=== PATIENT | female | born 2000 | race Caucasian/White ===

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

== ENCOUNTER → 2022-12-30 | Outpatient (CLI) | payer OTHER, SELFPAY ==
[2022-12-30 16:45] LABS: AST(SGOT) 12 U/L (15-37); Alanine Aminotransfer ALT/SGPT 20 U/L (13-56); Albumin, Serum 3.6 g/dL (3.2-5.0); Alkaline Phosphatase 70 U/L (45-117); Anion Gap 6 (5-15); BUN 12 mg/dL (7-18); BUN/Creat Ratio 16.4 RATIO (10-20); Calcium,Total 8.8 mg/dL (8.5-10.1); Chloride 108 mmol/L (98-107); Cholesterol 194 mg/dL (200); Creatinine, Serum 0.73 mg/dL (0.55-1.02); EST Glomerular Filtration Rate 107 mL/min (>60); Est Glom Filt Rate - Afr Amer 129 mL/min (>60); Globulin 3.7 g/dL (2.2-4.2); Glucose 93 mg/dL (74-106); High Density Lipoprotein 66 mg/dL; Potassium 3.6 mmol/L (3.5-5.1); Protein, Total 7.3 g/dL (6.4-8.2); Sodium Level 138 mmol/L (136-145); T4 Free Direct 1.13 ng/dL (0.76-1.46); Thyroid Stim Hormone (TSH) 0.91 uIU/mL (0.358-3.74); Triglycerides 66 mg/dL; Very Low Density Lipoprotein 13 mg/dL (5-40)
== END | disposition home or self-care (01) ==
PROVIDERS: PCP Nurse Practitioner Family; Referring Provider Nurse Practitioner Family; Visit Provider Nurse Practitioner Family
DX: L65.9 Nonscarring hair loss, unspecified (principal); Z13.6 Encounter for screening for cardiovascular disorders; Z13.1 Encounter for screening for diabetes mellitus
CPT/HCPCS: 36415; 80053; 80061; 84439; 84443

== ENCOUNTER → 2023-06-02 | Outpatient (CLI) | payer OTHER, SELFPAY ==
[2023-06-02 16:58] LABS: ALB/GLOB Ratio 1.2 RATIO (0.9-2.4); AST(SGOT) 10 U/L (15-37); Alanine Aminotransfer ALT/SGPT 19 U/L (13-56); Albumin, Serum 3.9 g/dL (3.2-5.0); Alkaline Phosphatase 59 U/L (45-117); Anion Gap 5 (5-15); BUN 9 mg/dL (7-18); BUN/Creat Ratio 11.5 RATIO (10-20); Calcium,Total 9.1 mg/dL (8.5-10.1); Chloride 109 mmol/L (98-107); Creatinine, Serum 0.78 mg/dL (0.55-1.02); EST Glomerular Filtration Rate 98 mL/min (>60); Est Glom Filt Rate - Afr Amer 119 mL/min (>60); Globulin 3.3 g/dL (2.2-4.2); Glucose 85 mg/dL (74-106); Potassium 3.9 mmol/L (3.5-5.1); Protein, Total 7.2 g/dL (6.4-8.2); Sodium Level 140 mmol/L (136-145); T4 Free Direct 1.01 ng/dL (0.76-1.46); Thyroid Stim Hormone (TSH) 1.03 uIU/mL (0.358-3.74)
--- OUTSIDE RECORDS SUMMARY | 2023-06-02 23:40 | XMS RPT_ITS | CCD ---
Author Name Unknown Address [address] [place] [address] Organization [facility] Care Team Providers Care Risk Modeler Name Role Phone ALEXANDR ADAMS, NE Primary Care Physician NE CORTES Attending Unavail able ALEXANDR ADAMS, NE Primary Care Unavail able NE CORTES Primary Care Unavail able MERT JORGENSEN Attending UnavailBEAR Higuera Attending Unavailable ALEXANDR ADAMS, NE Primary Care Unavail able Medications Current Medications Medication Drug Class(es) Dates Sig (Normalized) Sig (Original) acetaminophen 500 mg oral tablet (2 sources) Start: 06-26-2022 acetaminophen 500 mg oral tablet Dose : 1,000 mg = 2 tab(s), Oral, TID, PRN pain or fever, 0 Refill(s) Start Date: 06/26/22 Status: Ordered amoxicillin 500 mg oral capsule (1 source) Penicillin-class Antibacterial Start: 06-26-2022 End: 07-06-2022 amoxicillin 500 mg oral capsule Dose : 500 mg = 1 cap(s), Oral, BID, X 10 day(s), # 20 cap(s), 0 Refill(s), 07/06/22 8:53:00 EDT, Pharmacy: [facility]/pharmacy #[id number], Strep pharyngitis, 158.75, cm, 06/26/22 8:21:00 EDT, Height Start Date: 06/26/22 Stop Date: 07/06/22 Status: Ordered {7 (Ethinyl Estradiol 0.035 MG / norgestimate 0.18 MG Oral Tablet) / 7 (Ethinyl Estradiol 0.035 MG / norgestimate 0.215 MG Oral Tablet) / 7 (Ethinyl Estradiol 0.035 MG / norgestimate 0.25 MG Oral Tablet) / 7 (Inert Ingredients 1 MG Oral Tablet) } Pack [Tr (1 source) Progestin, Estrogen Start: 12-30-2022 take 1 tablet by mouth once daily Tri-Sprintec oral tablet Dose = 1 tab(s), Oral, Daily, # 28 tab(s), 3 Refill(s), Pharmacy: [facility]/pharmacy #[id number], 157.5, cm, 12/30/22 13:55:00 EDT, Height, kg, 12/30/22 13:55:00 EDT, Dosing Weight Start Date: 12/30/22 Status: Ordered predniSONE 20 mg oral tablet (1 source) Start: 06-26-2022 End: 07-02-2022 take 1 tablet by mouth once daily prednisone 20mg tab (TAPER) Taper 60-40-20 mg x 2 days each dose, Oral, Daily, X 6 day(s), # 12 tab(s), 0 Refill(s), 07/02/22 16:43:00 EDT, Pharmacy: [facility]/pharmacy #[id number], Strep pharyngitis, 158.75, cm, 06/26/22 8:21:00 EDT, Height Start Date: 06/26/22 Stop Date: 07/02/22 Status: Ordered sertraline 50 mg oral tablet (1 source) Serotonin Reuptake Inhibitor Start: 01-13-2023 End: 07-12-2023 sertraline 50 mg oral tablet Dose : 50 mg = 1 tab(s), Oral, qDay, # 30 tab(s), 5 Refill(s), Pharmacy: [facility]/pharmacy #[id number], 157.5, cm, 01/13/23 13:03:00 EDT, Height, kg, 01/13/23 13:03:00 EDT, Dosing Weight Start Date: 01/13/23 Stop Date: 07/12/23 Status: Ordered Completed/Discontinued Medications Medication Drug Class(es) Dates Sig (Normalized) Sig (Original) {24 (drospirenone 3 MG / Ethinyl Estradiol 0.02 MG Oral Tablet) / 4 (Inert Ingredients 1 MG Oral Tablet) } Pack [Frederickvi 28-Day] (2 sources) Progestin, Estrogen Start: 06-25-2022 End: 08-19-2023 take 1 tablet by mouth once daily Gianvi 3 mg-0.02 mg oral tablet Dose = 1 tab(s), Oral, qDay, # 84 tab(s), 4 Refill(s), Pharmacy: [facility], 157.5, cm, 01/08/22 13:48:00 EDT, Height, kg, 01/08/22 13:48:00 EDT, Dosing Weight Start Date: 06/25/22 Stop Date: 08/19/23 Status: Ordered Problems Active Problems Problem Classification Problem Date Documented Da te Episodic/Chronic Allergic reactions (1 source) Contact dermatitis 10-15-2022 Episodic Anxiety disorders (4 sources) Anxiety 04-10-2021 Chronic Contraceptive and procreative management (3 sources) Oral contraception 01-08-2022 Episodic Menstrual disorders (1 source) Break-through bleeding 12-30-2022 Chronic Mood disorders (1 source) Major depressive disorder 01-13-2023 Chronic Other bone disease and musculoskeletal deformities (3 sources) Somatic dysfunction of lower limb 05-15-2021 Episodic Other bone disease and musculoskeletal deformities (3 sources) Somatic dysfunction of pelvic region 05-15-2021 Episodic Other non-traumatic joint disorders (3 sources) Hip pain 05-15-2021 Episodic Other skin disorders (4 sources) Acne 04-18-2020 Episodic Other skin disorders (1 source) Loss of hair 12-30-2022 Episodic Other skin disorders (1 source) Mass of hand 12-30-2022 Episodic Unclassified (9 sources) Patient encounter status 04-18-2020 Past or Other Problems Problem Classification Problem Date Documented Date Episodic/Chronic Genitourinary symptoms and ill-defined conditions (2 sources) Unspecified symptoms and signs involving the genitourinary system; Translations: [Unspecified symptoms and signs involving the genitourinary system] Onset: 08-26-2022 Episodic Other upper respiratory infections (2 sources) Streptococcal pharyngitis; Translations: [Streptococcal pharyngitis] Onset: 06-26-2022 Episodic Results Test Name Value Interpretation Reference Range Facil ity Encounters Encounter Date Encounter Type Care Provider Facility Start: 01-15-2023 End: 01-16-2023 ambulatory NE LORSON CLINICAL RESOURCE MANAGER-RING ATTACHER Facility:B Start: 01-15-2023 End: 01-15-2023 Patient encounter procedure NE STRANGE CLINICAL RESOURCE MANAGER-RING ATTACHER [facility] Start: 08-26-2022 End: 08-31-2022 ambulatory NE STRANGE CLINICAL RESOURCE MANAGER-RING ATTACHER Facility:B Start: 06-26-2022 End: 07-01-2022 ambulatory BEAR IZQUIERDO Facility:B Start: 06-26-2022 End: 06-30-2022 Outreach Lab BEAR IZQUIERDO CLINICAL RESOURCE MANAGER-RING ATTACHER [facility] Start: 01-08-2022 End: 01-12-2022 Outreach Lab NE STRANGE CLINICAL RESOURCE MANAGER-RING ATTACHER [facility] Start: 04-12-2021 End: 04-12-2021 Patient encounter procedure BOWEN NGUYENERS CLINICAL RESOURCE MANAGER-RING ATTACHER [facility] Procedures Date Procedure Procedure Detail Performing Clinician None (qualifier value) [facility] [employer] Immunizations Immunization Date Immunization Notes Care Provider Fa cili 12-06-2020 COVID-19, mRNA, LNP- S, PF, 100 mcg/ 0.5 mL dose; Translations: [Moderna COVID-19 Vaccine] [facility]INICAL RESOURCE MANAGER-RING ATTACHER [facility] 11-08-2020 COVID-19, mRNA, LNP- S, PF, 100 mcg/ 0.5 mL dose; Translations: [Moderna COVID-19 Vaccine] [facility] [facility] 10-11-2019 meningococcal B vacc ine, recombinant, OMV, adjuvanted [facility]INICAL RESOURCE MANAGER[facility] 05-19-2018 hepatitis A vaccine, pediatric dosage, unspecified formulation [facility]INICAL RESOURCE MANAGER[facility] 05-19-2018 Human Papillomavirus Quadval [facility]INICAL RESOURCE MANAGER[facility] 05-19-2018 meningococcal polysaccharide (groups A, C, Y and W-135) diphtheria toxoid conjugate vaccine (MCV4P) [facility]INICAL RESOURCE MANAGER[facility] 09-05-2017 Human Papillomavirus Quadval [facility]INICAL RESOURCE MANAGER[facility] 05-13-2017 hepatitis A vaccine, pediatric dosage, unspecified formulation [facility]INICAL RESOURCE MANAGER[facility] 05-13-2017 Human Papillomavirus Quadval [facility]INICAL RESOURCE MANAGER[facility] 09-08-2006 measles/mumps/rubell a virus vaccine [facility]INICAL RESOURCE MANAGER[facility] 09-08-2006 poliovirus vaccine, inactivated [facility]INICAL RESOURCE MANAGER[facility] 09-08-2006 varicella virus vaccine [facility]INICAL RESOURCE MANAGER[facility] 12-30-2003 poliovirus vaccine, inactivated [facility]INICAL RESOURCE MANAGER[facility] 05-19-2003 haemophilus influenz ae type b conjugate and Hepatitis B vaccine [facility]INICAL RESOURCE MANAGER[facility] 05-19-2003 poliovirus vaccine, inactivated [facility]ICAL RESOURCE MANAGER[facility] 05-19-2003 varicella virus vaccine [facility]INICAL RESOURCE MANAGER[facility] 08-31-2002 measles/mumps/rubell a virus vaccine [facility]INICAL RESOURCE MANAGER[facility] 03-02-2002 haemophilus influenz ae type b vaccine, PRP-T conjugate [facility] RESOURCE MANAGER[facility] 2001 haemophilus influenz ae type b vaccine, PRP-T conjugate [facility] 2001 pneumococcal polysaccharide vaccine, 23 valent [facility]IN[facility] RESOURCE MANAGER[facility] 2001 haemophilus influenz ae type b vaccine, HbOC conjugate [facility]INICAL RESOURCE MANAGER[facility] 2001 hepatitis B pediatri c vaccine [facility]ICAL RESOURCE MANAGER[facility] 2001 poliovirus vaccine, inactivated [facility] [employer]INICAL RESOURCE MANAGER-RING ATTACHER [facility] 2001 hepatitis B pediatri c vaccine [facility] [employer]INICAL RESOURCE MANAGER-RING ATTACHER [facility] Payers Date Payer Category Payer Private Health Insurance [id number] 2001 Unknown [id number] 2001 Unknown [id number] 2001 Unknown [id number] Social History Date Type Detail Facility Start: 04-18-2020 Never smoked t obacco (finding) [facility] Sex Assigned At [facility] Clinical Note 01-15-2023 Note Date & Type Note Facility 01-15-2023 Note ORIGINAL EXAMINATION: SOFT TISSUE ULTRASOUND OF THE RIGHT PPHDNFYTU91/11/2023 1:26 pm TECHNIQUE: Duplex ultrasound using B-mode/connelly scaled imaging and Doppler spectral analysis and color flow was obtained of the right extremity. COMPARISON: None HISTORY: ORDERING SYSTEM PROVIDED HISTORY: Reason for Exam: right hand mass, palmar surface FINDINGS: Scanning of palpable abnormality in the medial palmar aspect of the proximal hand shows an irregularly-shaped hypoechoic to anechoic abnormality in the deep subcutaneous soft tissues that is about 10 x 6 x 3 mm. This is probably a mildly complex fluid collection with no blood flow. This does not seem to be peritendinous. IMPRESSION: Small irregularly-shaped fluid collection in the subcutaneous space may be from cellulitis, trauma or inflammatory causes. Correlate clinically. Interpreted by: Faraz Yao MD Preliminary Report By: Faraz Yao MD Electronically signed By Faraz Yao MD Dictated Date: 01/15/2023 2:48:28 PM Prelim Date: 01/15/2023 2:50:31 PM Sign Date: 01/15/2023 2:50:31 PM Ordering Provider: NE STRANGE [facility] Clinical Note 08-28-2022 Note Date & Type Note Facility 08-28-2022 Note . MICRO - Microbiology PROCEDURE: Urine Culture [*1] SOURCE: Urine, Clean Catch BODY SITE: COLLECTED DATE/TIME: 08/26/2022 16:26 EDT RECEIVED DATE/TIME: 08/26/2022 19:37 EDT START DATE/TIME: 08/26/2022 19:37 EDT FREE TEXT SOURCE: FINAL REPORTS Final Report [] Verified Date/Time/Personnel: 08/28/2022 07:44 EDT 50,000 - 100,000 cfu/ml Mixed growth consistent with normal urogenital justino. PRELIMINARY REPORTS Preliminary Report [] Verified Date/Time/Personnel: 2022 09:22 EDT No growth to date Performing Locations *1: This test was performed at: [address], [facility] , [facility] Clinical Note 06-28-2022 Note Date & Type Note Facility 06-28-2022 Note . MICRO - Microbiology PROCEDURE: Throat Culture [*1] SOURCE: Throat BODY SITE: COLLECTED DATE/TIME: 06/26/2022 10:19 EDT RECEIVED DATE/TIME: 06/26/2022 21:09 EDT START DATE/TIME: 06/26/2022 21:09 EDT FREE TEXT SOURCE: FINAL REPORTS Final Report [] Verified Date/Time/Personnel: 06/28/2022 14:44 EDT Normal throat justino present Sensitivity Testing: Not Indicated PRELIMINARY REPORTS Preliminary Report [] Verified Date/Time/Personnel: 06/27/2022 09:59 EDT Culture results pending. Performing Locations *1: This test was performed at: [address], [facility] , [facility] ([place]) Evaluation + Plan note Note Date & Type Note Facility Evaluation + Plan note No data available for this section [facility] Evaluation + Plan note Note Date & Type Note Facility Evaluation + Plan note Future Appointments Appointment Date:02/17/2023 02:00:00 PM Scheduled Provider:IRINA MONTANO Location:[facility] Appointment Type:PC OV Follow Up [facility] Hospital Discharge instructions Note Date & Type Note Facility Hospital Discharge instructions No data available for this section [facility] Progress note Note Date & Type Note Facility Progress note No data available for this section [facility] Summary Purpose Family History No Family History Records Found No data available for this section No Family History Records Found Advance Directives No Advanced Directives Records FoundNo Advanced Directives Records Found Additional Source Comments INFORMATION SOURCE (unrecogn ized section and content) DATE CREATED AUTHOR AUTHOR'S ORGANIZ ATION 01/17/2023 [facility] ([place] Care Team (unrecognized sect ion and content) Care Team Personnel Name: NE STRANGE Position: P4 Advanced Practice Nurse Med Service: Active Provider Member Role: Primary Care Physician Address: Address: [address] [place] [id number] [place] [address] Care Team Related Persons Name: NICOLE BLANCA Name: ARABELLA BLANCA Address: Home [address] [place], [place] [id number] [place] Address: Temporary [address] [place], [place] [id number] Patient Care team informatio n (unrecognized section and content) Care Team Personnel Name: NE STRANGE Position: P4 Advanced Home Health Attendant Member Role: Primary Care Physician Address: Address: [address] [place] [id number] Care Team Related Persons Name: NICOLE BLANCA Name: ARABELLA BLANCA Address: Home [address] [place], [place] [id number] [place] Address: Temporary [address] [place], [place] [id number] Care Team Personnel Name: NE STRANGE CLINICAL RESOURCE MANAGER-RING ATTACHER Position: P4 Advanced Home Health Attendant Member Role: Primary Care Physician Address: Address: [address] [place] [address] Physicians [place], [place] [address] Care Team Related Persons Name: NICOLE BLANCA Name: ARABELLA BLANCA Address: Home [address] [place], [place] [id number] Address: Temporary [address] [place] [id number] Name: ARABELLA BLANCA Address: Home [address] [place], [place] [id number] Address: Temporary [address] [place], [place] [id number] FOR RECORDS PERTAINING TO PATIENTS WHO ARE OR HAVE BEEN ENROLLED IN A CHEMICAL DEPENDENCY/SUBSTANCEABUSE PROGRAM, SOME INFORMATION MAY BE OMITTED. This clinical summary was aggregated from multiple sources. Caution should be exercised in using it in the provision of clinical care. This summary normalizes information from multiple sources, and as a consequence, information in this document may materially change the coding, format and clinical context of patient data. In addition, data may be omitted in some cases. CLINICAL DECISIONS SHOULD BE BASED ON THE PRIMARY CLINICAL RECORDS. [employer] [facility]. provides no warranty or guarantee of the accuracy or completeness of information in this document.
== END | disposition home or self-care (01) ==
PROVIDERS: PCP Nurse Practitioner Family; Visit Provider Nurse Practitioner Family
DX: I49.9 Cardiac arrhythmia, unspecified (principal)
CPT/HCPCS: 36415; 80053; 84439; 84443

== ENCOUNTER → 2023-08-27 | Outpatient (CLI) | payer OTHER, SELFPAY ==
--- NOTE | 2023-08-27 14:01 | US_ITS ---
EXAM: US PELVIS TRANSABDOMINAL AND TRANSVAGINAL, COMPLETE CLINICAL INDICATION: RIGHT PELVIC PAIN TECHNIQUE: Transabdominal and endovaginal pelvic ultrasound was performed with grayscale and color Doppler imaging. Endovaginal imaging was used for better evaluation of the endometrium and adnexa. COMPARISON: No relevant prior studies available. FINDINGS: UTERUS/CERVIX: Uterus measures 7.3 x 5 5 x 3.6 cm with endometrial thickness of 4 mm. Uterus is retroflexed on the endovaginal scan. No evidence of a uterine mass. RIGHT OVARY: Normal. Blood flow is present in the right ovary. The right ovary measures 2.9 x 2.4 x 1.0 cm. LEFT OVARY: Normal. Blood flow is present in the left ovary. The left ovary measures 2.4 x 2.2 x 1.1 cm. FREE FLUID: None. US/Pelvic w/ Transvaginal IMPRESSION: Normal-sized retroflexed uterus. Normal ovaries. Electronically Signed: Nikolas Levine MD at 16:43 EDT ,
== END | disposition home or self-care (01) ==
LOC: US 13:56
PROVIDERS: PCP Nurse Practitioner Family; Referring Provider Nurse Practitioner Family; Visit Provider Nurse Practitioner Family
DX: R10.2 Pelvic and perineal pain (principal)
CPT/HCPCS: 76830; 76856

== ENCOUNTER → 2023-09-22 | Outpatient (CLI) | payer OTHER, SELFPAY | END | disposition home or self-care (01) | LOC: LABSPEC 15:19 | PROVIDERS: PCP Nurse Practitioner Family; Referring Provider Physician Assistant; Visit Provider Physician Assistant | DX: N39.0 Urinary tract infection, site not specified (principal) | CPT/HCPCS: 87086 ==

== ENCOUNTER → 2024-03-30 | Outpatient (CLI) | payer OTHER, SELFPAY ==
[2024-03-30 11:36] LABS: Anion Gap 4 (5-15); BUN 14 mg/dL (7-18); BUN/Creat Ratio 16.8 RATIO (10-20); Calcium,Total 9.5 mg/dL (8.5-10.1); Chloride 106 mmol/L (98-107); Creatinine, Serum 0.83 mg/dL (0.55-1.02); EST Glomerular Filtration Rate 91 mL/min (>60); Est Glom Filt Rate - Afr Amer 110 mL/min (>60); Estradiol 757.2 pg/mL; Glucose 89 mg/dL (74-106); Potassium 3.7 mmol/L (3.5-5.1); Sodium Level 140 mmol/L (136-145)
[2024-03-30 11:55] LABS: Syphilis Antibodies Non-reactive
[2024-04-02 04:06] LABS: PROGESTERONE 0.2 ng/mL (.)
[2024-04-05 09:06] LABS: Cotinine Screen Blood 181.2 ng/mL (.); HEPATITIS B SURFACE AG Negative (Negative); Hep C Antibodies Non Reactive (Non Reactive); Hepatitis A IgM Antibody Negative (Negative); Hepatitis B Core AB IgM Negative (Negative); Nicotine Blood 14.8 ng/mL (.)
== END | disposition home or self-care (01) ==
PROVIDERS: PCP Nurse Practitioner Family; Referring Provider Nurse Practitioner Family; Visit Provider Nurse Practitioner Family
DX: Z01.419 Encounter for gynecological examination (general) (routine) without abnormal findings (principal); Z11.3 Encounter for screening for infections with a predominantly sexual mode of transmission; Z78.9 Other specified health status; L70.9 Acne, unspecified
CPT/HCPCS: 36415; 80048; 80074; 80323; 82670; 84144; 84403; 86780; G0480

== ENCOUNTER → 2024-07-12 | Outpatient (CLI) | payer OTHER, SELFPAY ==
[2024-07-12 11:24] LABS: Absolute Lymphocyte Count 3.18 X10^3/uL (0.83-4.51); Absolute Neutrophil Count 5.4 X10^3/uL (2.0-7.7); Basophil# 0.13 X10^3/uL; Basophil% 1.3 % (0-1); Hematocrit 41.1 % (37-47); Hemoglobin 13.8 g/dL (12.0-15.0); Lymphocyte # 3.18 X10^3/ul (0.83-4.51); Lymphocyte % 31.9 % (19-41); Mean Corp Hgb Conc 33.6 g/dL (32-36); Mean Corpuscular Hgb 28.9 pg (27.0-32.0); Monocyte# 0.82 X10^3/uL; Monocyte% 8.2 % (0-10); NRBC Flagged by Analyzer 0 % (0-5); Neutrophil # 5.42 X10^3/uL (2.7-7.7); Neutrophil % 54.4 % (47-70); Platelet Count 355 K/mm3 (150-450); RBC Distribution Width CV 11.9 % (11.6-14.6); RBC Distribution Width SD 37.4 fl (35.1-43.9); Red Blood Count 4.78 M/mm3 (4.2-5.4)
[2024-07-12 11:41] LABS: Estradiol 60.8 pg/mL; Follicle Stimulating Hormone 5.6 mIU/mL; Luteinizing Hormone 9.8 mIU/mL
[2024-07-15 21:07] LABS: PROLACTIN 16.4 ng/mL (4.8-33.4); Testosterone Free 1.6 pg/mL (0.0-4.2)
== END | disposition home or self-care (01) ==
LOC: BWCLAB 09:19
PROVIDERS: PCP Nurse Practitioner Family; Visit Provider Nurse Practitioner Women's Health
DX: N92.6 Irregular menstruation, unspecified (principal); N93.9 Abnormal uterine and vaginal bleeding, unspecified
CPT/HCPCS: 36415; 82627; 82670; 83001; 83002; 83498; 84146; 84402; 85025; 82626

== ENCOUNTER 2024-09-01 11:59 | Outpatient (CLI) | payer OTHER, SELFPAY | END 2024-09-01 23:59 | disposition home or self-care (01) | LOC: LABSPEC 12:00 | PROVIDERS: PCP Nurse Practitioner Family; Referring Provider Nurse Practitioner Women's Health; Visit Provider Nurse Practitioner Women's Health | DX: Z11.3 Encounter for screening for infections with a predominantly sexual mode of transmission (principal) | CPT/HCPCS: 87491; 87591 ==

== ENCOUNTER 2024-12-23 06:14 | Emergency (ER) | payer OTHER, SELFPAY ==
[2024-12-23] VITALS (13 sets, daily range): BP systolic 99–125; BP diastolic 54–83; PULSE 52–86; RESP 14–18; TEMP 36.4–36.6; O2SAT 99–100; BMI 19.1
[2024-12-23] MEDS: Ketorolac 30 MG/ML Syringe IV (06:44)
[2024-12-23] MEDS: 0.9% Normal Saline (1000mL) 1,000 ML 999 ML IV (06:44)
[2024-12-23 06:54] LABS: Hematocrit 39.8 % (37-47); Hemoglobin 13.5 g/dL (12.0-15.0); Immature Granulocytes Count 0.090 X10^3/uL (0.0-0.0); Mean Corp Hgb Conc 33.9 g/dL (32-36); Mean Corpuscular Volume 86.7 fL (81-99); Mean Platelet Vol. 8.6 fl (6.2-12.0); NRBC Flagged by Analyzer 0 % (0-5); POSITIVE DIFFERENTIAL YES; Platelet Count 304 K/mm3 (150-450); RBC Distribution Width CV 11.9 % (11.6-14.6); RBC Distribution Width SD 37.4 fl (35.1-43.9); Red Blood Count 4.59 M/mm3 (4.2-5.4); White Blood Count 16.0 K/mm3 (4.4-11.0)
--- OUTSIDE RECORDS SUMMARY | 2024-12-23 06:57 | XMS RPT_ITS | CCD ---
Author Organization [facility] Inform ion [facility] Care Team Providers Care Business Banking Relationship Manager Name Role Phone MÓNICA CORTES Primary Care Physician MÓNICA STRANGE Primary Care Unavailable MÓNICA STRANGE Attending Unavailable MÓNICA STRANGE Primary Care Unavailable MÓNICA STRANGE Attending Unavailable MÓNICA STRANGE Attending Unavailable MÓNICA STRANGE Primary Care Unavailable MÓNICA STRANGE Primary Care Unavailable CHINA PERKINS Attending Unavailab le MÓNICA STRANGE Primary Care Unavailable MÓNICA STRANGE Attending Unavailable ALEXANDR MÓNICA Primary Care Unavailable NIEVES VORA DO Attending Unavailable ALEXANDR MÓNICA Primary Care Unavailable DR CLAUDIA PAIZ DO Attending Unavailabl e MÓNICA STRANGE Primary Care Unavailable MÓNICA STRANGE Attending Unavailable MÓNICA CORTES Primary Care Physician MÓNICA CORTES Attending Unavail able MÓNICA CORTES Primary Care Unavail able Alexandr BAIT PACKER-CMónica Primary Care Provider [phone] Alexandr BAIT PACKER-CMónica Attending Provider [phone] Alexandr BAIT PACKER-CMónica Referring Provider [phone] Chun BAIT PACKER-CSherri Attending Provider Alexandr BAIT PACKER-CMónica Primary Care Provider [phone] Alexandr BAIT PACKER-CMónica Referring Provider [phone] Chun BAIT PACKER-CSherri Referring Provider [phone] Alexandr BAIT PACKERMónica Primary Care Unavailable Chun BAIT PACKERSherri Attending Unavailable Chun BAIT PACKERSherri Referring Unavailable Alexandr BAIT PACKERMónica Referring Unavailable Chun BAIT PACKER, Sherri Attending Unavailable Alexandr BAIT PACKER, Mónica Primary Care Unavailable Cindyson BAIT PACKER, Mónica Referring Unavailable Cindyson BAIT PACKER, Mónica Primary Care Unavailable Chun BAIT PACKER, Sherri Attending Unavailable Alexandr BAIT PACKER, Mónica Referring Unavailable Cindyson BAIT PACKER, Mónica Primary Care Unavailable Cindyson BAIT PACKER, Mónica Attending Unavailable Cindyson BAIT PACKER, Mónica Primary Care Unavailable Chun BAIT PACKER, Sherri Attending Unavailable Alexandr BAIT PACKER, Mónica Referring Unavailable Cindyson BAIT PACKER, Mónica Primary Care Unavailable Chun BAIT PACKER, Sherri Attending Unavailable Medications Current Medications Medication Drug Class(es) Dates Sig (Normalized) Sig (Original) acetaminophen 500 mg oral tablet (8 sources) Start: 06-26-2022 acetaminophen 500 mg oral tablet Dose : 1,000 mg = 2 tab(s), Oral, TID, PRN pain or fever, 0 Refill(s) Start Date: 06/26/22 Status: Ordered Repeat number: 1 amoxicillin 500 mg oral capsule (1 source) Penicillin-class Antibacterial Start: 06-26-2022 End: 07-06-2022 amoxicillin 500 mg oral capsule Dose : 500 mg = 1 cap(s), Oral, BID, X 10 day(s), # 20 cap(s), 0 Refill(s), 07/06/22 8:53:00 EDT, Pharmacy: [facility]/pharmacy #[id number], Strep pharyngitis, 158.75, cm, 06/26/22 8:21:00 EDT, Height Start Date: 06/26/22 Stop Date: 07/06/22 Status: Ordered cholecalciferol 0.05 mg oral capsule (3 sources) Vitamin D Start: 07-12-2024 take 1 capsule by mouth once daily Cholecalciferol (Vitamin D3) 50 mcg (2,000 unit) capsule Active 50 ug PO daily July 12, 2024 12:00am doxycycline hyclate 100 mg oral capsule (1 source) Tetracycline-class Drug Start: 03-30-2024 take 1 capsule by mouth twice daily doxycycline hyclate 100 mg oral capsule TAKE 1 CAPSULE BY MOUTH TWICE A DAY FOR 7 DAYS Start Date: 03/30/24 Status: Ordered Repeat number: 1 ethinyl estradiol 0.02 mg / ferrous fumarate 75 mg / norethindrone 1 mg oral tablet (1 source) Estrogen Start: 09-19-2023 take 1 tablet by mouth once daily 04/26 oral tablet Dose = 1 tab(s), Oral, qDay, # 84 tab(s), 0 Refill(s), Pharmacy: [facility]/pharmacy #[id number], Metrorrhagia Breakthrough bleeding on OCPs, 157.5, cm, 09/19/23 10:28:00 EDT, Height, kg, 09/19/23 10:28:00 EDT, Dosing Weight Start Date: 09/19/23 Status: Ordered Norgestimate-Ethinyl Estradiol (7 sources) Progestin, Estrogen Start: 09-01-2024 take 0.25 tablet by mouth once daily Norgestimate-Ethinyl Estradiol (Sprintec (28)) 0.25-0.035 mg tablet Active 1 {tbl} PO daily September 01, 2024 12:00am Start: 07-29-2023 take 1 tablet by benita once daily Tri-Sprintec oral tablet Dose = 1 tab(s), Oral, Daily, # 90 tab(s), 3 Refill(s), Pharmacy: [facility]/pharmacy #[id number], 158, cm, 06/25/23 10:03:00 EDT, Height, kg, 06/25/23 10:03:00 EDT, Dosing Weight Start Date: 07/29/23 Status: Ordered Start: 04-18-2023 take 1 tablet by benita once daily Tri-Sprintec oral tablet Dose = 1 tab(s), Oral, Daily, # 90 tab(s), 0 Refill(s), Pharmacy: [facility]/pharmacy #[id number], 157.5, cm, 02/17/23 14:05:00 EST, Height, kg, 02/17/23 14:01:00 EST, Dosing Weight Start Date: 04/18/23 Status: Ordered Start: 12-30-2022 take 1 tablet by benita once daily Tri-Sprintec oral tablet Dose = 1 tab(s), Oral, Daily, # 28 tab(s), 3 Refill(s), Pharmacy: [facility]/pharmacy #[id number], 157.5, cm, 12/30/22 13:55:00 EDT, Height, kg, 12/30/22 13:55:00 EDT, Dosing Weight Start Date: 12/30/22 Status: Ordered medroxyPROGESTERone acetate 10 mg oral tablet (4 sources) Progestin Start: 09-01-2024 take 1 tablet by mouth once daily Medroxyprogesterone 10 mg tablet Active 10 mg PO daily 01 14September 01, 2024 12:00am September 10, 2024 12:00am Start: 07-18-2024 End: 07-28-2024 take 1 tablet by mouth once daily Medroxyprogesterone 10 mg tablet Discontinued 10 mg PO daily 01 14July 18, 2024 12:00am July 27, 2024 12:00am July 28, 2024 12:07am 24 hr metoprolol succinate 25 mg extended release oral tablet (1 source) beta-Adrenergic Isra Start: 10-01-2023 metoprolol succinate 25 mg oral TABLET extended release Dose : 25 mg = 1 tab(s), Oral, qDay, Do not crush or chew (controlled release), # 30 tab(s), 1 Refill(s), Pharmacy: [facility]/pharmacy #[id number], 157.5, cm, 10/01/23 14:51:00 EDT, Height, kg, 10/01/23 14:51:00 EDT, Dosing Weight Start Date: 10/01/23 Status: Ordered predniSONE 20 mg oral tablet (1 source) Start: 06-26-2022 End: 07-02-2022 take 1 tablet by mouth once daily prednisone 20mg tab (TAPER) Taper 60-40-20 mg x 2 days each dose, Oral, Daily, X 6 day(s), # 12 tab(s), 0 Refill(s), 07/02/22 16:43:00 EDT, Pharmacy: [facility]/pharmacy #[id number], Strep pharyngitis, 158.75, cm, 06/26/22 8:21:00 EDT, Height Start Date: 06/26/22 Stop Date: 07/02/22 Status: Ordered spironolactone 50 mg oral tablet (1 source) Aldosterone Antagonist Start: 03-30-2024 take 1 tablet by mouth once daily in the evening spironolactone 50 mg oral tablet TAKE ONE TABLET ONCE DAILY IN THE EVENING WITH A FULL GLASS OF WATER. Start Date: 03/30/24 Status: Ordered Repeat number: 1 Completed/Discontinued Medications Medication Drug Class(es) Dates Sig (Normalized) Sig (Original) acetaminophen 325 mg / HYDROcodone bitartrate 5 mg oral tablet (4 sources) Opioid Agonist Start: 05-23-2019 End: 05-26-2019 Hydrocodone-Acetami nophen 1 TABLET tablet Discontinued 1 {tbl} PO EVERY 6 HOURS NEEDED as needed for Pain 01 07May 23, 2019 May 25, 2019 1:00am May 26, 2019 1:08am Start: 05-23-2019 End: 05-26-2019 take 1 tablet by mouth every six hours as needed Hydrocodone-Acetaminophen Discontinued 1 TABLET PO EVERY 6 HOURS NEEDED 01 07May 23, 2019 May 26, 2019 12:08am {24 (drospirenone 3 MG / Ethinyl Estradiol 0.02 MG Oral Tablet) / 4 (Inert Ingredients 1 MG Oral Tablet) } Pack [Gianvi 28-Day] (6 sources) Progestin, Estrogen Start: 06-25-2022 End: 08-19-2023 take 1 tablet by mouth once daily Gianvi 3 mg-0.02 mg oral tablet Dose = 1 tab(s), Oral, qDay, # 84 tab(s), 4 Refill(s), Pharmacy: [facility], 157.5, cm, 01/08/22 13:48:00 EDT, Height, kg, 01/08/22 13:48:00 EDT, Dosing Weight Start Date: 06/25/22 Stop Date: 08/19/23 Status: Ordered Start: 01-08-2022 End: 03-04-2023 take 1 tablet by mouth once daily Gianvi 3 mg-0.02 mg oral tablet Dose = 1 tab(s), Oral, qDay, # 84 tab(s), 4 Refill(s), Pharmacy: [facility], 157.5, cm, 01/08/22 13:48:00 EDT, Height, kg, 01/08/22 13:48:00 EDT, Dosing Weight Start Date: 01/08/22 Stop Date: 03/04/23 Status: Ordered Start: 05-23-2019 End: 07-12-2024 Drospirenone-Ethinyl Estradi ol 1 EACH tablet Discontinued 1 {tbl} PO DAILY May 23, 2019 1:00am July 12, 2024 7:04am Start: 05-23-2019 take 1 tablet by once daily Drospirenone-Ethinyl Estradiol Active 1 TABLET PO DAILY May 23, 2019 12:00am Gianvi 3 mg-0.02 mg oral tablet (1 source) Start: 12-26-2020 take 1 tablet by mouth once daily Gianvi 3 mg-0.02 mg oral tablet Dose = 1 tab(s), Oral, qDay, # 90 tab(s), 3 Refill(s), Pharmacy: [facility], 160.6, cm, 06/28/20 15:21:00 EDT, Height, kg, 06/28/20 15:21:00 EDT, Dosing Weight Start Date: 12/26/20 Status: Ordered ketorolac tromethamine 10 mg oral tablet (4 sources) Nonsteroidal Anti-inflammatory Drug, Cyclooxygenase Inhibitor Start: 05-23-2019 End: 09-22-2023 take 1 tablet by mouth every six hours as needed for pain Ketorolac 10 MG tablet Discontinued 10 mg PO EVERY 6 HOURS as needed for Pain Score 4-10/10 May 23, 2019 11:20pm September 22, 2023 11:48am nitrofurantoin, macrocrystals 25 mg / nitrofurantoin, monohydrate 75 mg oral capsule (3 sources) Nitrofuran Antibacterial Start: 09-22-2023 End: 09-27-2023 take 1 capsule by mouth every twelve hours at mealtime Nitrofurantoin Monohyd/M-Cryst (Macrobid) 100 mg capsule Discontinued 100 mg PO Q12H 10 September 22, 2023 12:00am September 26, 2023 12:00am September 27, 2023 12:16am must administer with a meal/food ondansetron 4 mg disintegrating oral tablet (4 sources) Serotonin-3 Receptor Antagonist Start: 05-23-2019 End: 09-22-2023 take 1 tablet by mouth every eight hours as needed for nausea Ondansetron 4 MG tablet Discontinued 4 mg PO EVERY 8 HOURS NEEDED as needed for Nausea May 23, 2019 1:00am September 22, 2023 11:48am sertraline 50 mg oral tablet (9 sources) Serotonin Reuptake Inhibitor Start: 07-29-2023 End: 07-12-2024 take 1 tablet by mouth once daily Sertraline 50 mg tablet Discontinued 50 mg PO daily September 22, 2023 12:00am July 12, 2024 8:49am Start: 01-13-2023 End: 07-12-2023 sertraline 50 mg oral tablet Dose : 50 mg = 1 tab(s), Oral, qDay, # 90 tab(s), 0 Refill(s), Pharmacy: [facility]/pharmacy #[id number], 157.5, cm, 02/17/23 14:05:00 EST, Height, kg, 02/17/23 14:01:00 EST, Dosing Weight Start Date: 04/18/23 Status: Ordered Problems Active Problems Problem Classification Problem Date Documented Da te Episodic/Chronic Abdominal pain (5 sources) Pain in pelvis; Translations: [Pelvic and perineal pain] Onset: 4 08-04-2023 Episodic Allergic reactions (7 sources) Contact dermatitis 10-15-2022 Episodic Anxiety disorders (10 sources) Anxiety 04-10-2021 Chronic Calculus of urinary tract (4 sources) Kidney stone; Translations: [Calculus of kidney] 05-24-2019 Episodic Conduction disorders (4 sources) Bundle branch block 06-02-2023 Chronic Contraceptive and procreative management (9 sources) Oral contraception 01-08-2022 Episodic Gastrointestinal hemorrhage (1 source) Gastrointestinal hemorrhage; Translations: [Gastrointestinal hemorrhage, unspecified] Onset: 4 Episodic Heart valve disorders (3 sources) Mitral valve prolapse; Translations: [Nonrheumatic mitral (valve) prolapse] 09-22-2023 Chronic Heart valve disorders (6 sources) Irregular heart beat 06-02-2023 Episodic Immunizations and screening for infectious disease (3 sources) Encounter for screening for infections with a predominantly sexual mode of transmission; Translations: [Encounter for screening for infections with a predominantly sexual mode of transmission] Onset: 4 Episodic Menstrual disorders (12 sources) Break-through bleeding; Translations: [Irregular periods] Onset: 5 12-30-2022 Chronic Mood disorders (10 sources) Major depressive disorder; Translations: [Depressive disorder] 01-13-2023 Chronic Other and unspecified benign neoplasm (6 sources) Benign neoplasm of soft tissue 06-02-2023 Episodic Other bone disease and musculoskeletal deformities (9 sources) Somatic dysfunction of lower limb 05-15-2021 Episodic Other bone disease and musculoskeletal deformities (9 sources) Somatic dysfunction of pelvic region 05-15-2021 Episodic Other endocrine disorders (6 sources) Hyperestrogenism; 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] 07-12-2024 Chronic Other female genital disorders (5 sources) Abnormal uterine bleeding; Translations: [Abnormal uterine and vaginal bleeding, unspecified] 07-13-2024 Chronic Comment on above: failed loloestrin, s printec, joe Other female genital disorders (1 source) Abnormal uterine and vaginal bleeding, unspecified; Translations: [Abnormal uterine and vaginal bleeding, unspecified] Onset: Chronic Other non-traumatic joint disorders (9 sources) Hip pain 05-15-2021 Episodic Other screening for suspected conditions (not mental disorders or infectious disease) (12 sources) Electrocardiogram abnormal; Translations: [Increased testosterone level] 06-02-2023 Episodic Other skin disorders (17 sources) Acne; Translations: [Acne, unspecified] 04-18-2020 Episodic Other skin disorders (7 sources) Loss of hair 12-30-2022 Episodic Other skin disorders (7 sources) Mass of hand 12-30-2022 Episodic Other skin disorders (7 sources) Hirsutism; Translations: [Hirsutism] 07-12-2024 Episodic Residual codes; unclassified (1 source) Family history of breast cancer 03-30-2024 Episodic Unclassified (20 sources) Patient encounter status 04-18-2020 Past or Other Problems Problem Classification Problem Date Documented Da te Episodic/Chronic Other and unspecified benign neoplasm (2 sources) Melanocytic nevi, unspecified; Translations: [Melanocytic nevi, unspecified] Onset: 06-25-2023 Episodic Results Test Name Value Interpretation Reference Range Facility Chlamydia/GC PACO aptimaon CHLAMY,NUC ACID Normal [facility] Comment on above: Result Comment: TALK ED TO JACQUIE URINE IS TO BE RAN INHOUSE Performed By: #### L 509.3000, L3000.0375, L3600.3400, L509.8000, L500.2500, L3300.1750, L801.2600 #### [facility] [address] [place], [address] GC BY NUC ACID Normal [facility] Comment on above: Result Comment: TALK ED TO JACQUIE URINE IS TO BE RAN INHOUSE Performed By: #### L 509.3000, L3000.0375, L3600.3400, L509.8000, L500.2500, L3300.1750, L801.2600 #### [facility] [address] [place], [address] Laboratory - Chemistry and C hemistry - challengeOrdered By: Sherri Mccollum on 09-01-2024 HCG ( test) Ql (U) Negative [facility] [id number] 09-01-2024 M8200.2203 Pending Chlamydia Trachomatis PCR NEGATIVE for Chlamydia trachomatis N. gonorrhoeae PCR Negative for N. gonorrhoeae Normal [facility] Comment on above: Performed By: #### L 509.3000, L3000.0375, L3600.3400, L509.8000, L500.2500, L3300.1750, L801.2600 #### [facility] [address] [place], [place], [address] Manager Investment Banking Office Visit Reporton 09-01-2024 Manager Investment Banking Office Visit Report [facility] [address], [address] [place] [address] OFFICE VISIT Date of Service: 09/01/24 MR#: [id number] Acct: [id number] Name: KIERRA BLANCA Rep #: [id number] : 2000 Provider: BERENICE sy Age/Sex: 24/F Location: [facility] Status: Signed Intake Vital Signs 07/12/24 08:55 09/01/24 11:26 09/01/24 11:31 Height 5 ft 2 in 5 ft 2 in 5 ft 2 in Weight: 105 lb 2 oz BMI 19.2 BP 104/62 Intake Visit Reasons: 5 week progesterone F/U *$20 copay Chief Complaint: 5 Week Progesterone f/u Technical Communication Teacher Required: No Is patient in pain?: No Allergies No Known Allergies Allergy (Verified 09/01/24 11:26) Medications ???Medication ???Instructions ???Recorded ???Confirmed ???Type cholecalciferol (vitamin D3) 50 50 mcg PO QDAY 07/12/24 09/01/24 H istory mcg (2,000 unit) capsule medroxyprogesterone 10 mg tablet 10 mg PO QDAY 10 days #10 tabs 09/01/24 Rx norgestimate 0.25 mg-ethinyl 1 tab PO QDAY #28 tabs 09/01/24 Rx estradiol 0.035 mg tablet (Sprintec (28)) Is last menstrual period known: Yes Last Menstrual Period: 07/20/24 Post menopausal: No Patient : No : No PFSH Medical History Depression MVP (mitral valve prolapse) Surgical History No significant past surgical history Family History Mother Breast cancer, Onset Age: 53 BRCA Negative Aunt Breast cancer Maternal Grandmother Breast cancer Maternal Brother History of pineal cyst Glioma Other Diabetes Heart disease Kidney disease Social History current occupational status: employed current occupation: [employer] Cigarette Use: with nicotine alcohol intake: never substance use type: marijuana seatbelt use: always do you feel safe at home: Yes HPI 5 week progesterone F/U *$20 copay Details: KIERRA BLANCA is a 24 year old who presents for follow up use of provera challenge. She did have a 5 days, heavy bleed after 10 days of provera. Start 07/20 and no bleeding since then. She is now sexually active, new partner, not always consistent with condoms. She would like to try OCP again. Did have BTB with joe. Struggles with acne Female Reproductive History Last Menstrual Period: 07/20/24 Questions: metorrhagia: No, sexually active: Yes, dyspareunia: No and PCB: No History 0 Elective abortions Hx Para Spontaneous abortions Hx # Term Pregnancies Ectopic pregnancies Hx # Pregnancies Multiple births # of living children ROS Const Constitutional: Reports system reviewed and no additional complaints, except as documented Eyes Eyes: Reports system reviewed and no additional complaints, except as documented GI GI: Denies abdominal pain or change in bowel habits : Reports as per HPI Exam Const General: cooperative and no acute distress Orientation: oriented x3 HENMT Head: normal to inspection and normocephalic Eyes General: appearance normal, both eyes and all related structures Neck Neck: normal visual inspection Resp Effort Inspection: normal respiratory effort Neuro Cognition: normal cognition Speech: speech normal Psych Appearance: grossly normal Mood: congruent mood Affect: normal affect Speech and Movement: speech and movement normal Attitude: cooperative Judgment: judgment good Results POC Urine Office , Urine Negative Last Edit by Jacquie James on 09/01/24 11:50 Coding Level of Care Code Off vis,est,level 3 Diagnoses Secondary oligomenorrhea N91.4 Acne, unspecified acne type L70.9 Acne type: unspecified acne Hirsutism L68.0 Assessment and Plan Assessment and Plan (1) Secondary oligomenorrhea: Status: Acute (2) Acne: Status: Acute Qualifiers: Acne type: unspecified acne Qualified Code(s): L70.9 - Acne, unspecified (3) Hirsutism: Status: Acute Orders: Orders POC Urine Today N91.2 - Amenorrhea, unspecified Chlamydia/GC PACO aptima Today Z11.3 - Encounter for screening for infections with a predominantly sexual mode of transmission Medications: New medroxyprogesterone 10 mg PO QDAY 10 tabs 0RF 10 days norgestimate-ethinyl estradiol 0.25-0.035 mg (Sprintec (28)) 1 TAB PO QDAY 28 tabs 3RF Plan UPT-negative urine GCC-call positive Provera challenge. Discussed use, benefits, risks and side effects of sprintec. Instruct on same date start and reviewed use of condoms. Written information given. RTO 3 mo med check and pap 09/01/24 1152 Date __ (more content not included)... Normal [facility] 17-Hydroxyprogesteroneon 17ALPHA [place]-PROG 83 ng/dL Normal . [facility] Comment on above: Order Comment: Test( s) 005322-21-II Progesterone LCMSwas developed and its performance characteristicsdetermined by [employer]. It has not been cleared or approvedby the Food and Drug Administration.N Result Comment: Adul t Female Follicular 15 - 70 Luteal 35 - 290 Performed at: [address] [id number] Home Companion: Rivera Barney MD, Phone: [phone] Performed By: #### L 509.3000, L3000.0375, L3600.3400, L509.8000, L500.2500, L3300.1750, L801.2600 #### [facility] [address] [place], [place], [id number] (578) DHEA Sulfateon 07-15-2024 DHEA SULFATE 220.0 ug/dL Normal 110.0-431. 7 [facility] Comment on above: Order Comment: N Performed By: #### L 509.3000, L3000.0375, L3600.3400, L509.8000, L500.2500, L3300.1750, L801.2600 #### [facility] [address] [place], [address] PROLACTIN 4465on 07-15-2024 PROLACTIN 16.4 ng/mL Normal 4.8-33.4 [facility] Comment on above: Performed By: #### L 509.3000, L3000.0375, L3600.3400, L509.8000, L500.2500, L3300.1750, L801.2600 #### [facility] [address] [place], [place], [id number] Testosterone Freeon 07-16-19 25 TESTOSTER FREE 1.6 pg/mL Normal 0.0-4.2 [facility] Comment on above: Result Comment: Perf ormed at: [address] [id number] Home Companion: Bryson Galloway PhD, Phone: [phone] Performed at: [address] [id number] Home Companion: Rivera Barney MD, Phone: [phone] Performed By: #### L 509.3000, L3000.0375, L3600.3400, L509.8000, L500.2500, L3300.1750, L801.2600 #### [facility] [address] [place], [place], [id number] Absolute lymphocyte countOrd ered By: Sherri Trenton on 07-12-2024 Lymphocytes Auto (Unsp spec) [#/Vol] 3.18 10*3/uL 0.83-4.51 [facility] Absolute neutrophil countOrd ered By: Sherri Chun on 07-12-2024 Neutrophils (Bld) [#/Vol] 5.4 10*3/uL 2.0-7.7 [facility] Automated lymphocyte count a s percentage of total leukocytesOrdered By: Sherri Mccollum on 07-12-2024 Lymphocytes/100 WBC Auto (Unsp spec) 31.9 % 19-41 [facility] Basophil percentageOrdered B y: Sherri Trenton on 07-12-2024 Basophils/100 WBC (Bld) 1.3 % High 0-1 [facility] CBC W/Diff, Automatedon 0 Absolute Lymph 3.18 X10 3/uL Normal 0.83-4.51 [facility] Comment on above: Performed By: #### L 3100.5125, L3100.9000, L3100.5170, L100.0100, L3300.1750, L3400.4800, L3100.5400, L3300.1500 #### [facility] [address] [place], [address] Absolute Neut 5.4 X10 3/uL Normal 2.0-7.7 [facility] Comment on above: Performed By: #### L 3100.5125, L3100.9000, L3100.5170, L100.0100, L3300.1750, L3400.4800, L3100.5400, L3300.1500 #### [facility] [address] [place], [address] Basophils/100 WBC (Bld) 1.3 % High 0-1 [facility] Comment on above: Performed By: #### L 3100.5125, L3100.9000, L3100.5170, L100.0100, L3300.1750, L3400.4800, L3100.5400, L3300.1500 #### [facility] [address] [place], [address] Eosinophils/100 WBC (Bld) 4.0 % Normal 0-5 [facility] Comment on above: Performed By: #### L 3100.5125, L3100.9000, L3100.5170, L100.0100, L3300.1750, L3400.4800, L3100.5400, L3300.1500 #### [facility] [address] [place], [address] Erythrocyte distribution width (RBC) [Ratio] 11.9 % Normal 11.6-14.6 [facility] Comment on above: Performed By: #### L 3100.5125, L3100.9000, L3100.5170, L100.0100, L3300.1750, L3400.4800, L3100.5400, L3300.1500 #### [facility] [address] [place], [address] Hematocrit (Bld) [Volume fraction] 41.1 % Normal 37-47 [facility] Comment on above: Performed By: #### L 3100.5125, L3100.9000, L3100.5170, L100.0100, L3300.1750, L3400.4800, L3100.5400, L3300.1500 #### [facility] [address] [place], [address] Hemoglobin (Bld) [Mass/Vol] 13.8 g/dL Normal 12.0-15.0 [facility] Comment on above: Performed By: #### L 3100.5125, L3100.9000, L3100.5170, L100.0100, L3300.1750, L3400.4800, L3100.5400, L3300.1500 #### [facility] [address] [place], [address] IG% 0.200 Normal 0.0-0.9 [facility] Comment on above: Result Comment: IG% - Immature Granulocytes (promyelocytes, myelocytes and metamyelocytes) > 1% indicates that a LEFT SHIFT is Present. Performed By: #### L 3100.5125, L3100.9000, L3100.5170, L100.0100, L3300.1750, L3400.4800, L3100.5400, L3300.1500 #### [facility] [address] [facility] [place], [address] Lymphocytes/100 WBC (Bld) 31.9 % Normal 19-41 [facility] Comment on above: Performed By: #### L 3100.5125, L3100.9000, L3100.5170, L100.0100, L3300.1750, L3400.4800, L3100.5400, L3300.1500 #### [facility] [address] [place], [address] MCH (RBC) [Entitic mass] 28.9 pg Normal 27.0-32.0 [facility] Comment on above: Performed By: #### L 3100.5125, L3100.9000, L3100.5170, L100.0100, L3300.1750, L3400.4800, L3100.5400, L3300.1500 #### [facility] [address] [facility] [place], [address] MCHC (RBC) [Mass/Vol] 33.6 g/dL Normal 32-36 [facility] Comment on above: Performed By: #### L 3100.5125, L3100.9000, L3100.5170, L100.0100, L3300.1750, L3400.4800, L3100.5400, L3300.1500 #### [facility] [address] [place], [address] MCV (RBC) [Entitic vol] 86.0 fL Normal 81-99 [facility] Comment on above: Performed By: #### L 3100.5125, L3100.9000, L3100.5170, L100.0100, L3300.1750, L3400.4800, L3100.5400, L3300.1500 #### [facility] [address] [place], [address] Monocytes/100 WBC (Bld) 8.2 % Normal 0-10 [facility] Comment on above: Performed By: #### L 3100.5125, L3100.9000, L3100.5170, L100.0100, L3300.1750, L3400.4800, L3100.5400, L3300.1500 #### [facility] [address] [place], [address] Neutrophils/100 WBC (Bld) 54.4 % Normal 47-70 [facility] Comment on above: Performed By: #### L 3100.5125, L3100.9000, L3100.5170, L100.0100, L3300.1750, L3400.4800, L3100.5400, L3300.1500 #### [facility] [address] [place], [address] Nucleated RBC (Bld) [#/Vol] 0 10*3/uL Normal 0-5 [facility] Comment on above: Performed By: #### L 3100.5125, L3100.9000, L3100.5170, L100.0100, L3300.1750, L3400.4800, L3100.5400, L3300.1500 #### [facility] [address] [place], [address] Platelet mean volume (Bld) [Entitic vol] 9.0 fL Normal 6.2-12.0 [facility] Comment on above: Performed By: #### L 3100.5125, L3100.9000, L3100.5170, L100.0100, L3300.1750, L3400.4800, L3100.5400, L3300.1500 #### [facility] [address] [place], [address] Platelets (Bld) [#/Vol] 355 10*3/uL Normal 150-450 [facility] Comment on above: Performed By: #### L 3100.5125, L3100.9000, L3100.5170, L100.0100, L3300.1750, L3400.4800, L3100.5400, L3300.1500 #### [facility] [address] [place], [address] RBC (Bld) [#/Vol] 4.78 10*6/uL Normal 4.2-5.4 [facility] Comment on above: Performed By: #### L 3100.5125, L3100.9000, L3100.5170, L100.0100, L3300.1750, L3400.4800, L3100.5400, L3300.1500 #### [facility] [address] [place], [address] RDW SD 37.4 fl Normal 35.1-43.9 [facility] Comment on above: Performed By: #### L 3100.5125, L3100.9000, L3100.5170, L100.0100, L3300.1750, L3400.4800, L3100.5400, L3300.1500 #### [facility] [address] [place], [address] WBC (Bld) [#/Vol] 10.0 10*3/uL Normal 4.4-11.0 [facility] Comment on above: Performed By: #### L 3100.5125, L3100.9000, L3100.5170, L100.0100, L3300.1750, L3400.4800, L3100.5400, L3300.1500 #### [facility] [address] [place], [address] E2 post dose follitropin [Ma ss/Vol]Ordered By: Sherri Mccollum on 07-12-2024 Estradiol (E2) Level 60.8 pg/mL [facility] Comment on above: FEMALES ADULT FEMALE : Premenopausal: 15-350 pg/mL(E2 levels vary widely through the menstrual cycle) Postmenopausal: <10 pg/mL MINESH STAGES MEAN AGE REFERENCE RANGES Stage I(>14 days and prepubertal) 7.1 years Undetectable-20 pg/mLL Stage II 10.5 years Undetectable-24 pg/mL Stage III 11.6 years Undetectable-60 pg/mL Stage IV 12.3 years 15-85 pg/mL Stage V 14.5 years 15-350 pg/mL Puberty onset (transition from Minesh stage I to Minesh stage II) occurs for girls at a median age of 10.5 (/- 2) years. There is evidence that it may occur up to 1 year earlier in obese girls and in girls.Progression through Minesh stages is variable. Minesh stage V (adult) should be reached by age 18. Eosinophil percentageOrdered By: Sherri Mccollum on 07-12-2024 Eosinophils/100 WBC (Bld) 4.0 % 0-5 [facility] Erythrocyte distribution wid th (RBC) [Ratio]Ordered By: Sherri Mccollum on 07-12-2024 Erythrocyte distribution width (RBC) [Entitic vol] 37.4 fL 35.1-43.9 [facility] Erythrocyte distribution wid th ratioOrdered By: Sherri Mccollum on 07-12-2024 Erythrocyte distribution width (RBC) [Ratio] 11.9 % 11.6-14.6 [facility] Erythrocyte distribution wid th standard deviationOrdered By: Sherri Mccollum on 07-12-2024 Erythrocyte distribution width (RBC) [Ratio] 37.4 fl 35.1-43.9 [facility] Estradiolon 07-12-2024 ESTRADIOL 60.8 pg/mL Normal [facility] Comment on above: Result Comment: FEMA LES ADULT FEMALE: Premenopausal: 15-350 pg/mL(E2 levels vary widely through the menstrual cycle) Postmenopausal: <10 pg/mL MINESH STAGES MEAN AGE REFERENCE RANGES Stage I(>14 days and prepubertal) 7.1 years Undetectable-20 pg/mLL Stage II 10.5 years Undetectable-24 pg/mL Stage III 11.6 years Undetectable-60 pg/mL Stage IV 12.3 years 15-85 pg/mL Stage V 14.5 years 15-350 pg/mL Puberty onset (transition from Minesh stage I to Minesh stage II) occurs for girls at a median age of 10.5 (/- 2) years. There is evidence that it may occur up to 1 year earlier in obese girls and in girls. Progression through Minesh stages is variable. Minesh stage V (adult) should be reached by age 18. Performed By: #### L 509.3000, L3000.0375, L3600.3400, L509.8000, L500.2500, L3300.1750, L801.2600 #### [facility] [address] [place], [address] Follicle Stimulating Hormone on 07-12-2024 FSH 5.6 mIU/mL Normal [facility] Comment on above: Result Comment: FEMA LE: Follicular: 1.4 - 18.1 mIU/mL Midcycle: 3.4 - 33.4 mIU/mL Luteal: 1.5 - 9.1 mIU/mL Post Menopause: 23.0 - 116.3 mIU/mL MALE: 1.4 - 18.1 mIU/mL NORMAL REFERENCE RANGES FEMALE FOLLICULAR 2.3 - 12.6 mIU/mL MID-CYCLE PEAK 5.2 - 17.5 mIU/mL LUTEAL 1.7 - 12.9 mIU/mL POST-MENOPAUSAL ON MHT 5.9 - 72.8 mIU/mL NOT ON MHT 12.7 - 132.2 mlU/mL MALE 0.7 - 10.8 mIU/mL Performed By: #### L 509.3000, L3000.0375, L3600.3400, L509.8000, L500.2500, L3300.1750, L801.2600 #### [facility] [place] [address], [address] Follicle stimulating hormone (FSH) levelOrdered By: Sherri Mccollum on 07-12-2024 Follicle Stimulating Hormone 5.6 mIU/mL [facility] Comment on above: FEMALE:Follicular: 1 .4 - 18.1 mIU/mLMidcycle: 3.4 - 33.4 mIU/mLLuteal: 1.5 - 9.1 mIU/mLPost Menopause: 23.0 - 116.3 mIU/mLMALE: 1.4 - 18.1 mIU/mL NORMAL REFERENCE RANGES FEMALE FOLLICULAR 2.3 - 12.6 mIU/mL MID-CYCLE PEAK 5.2 - 17.5 mIU/mL LUTEAL 1.7 - 12.9 mIU/mL POST-MENOPAUSAL ON MHT 5.9 - 72.8 mIU/mL NOT ON MHT 12.7 - 132.2 mlU/mL MALE 0.7 - 10.8 mIU/mL Hematocrit Auto (Bld) [Volum e fraction]Ordered By: Sherri Mccollum on 07-12-2024 Hematocrit (Bld) [Volume fraction] 41.1 % 37-47 [facility] Hemoglobin measurementOrdere d By: Sherri Mccollum on 07-12-2024 Hemoglobin (Bld) [Mass/Vol] 13.8 g/dL 12.0-15.0 [facility] Immature granulocytes/100 WB C Auto (Bld)Ordered By: Sherri Mccollum on 07-12-2024 Immature granulocytes/100 WBC (Bld) 0.200 % 0.0-0.9 [facility] Comment on above: IG% - Immature Granu locytes (promyelocytes, myelocytes and metamyelocytes) > 1% indicates that a LEFT SHIFT is Present. LH ser/plasOrdered By: Sherri Mccollum on 07-12-2024 Luteinizing Hormone 9.8 mIU/mL [facility] Comment on above: FEMALE:Follicular: 1 .9-12.5 mIU/mLMidcycle: 8.7-76.3 mIU/mLLuteal: 0.5-16.9 mIU/mLPost Menopause: 15.9-54.0 mIU/mLMALE:20-70 Years: 1.5-9.3 mIU/mL>70 Years: 3.1-34.6 mIU/mL Luteinizing Hormoneon 2024 LH 9.8 mIU/mL Normal [facility] Comment on above: Result Comment: FEMA LE: Follicular: 1.9-12.5 mIU/mL Midcycle: 8.7-76.3 mIU/mL Luteal: 0.5-16.9 mIU/mL Post Menopause: 15.9-54.0 mIU/mL MALE: 20-70 Years: 1.5-9.3 mIU/mL >70 Years: 3.1-34.6 mIU/mL Performed By: #### L 509.3000, L3000.0375, L3600.3400, L509.8000, L500.2500, L3300.1750, L801.2600 #### [facility] [address] [place], [place], [id number] Lymphocytes Auto (Unsp spec) [#/Vol]Ordered By: Sherri Mccollum on 07-12-2024 Lymphocytes (Bld) [#/Vol] 3.18 10*3/uL 0.83-4.51 [facility] Lymphocytes/100 WBC Auto (Un sp spec)Ordered By: Sherri Mccollum on 07-12-2024 Lymphocytes/100 WBC (Bld) 31.9 % 19-41 [facility] MCV (mean corpuscular volume ) determinationOrdered By: Sherri Mccollum on 07-12-2024 MCV (RBC) [Entitic vol] 86.0 fL 81-99 [facility] Mean corpuscular hemoglobin (MCH) determinationOrdered By: Sherri Mccollum on 07-12-2024 MCH (RBC) [Entitic mass] 28.9 pg 27.0-32.0 [facility] Mean corpuscular hemoglobin concentration (MCHC) determinationOrdered By: Sherri Mccollum on 07-12-2024 MCHC (RBC) [Mass/Vol] 33.6 g/dL 32-36 [facility] Mean platelet volume determi nationOrdered By: Sherri Mccollum on 07-12-2024 Platelet mean volume (Bld) [Entitic vol] 9.0 fL 6.2-12.0 [facility] Monocyte percentageOrdered B y: Sherri Mccollum on 07-12-2024 Monocytes/100 WBC (Bld) 8.2 % 0-10 [facility] Neutrophil percentageOrdered By: Sherri Mccollum on 07-12-2024 Neutrophils/100 WBC (Bld) 54.4 % 47-70 [facility] Nucleated red blood cell per centageOrdered By: Sherri Mccollum on 07-12-2024 Nucleated RBC/100 WBC (Bld) [Ratio] 0 % 0-5 [facility] [employer] Visit Reporton 07-12-2024 [employer] Visit Report [facility]'s [address], [address] [place] [address] OFFICE VISIT Date of Service: 07/12/24 MR#: [id number] Acct: [id number] Name: KIERRA BLANCA Rep #: [id number] : 2000 Provider: BERENICE sy Age/Sex: 23/F Location: [facility] Status: Signed Intake Vital Signs 09/22/23 11:48 07/12/24 08:45 07/12/24 08:55 Height 5 ft 2 in 5 ft 2 in 5 ft 2 in Weight: 104 lb 8 oz 104 lb BMI 19.1 19.0 BP 100/60 114/80 Blood Pressure Location Rt brachial Position Sitting Respiration 15 Pulse 92 Pulse Source NIBP Temp 98.3 F Pulse Oximetry (%) 99 Oxygen Delivery Method room air Intake Visit Reasons: ABNORMAL ESTRADOIL, TESTERONE, AUB Chief Complaint: ABN. 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) Depression MVP (mitral valve prolapse) Surgical History (Updated 09/22/23 @ 11:53 by Briana Hilton) No significant past surgical history Family History (Updated 07/12/24 @ 08:53 by Jacquie James) Mother Breast cancer, Onset Age: 53 BRCA Negative Aunt Breast cancer Maternal Grandmother Breast cancer Maternal Other Diabetes Heart disease Kidney disease Social History (Updated 07/12/24 @ 08:54 by Jacquie James) current occupational status: employed current occupation: [employer] C[employer] Use: with nicotine alcohol intake: never substance use type: marijuana seatbelt use: always do you feel safe at home: Yes HPI ABNORMAL ESTRADOIL, TESTERONE, AUB Details: KIERRA BLANCA is a 23 year old who presents for new patient discussion of irregular menses since May 2023. Did see PCP. Can skip but can also have 3 in one month. She had them every other week in April and May but just one menses in June. She is sexually active, using condoms. Had pap(ASCUS neg HPV), STD evaluation 03/2024 with PCP. She had labs in March per PCP Sergio Strange at [place] and her estrogen and testosterone were significantly elevated. Thyroid normal. No other labs done. She denies headaches, vision changes. She does have fatigue and hirsutism of face and chest. Female Reproductive History Last Menstrual Period: 06/25/24 Questions: metorrhagia: No, sexually active: Yes, dyspareunia: No and PCB: No History 0 Elective abortions Hx Para Spontaneous abortions Hx # Term Pregnancies Ectopic pregnancies Hx # Pregnancies Multiple births # of living children ROS Const Constitutional: Reports system reviewed and no additional complaints, except as documented Eyes Eyes: Reports system reviewed and no additional complaints, except as documented GI GI: Denies abdominal pain or change in bowel habits : Reports as per HPI Exam Const General: cooperative and no acute distress Nutritional Appearance: thin Orientation: oriented x3 HENMT Head: normal to inspection and normocephalic Face and sinus: other (acne bilateral cheeks. States has hair growth of chin) Eyes General: appearance normal, both eyes and all related structures Neck Neck: normal visual inspection Resp Effort Inspection: normal respiratory effort Neuro Cognition: normal cognition Speech: speech normal Psych Appearance: grossly normal Mood: congruent mood Affect: normal affect Speech and Movement: speech and movement normal Attitude: cooperative Judgment: judgment good Coding Level of Care Code Off vis,new,level 3 Diagnoses Abnormal uterine bleeding (AUB) N93.9 Elevated testosterone level in female R79.89 Estrogen excess E28.0 Hirsutism L68.0 Acne, unspecified acne type L70.9 Acne type: unspecified acne Assessment and Plan Assessment and Plan (1) Abnormal uterine bleeding (AUB): Status: Acute (2) Elevated testosterone level in female: Status: Acute (3) Estrogen excess: Status: Acute (4) Hirsutism: Status: Acute (5) Acne: Status: Acute Qualifiers: Acne type: unspecified acne Qualified Code(s): L70.9 - Acne, unspecified Orders: Orders Follicle Stimulating Hormone Today N92.6 - Irregular menstruation, unspecified, N93.9 - Abnormal uterine and vaginal bleeding, unspecified Luteinizing Hormone Today N92.6 - Irregular menstruation, unspecified, N93.9 - Abnormal uterine and vaginal bleed (more content not included)... Normal [facility] Platelet countOrdered By: Jaden Mccollum on 07-12-2024 Platelets (Bld) [#/Vol] 355 10*3/uL 150-450 [facility] RBC Auto (Bld) [#/Vol]Ordere d By: Sherri Mccollum on 07-12-2024 RBC (Bld) [#/Vol] 4.78 10*6/uL 4.2-5.4 [facility] Serum or plasma 17-hydroxypr ogesterone measurement (mass/volume)Ordered By: Sherri Mccollum on 07-12-2024 17-Hydroxyprogesterone [Mass/Vol] 83 ng/dL . [facility] Comment on above: Adult Female Follicu lar 15 - 70 Luteal 35 - 290Performed at: - [facility] [address] [id number] Director: Rivera Barney MD, Phone: [phone] Serum or plasma estradiol me asurement after follitropin dose (mass/volume)Ordered By: Sherri Mccollum on 07-12-2024 E2 post dose follitropin [Mass/Vol] 60.8 pg/mL [facility] Comment on above: FEMALES ADULT FEMALE : Premenopausal: 15-350 pg/mL(E2 levels vary widely through the menstrual cycle) Postmenopausal: <10 pg/mL MINESH STAGES MEAN AGE REFERENCE RANGES Stage I(>14 days and prepubertal) 7.1 years Undetectable-20 pg/mLL Stage II 10.5 years Undetectable-24 pg/mL Stage III 11.6 years Undetectable-60 pg/mL Stage IV 12.3 years 15-85 pg/mL Stage V 14.5 years 15-350 pg/mL Puberty onset (transition from Minesh stage I to Minesh stage II) occurs for girls at a median age of 10.5 (/- 2) years. There is evidence that it may occur up to 1 year earlier in obese girls and in girls.Progression through Minesh stages is variable. Minesh stage V (adult) should be reached by age 18. Serum or plasma free testost erone measurement (mass/volume)Ordered By: Sherri Mccollum on 07-12-2024 Testosterone Free [Mass/Vol] 1.6 pg/mL 0.0-4.2 [facility] Comment on above: Performed at: [address] [id number] Director: Bryson Galloway PhD, Phone: [phone] at: - [facility] [id number] Director: Rivera Barney MD, Phone: [phone] Serum or plasma prolactin me asurement (mass/volume)Ordered By: Sherri Mccollum on 07-12-2024 Prolactin [Mass/Vol] 16.4 ng/mL 4.8-33.4 [facility] White blood cell (WBC) count Ordered By: Sherri Mccollum on 07-12-2024 WBC (Bld) [#/Vol] 10.0 10*3/uL 4.4-11.0 [facility] HPVon 04-09-2024 HPV Interp Normal See Interp HPVN [facility] Comment on above: Order Comment: Order placed by [id number] rule from [id number] Result Comment: High Risk HPV Typing: NEGATIVE HPV types 16, 18, 31, 33, 35, 39, 45, 51, 52, 56, 58, 59, 66 and 68 DNA were undetectable or below the pre-set threshold. The khloe High-Risk HPV DNA Test is not intended for use as a screening device for Pap normal women under age 30 and is not intended to substitute for regular Pap screening. The khloe High-Risk HPV DNA Test is designed to augment existing methods for the detection of cervical disease and should be used in conjunction with clinical information derived from other diagnostic and screening tests, physical examinations and full medical history in accordance with appropriate patient management procedures. NOTE: A negative result does not preclude the presence of HPV infection because results depend on adequate specimen collection, absence of inhibitors and sufficient DNA to be detected. See Interp HPVN Performed By: #### H PV #### [place] [address] HPV Source Cervix Normal [facility] Comment on above: Order Comment: Order placed by [id number] rule from [id number] Performed By: #### H PV #### [place] [address] [facility] Reporton 2023 [facility] [employer] [facility] Report . Pathology Reports Accession: Collected Date/Time: Received Date/Time: Pathologist: [id number] 03/30/2024 09:44 EST 03/30/2024 18:00 EST PHILL FUENTES MD [employer] [facility] Report SPECIMEN: Specimen Description: Liquid Prep Reflex ASCUS+ Specimen: Cervical Screening or Diagnostic: Screening RELEVANT HISTORY: LMP: 03/09/24 SPECIMEN ADEQUACY: SATISFACTORY FOR EVALUATION Endocervical/Transformati onal zone component present INTERPRETATION/RESULTS: EPITHELIAL CELL ABNORMALITIES, SQUAMOUS Atypical squamous cells of undetermined significance (ASC-US) ADJUNCTIVE TESTING: HIGH RISK HPV DNA TESTING ORDERED, REPORT TO FOLLOW UNDER SEPARATE COVER COMMENT: This Pap Test was successfully processed and evaluated with the assistance of the [employer] ThinPrep Test Imaging System. Electronically Signed by Pathology report verified by [facility] Screened by: [facility] Electronically signed by PHILL FUENTES Sign-Out Date: 04/06/2024 10:13 Performing Lab: [facility], [address] [place] [address] Pathology Dept Disclaimer The Pap test is a screening test for cervical cancer. As evidenced by published data, it is subject to both inherent false negative and false positive results. Your patient's results should be interpreted in context with pertinent clinical history including gynecological examination. Normal [facility] Hepatitis Panel Acuteon 12-3 COMMENT Comment Normal . [facility] Comment on above: Result Comment: Not infected with HCV unless early or acute infection is suspected (which may be delayed in an immunocompromised individual), or other evidence exists to indicate HCV infection. Performed By: #### L 509.3000, L3000.0375, L3600.3400, L509.8000, L500.2500, L3300.1750, L801.2600 #### [facility] [address] [place], [place], [id number] (380) HEP B CORE,IgM Negative Normal Negative [facility] Comment on above: Performed By: #### L 509.3000, L3000.0375, L3600.3400, L509.8000, L500.2500, L3300.1750, L801.2600 #### [facility] [address] [place], [place], [id number] (548 HEP B SURF AG Negative Normal Negative [facility] Comment on above: Performed By: #### L 509.3000, L3000.0375, L3600.3400, L509.8000, L500.2500, L3300.1750, L801.2600 #### [facility] [address] [place], [place], [id number] (488 HEP C VIRUS AB Non-Reactive Normal Non Reactive [facility] Comment on above: Performed By: #### L 509.3000, L3000.0375, L3600.3400, L509.8000, L500.2500, L3300.1750, L801.2600 #### [facility] [address] [place], [address] HEPATITIS A-IgM Negative Normal Negative [facility] Comment on above: Result Comment: A ne gative anti-HAV IgM result suggests no recent or current HAV infection. Performed By: #### L 509.3000, L3000.0375, L3600.3400, L509.8000, L500.2500, L3300.1750, L801.2600 #### [facility] [address] [place], [address] Nicotine Screen Blood 12-3 COTININE BLOOD 181.2 ng/mL Normal . [facility] Comment on above: Result Comment: This test was developed and its performance characteristics determined by [employer]. It has not been cleared or approved by the Food and Drug Administration. Cotinine levels greater than 20.0 are consistent with the use of tobacco or tobacco cessation products. Performed at: [address] [id number] Home Companion: Bryson Galloway PhD, Phone: [phone] Performed at: [facility] [address] [id number] Home Companion: Rivera Barney MD, Phone: [phone] Performed By: #### L 509.3000, L3000.0375, L3600.3400, L509.8000, L500.2500, L3300.1750, L801.2600 #### [facility] [address] [place], [address] NICOTINE BLOOD 14.8 ng/mL Normal . [facility] Comment on above: Result Comment: This test was developed and its performance characteristics determined by [employer]. It has not been cleared or approved by the Food and Drug Administration. Nicotine levels greater than 2.0 are consistent with the use of tobacco or tobacco cessation products. Performed By: #### L 509.3000, L3000.0375, L3600.3400, L509.8000, L500.2500, L3300.1750, L801.2600 #### [facility] [address] [place], [address] PROGESTERONE 4317on 04-02-20 24 PROGESTERONE 0.2 ng/mL Normal . [facility] Comment on above: Order Comment: N [id number] Result Comment: Foll icular phase 0.1 - 0.9 Luteal phase 1.8 - 23.9 Ovulation phase 0.1 - 12.0 First trimester 11.0 - 44.3 Second trimester 25.4 - 83.3 Third trimester 58.7 - 214.0 Postmenopausal 0.0 - 0.1 Performed By: #### L 509.3000, L3000.0375, L3600.3400, L509.8000, L500.2500, L3300.1750, L801.2600 #### [facility] [address] [place], [address] CTPCRon 04-01-2024 C. trachomatis Interp Normal See CT Interp N [facility] Comment on above: Result Comment: C. t rachomatis DNA not detected. Specimen is presumptive negative for C. trachomatis. A negative result does not preclude C. trachomatis infection because results depend on adequate specimen collection, absence of inhibitors, and sufficient DNA to be detected. See CT Interp N Performed By: #### C TPCR, [email or web address] #### [address] [address] C.trachomatis PCR Negative Normal Negative [facility] Comment on above: Result Comment: Mole cular (PCR) assay performed on the Theodore Khloe 4800 system. Performed By: #### C TPCR, NGPCR1 #### [address] [address] Chlam Source Cervix Normal [facility] Comment on above: Performed By: #### C TPCR, NGPCR1 #### [address] [address] [id number] 04-01-2024 GC PCR Source Cervix Normal [facility] Comment on above: Performed By: #### C TPCR, NGPCR1 #### [address] [address] N. gonorrhoeae (PCR) Negative Normal Negative [facility] Comment on above: Result Comment: Mole cular (PCR) assay performed on the Theodore Khloe 4800 System. Performed By: #### C TPCR, NGPCR1 #### [facility] [address] [place] [address] N. gonorrhoeae Interp Normal See NG Interp N [facility] Comment on above: Result Comment: N. g onorrhoeae DNA not detected. Specimen is presumptive negative for N. gonorrhoeae. A negative result does not preclude Neisseria gonorrhoeae infection because results depend on adequate specimen collection, absence of inhibitors, and sufficient DNA to be detected. See NG Interp N Performed By: #### C TPCR, [email or web address] #### [facility] [address] [place] [address] Basic Metabolic Profile (BMP )on 03-30-2024 BUN/CRE 16.8 RATIO Normal 10-20 [facility] Comment on above: Performed By: #### L 509.3000, L3000.0375, L3600.3400, L509.8000, L500.2500, L3300.1750, L801.2600 #### [facility] [address] [place], [address] CA,Total 9.5 mg/dL Normal 8.5-10.1 [facility] Comment on above: Performed By: #### L 509.3000, L3000.0375, L3600.3400, L509.8000, L500.2500, L3300.1750, L801.2600 #### [facility] [address] [place], [address] Chloride [Moles/Vol] 106 mmol/L Normal 98-107 [facility] Comment on above: Performed By: #### L 509.3000, L3000.0375, L3600.3400, L509.8000, L500.2500, L3300.1750, L801.2600 #### [facility] [address] [place], [address] CO2 [Moles/Vol] 29.0 mmol/L Normal 21.0-32.0 [facility] Comment on above: Performed By: #### L 509.3000, L3000.0375, L3600.3400, L509.8000, L500.2500, L3300.1750, L801.2600 #### [facility] [address] [place], [address] Creatinine [Mass/Vol] 0.83 mg/dL Normal 0.55-1.02 [facility] Comment on above: Result Comment: The validity of the calculated GFR GFRAA in patients over 70 years has not been determined. Clinical correlation is essential. Performed By: #### L 509.3000, L3000.0375, L3600.3400, L509.8000, L500.2500, L3300.1750, L801.2600 #### [facility] [address] [place], [place], [id number] (325 EST GFR - AA 110 mL/min Normal >60 [facility] Comment on above: Result Comment: Afri can [place] GFR Calc Performed By: #### L 509.3000, L3000.0375, L3600.3400, L509.8000, L500.2500, L3300.1750, L801.2600 #### [facility] [address] [place], [address] GAP 4 Low 5-15 [facility] Comment on above: Performed By: #### L 509.3000, L3000.0375, L3600.3400, L509.8000, L500.2500, L3300.1750, L801.2600 #### [facility] [address] [place], [address] GFR/1.73 sq M.predicted among non-blacks MDRD (S/P/Bld) [Vol rate/Area] 91 mL/min/{1.73_m2} Normal >60 [facility] Comment on above: Result Comment: Non- GFR Calc Performed By: #### L 509.3000, L3000.0375, L3600.3400, L509.8000, L500.2500, L3300.1750, L801.2600 #### [facility] [address] [place], [address] Glucose [Mass/Vol] 89 mg/dL Normal 74-106 [facility] Comment on above: Performed By: #### L 509.3000, L3000.0375, L3600.3400, L509.8000, L500.2500, L3300.1750, L801.2600 #### [facility] [address] [place], [address] Potassium [Moles/Vol] 3.7 mmol/L Normal 3.5-5.1 [facility] Comment on above: Performed By: #### L 509.3000, L3000.0375, L3600.3400, L509.8000, L500.2500, L3300.1750, L801.2600 #### [facility] [address] [place], [address] Sodium [Moles/Vol] 140 mmol/L Normal 136-145 [facility] Comment on above: Performed By: #### L 509.3000, L3000.0375, L3600.3400, L509.8000, L500.2500, L3300.1750, L801.2600 #### [facility] [address] [place], [address] Urea nitrogen [Mass/Vol] 14 mg/dL Normal 7-18 [facility] Comment on above: Performed By: #### L 509.3000, L3000.0375, L3600.3400, L509.8000, L500.2500, L3300.1750, L801.2600 #### [facility] [address] [place], [address] Blood cotinine screen by Yagantece immunoassayOrdered By: Mónica Strange on 03-30-2024 Nicotine & Cotinine 181.2 ug/mL . [facility] Comment on above: This test was develo ped and its performance characteristicsdetermined by [employer]. It has not been cleared orapproved by the Food and Drug Administration.Cotinine levels greater than 20.0 are consistent with theuse of tobacco or tobacco cessation products.Performed at: - [address] [id number] Director: Bryson Galloway PhD, Phone: [phone] at: [address] [id number] Director: Rivera Barney MD, Phone: [phone] Blood urea nitrogen (BUN)/cr eatinine ratioOrdered By: Mónica Strange on 03-30-2024 Urea nitrogen/Creatinine [Mass ratio] 16.8 mg/mg 01-24 [facility] Carbon dioxide measurementOr dered By: Mónica Strange on 03-30-2024 CO2 [Moles/Vol] 29.0 mmol/L 21.0-32.0 [facility] Chloride measurementOrdered By: Mónica Strange on 03-30-2024 Chloride [Moles/Vol] 106 mmol/L 98-107 [facility] Estimated glomerular filtrat ion rate (GFR) AmericanOrdered By: Mónica Strange on 03-30-2024 Estimated GFR (MDRD) Amer 110 mL/min >60 [facility] Comment on above: GFR Calc Estradiolon 03-30-2024 ESTRADIOL 757.2 pg/mL Normal [facility] Comment on above: Result Comment: NORM AL REFERENCE RANGES FEMALE FOLLICULAR 21.4 - 164.8 pg/mL MID-CYCLE PEAK 49.9 - 367.2 pg/mL LUTEAL 40.2 - 259.0 pg/mL POST-MENOPAUSAL ON MHT <11.0 - 462.1 pg/mL NOT ON MHT <11.0 - 58.3 pg/mL MALE <11.0 - 52.5 pg/mL NOTE: [employer] HAS CONFIRMED THE DRUG FULVETRANT (FASLODEX) MAY CAUSE FALSELY ELEVATED ESTRADIOL RESULTS WHEN USING THIS TEST METHOD. IF PATIENT IS TAKING FULVESTRANT AN ALTERNATIVE METHOD SHOULD BE USED TO DETERMINE ESTRADIOL CONCENTRATION. Performed By: #### L 509.3000, L3000.0375, L3600.3400, L509.8000, L500.2500, L3300.1750, L801.2600 #### [facility] [place], [address] Estradiol measurementOrdered By: Mónica Strange on 03-30-2024 Estradiol (E2) Level 757.2 pg/mL [facility] Comment on above: NORMAL REFERENCE RAN GES FEMALE FOLLICULAR 21.4 - 164.8 pg/mL MID-CYCLE PEAK 49.9 - 367.2 pg/mL LUTEAL 40.2 - 259.0 pg/mL POST-MENOPAUSAL ON MHT <11.0 - 462.1 pg/mL NOT ON MHT <11.0 - 58.3 pg/mL MALE <11.0 - 52.5 pg/mL NOTE:[employer] HAS CONFIRMED THE DRUG FULVETRANT (FASLODEX) MAY CAUSE FALSELY ELEVATED ESTRADIOL RESULTS WHEN USING THIS TEST METHOD. IF PATIENT IS TAKING FULVESTRANT AN ALTERNATIVE METHOD SHOULD BE USED TO DETERMINE ESTRADIOL CONCENTRATION. Glomerular filtration rate ( GFR) estimationOrdered By: Mónica Strange on 03-30-2024 Estimated GFR (MDRD) Non-Af Amer 91 mL/min >60 [facility] Comment on above: Non- GFR Calc Glucose measurementOrdered B y: Mónica Strange on 03-30-2024 Glucose [Mass/Vol] 89 mg/dL 74-106 [facility] HBV surface Ag IA QlOrdered By: Mónica Strange on 03-30-2024 Hepatitis B Surface Antigen Negative Negative [facility] Hepatitis A virus IgM antibo dy assayOrdered By: Mónica Strange on 03-30-2024 Hepatitis A IgM Antibody Negative Negative [facility] Comment on above: A negative anti-HAV IgM result suggests no recent orcurrent HAV infection. Hepatitis B virus core IgM a ntibody assayOrdered By: Mónica Strange on 03-30-2024 Hepatitis B Core IgM Antibody Negative Negative [facility] Hepatitis C virus antibody a ssayOrdered By: Mónica Strange on 03-30-2024 Hepatitis C Antibody (EIA) Non-Reactive Non Reactive [facility] L509.8000on 03-30-2024 Syphilis Abs Non-Reactive Normal [facility] Comment on above: Performed By: #### L 509.3000, L3000.0375, L3600.3400, L509.8000, L500.2500, L3300.1750, L801.2600 #### [facility] [address] [place], [address] LABORATORYOrdered By: Trevon Cardoza on 03-30-2024 C. trachomatis DNA PACO+probe Ql (Unsp spec) Negative 2 (03/30/24 9:44 AM) Normal Negative [facility] V[facility]Sero [facility] Comment on above: Interpretive Data: M olecular (PCR) assay performed on the Theodore Khloe 4800 system. C. trachomatis DNA PACO+probe Ql (Unsp spec) C. trachomatis DNA not detected. Specimen is presumptive negative forC. trachomatis.A negative result does not preclude C. trachomatis infection becauseresults depend on adequate specimen collection, absence of inhibitors,and sufficient DNA to be detected. Normal See CT Interp N AH Auto Viro/Sero SS N. gonorrhoeae DNA PACO+probe Ql (Unsp spec) Negative 1 (03/30/24 9:44 AM) Normal Negative AH [facility] Viro[facility]Sero SS Comment on above: Interpretive Data: M olecular (PCR) assay performed on the [employer] Khloe 4800 System. N. gonorrhoeae DNA PACO+probe Ql (Unsp spec) N. gonorrhoeae DNA not detected. Specimen is presumptive negative forN. gonorrhoeae. A negative result does not preclude Neisseria gonorrhoeaeinfection because results depend on adequate specimen collection, absenceof inhibitors, and sufficient DNA to be detected. Normal See NG Interp N [facility]Sero [facility] Laboratory - Specimen inform ationOrdered By: Trevon Cardoza on 03-30-2024 Specimen source Nom (Unsp spec) Cervix (03/30/24 9:44 AM) Normal Auto Viro/Sero SS Nicotine [Mass/Vol]Ordered B y: Mónica Strange on 03-30-2024 Nicotine Level 14.8 ug/mL . [facility] Comment on above: This test was develo ped and its performance characteristicsdetermined by [facility]. It has not been cleared orapproved by the Food and Drug Administration.Nicotine levels greater than 2.0 are consistent with theuse of tobacco or tobacco cessation products. No Panel InformationOrdered By: Mónica Strange on 03-30-2024 Hepatitis C Antibody Comment Comment . [facility] Comment on above: Not infected with HC V unless early or acute infection issuspected (which may be delayed in an immunocompromisedindividual), or other evidence exists to indicate HCVinfection. Potassium measurementOrdered By: Mónica Strange on 03-30-2024 Potassium [Moles/Vol] 3.7 mmol/L 3.5-5.1 [facility] Quantitative serum progester one measurement by electrochemiluminescence immunoassay (Ordered By: Mónica Strange on 03-30-2024 Progesterone Level 0.2 ng/mL . [facility] Comment on above: Follicular phase 0.1 - 0.9 Luteal phase 1.8 - 23.9 Ovulation phase 0.1 - 12.0 First trimester 11.0 - 44.3 Second trimester 25.4 - 83.3 Third trimester 58.7 - 214.0 Postmenopausal 0.0 - 0.1 Serum anion gap measurementO rdered By: Mónica Strange on 03-30-2024 Anion gap [Moles/Vol] 4 mmol/L Low 5-15 [facility] Serum or plasma calcium fabian urement (mass/volume)Ordered By: Mónica Strange on 03-30-2024 Calcium [Mass/Vol] 9.5 mg/dL 8.5-10.1 [facility] Serum or plasma creatinine m easurement (mass/volume)Ordered By: Mónica Strange on 03-30-2024 Creatinine [Mass/Vol] 0.83 mg/dL 0.55-1.02 [facility] Comment on above: The validity of the calculated GFR & GFRAA in patients over 70 years has not been determined. Clinical correlation is essential. Serum or plasma urea nitroge n measurement (mass/volume)Ordered By: Mónica Strange on 03-30-2024 Urea nitrogen [Mass/Vol] 14 mg/dL 7-18 [facility] Sodium levelOrdered By: Thiago Strange on 03-30-2024 Sodium [Moles/Vol] 140 mmol/L 136-145 [facility] Testosterone, Serum Totalon 03-30-2024 Testosterone [Mass/Vol] 68.58 ng/dL Normal [facility] Comment on above: Result Comment: CENT RAL 90% REFERENCE RANGES MALE AGE <50 197.44 - 669.58 ng/dL MALE AGE > or = 50 187.72 - 684.19 ng/dL FEMALE AGE <50 8.38 - 35.01 ng/dL FEMALE AGE > or = 50 <7.00 - 35.92 ng/dL Effective as of 10/31/20 Performed By: #### L 509.3000, L3000.0375, L3600.3400, L509.8000, L500.2500, L3300.1750, L801.2600 #### [facility] [address] [place], [place], [address] Testosterone, totalOrdered B y: Mónica Strange on 03-30-2024 Testosterone [Mass/Vol] 68.58 ng/dL [facility] Comment on above: CENTRAL 90% REFERENC E RANGES MALE AGE <50 197.44 - 669.58 ng/dL MALE AGE > or = 50 187.72 - 684.19 ng/dL FEMALE AGE <50 8.38 - 35.01 ng/dL FEMALE AGE > or = 50 <7.00 - 35.92 ng/dL Effective as of 10/31/20 Treponema sp Ab Ql (S)Ordere d By: Mónica Strange on 03-30-2024 Syphilis Total Antibody Non-Reactive [facility] LABORATORYOrdered By: Landy Bazan on 10-22-2023 Appearance (U) Clear (10/22/23 2:10 AM) Normal Clear AO Auto Urine SS Bilirubin Ql (U) Negative (10/22/23 2:10 AM) Normal Negative AO Auto Urine SS Color (U) Yellow (10/22/23 2:10 AM) Normal AO Auto Urine SS Glucose Test strip (U) [Mass/Vol] Negative Normal Negative AO Auto Urine SS HCG ( test) Ql Negative (10/22/23 2:10 AM) Normal AO Manual Urine SS Hemoglobin Auto test strip (U) [Mass/Vol] Negative (10/22/23 2:10 AM) Normal Negative AO Auto Urine SS Ketones Ql (U) Negative Normal Negative AO Auto Urine SS test (u) int Not detected Invalid Interpretation Code AO Manual Urine SS UA Leuk Est Negative (10/22/23 2:10 AM) Normal Negative AO Auto Urine SS UA Nitrite Negative (10/22/23 2:10 AM) Normal Negative AO Auto Urine SS UA pH 7.0 (10/22/23 2:10 AM) Normal 5.0 - 8.0 AO Auto Urine SS UA Protein Negative Normal Negative AO Auto Urine SS UA Spec Grav 1.020 (10/22/23 2:10 AM) Normal 1.015-1.02 5 AO Auto Urine SS UA Specimen Type Clean Catch (10/22/23 2:10 AM) Normal AO Auto Urine SS UA Urobilinogen 0.2 E.U./dL Normal 0.2-1.0 AO Auto Urine SS PREGUon 10-22-2023 HCG ( test) Ql (U) Negative Normal [facility] ([place]) Comment on above: Performed By: #### P REGU, UA #### [address] [address] test (u) int Not detected Invalid Interpretation Code [facility] ([place] Comment on above: Performed By: #### P REGU, UA #### [address] [address] UAon 10-22-2023 Color (U) Yellow Normal [facility] ([place] Comment on above: Performed By: #### P REGU, UA #### [address] [address] Glucose (U) [Mass/Vol] Negative Normal Negative [facility] ([place]) Comment on above: Performed By: #### P REGU, UA #### [address] [address] Ketones Ql (U) Negative Normal Negative [facility] ([place] Comment on above: Performed By: #### P REGU, UA #### [address] [address] UA Appear Clear Normal Clear [facility] ([place] Comment on above: Performed By: #### P REGU, UA #### [address] [address] UA Blood Negative Normal Negative [facility] ([place] Comment on above: Performed By: #### P REGU, UA #### [address] [address] UA Leuk Est Negative Normal Negative [facility] ([place] Comment on above: Performed By: #### P REGU, UA #### [address] [address] UA Nitrite Negative Normal Negative [facility] ([place] Comment on above: Performed By: #### P REGU, UA #### [place] [address] UA pH 7.0 Normal 5.0 - 8.0 [facility] ([place] Comment on above: Performed By: #### P REGU, UA #### [place] [address] UA Protein Negative Normal Negative [facility] ([place] Comment on above: Performed By: #### P REGU, UA #### [place] [address] UA Spec Grav 1.020 Normal 1.015-1.02 5 [facility] ([place] Comment on above: Performed By: #### P REGU, UA #### [place] [address] UA Specimen Type Clean Catch Normal [facility] ([place] Comment on above: Performed By: #### P REGU, UA #### [place] [address] UA Urobilinogen 0.2 E.U./dL Normal 0.2-1.0 [facility] ([place] Comment on above: Performed By: #### P REGU, UA #### [place] [id number] Urobilinogen (U) [Mass/Vol] Negative Normal Negative [facility] ([place] Comment on above: Performed By: #### P REGU, UA #### [place] [address] .Auto Diffon 08-18-2023 Basophil, Absolute 0.1 10 3/mcL Normal 0.0-0.2 [facility] ([place]) Comment on above: Performed By: #### A ZINA FE, ADIFF, CBC #### [address] [address] Basophils/100 WBC (Bld) 1.0 % Normal 0.0-2.5 A [facility] ([place]) Comment on above: Performed By: #### A ZINA, FE, ADIFF, CBC #### [address] [address] Eosinophil, Absolute 0.2 10 3/mcL Normal 0.0-0.4 [facility] ([place] Comment on above: Performed By: #### A ZINA, FE, ADIFF, CBC #### [address] [address] Eosinophils/100 WBC (Bld) 1.8 % Normal 0.0-7.0 [facility] ([place]) Comment on above: Performed By: #### A ZINA, FE, ADIFF, CBC #### [address] [address] Lymphocyte, Absolute 2.7 10 3/mcL Normal 0.8-3.9 [facility] ([place] Comment on above: Performed By: #### A ZINA, FE, ADIFF, CBC #### [address] [address] Lymphocytes/100 WBC (Bld) 32.2 % Normal 10.0-50.0 [facility] ([place] Comment on above: Performed By: #### A ZINA, FE, ADIFF, CBC #### [address] [address] Monocyte, Absolute 0.6 10 3/mcL Normal 0.2-1.0 [facility] ([place]) Comment on above: Performed By: #### A ZINA, FE, ADIFF, CBC #### [address] [address] Monocytes/100 WBC (Bld) 6.7 % Normal 1.7-13.0 A [facility] ([place] Comment on above: Performed By: #### A ZINA FE, ADIFF, CBC #### [address] [address] Neutrophils/100 WBC (Bld) 58.3 % Normal 37.0-80.0 [facility] ([place]) Comment on above: Performed By: #### A ZINA FE, ADIFF, CBC #### [address] [address] .NEUABSon 08-18-2023 Neutrophil, Absolute 5.0 10 3/mcL Normal 2.9-6.2 [facility] ([place]) Comment on above: Performed By: #### A ZINA FE, ADIFF, CBC #### [address] [address] CBCon 08-18-2023 Erythrocyte distribution width (RBC) [Ratio] 12.7 % Normal 11.5-14.5 [facility] ([place] Comment on above: Performed By: #### A ZINA FE, ADIFF, CBC #### [address] [address] Hematocrit (Bld) [Volume fraction] 38.9 % Normal 37.0-47.0 [facility] ([place] Comment on above: Performed By: #### A ZINA FE, ADIFF, CBC #### [address] [address] Hgb 13.5 G/dL Normal 12.0-16.0 [facility] ([place] Comment on above: Performed By: #### A ZINA FE, ADIFF, CBC #### [address] [address] MCH (RBC) [Entitic mass] 29.0 pg Normal 27.0-31.2 [facility] ([place] Comment on above: Performed By: #### A ZINA, FE, ADIFF, CBC #### [address] [address] MCHC 34.6 G/dL Normal 33.0-37.0 [facility] ([place] Comment on above: Performed By: #### A PETRA IZAGUIRRE ADIFF, CBC #### [address] [address] MCV (RBC) [Entitic vol] 83.7 fL Normal 80.0-94.0 A [facility] ([place] Comment on above: Performed By: #### A PETRA IZAGUIRRE ADIFF, CBC #### [address] [address] Platelet 371 10 3/mcL Normal 130-400 [facility] ([place] Comment on above: Performed By: #### A PETRA IZAGUIRRE ADIFF, CBC #### [address] [address] Platelet mean volume (Bld) [Entitic vol] 7.1 fL Low 7.4-10.4 [facility] ([place] Comment on above: Performed By: #### A PETRA IZAGUIRRE ADIFF, CBC #### [address] [address] RBC 4.65 10 6/mcL Normal 4.20-5.40 [facility] ([place] Comment on above: Performed By: #### A PETRA IZAGUIRRE ADIFF, CBC #### [address] [address] WBC 8.5 10 3/mcL Normal 4.6-10.8 [facility] ([place] Comment on above: Performed By: #### A PETRA IZAGUIRRE ADIFF, CBC #### [address] [address] FEon 08-18-2023 Iron [Mass/Vol] 115 ug/dL Normal 50-170 [facility] ([place] Comment on above: Performed By: #### A PETRA IZAGUIRRE ADYOLANDA, CBC ####[address] [address] CTPCRon 08-06-2023 C. trachomatis Interp Normal See CT Interp N [facility] ([place]) Comment on above: Result Comment: C. t rachomatis DNA not detected. Specimen is presumptive negative for C. trachomatis. A negative result does not preclude C. trachomatis infection because results depend on adequate specimen collection, absence of inhibitors, and sufficient DNA to be detected. See CT Interp N Performed By: #### N GPCR1, CTPCR #### [place] [address] C.trachomatis PCR Negative Normal Negative [facility] ([place] Comment on above: Result Comment: Mole cular (PCR) assay performed on the [employer] K[employer]oe 4800 system. Performed By: #### N GPCR1, CTPCR #### [address] [address] Chlam Source Urine Normal [facility] ([place]) Comment on above: Performed By: #### N GPCR1, CTPCR #### [place] [address] [id number] 08-06-2023 GC PCR Source Urine Normal [facility] ([place] Comment on above: Performed By: #### N GPCR1, CTPCR #### [place] [address] N. gonorrhoeae (PCR) Negative Normal Negative [facility] ([place]) Comment on above: Result Comment: Mole cular (PCR) assay performed on the [employer] K[employer]oe 4800 System. Performed By: #### N GPCR1, CTPCR #### [place] [id number] N. gonorrhoeae Interp Normal See NG Interp N [facility] ([place] Comment on above: Result Comment: N. g onorrhoeae DNA not detected. Specimen is presumptive negative for N. gonorrhoeae. A negative result does not preclude Neisseria gonorrhoeae infection because results depend on adequate specimen collection, absence of inhibitors, and sufficient DNA to be detected. See NG Interp N Performed By: #### N GPCR1, CTPCR #### [place] [address] LABORATORYOrdered By: Alexandra Shaw on 08-04-2023 C. trachomatis DNA PACO+probe Ql (Unsp spec) Negative 2 (08/04/23 5:55 PM) Normal Negative AH Auto Viro/Sero SS Comment on above: Interpretive Data: M olecular (PCR) assay performed on the Theodore Khloe 4800 system. C. trachomatis DNA PACO+probe Ql (Unsp spec) C. trachomatis DNA not detected. Specimen is presumptive negative forC. trachomatis.A negative result does not preclude C. trachomatis infection becauseresults depend on adequate specimen collection, absence of inhibitors,and sufficient DNA to be detected. Normal See CT Interp N Auto Viro/Sero SS N. gonorrhoeae DNA PACO+probe Ql (Unsp spec) Negative 1 (08/04/23 5:55 PM) Normal Negative Auto Viro/Sero SS Comment on above: Interpretive Data: M olecular (PCR) assay performed on the [employer] Khloe 4800 System. N. gonorrhoeae DNA PACO+probe Ql (Unsp spec) N. gonorrhoeae DNA not detected. Specimen is presumptive negative forN. gonorrhoeae. A negative result does not preclude Neisseria gonorrhoeaeinfection because results depend on adequate specimen collection, absenceof inhibitors, and sufficient DNA to be detected. Normal See NG Interp N Auto Viro/Sero SS Laboratory - Specimen inform ationOrdered By: Alexandra Shaw on 08-04-2023 Specimen source Nom (Unsp spec) Urine (08/04/23 5:55 PM) Normal Auto Viro/Sero SS Final Surgical Pathology Rep tylor 06-30-2023 Final Surgical Pathology Report . Pathology Reports Accession: Collected Date/Time: Received Date/Time: Pathologist: [id number] 06/25/2023 10:43 EDT 06/27/2023 07:32 EDT PHILL FUENTES MD Final Surgical Pathology Report DIAGNOSIS: SKIN, RIGHT LOWER ABDOMEN: - JUNCTIONAL NEVUS CLINICAL INFORMATION: PROCEDURE: PUNCH EXCISION PREOPERATIVE DIAGNOSIS: ATYPICAL MOLE POSTOPERATIVE DIAGNOSIS: SAME SPECIMEN: A RIGHT LOWER ABDOMEN GROSS DESCRIPTION: All parts labelled with patient name and [id number] Received in formalin labelled undesignated on the container is a skin punch biopsy measuring 0.3 cm in diameter and 0.3 cm in thickness. Skin surface grossly unremarkable. Cut surface inked black. TS -1 Milton Danielson, Pathologists' Nurse Staff (ASCP) Dictated by MILTON DANIELSON Electronically Signed by Pathology Report verified by [facility] PHILL FUENTES Sign out Date: 06/30/2023 15:07 Performing Lab: [facility], [address] [place] [address] States Pathology Dept Disclaimer If ancillary studies were utilized, the following Laboratory Developed Test (LDT) disclaimer will apply: Under CLIA requirements, [facility] is qualified to perform high complexity testing. For all ancillary stains, positive and negative controls stain appropriately. Performance characteristics of immunohistochemical and chromogenic in-situ hybridization tests have been determined by [facility]. These tests are used for clinical purposes, They should not be regarded as investigational or for research. Normal [facility] ([place]) Basophil percentageOrdered B y: Mónica Strange on 06-02-2023 Bilirubin [Mass/Vol] 0.50 mg/dL 0.20-1.00 [facility] Comment on above: For patients on eltr ombopag therapy, use of Dimension [place] TBIL is not recommended. Chloride [Moles/Vol] 109 mmol/L 98-107 [facility] Glucose [Mass/Vol] 85 mg/dL 74-106 [facility] Potassium [Moles/Vol] 3.9 mmol/L 3.5-5.1 [facility] Protein [Mass/Vol] 7.2 g/dL 6.4-8.2 [facility] Sodium [Moles/Vol] 140 mmol/L 136-145 [facility] Laboratory - Chemistry and C hemistry - challengeOrdered By: Mónica Strange on 06-02-2023 Albumin/Globulin [Mass ratio] 1.2 {ratio} 0.9-2.4 [facility] ALP [Catalytic activity/Vol] 59 U/L 45-117 [facility] ALT [Catalytic activity/Vol] 19 U/L 13-56 [facility] CO2 [Moles/Vol] 26.0 mmol/L 21.0-32.0 [facility] Globulin (S) [Mass/Vol] 3.3 g/dL 2.2-4.2 [facility] Urea nitrogen/Creatinine [Mass ratio] 11.5 mg/mg 10-20 [facility] No Panel InformationOrdered By: Mónica Strange on 06-02-2023 Estimated GFR (MDRD) Amer 119 mL/min >60 [facility] Comment on above: GFR Calc Estimated GFR (MDRD) Non-Af Amer 98 mL/min >60 [facility] Comment on above: Non- GFR Calc Serum or plasma calcium fabian urement (mass/volume)Ordered By: Mónica Strange on 06-02-2023 Calcium [Mass/Vol] 9.1 mg/dL 8.5-10.1 [facility] Serum or plasma creatinine m easurement (mass/volume)Ordered By: Mónica Strange on 06-02-2023 Creatinine [Mass/Vol] 0.78 mg/dL 0.55-1.02 [facility] Comment on above: The validity of the calculated GFR & GFRAA in patients over 70 years has not been determined. Clinical correlation is essential. Serum or plasma thyroid stim ulating hormone (TSH) measurement (units/volume)Ordered By: Mónica Strange on 06-02-2023 TSH Qn 1.03 uIU/mL 0.358-3.74 [facility] Serum or plasma urea nitroge n measurement (mass/volume)Ordered By: Mónica Strange on 06-02-2023 Urea nitrogen [Mass/Vol] 9 mg/dL 7-18 [facility] Thin prep Papanicolaou smear with manual screeningOrdered By: Mónica Strange on 06-02-2023 Thin prep Papanicolaou smear with manual screening 3.9 g/dL 3.2-5.0 [facility] Thin prep Papanicolaou smear with manual screening 10 U/L 15-37 [facility] Thin prep Papanicolaou smear with manual screening 5 5-15 [facility] Thin prep Papanicolaou smear with manual screening 1.01 ng/dL 0.76-1.46 [facility] HBSABon 01-16-2023 Hep B Surf Ab 423.9 mIU/mL Normal >=10.0 [facility] ([place]) Comment on above: Result Comment: 0 to < 10.0 mIU/mL Nonreactive Patient is considered not to have protective immunity to HBV infection >/= 10.0 mIU/mL Reactive Patient is considered to have protective immunity to HBV infection. This assay is traceable to the World Health Organization (WHO) Hepatitis B Immunoglobulin 1st International Reference Preparation (1976). The accepted criteria for immunity to HBV is anti-HBs activity >/= 10.0 mIU/mL, as defined by the WHO International Reference Preparation. Performed By: #### H BSAB #### [facility] [address] [place] [id number] US SOFT TISSUE MASS OF RT AR M OR LEGon 01-15-2023 US SOFT TISSUE MASS OF RT ARM OR LEG ORIGINAL EXAMINATION: SOFT TISSUE ULTRASOUND OF THE RIGHT [id number]/11/2023 1:26 pm TECHNIQUE: Duplex ultrasound using B-mode/connelly [...] Sign Date: 01/15/2023 2:50:31 PM Ordering Provider: MÓNICA Floyd [facility] ([place]) No Panel Informationon 06-26 Culture Throat Normal throat justino present Sensitivity Testing: Not Indicated [facility] Work Phone: LABORATORYOrdered By: Lora hernandez on 01-08-2022 C. trachomatis DNA PACO+probe Ql (Unsp spec) Negative (01/08/22 4:29 PM) Invalid Interpretation Code Negative AH Auto Viro/Sero SS C. trachomatis DNA PACO+probe Ql (Unsp spec) C. trachomatis DNA not detected. Specimen is presumptive negative forC. trachomatis.A negative result does not preclude C. trachomatis infection becauseresults depend on adequate specimen collection, absence of inhibitors,and sufficient DNA to be detected. Invalid Interpretation Code See CT Interp N AH Auto Viro/Sero SS N. gonorrhoeae DNA PACO+probe Ql (Unsp spec) Negative (01/08/22 4:29 PM) Invalid Interpretation Code Negative AH Auto Viro/Sero SS N. gonorrhoeae DNA PACO+probe Ql (Unsp spec) N. gonorrhoeae DNA not detected. Specimen is presumptive negative forN. gonorrhoeae. A negative result does not preclude Neisseria gonorrhoeaeinfection because results depend on adequate specimen collection, absenceof inhibitors, and sufficient DNA to be detected. Invalid Interpretation Code See NG Interp N AH Auto Viro/Sero SS Laboratory - Specimen inform ationOrdered By: Lora Nelson on 01-08-2022 Specimen source Nom (Unsp spec) Urine (01/08/22 4:29 PM) Invalid Interpretation Code Auto Viro/Sero SS LABORATORYOrdered By: Mandy Carlson on 04-12-2021 ADMITTED TO INTENSIVE CARE UNIT FOR CONDITION OF INTEREST:FIND:PT:^PATIEN T:ORD: No (04/12/21 12:11 PM) Invalid Interpretation Code AO Auto Urine SS EMPLOYED IN A HEALTHCARE SETTING:FIND:PT:^PATIENT :ORD: No (04/12/21 12:11 PM) Invalid Interpretation Code AO Auto Urine SS FIRST TEST FOR CONDITION OF INTEREST:FIND:PT:^PATIEN T:ORD: Unknown (04/12/21 12:11 PM) Invalid Interpretation Code AO Auto Urine SS HAS SYMPTOMS RELATED TO CONDITION OF INTEREST:FIND:PT:^PATIEN T:ORD: Yes (04/12/21 12:11 PM) Invalid Interpretation Code AO Auto Urine SS Illness or injury onset date and time [id number] Invalid Interpretation Code AO Auto Urine SS Patient was hospitalized because of this condition No (04/12/21 12:11 PM) Invalid Interpretation Code AO Auto Urine SS status Not (04/12/21 12:11 PM) Invalid Interpretation Code AO Auto Urine SS RESIDES IN A CONGREGATE CARE SETTING:FIND:PT:^PATIENT :ORD: No (04/12/21 12:11 PM) Invalid Interpretation Code AO Auto Urine SS SARS-CoV-2 (COVID-19) RNA PACO+probe Ql (Resp) Negative (04/12/21 12:11 PM) Invalid Interpretation Code Negative AO Auto Urine SS SARS-CoV-2 (COVID-19) RNA PACO+probe Ql (Unsp spec) Negative results do not preclude SARS-CoV-2 infection and should not be used as the sole basis for patient management decisions. Negative results must be combined with clinical observations, patient history, and epidemiological information.There is a risk of false negative values resulting from improperly collected, transported, or handled specimens.There is a risk of false negative values due to the presence of sequence variants in the pathogen targets of the assay, procedural errors, amplification inhibitors in specimens, or inadequate numbers of organisms for amplification.Tunespeak SARS-CoV-2 Assay is a Real-Time reverse-transcriptase polymerase chain reaction (RT-PCR) based qualitative in vitro diagnostic test intended for the qualitative detection of nucleic acid from the SARS-CoV-2 in nasopharyngeal swab specimens collected from individuals suspected of COVID-19 by their healthcare provider. Testing is limited to laboratories certified under the Clinical Laboratory Improvement Amendments of 1988 (CLIA), 42 U.S.C. 263a, to perform moderate and high complexity tests. Invalid Interpretation Code AO Auto Urine SS Progress Noteon 10-06-2019 Postdoctoral Scientist Authentication Interface Message Text Patient ID: Kierra Blanca is a 19 y.o. female. Her chief complaint(s) include: 19 YEAR WELL CHILD Assessment 1. Routine general medical examination at a health care facility 2. Need for vaccination 3. Acne vulgaris Plan Kierra was seen today for 19 year well child. Diagnoses and all orders for this visit: Routine general medical examination at a health care facility - PHQ9 Assessment With Score Need for vaccination - Meningococcal B (BEXSERO) Acne vulgaris - Drospirenone-Ethinyl Estradiol (GIANVI) 3-0.02 MG tablets; Take 1 Tab by mouth daily Return in about 1 year (around 10/05/2020) for well check. Discussed great progress in school. Discussed future plan. Subjective HPI Comments: IB program at school. Had kidney stone in may. Mom had breast cancer dx in Apr. She is accompanied by her mother. 19 YEAR WELL CHILD Home: Kierra eats meals with family, has an adult to turn to for help and is permitted and able to make independent decisions. Education: Kierra is in freshman year of college and is doing well, is doing well with homework and is meeting expectations. Eating: Kierra eats regular meals including fruits and vegetables, eats breakfast, limits fast food, drinks non-sweetened liquids and has a calcium source. 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 Drugs: Kierra does not use tobacco, does not use drugs, does not use alcohol and does not vape. Safety: Kierra has a violence free home, has peer relationships free from violence and uses seat belt. Kierra does not use phone/text while driving. Sex: The patient has a sexual partner. Suicidality: Kierra has no depression, has no anxiety, has no suicidal ideation and has no homicidal ideation. Menstruation Menstruation: regular periods and minimal cramping Output Urine and Stool Pattern: Urine and Stool Pattern: Normal stool pattern, normal urine pattern. Sleep Sleeping Difficulty: no difficulty sleeping Hours of sleep at a time: 7 Teen Anticipatory Guidance The following anticipatory guidance was reviewed during the visit: Nutrition: limit junk food/fast food and soft drinks. Safety: home safety. Social: avoid or limit screen time and bullying. Health: age appropriate dental care, avoid situations where drugs and alcohol are present, learn how to say 'no' to sex, identify adult who can give accurate information about sex, recognize that sexual feelings are normal but delay having sex, puberty/sexual development/contraception s/STDs and limit sun exposure/use sunscreen. Screenings Previous Vaccine Reactions: No. Life events information was reviewed-no referral needed Hearing Vision Concerns: Patient wears glasses or contact lenses. The caregiver has no concerns about the patient's hearing. The caregiver has no concerns about the patient's vision. Vision and hearing screening done and passed at school per caregiver and patient is being seen by credit collections clerk or monotype setter. Primary Care Review of Systems Objective Vital Signs 10/06/19 1706 BP: 123/77 Pulse: 87 Weight: 46.7 kg Height: 157.4 cm Body mass index is 18.85 kg/m . Physical Exam Constitutional: She appears well. She is active. No distress. HENT: Head: Atraumatic. Ears: Right Ear: Tympanic membrane and external ear normal. Left Ear: Tympanic membrane and external ear normal. Nose: Nose normal. Mouth/Throat: Mucous membranes are moist. Dentition is normal. Oropharynx is clear. Eyes: Conjunctivae and EOM are normal. No strabismus. Pupils are equal, round, and reactive to light. Neck: Normal range of motion. Neck supple. Thyroid normal. Cardiovascular: Normal rate, regular rhythm, S1 normal and S2 normal. Pulses are palpable. Heart murmur not heard. Pulmonary/Chest: Breath sounds normal. No respiratory distress. Exhibits no deformity. Abdominal: Soft. Bowel sounds are normal. She exhibits no distension and no mass. There is no hepatosplenomegaly. There is no abdominal tenderness. Musculoskeletal: Normal range of motion. Back: She exhibits no scoliosis. Neurological: She is alert. She has normal strength. She exhibits normal muscle tone. Gait normal. Skin: Skin is warm and not pale. Findings: No rash. Vitals reviewed: Blood pressure 123/77, pulse 87, height 157.4 cm, weight 46.7 kg, last menstrual period 09/18/2019. Kierra Blanca is a 19 y.o. female patient. PHQ9 Assessment With Score Performed by: Jacqueline Garcia MD Authorized by: Jacqueline Garcia MD PHQ-9 See PHQ9 Flowsheet Feeling down, depressed, irritable or hopeless: Not at all Little interest or pleasure in doing things: Not at all Trouble falling or staying sleep, or sleeping too much: Not at all Poor appetite, weight loss, or overeating: Not at all Feeling tired or having little energy: Not at all Feeling bad about yourself - or feeling that you are a failure, or have let yourself or your family down: Not at all Trouble concentrating on things, like school work, reading or watching TV: Not at all Moving or speaking so slowly that other people could have noticed. Or the opposite - being so fidgety or restless that you were moving around a lot more than usual: Not at all Thoughts that you would be better off , or of hurting yourself in some way: Not at all In the past year have you felt depressed or sad most days, even if you felt OK sometimes?: No If you are experiencing any of the problems on this form, how difficult have these problems made it for you to do your work, take care of things at home or get along with other people?: Not difficult at all Has there been a time in the past month when you have had serious thoughts about ending your life?: No Have you ever, in your whole life, tried to kill yourself or made a suicide attempt?: No PHQ-9 Total Score: 0 Total Score Value: 0-4 No or Minimal Electronically signed by: Jacqueline Abarca MD [facility] Progress Noteon 05-04-2019 Postdoctoral Scientist Authentication Interface Message Text Patient ID: Kierra Blanca is a 18 y.o. female. Her chief complaint(s) include: Rash (thighs gone now) Assessment 1. Rash and nonspecific skin eruption Plan Kierra was seen today for rash. Diagnoses and all orders for this visit: Rash and nonspecific skin eruption Return if symptoms worsen or fail to improve. Unclear etiology of rash but is mostly resolved at this time. Will continue to monitor. If gets worse or keeps coming/going, will refer to dermatology for further evaluation. Subjective HPI Comments: Rash on left thigh- red dots, flat red/purple. Not itchy or painful. Always on left thigh. Has happened 3 times in the past 2 weeks. Lasts a few days. No similar rashes at home. Not treating it with anything- goes away on its own. On OCP. Just started a new pack 3 days ago. All 3 instances of rash occurred during the last pack. No new soaps or lotions. No new detergents. No other new exposures that mom and Kierra can think of. No other symptoms with the rash. No fevers, night sweats, joint pain, hair or other skin changes, pallor, etc. No one at home with similar rashes. Mom just diagnosed with breast cancer. Is undergoing genetic testing due to family history breast cancer. BRCA negative. She is accompanied by her mother. Rash The rash is located on the thigh(s). The patient has no fatigue, no malaise, no fever, no fussiness, no difficulty sleeping, no rhinorrhea, no sore throat, no cough, no shortness of breath, no ear pain, no headaches, no eye redness, no difficulty breathing, no abdominal pain, no vomiting and no diarrhea. Review of Systems Skin: Positive for rash. Objective Vital Signs 05/04/19 1701 Temp: 36.4 C (97.6 F) TempSrc: Temporal Weight: 46.9 kg There is no height or weight on file to calculate BMI. Physical Exam Constitutional: She appears well. She is active. No distress. HENT: Head: Atraumatic. Nose: No nasal discharge. Mouth/Throat: Mucous membranes are moist. Eyes: Conjunctivae are normal. Neck: Normal range of motion. Neck supple. No neck adenopathy. Cardiovascular: Normal rate and regular rhythm. Pulses are strong. Heart murmur not heard. Pulmonary/Chest: Effort normal and breath sounds normal. There is normal air entry. No respiratory distress. She has no wheezes. She has no rhonchi. She has no rales. Abdominal: Soft. There is no tenderness. Musculoskeletal: No pain, swelling, or limited range of motion at any joint. Neurological: She is alert. She exhibits normal muscle tone. Gait normal. Skin: Capillary refill takes less than 3 seconds. Rash (few small red macules on left anterior thigh. No excoriation. No other rashes on exam.) noted. There is no pallor. Skin is warm. Normal [facility] Vital Signs Date Time Vital Sign Value Performing Clinician Facility 09-01-2024 11:31-0400 Body height 157.48 cm Mónica Strange [employer] Work Phone: [facility] 09-01-2024 11:26-0400 Body mass index (BMI) [Ratio] 19.2 kg/m2 Mónica Strange [employer] Work Phone: [facility] 09-01-2024 11:26-0400 Body weight 47.68 kg Mónica Strange [employer] Work Phone: [facility] 09-01-2024 11:26-0400 Diastolic blood pressure 62 mm[Hg] Mónica Strange [employer] Work Phone: [facility] 09-01-2024 11:26-0400 Systolic blood pressure 104 mm[Hg] Mónica Strange [employer] Work Phone: [facility] 07-12-2024 08:55-0400 Body height 157.48 cm Mónica Strange [employer] Work Phone: [facility] 07-12-2024 08:45-0400 Body mass index (BMI) [Ratio] 19 kg/m2 Mónica Strange [employer] Work Phone: [facility] 07-12-2024 08:45-0400 Body weight 47.17 kg Mónica Alexandr [employer] Work Phone: [facility] 07-12-2024 08:45-0400 Diastolic blood pressure 80 mm[Hg] Mónica Strange [employer] Work Phone: [facility] 07-12-2024 08:45-0400 Systolic blood pressure 114 mm[Hg] Mónica Strange [employer] Work Phone: [facility] 10-22-2023 02:43-0400 Diastolic Blood Pressure Non-Invasive 96 mm[Hg] NIEVES HILL DO [facility] 10-22-2023 02:43-0400 Heart rate 76 /min NIEVES VIELKA DO [facility] 10-22-2023 02:43-0400 Mean blood pressure 109 mm[Hg] NIEVES HILL DO [facility] 10-22-2023 02:43-0400 Respiratory rate 16 /min NIEVES VORA DO [facility] 10-22-2023 02:43-0400 Systolic Blood Pressure Non-Invasive 138 mm[Hg] NEIVES HILL DO [facility] 10-22-2023 02:02-0400 Heart rate 95 /min NIEVES HILL DO [facility] 10-22-2023 01:49-0400 Body height 157.5 cm NIEVES VIELKA DO [facility] 10-22-2023 01:49-0400 Body temperature 96.98 [degF] NIEVES HILL DO [facility] 10-22-2023 01:49-0400 Body weight 50 kg NIEVES VORA DO [facility] 10-22-2023 01:49-0400 Diastolic Blood Pressure Non-Invasive 95 mm[Hg] NIEVES VORA DO [facility] 10-22-2023 01:49-0400 Heart rate 113 /min NIEVES VORA DO [facility] 10-22-2023 01:49-0400 Respiratory rate 18 /min NIEVES VORA DO [facility] 10-22-2023 01:49-0400 Systolic Blood Pressure Non-Invasive 151 mm[Hg] NIEVES VORA DO [facility] Encounters Encounter Date Encounter Type Care Provider Facility Start: 11-17-2024 ambulatory Mónica Strange NP Facil ity:[facility] Start: 09-01-2024 End: 09-01-2024 Patient encounter procedure Sherri Mccollum [employer] -[facility] Work Phone: Start: 09-01-2024 End: 09-01-2024 ambulatory Mónica Strange [employer] Work Phone: [facility] Work Phone: Start: 07-12-2024 End: 07-12-2024 Patient encounter procedure Sherri Mccollum [employer] -[facility] Work Phone: Start: 07-12-2024 End: 07-12-2024 ambulatory Mónica Strange [employer] Work Phone: [facility] Work Phone: Start: 07-12-2024 End: 07-12-2024 ambulatory Mónica Strange NP Facility:[facility] Start: 04-22-2024 Encounter for gynecological examination (general) (routine) without abnormal findings Mónica Strange NP [facility] Start: 03-30-2024 End: 04-03-2024 ambulatory MÓNICA STRANGE [employer] Facility:[facility] Start: 03-30-2024 End: 04-03-2024 Encounter for gynecological examination (general) (routine) without abnormal findings MÓNICA STRANGE [employer] Facility:[facility] Start: 03-30-2024 End: 04-03-2024 Outreach Lab [facility]ICA [facility] [employer] [facility] Start: 03-30-2024 End: 03-30-2024 Patient encounter procedure Mónica Strange [employer] -Laboratory Work Phone: Start: 03-30-2024 End: 03-30-2024 ambulatory Mónica Strange BAIT PACKER Facility:[facility] Start: 10-22-2023 End: 10-22-2023 Emergency department patient visit NIEVES VORA DO [facility] Start: 08-18-2023 End: 08-18-2023 ambulatory MÓNICA STRANGE Facility:B Start: 08-04-2023 End: 08-08-2023 ambulatory MÓNICA STRANGE Facility:B Start: 08-04-2023 End: 08-08-2023 Outreach Lab MÓNICA STRANGE MOBILE SOL[employer]IONS ARCHITECT-CARPENTER ROUGH [facility] Start: 07-21-2023 End: 07-21-2023 ambulatory MÓNICA STRANGE Facility:B Start: 07-21-2023 End: 07-21-2023 Patient encounter procedure MÓNICA STRANGE MOBILE [employer]UTIONS ARCHITECT-CARPENTER ROUGH [facility] Start: 06-25-2023 End: 06-29-2023 ambulatory MÓNICA STRANGE Facility:B Start: 06-25-2023 End: 06-29-[address] CLAUDIA PAIZ DO [facility] Start: 06-20-2023 End: 06-20-2023 ambulatory MÓNICA STRANGE Facility:B Start: 06-20-2023 End: 06-20-2023 Patient encounter procedure MÓNICA STRANGE MOBILE SOLUTIONS ARCHITECT-CARPENTER ROUGH [facility] Start: 06-02-2023 End: 06-02-2023 ambulatory [facility] Work Phone: Start: 06-02-2023 End: 06-02-2023 Patient encounter procedure [facility] Work Phone: Start: 06-02-2023 End: 06-02-2023 ambulatory MÓNICA ALEXANDR Facility:B Start: 01-15-2023 End: 01-15-2023 ambulatory MÓNICA ALEXANDR Facility:B Start: 01-15-2023 End: 01-15-2023 Patient encounter procedure MÓNICA STRANGE MOBILE SOLUTIONS ARCHITECT-CARPENTER ROUGH [facility] Start: 06-26-2022 End: 06-30-2022 Outreach Lab BEAR IZQUIERDO MOBILE SOLUTIONS ARCHITECT-CARPENTER ROUGH [facility] Start: 01-08-2022 End: 01-12-2022 Outreach Lab MÓNICA STRANGE MOBILE SOLUTIONS ARCHITECT-CARPENTER ROUGH [facility] Start: 04-12-2021 End: 04-12-2021 Patient encounter procedure [facility] MO[employer]LE SOLUTIONS ARCHITECT-CARPENTER ROUGH [facility] Procedures Date Procedure Procedure Detail Performing Clinician Start: 09-01-2024 End: 09-01-2024 Polymerase chain reaction analysis Mónica Strange BAIT PACKER-C Work Phone: Start: 07-12-2024 Dehydroepiandrostero ne sulfate level Mónica Strange BAIT PACKER-C Work Phone: Start: 07-12-2024 Follicle stimulating hormone measurement Mónica Strange BAIT PACKER-C Work Phone: Comment on above: FEMALE:Follicular: 1 .4 - 18.1 mIU/mLMidcycle: 3.4 - 33.4 mIU/mLLuteal: 1.5 - 9.1 mIU/mLPost Menopause: 23.0 - 116.3 mIU/mLMALE: 1.4 - 18.1 mIU/mL NORMAL REFERENCE RANGES FEMALE FOLLICULAR 2.3 - 12.6 mIU/mL MID-CYCLE PEAK 5.2 - 17.5 mIU/mL LUTEAL 1.7 - 12.9 mIU/mL POST-MENOPAUSAL ON MHT 5.9 - 72.8 mIU/mL NOT ON MHT 12.7 - 132.2 mlU/mL MALE 0.7 - 10.8 mIU/mL Start: 07-12-2024 Luteinizing hormone measurement Mónica NG Work Phone: Comment on above: FEMALE:Follicular: 1 .9-12.5 mIU/mLMidcycle: 8.7-76.3 mIU/mLLuteal: 0.5-16.9 mIU/mLPost Menopause: 15.9-54.0 mIU/mLMALE:20-70 Years: 1.5-9.3 mIU/mL>70 Years: 3.1-34.6 mIU/mL None (qualifier value) [facility] [employer] ARCHITECTEndorphMe Plan of Treatment Date Care Activity Detail Author Start: 07-12-2024 17-Hydroxyprogestero ne [Mass/volume] in Serum or Plasma [facility] Start: 07-12-2024 Dehydroepiandrostero ne sulfate (DHEA-S) [Mass/volume] in Serum or Plasma [facility] Start: 07-12-2024 Prolactin measurement [facility] Start: 07-12-2024 Testosterone Free [M ass/volume] in Serum or Plasma [facility] Chlamydia deoxyribon ucleic acid detection [facility] Immunizations Immunization Date Immunization Notes Care Provider Nishant salguero 12-06-2020 COVID-19, mRNA, LNP- S, PF, 100 mcg/ 0.5 mL dose; Translations: [Moderna COVID-19 Vaccine] [facility] ARCHITECT-[employer]PENTER ROUGH [facility] 11-08-2020 COVID-19, mRNA, LNP- S, PF, 100 mcg/ 0.5 mL dose; Translations: [Moderna COVID-19 Vaccine] [facility] 10-11-2019 meningococcal B vacc ine, recombinant, OMV, adjuvanted [facility] 05-19-2018 hepatitis A vaccine, pediatric dosage, unspecified formulation [facility] 05-19-2018 Human Papillomavirus Quadval [facility] 05-19-2018 meningococcal polysaccharide (groups A, C, Y and W-135) diphtheria toxoid conjugate vaccine (MCV4P) [facility] 09-05-2017 Human Papillomavirus Quadval [facility] 05-13-2017 hepatitis A vaccine, pediatric dosage, unspecified formulation [facility] 05-13-2017 Human Papillomavirus Quadval [facility] 09-08-2006 measles/mumps/rubell a virus vaccine [facility] 09-08-2006 poliovirus vaccine, inactivated [facility] 09-08-2006 varicella virus vaccine [facility] 12-30-2003 poliovirus vaccine, inactivated [facility] 05-19-2003 haemophilus influenz ae type b conjugate and Hepatitis B vaccine [facility] 05-19-2003 poliovirus vaccine, inactivated [facility] 05-19-2003 varicella virus vaccine [facility] 08-31-2002 measles/mumps/rubell a virus vaccine [facility] 03-02-2002 haemophilus influenz ae type b vaccine, PRP-T conjugate [facility] 2001 haemophilus influenz ae type b vaccine, PRP-T conjugate [facility] 2001 pneumococcal polysaccharide vaccine, 23 valent [facility] 2001 haemophilus influenz ae type b vaccine, HbOC conjugate [facility] 2001 hepatitis B pediatri c vaccine [facility] 2001 poliovirus vaccine, inactivated [facility] 2001 hepatitis B pediatri c vaccine [facility] Payers Date Payer Category Payer Self-pay [id number] 2023 Private Health Insurance [id number] 2023 Private Health Insurance [id number] 2023 Private Health Insurance [id number] 2023 Private Health Insurance [id number] 2001 Unknown [id number] 2.16.8 [id number] 2001 Unknown [id number] 2.16.8 [id number] 2001 Unknown [id number] 2.16.8 [id number] 2001 Unknown [id number] 2.16.8 [id number] 2001 Unknown [id number] 2.16.8 [id number] 2001 Unknown [id number] 2.16.8 [id number] 2001 Unknown [id number] 2.16.8 [id number] 2001 Unknown [id number] 2.16.8 [id number] 2001 Unknown [id number] 2.16.8 [id number] Unknown [id number] 2.16.8 [id number] Unknown [id number] 2.16.8 [id number] Unknown [id number] 2.16.8 [id number] Unknown [id number] 2.16.8 [id number] Unknown [id number] 2.16.8 [id number] Unknown [id number] 2.16.8 [id number] Social History Date Type Detail Facility Start: 04-18-2020 Never smoked t obacco (finding) [facility] Sex Assigned At [facility] Start: 05-23-2019 End: 07-12-2024 Tobacco smoking status ORIS Unknown if ever smoked [facility] Start: 2001 Sex Assigned At Female [facility] Tobacco Nicotine Use: Va ping Product in Last 90 Days. Exposure to Tobacco Smoke Lives in non-smoking home. [facility] Comment on above: at least a couple of times a week Start: 07-15-2024 Sex Female (finding) [facility] Functional Status Date Assessment Result Facility 10-22-2023 Functional Status Independent [facility] Mental Status Date Assessment Result Facility 10-22-2023 Mental Status Oriented x 4 [facility] Clinical Notes 01-15-2023 to 07-12-2024 Note Date & Type Note Facility 07-12-2024 Evaluation note Diagnosis Onset Date Resolution Abnormal uterine bleeding (AUB) acute July 12, 2024 8:39am Acne acute July 12 8:39am Elevated testosterone level in female acute July 12, 2024 8:39am Estrogen excess acute July 8:39am Hirsutism acute July 12 8:39am [facility] Work Phone: 1(581) 175-149204-07-2025 Evaluation note* Diagnosis Onset Date Resolution Status Admit Date Acne acute July 12 8:39am Elevated testosterone level in female acute July 12, 2024 8:39am Estrogen excess acute July 8:39am Hirsutism acute July 12 8:39am Abnormal uterine bleeding (AUB) anali staci July 12, 2024 8:39am Acne acute September 01, 2024 11:25am Hirsutism acute September 01, 2024 11:25am Secondary oligomenorrhea acute September 01, 2024 11:25am [facility] Work Phone: 1(902) 435-303012-24-2024 Evaluation + Plan note Future Scheduled Tests Laboratory* Rapid HIV (AO) 03/30/24 * Basic Metabolic Panel 03/30/24 * Estradiol Level 03/15/24 * Progesterone Level 03/15/24 * Rapid Plasma Reagin Test 03/30/24 * Testosterone Level Total 03/15/24 * Thyroid Stimulating Hormone 06/02/23 * Free T4 06/02/23 * Acute Hepatitis Panel 03/30/24 * Complete Metabolic Panel 06/02/23 Radiology* US Pelvis Non-OB Limited 08/04/23 [facility] 07-17-2024 Hospital Discharge instructions Patient Education 10/22/2023 02:29:02 Understanding Rectal Bleeding Understanding Rectal Bleeding Rectal bleeding is when blood passes through your rectum and anus. It can happen with or without a bowel movement. Rectal bleeding may be a sign of a serious problem in your rectum, colon, or upper GI tract. Call your healthcare provider right away if you have any rectal bleeding. The GI Tract The gastrointestinal (GI) tract includes the mouth, esophagus, stomach, small intestine, large intestine (colon), rectum, and anus. The food you eat is digested as it passes through the GI tract. Solid waste leaves the body through the rectum. Rectal bleeding and GI problems The cause of rectal bleeding may be found in any region of the GI tract. The colon or rectum may bethe site of your bleeding problem. Or, bleeding may be due to problems farther up the GI tract, such as in the small intestine, duodenum, or stomach. Causes of rectal bleeding Rectal bleeding causes include the following: Hemorrhoids (swollen veins in the rectum and anus) Fissures (tears in or near the anus) Diverticulosis (inflamed pockets in the colon wall) Infection Ischemia (low blood flow) Radiation damage Inflammatory bowel disease (Crohn's disease or ulcerative colitis) Ulcers in the upper GI tract and inflammation of the large intestine Abnormal tissue growths (tumors or polyps) in the GI tract A bulging rectum (also called a rectal prolapse) Abnormal blood vessels in the small intestine or in the colon Common symptoms Common symptoms include the following: Rectal pain, itching, or soreness Belly pain or epigastric pain Minor occasional drops of blood that appear on the stool or toilet paper, to greater amounts of stool that appear black or tarry Rectal bleeding can also happen without pain. [id number] [employer]. [address] [place] [address]. All rights reserved. This information is not intended as a substitute for professional medical care. Always follow yourhealthcare professional's instructions. Follow Up Care 10/22/2023 01:43:15 With:BRYSON ESPINOZA MD Address: [address] [phone] When:1-2 days [facility] 07-17-2024 Note Discharge Instructions Thank you for allowing [facility] to assist you with your healthcare needs. The following is importantdischarge information regarding your hospital visit. Diagnosis from Today's Visit Lower GI bleeding What to Do Next Instructions from Your Care Team Please call to schedule follow-up visit with Dr. Espinoza, gastroenterology. Return to the ED with any new or worsening symptoms. No qualifying data available. Post Acute Orders No qualifying data available. You Need to Schedule the Following Appointments Follow Up with BRYSON ESPINOZA MD When:Within 1-2 days Where:[address] [place] [address] [phone] Allergies NKA Medications Please ask your primary doctor or pharmacist before taking any other medication not listed, including over the counter drugs, herbal medications, vitamins and or supplements as they may interact withyour home medications. What How Much When Why Instructions Last Dose Unchanged acetaminophen (acetaminophen 500 mg oral tablet) 2 tab(s) by mouth Three (3) times a day as needed for pain or fever Unchanged ethinyl estradiol-norethindrone (Junel Fe oral tablet) 1 tab(s) by mouth Once a day Metrorrhagia Breakthrough bleeding on OCPs Unchanged metoprolol (metoprolol succinate 25 mg oral TABLET extended release) 1 tab(s) by mouth Once a day Do not crush or chew (controlled release) Unchanged sertraline (sertraline 50 mg oral tablet) 1 tab(s) by mouth Once a day Please take this list to your next doctor s visit. Bring all medications you take, including over the counter medications, herbals and other supplements with you to your doctor s visit. Patients and families are reminded to discard old lists and to update any records with all medication providers or retail pharmacies. Education Materials Understanding Rectal Bleeding Rectal bleeding is when blood passes through your rectum and anus. It can happen with or without a bowel movement. Rectal bleeding may be a sign of a serious problem in your rectum, colon, or upper GI tract. Call your healthcare provider right away if you have any rectal bleeding. The GI Tract The gastrointestinal (GI) tract includes the mouth, esophagus, stomach, small intestine, large intestine (colon), rectum, and anus. The food you eat is digested as it passes through the GI tract. Solid waste leaves the body through the rectum. Rectal bleeding and GI problems The cause of rectal bleeding may be found in any region of the GI tract. The colon or rectum may bethe site of your bleeding problem. Or, bleeding may be due to problems farther up the GI tract, such as in the small intestine, duodenum, or stomach. Causes of rectal bleeding Rectal bleeding causes include the following: Hemorrhoids (swollen veins in the rectum and anus) Fissures (tears in or near the anus) Diverticulosis (inflamed pockets in the colon wall) Infection Ischemia (low blood flow) Radiation damage Inflammatory bowel disease (Crohn's disease or ulcerative colitis) Ulcers in the upper GI tract and inflammation of the large intestine Abnormal tissue growths (tumors or polyps) in the GI tract A bulging rectum (also called a rectal prolapse) Abnormal blood vessels in the small intestine or in the colon Common symptoms Common symptoms include the following: Rectal pain, itching, or soreness Belly pain or epigastric pain Minor occasional drops of blood that appear on the stool or toilet paper, to greater amounts of stool that appear black or tarry Rectal bleeding can also happen without pain. [id number] [employer]. [address] [place], [place] [address]. All rights reserved. This information is not intended as a substitute for professional medical care. Always follow yourhealthcare professional's instructions. Additional Information VACCINATE! IT SAVES LIVES! Members of the community who have not yet received the COVID-19 vaccine and would like to receive it can visit one of [facility] vaccine clinics. There are many vaccine clinic locations within the [facility]. For locations and available times, please visit [email or web address] It is important to note that some COVID mobile vaccine clinics are held outdoors and may be canceled in rainy or stormy conditions. To learn more about pediatric vaccinations (ages 5-11), we invite you to visit the [facility] webpage. [email or web address]/[email or web address] learn more about the COVID-19 vaccine, we invite you to visit the CDC website for a list of frequently asked questions. https://www.cdc.gov/coronavirus/2019-ncov/vaccines/faq.html [facility] Patient Portal Access Instructions: Stay connected with your healthcare team and access your personal medical information anytime with the [facility] Patient Portal. If you would like a full copy of your medical records please contact the [facility] Medical Records Department Friday through Friday between 8a.m. and 4:30p.m. Please follow the directions below to access the portal: 1.Access the email account you provided upon registration to the hospital.2.Look for an invitation email from [facility].3.Open the email and access the invitation link: Accept Invitation to [facility]4.Fill in the required vogel to create your account. Sign into [email or web address] with your username and password that you created in the above steps to stay up to date. You can then view a summary of results, a summary of your visits, and the ability to download your summaries to your computer or send the information securely to a physician. Remember that your healthcare information is confidential, so carefully consider who you will allow to register on the [facility] Patient Portal for access to your information. You can also access the [facility] Patient Portal on the [employer] Simply click on Health Records under [employer] Systems and then click on the [facility] logo. HOW TO SAFELY DISPOSE OF PRESCRIPTION MEDICATIONS Please use one of the following methods to safely dispose of your unused medications. 1.Use a drug disposal kit: the drug disposal pouch allows you to safely discard your old and unuseddrugs. Ask your nurse to give you one when you are discharged.2.Visit a local take-back location: Many local pharmacies and police departments have programs that collect old and unwanted prescriptiondrugs. Call your local pharmacy or go to http://Mobile Event Guide.Phos[employer]e/0R1Cs1e to find one close to you.3.Make use of household items: Use cat litter or old coffee grounds to dispose medications if other options arenot available. Mix your drugs with these household products, seal them in an airtight container andthrow it into the garbage. Call [facility]: [phone] to be sure your drugs can be disposed of in this way. Some medicines may require a different approach.4.Never flush your medications down the toilet. IF YOU HAVE BEEN PRESCRIBED AN OPIOIDS FOR PAIN If you have been prescribed an opioid (such as hydrocodone, oxycodone or morphine), it is critical to understand the possible side effects and risks of opioid pain medications. Even when taken as directed, opioids can have several side effects including: Tolerance, meaning you might need to take more of a medication for the same pain relief. Nausea, vomiting and/or constipation. Sleepiness, dizziness, dry mouth, confusion, depression or itching. Physical dependence, meaning you have withdrawal symptoms when a medication is stopped ? this can develop within a few days. KNOW YOUR RESPONSIBILITIES It is important to know exactly how much and how often to take the opioid pain medications you are prescribed. Never take opioids in higher amounts or more often than prescribed. Do not combine opioids with alcohol or other drugs that cause drowsiness, such as benzodiazepines, also known as benzos,including diazepam and alprazolam, muscle relaxants or sleep aids. Never sell or share prescriptionopioids. This is illegal. Store opioids in a secure place and out of reach of others (including children, family, friends and visitors). The last page(s) of this document has been signed and retained as a CHART COPY Signatures Patient Education Materials Understanding Rectal Bleeding Medication Leaflets My discharge plan and instructions have been reviewed and explained to me and I,EVANGELIST KIERRA understand my current condition and have read and understand these discharge instructions. I have received a written copy of the plan/instructions. If I have questions, I am aware that I should contact my doctor. 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 Signature: Date/Time: Relationship to Patient: Witness Name/Signature: Date/Time: [facility]04-15-2024 Note* Exam Date Time Procedure Performing Provider Status 07/21/23 1:23 PM Echocardiogram, Adul t with Bubble Study- Auth (Verified) [facility] 02-26-2024 Evaluation + Plan note Future Scheduled Tests Laboratory* Thyroid Stimulating Hormone 06/02/23 * Free T4 06/02/23 * Complete Metabolic Panel 06/02/23 [facility] 10-11-2023 Note ORIGINAL EXAMINATION: SOFT TISSUE ULTRASOUND OF THE RIGHT SLHWAVFEB82/11/2023 1:26 pm TECHNIQUE: Duplex ultrasound using B-mode/connelly [...] Sign Date: 01/15/2023 2:50:31 PM [facility] No data available for this section [facility] Evaluation + Plan note Future Appointments Appointment Date:02/17/2023 02:00:00 PM Scheduled Provider:IRINA MONTANO Location:[facility] Appointment Type:PC OV Follow Up [facility] Evaluation + Plan note Future Appointments Appointment Date:06/25/2023 10:00:00 AM Scheduled Provider:CLAUDIA PAIZ DO Location:[facility] Appointment Type:PC Office Procedure Lesion Removal Future Scheduled Tests Laboratory* Thyroid Stimulating Hormone 06/02/23 * Free T4 06/02/23 * Complete Metabolic Panel 06/02/23 [facility] Evaluation + Plan note Future Appointments Appointment Date:07/21/2023 01:00:00 PM Scheduled Provider: Location:[facility] Appointment Type:Echo - Echocardiogram Adult w/Bubble Khang Future Scheduled Tests Laboratory* Thyroid Stimulating Hormone 06/02/23 * Free T4 06/02/23 * Complete Metabolic Panel 06/02/23 [facility] Evaluation + Plan note Future Appointments Appointment Date:08/18/2023 11:15:00 AM Scheduled Provider:CHINA MARSHALL Location:[facility] Appointment Type:CV BAIT PACKER Future Scheduled Tests Laboratory* Thyroid Stimulating Hormone 06/02/23 * Free T4 06/02/23 * Complete Metabolic Panel 06/02/23 Radiology* US Pelvis Non-OB Limited 08/04/23 [facility] Evaluation + Plan note Future Appointments Appointment Date:11/05/2023 03:00:00 PM Scheduled Provider:CHINA MARSHALL Location:[facility] Appointment Type:CV OV Future Scheduled Tests Laboratory* Thyroid Stimulating Hormone 06/02/23 * Free T4 06/02/23 * Complete Metabolic Panel 06/02/23 Radiology* US Pelvis Non-OB Limited 08/04/23 [facility] Evaluation noteNo assessment information available [facility] Work Phone: Hospital Discharge instructions No data available for this section [facility] Progress note No data available for this section [facility] Reason for referral (narrative)No reason for referral [facility] Work Phone: Summary Purpose Family History No Family History Records Found Relationship Condition Age at Onset Recorded Date/T suki Not Specified Diabetes mellitus Unknown Cardiac disease Unknown Kidney disorder Unknown mother Malignant neoplasm of breast 53 aunt Malignant neoplasm of breast Unknown grandmother Malignant neoplasm of breast Unknown brother History of pineal cyst Unknown Glioma Unknown Advance Directives No Advanced Directives Records FoundNo Advanced Directives Records FoundNo Advanced Directives Records FoundNo Advanced Directives Records Found Chief Complaint and Reason for Visit Chief Complaint Admit Date ABNORMAL ESTRADOIL, TESTERONE, AUB July 12, 2024 8:39am Reason for Visit Admit Date Abnormal uterine bleeding (AUB) July 8:39am Acne July 12, 2024 8:39 am Elevated testosterone level in female Ap ril 2024 8:39am Estrogen excess July 12, 2024 8:39 am Hirsutism July 12, 2024 8:39 am Chief Complaint Admit Date ABNORMAL ESTRADOIL, TESTERONE, AUB July 12, 2024 8:39am 5 week progesterone F/U *$20 copay August 062024 11:25am Reason for Visit Admit Date Acne July 12, 2024 8:39 am Elevated testosterone level in female Ap ril 2024 8:39am Estrogen excess July 12, 2024 8:39 am Hirsutism July 12, 2024 8:39 am Abnormal uterine bleeding (AUB) July 8:39am Acne September 01, 2024 11:25 am Hirsutism September 01, 2024 11:25 am Secondary oligomenorrhea September 01, 2024 11:25am Additional Source Comments INFORMATION SOURCE (unrecogn ized section and content) DATE CREATED AUTHOR 10/28/2019 [facility] DATE CREATED AUTHOR AUTHOR'S ORGANIZ ATION 10/25/2023 [facility] ([place]) DATE CREATED AUTHOR AUTHOR'S ORGANIZ ATION 04/17/2024 [facility] DATE CREATED AUTHOR AUTHOR'S ORGANIZ ATION 12/21/2024 [facility] Care Team (unrecognized sect ion and content) Care Team Personnel Name: MÓNICA STRANGE APRN-CARPENTER ROUGH Position: P4 Advanced Practice Nurse Med Service: Active Provider Member Role: Primary Care Physician Address: Address: [address] [place] [address] [address] [facility] [place], [place] [address] Care Team Related Persons Name: NICOLE BLANCA Name: ARABELLA BLANCA Address: Home [address], [place] [id number] Address: Temporary [address], [place] [id number] Patient Care team informatio n (unrecognized section and content) Team Status: Active Member Role Status Dates Dr. Jacqueline Bach MD Family Provider Active Mónica Strange BAIT PACKER, BAIT PACKER-C Primary Care Provider Active Team Status: Inactive Member Role Status Dates Mónica Strange BAIT PACKER, BAIT PACKER-C Primary Care Provider, Attendi ng Provider Active Team Status: Inactive Member Role Status Dates Mónica Strange BAIT PACKER, BAIT PACKER-C Primary Care Provider Active Start: March 30, 2024 End: March 30, 2024 Mónica Strange NP, BAIT PACKER-C Attending Provider Active Start: March 30, 2024 End: March 30, 2024 Mónica Strange BAIT PACKER, BAIT PACKER-C Referring Provider Active Start: March 30, 2024 End: March 30, 2024 Team Status: Inactive Member Role Status Dates Mónica Strange BAIT PACKER, BAIT PACKER-C Primary Care Provider Active Start: July 12, 2024 End: July 12, 2024 Mónica Strange NP, BAIT PACKER-C Referring Provider Active Start: July 12, 2024 End: July 12, 2024 Sherri Mccollum BAIT PACKER, BAIT PACKER-C Attending Provider Active Start: July 12, 2024 End: July 12, 2024 Team Status: Inactive Member Role Status Dates Mónica Strange NP, BAIT PACKER-C Primary Care Provider Active Start: July 12, 2024 End: July 12, 2024 Sherri Mccollum NP, BAIT PACKER-C Attending Provider Active Start: July 12, 2024 End: July 12, 2024 Team Status: Inactive Member Role Status Dates Mónica Strange NP, BAIT PACKER-C Primary Care Provider Active Start: September 01, 2024 End: September 01, 2024 Mónica Strange NP, BAIT PACKER-C Referring Provider Active Start: September 01, 2024 End: September 01, 2024 Sherri Mccollum BAIT PACKER, BAIT PACKER-C Attending Provider Active Start: September 01, 2024 End: September 01, 2024 Team Status: Inactive Member Role Status Dates Mónica Strange NP, BAIT PACKER-C Primary Care Provider Active Start: September 01, 2024 End: September 01, 2024 Sherri Mccollum NP, BAIT PACKER-C Attending Provider Active Start: September 01, 2024 End: September 01, 2024 Sherri Mccollum BAIT PACKER, BAIT PACKER-C Referring Provider Active Start: September 01, 2024 End: September 01, 2024 Goals (unrecognized section and content) Goals may be documented in a n alternate section FOR RECORDS PERTAINING TO PATIENTS WHO ARE [...] BE BASED ON THE PRIMARY CLINICAL RECORDS. [facility] [employer] [facility]. provides no warranty or guarantee of the accuracy or completeness of information in this document.
[2024-12-23 07:01] LABS: Differential Indicated SCAN CRITERIA MET
[2024-12-23 07:16] LABS: D-Dimer Quantitative (DVT/PE) < 0.27 FEU/ug/m (0.27-0.49)
[2024-12-23 07:29] LABS: AST(SGOT) 24 U/L (<=31); Alanine Aminotransfer ALT/SGPT 20 U/L (<=34); Albumin, Serum 4.2 g/dL (3.5-5.0); Alkaline Phosphatase 81 U/L (35-104); Anion Gap 10 (5-15); BUN 9 mg/dL (4-19); BUN/Creat Ratio 11.8 RATIO (10-20); Bilirubin, Direct 0.23 mg/dL (0.00-0.30); Calcium,Total 9.0 mg/dL (7.6-11.0); Carbon Dioxide 22.2 mmol/L (21.0-32.0); Chloride 108 mmol/L (98-108); Estimated Creatinine Clearance 83.22 ml/min (50-250); Globulin 2.2 g/dL (2.2-4.2); Glucose 88 mg/dL (70-99); Lipase 53 U/L (13-75); Potassium 3.9 mmol/L (3.3-5.1)
--- NOTE | 2024-12-23 07:31 | CT_ITS ---
PROCEDURE: ABDOMEN/PELVIS W IV CONT ONLY 12/23/2024 REASON FOR EXAM: ABD PAIN / ? PYELONEPHRITIS TECHNIQUE: Procedure Code: [id number] Modality: CT Procedure: ABDOMEN/PELVIS W IV CONT ONLY Coronal and Sagittal reconstruction series were provided. CONTRAST: Isovue 300 VOLUME: 97 mL One or more dose reduction techniques were used (e.g., Automated exposure control, adjustment of the mA and/or kV according to patient size, use of iterative reconstruction technique. RADIATION DOSE SUMMARY: CTDlvol: 5.4 mGy DLP: 253 mGycm COMPARISON: None FINDINGS: Lung bases: Bibasilar atelectasis. Liver: Hepatomegaly measuring 19 cm in craniocaudal dimension. Gallbladder: Gallbladder is contracted. Spleen: Normal size. Pancreas: Normal size without evidence of mass surrounding inflammation or ductal dilation. Adrenals: Unremarkable Kidneys: Normal renal sizes. No hydronephrosis. No abnormal striations are visualized within bilateral kidney. Bladder: Mildly thick walled bladder. Reproductive Organs: Prominent uterine cavity distended with fluid with prominent bilateral adnexa. Bowel: Limited evaluation of bowel due to lack of oral contrast in paucity of abdominal fat. [id number] stool burden. Multiple loops distended small bowel loops distended with fluid. Appendix: The appendix is not identified. There is no inflammatory process identified in the right lower quadrant to suggest appendicitis. Lymph nodes: Prominent bilateral inguinal lymph nodes.. Vasculature: Unremarkable Peritoneum / Retroperitoneum: Unremarkable Bones: Age-appropriate CT/Abdomen/Pelvis W IV Cont ONLY IMPRESSION: Prominent bulky uterus with uterine cavity distended with fluid. There are neema ateral prominent adnexa. Findings could be related to underlying infectious/inflammatory process such as underlying pelvic inflammatory disease. Further correlation with ultrasound pelvis is recommended. Bladder is distended with urine with mildly thick wall. Findings could be rela staci to early cystitis. Multiple dilated loops of bowel distended with fluid. These findings could be related to underlying early ileus. Moderate stool burden. Reading Location: [id number]
--- NOTE | 2024-12-23 08:39 | EDS_ITS ---
HPI History of Present Illness Chief Complaint: Abd Pain Informant: patient Narrative Narrative: Patient is a 24-year-old female who reports a remote history of kidney stone and dysfunctional uterine bleeding. She states that she went to bed normally and then awoke this morning with pain in the bilateral mid back region that she feels wraps around towards the abdomen. She states there is been no recent trauma or excessive activity. She does state it was more painful with motion. She denies any fevers or chills cough or congestion. She denies any concern for . She states there is no vaginal discharge or concern for STD. She states she does have remote history of kidney stone and this feels somewhat similar in nature. Therefore with the sudden onset of pain and concern this could be potential kidney stone she presents for evaluation. [facility] Medical History Depression MVP (mitral valve prolapse) Home Medications ?Medication ?Instructions ?Recorded ?Last Taken ?Type NK 12/23/24 Unknown History Allergy/AdvReac Type Severity Reaction Status Date / Time No Known Allergies Allergy Verified 12/23/24 06:14 Family History Mother Breast cancer, Onset Age: 53 BRCA Negative Aunt Breast cancer Maternal Grandmother Breast cancer Maternal Brother History of pineal cyst Glioma Other Diabetes Heart disease Kidney disease Surgical History No significant past surgical history Social History current occupational status: employed current occupation: [employer] Smoking Status: Current every day smoker tobacco type: e-cigarettes Electronic Cigarette Use: with nicotine alcohol intake: never substance use type: marijuana seatbelt use: always do you feel safe at home: Yes ROS ROS ED Constitutional Constitutional ED: Denies chills or fever(s) ENT ENT ED: Denies sore throat Cardiovascular Cardiovascular: Denies chest pain Respiratory/Chest Respiratory/Chest: Denies cough or dyspnea Gastrointestinal Gastrointestinal: Reports abdominal pain; Denies diarrhea, nausea or vomiting Genitourinary Genitourinary ED: Denies dysuria or hematuria Musculoskeletal Musculoskeletal: Reports back pain Integumentary Denies Abrasions or rash Neurologic Neurologic: Denies headache(s) Hematologic/Lymphatic Hematologic/Lymphatic: Denies easy bleeding or easy bruising EXAM Physical Exam Const Vital Signs: 12/23/24 06:14 12/23/24 06:17 Temperature 97.5 F L 97.5 F L Temperature Source Oral Oral Pulse Rate 77 83 Respiratory Rate 16 16 Blood Pressure 125/83 H 125/83 H Blood Pressure Mean 97 97 Pulse Ox 100 100 Oxygen Delivery Method Room Air Room Air Positive well nourished and well developed General Appearance ED: well developed; Negative for pallor HEENT Reports moist mucous membranes HEENT Narrative: Normocephalic atraumatic No tongue or lip swelling no oral lesions no airway edema or compromise No secondary findings in the posterior pharynx to suggest infection Eyes PERRL and EOMs intact bilaterally General Eye ED: Negative for scleral icterus Neck supple Resp normal respiratory effort and clear to auscultation bilaterally Resp Narrative: No nasal flaring retractions tachypnea or accessory muscle use Cardio regular rate and regular rhythm Rate: other Other Details: Heart is regular rate and rhythm without murmurs rubs or gallops Radial and carotid pulses are equal and symmetric GI non-distended and no masses GI Narrative: Abdomen is soft nondistended with normal active bowel sounds. There is faint pain on palpation in the midepigastric region without voluntary guarding or rigidity or pulsatile mass Auscultation: normoactive bowel sounds Palpation: soft Back/Spine Back/Spine Narrative: No bony deformity or step-off of the thoracic or lumbar spine; no midline tenderness to palpation There is bilateral CVA tenderness noted. No overlying soft tissue changes to suggest trauma or infection Extremity normal to inspection Extremity Narrative: No asymmetric edema no pitting edema negative Homans' sign bilaterally Neuro oriented x3, CN's II-XII intact bilaterally and no sensory deficits noted Sensorium / Orientation: alert Psych mental status grossly normal Skin no rashes or lesions noted and no wounds General Skin Exam: Negative for jaundice or pallor MDM MDM MDM Narrative Medical decision making narrative: Patient arrived to ER with stable vitals. She reported bilateral back/CVA pain without trauma or excessive activity. She has been on intermittent estrogen and she does vape throughout the summer but has not been on any type of medication for approximately 6 weeks. In order to ensure that this was not related to a atypical presentation for a PE a D-dimer was obtained which was normal which would go against a PE or dissection. There is concern she could have pyelonephritis or kidney stone. Therefore I elected to perform a CT scan with IV contrast of the abdomen and pelvis. Patient's white count is elevated but this is nonspecific in nature and could be related to stress response. At this time the patient's urine sample as well as CT scan is still pending and therefore should be signed out to Dr. Izquierdo. The patient was given Toradol and IV fluids on reevaluation reports feeling much better and vitals remained stable. History & Record Review Discussion w/independent historian: Patient Lab Data Attestation: I reviewed the patient's lab results. Labs: Laboratory Results - last 24 hr 12/23/24 06:43 WBC 16.0 H RBC 4.59 Hgb 13.5 Hct 39.8 MCV 86.7 MCH 29.4 MCHC 33.9 RDW Std Deviation 37.4 RDW Coeff of Abimael 11.9 Plt Count 304 MPV 8.6 Immature Gran % (Auto) 0.600 Neut % (Auto) 69.4 Lymph % (Auto) 17.7 L Dane % (Auto) 10.0 Eos % (Auto) 1.6 Baso % (Auto) 0.7 Absolute Neuts (auto) 11.1 H Absolute Lymphs (auto) 2.84 Nucleated RBC % 0 D-Dimer Quant (PE/DVT) < 0.27 L Sodium 140 Potassium 3.9 Chloride 108 Carbon Dioxide 22.2 Anion Gap 10 BUN 9 Creatinine 0.79 Estim Creat Clear Calc 83.22 Est GFR (MDRD) Non-Af 108 BUN/Creatinine Ratio 11.8 Glucose 88 Calcium 9.0 Total Bilirubin 0.45 Direct Bilirubin 0.23 AST 24 ALT 20 Alkaline Phosphatase 81 Total Protein 6.4 Albumin 4.2 Globulin 2.2 Lipase 53 Discharge Plan Triage Chief Complaint: Abd Pain ED Provider: Jase Stephenson Dx/Rx/DC Orders Prescriptions: No Action NK Primary Care Provider: Mónica Barragan NP Referrals: Mónica Barragan CARDIOLOGY NURSE PRACTITIONER, CARDIOLOGY NURSE PRACTITIONER-C [Primary Care Provider, Family Practice] Print Language: Telugu
[2024-12-23 08:50] LABS: Mucous, Urine 0 SEEN /hpf (<or=2+); Red Blood Cells-Urine 0 SEEN /hpf (0-5)
[2024-12-23 08:57] LABS: Color, Urine Yellow (Yellow); Glucose, Dipstick Normal (Normal); Ketone-Dipstick 15 mg/dl (Negative); Leukocyte Esterase-Dipstick 25 /ul (Negative); Nitrite-Dipstick Negative (Negative); Occult Blood-Urine Negative /ul (Negative); Protein-Dipstick 15 mg/dl (Negative); Specific Gravity, Urine 1.025 (1.002-1.030); Urine Bilirubin Dipstick Negative (Negative)
[2024-12-23 09:11] LABS: Calcium Oxalate Crystals Ur 3+ /hpf (<or=2+); Internal QC Validated? YES +Cl - CLEAR BKGD; Pregnancy, Urine Negative Negative; Squamous Epithelial Cells - UA 0-5 SEEN /hpf (5-10)
[2024-12-23 09:12] LABS: Record Kit Lot#,Urine Preg 0000964736
--- NOTE | 2024-12-23 11:17 | US_ITS ---
PROCEDURE: TRANSVAGINAL NON- 12/23/2024 REASON FOR EXAM: PELVIC PAIN TECHNIQUE: Procedure Code: USTVAG Modality: US Procedure: TRANSVAGINAL NON- COMPARISON: Prior CT scan of the abdomen and pelvis done earlier in the day. FINDINGS: LMP: November 09, 2024. Measurements: Uterus: 8.4 cm x 5.1 cm x 3.3 cm with a volume of 73.4 mL Endometrial Thickness: 6 mm. It is trilaminar. Right Ovary: 3.1 cm x 1.8 cm x 1.4 cm with a volume of 4.2 mL. Left Ovary: 3.5 cm x 3.2 cm x 2.2 cm with a volume of 12.8 mL. Uterus: Normal size, myometrial echotexture, and contour. Nabothian cyst. Endometrium: Unremarkable. Right ovary: Normal size and echotexture. Left ovary: Dominant cyst in the left ovary measuring 2.5 cm x 2.0 cm by 1.8 cm Other: Minimal free fluid is seen in the pelvis. US/Transvaginal Non- IMPRESSION: 2.5 cm 2 cm 1.8 cm left ovarian cyst. Minimal amount of free fluid is seen in the cul-de-sac. Reading Location: [place] [id number]
== END 2024-12-23 14:17 | disposition home or self-care (01) ==
PROVIDERS: Emergency Provider Emergency Medicine; PCP Nurse Practitioner Family; Visit Provider Emergency Medicine
DX: D72.829 Elevated white blood cell count, unspecified (principal); F17.290 Nicotine dependence, other tobacco product, uncomplicated
CPT/HCPCS: 74177; 76830; 80048; 80076; 81001; 81025; 83690; 85025; 85379; 87491; 87591; 87661; 96361; 96374; 99282; Q9967; A4216

== ENCOUNTER → 2025-01-10 | Outpatient (CLI) | payer OTHER, SELFPAY ==
--- OUTSIDE RECORDS SUMMARY | 2025-01-10 15:04 | XMS RPT_ITS | CCD ---
Author Organization [facility] Inform ion Partnership [facility] Care Team Providers Care Breast Buffer Name Role Phone MÓNICA CORTES Primary Care Physician MÓNICA STRANGE Primary Care Unavailable MÓNICA STRANGE Attending Unavailable MÓNICA STRANGE Primary Care Unavailable MÓNICA STRANGE Attending Unavailable MÓNICA STRANGE Attending Unavailable MÓNICA STRANGE Primary Care Unavailable MÓNICA STRANGE Primary Care Unavailable CHINA PERKINS Attending Unavailab le MÓNICA STRANGE Primary Care Unavailable MÓNICA STRANGE Attending Unavailable MÓNICA STRANGE Primary Care Unavailable NIEVES VORA DO Attending Unavailable MÓNICA STRANGE Primary Care Unavailable DR CLAUDIA PAIZ DO Attending Unavailabl e MÓNICA STRANGE Primary Care Unavailable MÓNICA STRANGE Attending Unavailable MÓNICA CORTES Primary Care Physician MÓNICA CORTES Attending Unavail able MÓNICA CORTES Primary Care Unavail able [place] MEDICAL INSTRUCTOR-CMónica Primary Care Provider [phone] La[place] RAM-CMónica Attending Provider Laurel RAM-CMónica Referring Provider Sherri Dickson Attending Provider [place] RAM-Mónica Jacobsen Primary Care Provider [phone] Laurel RAM-Mónica Jacobsen Referring Provider Chun MEDICAL INSTRUCTOR-CSherri Referring Provider [place] MEDICAL INSTRUCTOR-CMónica Primary Care Physician [phone] Laurel RAM-CMónica Referring Provider [phone] Chun MEDICAL INSTRUCTOR-C, Sherri Attending Physician [phone] Dr. Jase Stephenson DO Emergency Department Physic jordy [place] MEDICAL INSTRUCTOR, Sherri Attending Unavailable [place] MEDICAL INSTRUCTOR, Mónica Primary Care Unavailable Chun MEDICAL INSTRUCTOR, Sherri Referring Unavailable Jase Stephenson Attending Unavailable [place] MEDICAL INSTRUCTOR, Mónica Primary Care Unavailable [place] MEDICAL INSTRUCTOR, Sherri Attending Unavailable [place] MEDICAL INSTRUCTOR, Mónica Primary Care Unavailable [place] MEDICAL INSTRUCTOR, Mónica Referring Unavailable [place] MEDICAL INSTRUCTOR, Sherri Attending Unavailable [place] MEDICAL INSTRUCTOR, Mónica Referring Unavailable [place] MEDICAL INSTRUCTOR, Mónica Primary Care Unavailable [place] MEDICAL INSTRUCTOR, Mónica Primary Care Unavailable Chun MEDICAL INSTRUCTOR, Sherri Attending Unavailable [place] MEDICAL INSTRUCTOR, Mónica Referring Unavailable [place] MEDICAL INSTRUCTOR, Mónica Referring Unavailable [place] MEDICAL INSTRUCTOR, Mónica Primary Care Unavailable Chun MEDICAL INSTRUCTOR, Sherri Attending Unavailable [place] MEDICAL INSTRUCTOR, Mónica Primary Care Unavailable Chun MEDICAL INSTRUCTOR, Sherri Attending Unavailable [place] MEDICAL INSTRUCTOR, [place] Primary Care Unavailable [place] MEDICAL INSTRUCTOR, Mónica Attending Unavailable [place] MEDICAL INSTRUCTOR, Mónica Referring Unavailable [place] MEDICAL INSTRUCTOR-C, [place] Primary Care Physician [phone] Dr. Jase Stephenson DO Attending Physician [place] MEDICAL INSTRUCTOR-C, Mónica Referring Provider [phone] Chun MEDICAL INSTRUCTOR-C, Sherri Attending Physician Medications Current Medications Medication Drug Class(es) Dates [...] cap(s), 0 Refill(s), 07/06/22 8:53:00 EDT, Pharmacy: [facility]/pharmacy #[id number], Strep pharyngitis, 158.75, cm, 06/26/22 8:21:00 EDT, Height Start Date: 06/26/22 Stop Date: 07/06/22 Status: Ordered cholecalciferol 0.01 mg oral capsule (6 sources) Vitamin D Start: 12-27-2024 take 1 capsule by mouth once daily Cholecalciferol (Vitamin D3) 10 mcg (400 unit) capsule Active 10 ug PO daily December 27, 2024 12:00am Complies with drug therapy Start: 07-12-2024 End: 12-23-2024 take 1 capsule by mouth once daily Cholecalciferol (Vitamin D3) 50 mcg (2,000 unit) capsule Discontinued 50 ug PO daily July 12, 2024 12:00am December 23, 2024 6:17am doxycycline hyclate 100 mg oral capsule (1 [...] qDay, # 84 tab(s), 0 Refill(s), Pharmacy: [facility]/pharmacy #[id number], Metrorrhagia Breakthrough bleeding on OCPs, 157.5, cm, 09/19/23 10:28:00 EDT, Height, kg, 09/19/23 10:28:00 EDT, Dosing Weight Start Date: 09/19/23 Status: Ordered medroxyPROGESTERone acetate 10 mg oral tablet (9 sources) Progestin Start: 12-27-2024 take 1 tablet by mouth once daily Medroxyprogesterone 10 mg tablet Active 10 mg PO daily 10 10 0 December 27, 2024 10:20am January 05, 2025 12:00am Complies with drug therapy Start: 09-01-2024 End: 09-11-2024 take 1 tablet by mouth once daily Medroxyprogesterone 10 mg tablet Discontinued 10 mg PO daily 10 10 0 September 01, 2024 12:00am September 10, 2024 12:00am September 11, 2024 12:14am Start: 07-18-2024 End: 07-28-2024 take 1 tablet by mouth once daily Medroxyprogesterone 10 mg tablet Discontinued 10 mg PO daily 10 10 0 July 18, 2024 12:00am July 27, 2024 12:00am July 28, 2024 12:07am 24 hr metoprolol succinate 25 mg extended release oral tablet (1 source) beta-Adrenergic Isra Start: 10-01-2023 metoprolol succinate 25 mg oral TABLET extended release Dose : 25 mg = 1 tab(s), Oral, qDay, Do not crush or chew (controlled release), # 30 tab(s), 1 Refill(s), Pharmacy: [facility]/pharmacy #[id number], 157.5, cm, 10/01/23 14:51:00 EDT, Height, kg, 10/01/23 14:51:00 EDT, Dosing Weight Start Date: 10/01/23 Status: Ordered [place] (Nk) (1 source) Start: 12-23-2024 [place] (Nk) Active December 23, 2024 12:00am predniSONE 20 mg oral tablet (1 source) Start: 06-26-2022 End: 07-02-2022 take 1 tablet by mouth once daily prednisone 20mg tab (TAPER) Taper 60-40-20 mg x 2 days each dose, Oral, Daily, X 6 day(s), # 12 tab(s), 0 Refill(s), 07/02/22 16:43:00 EDT, Pharmacy: [facility]/pharmacy #[id number], Strep pharyngitis, 158.75, cm, 06/26/22 [...] / HYDROcodone bitartrate 5 mg oral tablet (6 sources) Opioid Agonist Start: 05-23-2019 End: 05-26-2019 Hydrocodone-Acetami nophen 1 TABLET tablet Discontinued 1 {tbl} PO EVERY 6 HOURS NEEDED as needed for Pain 10 3 0 May 23, 2019 May 25, 2019 1:00am May 26, 2019 1:08am Calculus of kidney Calculus of kidney Start: 05-23-2019 End: 05-26-2019 take 1 tablet by mouth every six hours as needed Hydrocodone-Acetaminophen Discontinued 1 TABLET PO EVERY 6 HOURS NEEDED 10 3 May 23, 2019 May 26, 2019 12:08am {24 (drospirenone 3 MG / Ethinyl Estradiol 0.02 MG Oral Tablet) / 4 (Inert Ingredients 1 MG Oral Tablet) } Pack [Gianvi 28-Day] (8 sources) Progestin, Estrogen Start: 06-25-2022 End: 08-19-2023 take 1 tablet by mouth once daily Gianvi 3 mg-0.02 mg oral tablet Dose = 1 tab(s), Oral, qDay, # 84 tab(s), 4 Refill(s), Pharmacy: [facility], 157.5, cm, 01/08/22 13:48:00 EDT, Height, kg, 01/08/22 13:48:00 EDT, Dosing Weight Start Date: 06/25/22 Stop Date: 08/19/23 Status: Ordered Start: 01-08-2022 End: 03-04-2023 take 1 tablet by mouth once daily Gianvi 3 mg-0.02 mg oral tablet Dose = 1 tab(s), Oral, qDay, # 84 tab(s), 4 Refill(s), Pharmacy: [facility], 157.5, cm, 01/08/22 13:48:00 EDT, Height, kg, 01/08/22 13:48:00 EDT, Dosing Weight Start Date: 01/08/22 Stop Date: 03/04/23 Status: Ordered Start: 05-23-2019 End: 07-12-2024 Drospirenone-Ethinyl Estradi ol 1 EACH tablet Discontinued 1 {tbl} PO DAILY May 23, 2019 1:00am July 12, 2024 7:04am Start: 05-23-2019 take 1 tablet by benita th once daily Drospirenone-Ethinyl Estradiol Active 1 TABLET PO DAILY May 23, 2019 12:00am Norgestimate-Ethinyl Estradiol (11 sources) Progestin, Estrogen Start: 10-13-2024 End: 12-23-2024 take 0.25 tablet by mouth once daily Norgestimate-Ethinyl Estradiol (Sprintec (28)) 0.25-0.035 mg tablet Discontinued 1 {tbl} PO daily October 13, 2024 3:42pm December 23, 2024 6:17am Start: 09-01-2024 End: 10-13-2024 take 0.25 tablet by mouth once daily Norgestimate-Ethinyl Estradiol (Sprintec (28)) 0.25-0.035 mg tablet Discontinued 1 {tbl} PO daily 02 07September 01, 2024 12:00am October 13, 2024 3:43pm Start: 09-01-2024 take 0.25 tablet by mouth once daily Norgestimate-Ethinyl Estradiol (Sprintec (28)) 0.25-0.035 mg tablet Active 1 {tbl} PO daily September 01, 2024 12:00am Start: 07-29-2023 take 1 tablet by benita th once daily Tri-Sprintec oral tablet Dose = 1 tab(s), Oral, Daily, # 90 tab(s), 3 Refill(s), Pharmacy: [facility]/pharmacy #[id number], 158, cm, 06/25/23 10:03:00 EDT, Height, kg, 06/25/23 10:03:00 EDT, Dosing Weight Start Date: 07/29/23 Status: Ordered Start: 04-18-2023 take 1 tablet by benita th once daily Tri-Sprintec oral tablet Dose = 1 tab(s), Oral, Daily, # 90 tab(s), 0 Refill(s), Pharmacy: [facility]/pharmacy #[id number], 157.5, cm, 02/17/23 14:05:00 EST, Height, kg, 02/17/23 14:01:00 EST, Dosing Weight Start Date: 04/18/23 Status: Ordered Start: 12-30-2022 take 1 tablet by benita th once daily Tri-Sprintec oral tablet Dose = 1 tab(s), Oral, Daily, # 28 tab(s), 3 Refill(s), Pharmacy: [facility]/pharmacy #[id number], 157.5, cm, 12/30/22 13:55:00 EDT, Height, kg, 12/30/22 13:55:00 EDT, Dosing Weight Start Date: 12/30/22 Status: Ordered Gianvi 3 mg-0.02 mg oral tablet (1 source) Start: 12-26-2020 take 1 tablet by mouth once daily Gianvi 3 mg-0.02 mg oral tablet Dose = 1 tab(s), Oral, qDay, # 90 tab(s), 3 Refill(s), [facility], 160.6, cm, 06/28/20 15:21:00 EDT, Height, kg, 06/28/20 15:21:00 EDT, Dosing Weight Start Date: 12/26/20 Status: Ordered ketorolac tromethamine 10 mg oral tablet (6 sources) Nonsteroidal Anti-inflammatory Drug, Cyclooxygenase Inhibitor Start: 05-23-2019 End: 09-22-2023 take 1 tablet by mouth every six hours as needed for pain Ketorolac 10 MG tablet Discontinued 10 mg PO EVERY 6 HOURS as needed for Pain Score 4-10/10 10 0 May 23, 2019 11:20pm September 22, 2023 11:48am nitrofurantoin, macrocrystals 25 mg / nitrofurantoin, monohydrate 75 mg oral capsule (5 sources) Nitrofuran Antibacterial Start: 09-22-2023 End: 09-27-2023 take 1 capsule by mouth every twelve hours at mealtime Nitrofurantoin Monohyd/M-Cryst (Macrobid) 100 mg capsule Discontinued 100 mg PO Q12H 10 5 0 September 22, 2023 12:00am September 26, 2023 12:00am September 27, 2023 12:16am must administer with a meal/food ondansetron 4 mg disintegrating oral tablet (6 sources) Serotonin-3 Receptor Antagonist Start: 05-23-2019 End: 09-22-2023 take 1 tablet by mouth every eight hours as needed for nausea Ondansetron 4 MG tablet Discontinued 4 mg PO EVERY 8 HOURS NEEDED as needed for Nausea May 23, 2019 1:00am September 22, 2023 11:48am sertraline 50 mg oral tablet (11 sources) Serotonin Reuptake Inhibitor Start: 07-29-2023 End: 07-12-2024 take 1 tablet by mouth once daily Sertraline 50 mg tablet Discontinued 50 mg PO daily September 22, 2023 12:00am July 12, 2024 8:49am Start: 01-13-2023 End: 07-12-2023 sertraline 50 mg oral tablet Dose : 50 mg = 1 tab(s), Oral, qDay, # 90 tab(s), 0 Refill(s), Pharmacy: [facility]/pharmacy #[id number], 157.5, cm, 02/17/23 14:05:00 EST, Height, kg, 02/17/23 14:01:00 EST, Dosing Weight Start Date: 04/18/23 Status: Ordered Problems Active Problems Problem Classification Problem Date Documented Da te Episodic/Chronic Abdominal pain (8 sources) Pain in pelvis; Translations: [Pelvic and perineal pain] Onset: 4 08-04-2023 Episodic Allergic reactions (7 sources) Contact dermatitis 10-15-2022 Episodic Anxiety disorders (10 sources) Anxiety 04-10-2021 Chronic Calculus of urinary tract (6 sources) Kidney stone; Translations: [Calculus of kidney] 05-24-2019 Episodic Conduction disorders (4 sources) Bundle branch block 06-02-2023 Chronic Contraceptive and procreative management (11 sources) Oral contraception; Translations: [Patient encounter status] 01-08-2022 Episodic Comment on above: plans parth IUD Gastrointestinal hemorrhage (1 source) Gastrointestinal hemorrhage; Translations: [Gastrointestinal hemorrhage, unspecified] Onset: 4 Episodic Heart valve disorders (5 sources) Mitral valve prolapse; Translations: [Nonrheumatic mitral (valve) prolapse] 09-22-2023 Chronic Heart valve disorders (6 sources) Irregular heart beat 06-02-2023 Episodic Immunizations and screening for infectious disease (3 sources) Encounter for screening for infections with a predominantly sexual mode of transmission; Translations: [Encounter for screening for infections with a predominantly sexual mode of transmission] Onset: 4 Episodic Menstrual disorders (16 sources) Break-through bleeding; Translations: [Irregular periods] Onset: 5 12-30-2022 Chronic Mood disorders (12 sources) Major depressive disorder; Translations: [Depressive disorder] 01-13-2023 Chronic Other and unspecified benign neoplasm (6 sources) Benign neoplasm of soft tissue 06-02-2023 Episodic Other bone disease and musculoskeletal deformities (9 sources) Somatic dysfunction of lower limb 05-15-2021 Episodic Other bone disease and musculoskeletal deformities (9 sources) Somatic dysfunction of pelvic region 05-15-2021 Episodic Other endocrine disorders (8 sources) Hyperestrogenism; 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] 07-12-2024 Chronic Other endocrine disorders (2 sources) Polycystic ovary syndrome; Translations: [Polycystic ovarian syndrome] 12-27-2024 Chronic Other female genital disorders (5 sources) [...] conditions (not mental disorders or infectious disease) (14 sources) Electrocardiogram abnormal; Translations: [Increased testosterone level] 06-02-2023 Episodic Other skin disorders (20 sources) Acne; Translations: [Acne, unspecified] 04-18-2020 Episodic Other skin disorders (7 sources) Loss of hair 12-30-2022 Episodic Other skin disorders (7 sources) Mass of hand 12-30-2022 Episodic Other skin disorders (10 sources) Hirsutism; Translations: [Hirsutism] 07-12-2024 Episodic Residual codes; unclassified (1 source) Family history of breast cancer 03-30-2024 Episodic Unclassified (20 sources) Patient encounter status 04-18-2020 Past or Other Problems Problem Classification Problem Date Documented Da te Episodic/Chronic Other and unspecified benign neoplasm (2 sources) Melanocytic nevi, unspecified; Translations: [Melanocytic nevi, unspecified] Onset: 06-25-2023 Episodic Results Test Name Value Interpretation Reference Range Facility Child And Family Counselor Office Visit Reporton 12-27-2024 Child And Family Counselor Office Visit Report [facility] [address], [address] [place] [address] OFFICE VISIT Date of Service: 12/27/24 MR#: [id number] Acct: [id number] Name: KIERRA BLANCA Rep #: [id number] : 2000 Provider: BERENICE sy Age/Sex: 24/F Location[place] [facility] [place] Status: Signed Intake Vital Signs 09/01/24 11:31 12/23/24 06:14 12/27/24 10:09 Height 5 ft 2 in 5 ft 2 in 5 ft 2 in Weight: 103 lb 2 oz BMI 18.8 BP 120/82 H Intake Visit Reasons: BC Consult *copay $20 [employer] Required: No Is patient in pain?: No Allergies No Known Allergies Allergy (Verified 12/27/24 10:11) Medications ???Medication ???Instructions ???Recorded ???Confirmed ???Type cholecalciferol (vitamin D3) 10 10 mcg PO QDAY 12/27/24 12/27/24 H istory mcg (400 unit) capsule medroxyprogesterone 10 mg tablet 10 mg PO QDAY 10 days #10 tabs 12/27/24 Rx Is last menstrual period known: Yes Last Menstrual Period: 12/05/24 Post menopausal: No Patient : No : No Control Method: none PFSH Medical History Depression MVP (mitral valve prolapse) Surgical History No significant past surgical history Family History Mother Breast cancer, Onset Age: 53 BRCA Negative Aunt Breast cancer Maternal Grandmother Breast cancer Maternal Brother History of pineal cyst Glioma Other Diabetes Heart disease Kidney disease Social History current occupational status: employed current occupation: [employer] Smoking Status: Current every day smoker tobacco type: e-cigarettes Electronic Cigarette Use: with nicotine alcohol intake: never substance use type: marijuana seatbelt use: always do you feel safe at home: Yes HPI BC Consult *copay $20 Details: KIERRA BLANCA is a 24 year old who presents for contraceptive consult. She started sprintec in September and took it for 8 weeks and had spotting most of that time and was taking same time each day. She is sexually active, new partner, using condoms. Was is ED on 12/23 for back pain, probably passed kidney stone. Pain resolved. Had negative UPT and GCC at that time. She was previously on junaid and had BTB with that also. She is most interested in IUD. Menses are irregular. Did provera challenge in August. Then on OCP, then next menses was 12/05/24. She is not sure when next one will occur. Female Reproductive History Last Menstrual Period: 12/05/24 History 0 Elective abortions Hx Para Spontaneous [...] good Coding Level of Care Code Off vis,est,level 3 Diagnoses Secondary oligomenorrhea N91.4 PCOS (polycystic ovarian syndrome) E28.2 Encounter for other general counseling or advice on contraception Z30.09 Contraceptive encounter type: other general counseling and advice Assessment and Plan Assessment and Plan (1) Secondary oligomenorrhea: Status: Acute (2) PCOS (polycystic ovarian syndrome): Status: Acute (3) Contraception management: Status: Acute Qualifiers: Contraceptive encounter type: other general counseling and advice Qualified Code(s): Z30.09 - Encounter for other general counseling and advice on contraception Comment: plans parth IUD Medications: Refilled medroxyprogesterone 10 mg PO QDAY 10 tabs 0RF 10 days Plan Discussed use, benefits, risks and side effects of parth IUD Written information given. She will call with onset of menses for insertion. 12/27/24 1028 Date Sherri Chun MEDICAL INSTRUCTOR MEDICAL INSTRUCTOR-C Cosigner Signature: Date (if applicable) CC: Normal [facility] Abdomen/Pelvis W IV Cont ONL Yon 12-23-2024 Abdomen/Pelvis W IV Cont ONLY [facility] Imaging Services [address] [place] [address] Abdomen/Pelvis W IV Cont ONLY MR#: [id number] Acct: [id number] Name: KIERRA BLANCA Rep #: [id number] : 2000 F 24 From: iWll Samano MD PCP: BERENICE Ruiz Status: REG ER Study: Abdomen/Pelvis W IV Cont ONLY Date of Exam: Exam# [id number] Ordering Dr: Jase Stephenson DO PROCEDURE: ABDOMEN/PELVIS W IV CONT ONLY 12/23/2024 REASON FOR EXAM: ABD PAIN / ? PYELONEPHRITIS TECHNIQUE: Procedure Code: CTABDPELIV Modality: CT Procedure: ABDOMEN/PELVIS W IV CONT ONLY Coronal and Sagittal reconstruction series were provided. CONTRAST: Isovue 300 VOLUME: 97 mL One or more dose reduction techniques were used (e.g., Automated exposure control, adjustment of the mA and/or kV according to patient size, use of iterative reconstruction technique. RADIATION DOSE SUMMARY: CTDlvol: 5.4 mGy DLP: 253 mGycm COMPARISON: None FINDINGS: Lung bases: Bibasilar atelectasis. Liver: Hepatomegaly measuring 19 cm in craniocaudal dimension. Gallbladder: Gallbladder is contracted. Spleen: Normal size. Pancreas: Normal size without evidence of mass surrounding inflammation or ductal dilation. Adrenals: Unremarkable Kidneys: Normal renal sizes. No hydronephrosis. No abnormal striations are visualized within bilateral kidney. Bladder: Mildly thick walled bladder. Reproductive Organs: Prominent uterine cavity distended with fluid with prominent bilateral adnexa. Bowel: Limited evaluation of bowel due to lack of oral contrast in paucity of abdominal fat. [id number] stool burden. Multiple loops distended small bowel loops distended with fluid. Appendix: The appendix is not identified. There is no inflammatory process identified in the right lower quadrant to suggest appendicitis. Lymph nodes: Prominent bilateral inguinal lymph nodes.. Vasculature: Unremarkable Peritoneum / Retroperitoneum: Unremarkable Bones: Age-appropriate CT/Abdomen/Pelvis W IV Cont ONLY IMPRESSION: Prominent bulky uterus with uterine cavity distended with fluid. There are bilateral prominent adnexa. Findings could be related to underlying infectious/inflammatory process such as underlying pelvic inflammatory disease. Further correlation with ultrasound pelvis is recommended. Bladder is distended with urine with mildly thick wall. Findings could be related to early cystitis. Multiple dilated loops of bowel distended with fluid. These findings could be related to underlying early ileus. Moderate stool burden. Reading Location: [id number] CC: BERENICE Strange; Jase Stephenson DO Emergency Department Director: Signed Normal [facility] Absolute lymphocyte countOrd ered By: Jase Stephenson on 12-23-2024 Lymphocytes Auto (Unsp spec) [#/Vol] 2.84 10*3/uL 0.83-4.51 [facility] Absolute neutrophil countOrd ered By: Jase Stephenson on 12-23-2024 Neutrophils (Bld) [#/Vol] 11.1 10*3/uL High 2.0-7.7 [facility] Anion gap in Serum or Plasma Ordered By: Jase Stephenson on 12-23-2024 Anion gap [Moles/Vol] 10 mmol/L 5-15 [facility] Automated lymphocyte count a s percentage of total leukocytesOrdered By: Jase Stephenson on 12-23-2024 Lymphocytes/100 WBC Auto (Unsp spec) 17.7 % Low 19-41 [facility] BUN/creatinine ratioOrdered By: Jase Stephenson on 12-23-2024 Urea nitrogen/Creatinine [Mass ratio] 11.8 mg/mg 10- [facility] Basic Metabolic Profile (BMP )on 12-23-2024 BUN/CRE 11.8 RATIO Normal - [facility] Comment on above: Performed By: #### L 500.3400, L500.2500, L300.8000, L501.2450 #### [facility] [address] [place], [address] Calcium [Mass/Vol] 9.0 mg/dL Normal 7.6-11.0 [facility] Comment on above: Performed By: #### L 500.3400, L500.2500, L300.8000, L501.2450 #### [facility] [address] [place], [address] Chloride [Moles/Vol] 108 mmol/L Normal 98-108 [facility] Comment on above: Performed By: #### L 500.3400, L500.2500, L300.8000, L501.2450 #### [facility] [address] [place], [address] CO2 [Moles/Vol] 22.2 mmol/L Normal 21.0-32.0 [facility] Comment on above: Performed By: #### L 500.3400, L500.2500, L300.8000, L501.2450 #### [facility] [address] [place], [address] Creatinine [Mass/Vol] 0.79 mg/dL Normal 0.70-1.20 [facility] Comment on above: Performed By: #### L 500.3400, L500.2500, L300.8000, L501.2450 #### [facility] [address] [place], [address] ECRCL 83.22 ml/min Normal 50-250 [facility] Comment on above: Performed By: #### L 500.3400, L500.2500, L300.8000, L501.2450 #### [facility] [address] [place], [address] GAP 10 Normal 5-15 [facility] Comment on above: Performed By: #### L 500.3400, L500.2500, L300.8000, L501.2450 #### [facility] [address] [place], [address] GFR/1.73 sq M.predicted among non-blacks MDRD (S/P/Bld) [Vol rate/Area] 108 mL/min/{1.73_m2} Normal >60 [facility] Comment on above: Result Comment: mL/m in/1.73m2 CKD-EPI Creatinine Equation (2020) Performed By: #### L 500.3400, L500.2500, L300.8000, L501.2450 #### [facility] [address] [place], [address] Glucose [Mass/Vol] 88 mg/dL Normal 70-99 [facility] Comment on above: Performed By: #### L 500.3400, L500.2500, L300.8000, L501.2450 #### [facility] [address] [place], [address] Potassium [Moles/Vol] 3.9 mmol/L Normal 3.3-5.1 [facility] Comment on above: Performed By: #### L 500.3400, L500.2500, L300.8000, L501.2450 #### [facility] [address] [place], [address] Sodium [Moles/Vol] 140 mmol/L Normal 133-145 [facility] Comment on above: Performed By: #### L 500.3400, L500.2500, L300.8000, L501.2450 #### [facility] [address] [place], [address] Urea nitrogen [Mass/Vol] 9 mg/dL Normal 4-19 [facility] Comment on above: Performed By: #### L 500.3400, L500.2500, L300.8000, L501.2450 #### [facility] [address] [place], [address] Basophil percentageOrdered B y: Jaes Stephenson on 12-23-2024 Basophils/100 WBC (Bld) 0.7 % 0-1 [facility] Bilirubin Test strip Ql (U)O rdered By: Jase Stephenson on 12-23-2024 Bilirubin Ql (U) Negative Negative [facility] Bilirubin directOrdered By: Jasesergio Stephenson on 12-23-2024 Bilirubin.direct [Mass/Vol] 0.23 mg/dL 0.00-0.30 [facility] Bilirubin, totalOrdered By: aJse Stephenson on 12-23-2024 Bilirubin [Mass/Vol] 0.45 mg/dL 0.00-1.30 [facility] CBC W/Diff, Automatedon 12-06-2024 Absolute Lymph 2.84 X10 3/uL Normal 0.83-4.51 [facility] Comment on above: Performed By: #### L 100.0100 ####[facility] [address] [place], [address] Absolute Neut 11.1 X10 3/uL High 2.0-7.7 [facility] Comment on above: Performed By: #### L 100.0100 ####[facility] [address] [place], [address] Basophils/100 WBC (Bld) 0.7 % Normal 0-1 [facility] Comment on above: Performed By: #### L 100.0100 ####[facility] [address] [place], [address] Eosinophils/100 WBC (Bld) 1.6 % Normal 0-5 [facility] Comment on above: Performed By: #### L 100.0100 ####[facility] [address] [place], [address] Erythrocyte distribution width (RBC) [Ratio] 11.9 % Normal 11.6-14.6 [facility] Comment on above: Performed By: #### L 100.0100 ####[facility] [address] [place], [address] Hematocrit (Bld) [Volume fraction] 39.8 % Normal 37-47 [facility] Comment on above: Performed By: #### L 100.0100 ####[facility] [address] [place], [address] Hemoglobin (Bld) [Mass/Vol] 13.5 g/dL Normal 12.0-15.0 [facility] Comment on above: Performed By: #### L 100.0100 ####[facility] [address] [place], [address] IG% 0.600 Normal 0.0-0.9 [facility] Comment on above: Result Comment: IG% - Immature Granulocytes (promyelocytes, myelocytes and metamyelocytes) > 1% indicates that a LEFT SHIFT is Present. Performed By: #### L 100.0100 ####[facility] [address] [place], [address] Lymphocytes/100 WBC (Bld) 17.7 % Low 19-41 [facility] Comment on above: Performed By: #### L 100.0100 ####[facility] [address] [place], [address] MCH (RBC) [Entitic mass] 29.4 pg Normal 27.0-32.0 [facility] Comment on above: Performed By: #### L 100.0100 ####[facility] [address] [place], [address] MCHC (RBC) [Mass/Vol] 33.9 g/dL Normal 32-36 [facility] Comment on above: Performed By: #### L 100.0100 ####[facility] [address] [place], [address] MCV (RBC) [Entitic vol] 86.7 fL Normal 81-99 [facility] Comment on above: Performed By: #### L 100.0100 ####[facility] [address] [place], [address] Monocytes/100 WBC (Bld) 10.0 % Normal 0-10 [facility] Comment on above: Performed By: #### L 100.0100 ####[facility] [address] [place], [address] Neutrophils/100 WBC (Bld) 69.4 % Normal 47-70 [facility] Comment on above: Performed By: #### L 100.0100 ####[facility] [address] [place], [address] Nucleated RBC (Bld) [#/Vol] 0 10*3/uL Normal 0-5 [facility] Comment on above: Performed By: #### L 100.0100 ####[facility] [address] [place], [address] Platelet mean volume (Bld) [Entitic vol] 8.6 fL Normal 6.2-12.0 [facility] Comment on above: Performed By: #### L 100.0100 ####[facility] [address] [place], [address] Platelets (Bld) [#/Vol] 304 10*3/uL Normal 150-450 [facility] Comment on above: Performed By: #### L 100.0100 ####[facility] [address] [place], [address] RBC (Bld) [#/Vol] 4.59 10*6/uL Normal 4.2-5.4 [facility] Comment on above: Performed By: #### L 100.0100 ####[facility] [address] [place], [address] RDW SD 37.4 fl Normal 35.1-43.9 [facility] Comment on above: Performed By: #### L 100.0100 ####[facility] [address] [place], [address] WBC (Bld) [#/Vol] 16.0 10*3/uL High 4.4-11.0 [facility] Comment on above: Performed By: #### L 100.0100 ####[facility] [address] [place], [address] Calcium oxalate crystals det ection in urine sediment by light microscopyOrdered By: Jase Stephenson on 12-23-2024 Calcium oxalate crystals LM Ql (Urine sed) 3+ /hpf [facility] Carbon dioxide, total [Moles /volume] in Central venous bloodOrdered By: Jase Stephenson on 12-23-2024 CO2 [Moles/Vol] 22.2 mmol/L 21.0-32.0 [facility] Chloride assayOrdered By: Maribell Stephenson on 12-23-2024 Chloride [Moles/Vol] 108 mmol/L 98-108 [facility] D-Dimer Quantitative (DVT/PE )on 12-23-2024 D-DIMER QUANT < 0.27 Low 0.27-0.49 [facility] Comment on above: Result Comment: NORM AL D-Dimer level (<0.50) indicates no DVT or PE. Performed By: #### L 500.3400, L500.2500, L300.8000, L501.2450 #### [facility] [address] [place], [address] Emergency Department Summary on 12-23-2024 Emergency Department Summary [facility] Medical Records Department [address] [place] [address] Emergency Department Summary 12/23/24 MR#: [id number] Acct: [id number] Name: KIERRA BLANCA Rep #: [id number] : 2000 24 From: Jase Stephenson DO PCP: BERENICE Ruiz Status:REG ER Location: ED ADDENDUM by Dr. Verena Izquierdo DO on 12/23/24 at 1413 Patient is a 24-year-old female presenting with bilateral mid back pain wrapping around towards her abdomen. Does have a history of kidney stones and dysfunctional uterine bleeding. Follows with [facility]. Initially received IV fluids and Toradol. Repeat evaluation she is feeling much improved. She was signed out to me pending CT results and final disposition. CT of the abdomen and pelvis does show abnormality of the uterus and prominent bilateral adnexa. This could be associate with infectious or inflammatory process such as PID. Patient reevaluated. She denies any abnormal vaginal discharge or concern for STIs but notes she does have a new sexual partner. Pelvic exam is performed with hydrometer calibrator. She has normal external genitalia. No abnormal vaginal discharge. Mild discomfort on bimanual exam but no chandelier sign. Cervix mildly friable. Pelvic ultrasound added on which shows a prominent left ovarian cyst and minimal amount of free fluid in the cul-de-sac. On repeat evaluation continues to feel improved. Case is discussed with COP[employer] SUPERVISOR, Dr. Augustin. She reviews the films. She discussed that we could try empiric treatment for PID but lower s uspicion based on the imaging. She is comfortable following up with the patient in the office. Is unclear the exact cause of her pain. I discussed empiric treatment with doxycycline however patient declined stating that she has had issues with vomiting and intolerance to doxycycline in the past when she was on it for her acne. At this time she would like to watch her symptoms and hold off on empiric antibiotic treatment. Given that her physical exam is not consistent with PID nor is her ultrasound I think this is reasonable. She actually has a follow-up appointment with her [facility] SUPERVISOR at [facility] next week. Patient is given strict return precautions including developing fever, worsening pain or urinary symptoms. Patient's urinalysis is not consistent with UTI even though CT read out as possible cystitis. Suspect it is more from underdistention. Will send urine culture and urine GC/chlamydia and trichomonas are currently pending. Patient be contacted if she does require treatment. Patient and mother agreeable plan of care. Patient discharged home in stable condition. Diagnosis???flank pain, uncertain etiology ??? Leukocytosis Disposition???discharge home Diagnostic Data Abdomen/Pelvis CT 12/23/24 07:31 IMPRESSION: Prominent bulky uterus with uterine cavity distended with fluid. There are bilateral prominent adnexa. Findings could be related to underlying infectious/inflammatory process such as underlying pelvic inflammatory disease. Further correlation with ultrasound pelvis is recommended. Bladder is distended with urine with mildly thick wall. Findings could be related to early cystitis. Multiple dilated loops of bowel distended with fluid. These findings could be related to underlying early ileus. Moderate stool burden. Reading Location: [id number] Transvaginal US 12/23/24 11:17 IMPRESSION: 2.5 cm 2 cm 1.8 cm left ovarian cyst. Minimal amount of free fluid is seen in the cul-de-sac. [facility] 1413 Cosigner Signature (if applicable): cc: MEDICAL INSTRUCTORJasmine Strange * Signed HPI History of Present Illness Chief Complaint: Abd Pain Informant: patient Narrative Narrative: Patient is a 24-year-old female who reports a remote history of kidney stone and dysfunctional uterine bleeding. She states that she went to bed normally and then awoke this morning with pain in the bilateral mid back region that she feels wraps around towards the abdomen. She states there is been no recent trauma or excessive activity. She does state it was more painful with motion. She denies any fevers or chills cough or congestion. She denies any concern for . She states there is no vaginal discharge or concern for STD. She states she does have remote history of kidney stone and this feels somewhat similar in nature. Therefore with the sudden onset of pain and concern this could be potential kidney stone she presents for evaluation. [facility] Medical History Depression MVP (mitral valve prolapse) Home Medications ???Medication ???Instructions ???Recorde (more content not included)... Normal [facility] Eosinophil percentageOrdered By: Jase Stephenson on 12-23-2024 Eosinophils/100 WBC (Bld) 1.6 % 0-5 [facility] Erythrocyte distribution wid th ratioOrdered By: Jase Stephenson on 12-23-2024 Erythrocyte distribution width (RBC) [Ratio] 11.9 % 11.6-14.6 [facility] Erythrocyte distribution wid th standard deviationOrdered By: Jase Stephenson on 12-23-2024 Erythrocyte distribution width (RBC) [Ratio] 37.4 fl 35.1-43.9 [facility] Glomerular filtration rate ( GFR) estimation/1.73 sq m using serum, plasma, or whole bOrdered By: Jase Stephenson on 12-23-2024 GFR/1.73 sq M.predicted among non-blacks MDRD (S/P/Bld) [Vol rate/Area] 108 mL/min/{1.73_m2} >60 [facility] Comment on above: mL/min/1.73m2 CKD-EP I Creatinine Equation (2020) Hematocrit Auto (Bld) [Volum e fraction]Ordered By: Jase Stephenson on 12-23-2024 Hematocrit (Bld) [Volume fraction] 39.8 % 37-47 [facility] Hemoglobin measurementOrdere d By: Jase Stephenson on 12-23-2024 Hemoglobin (Bld) [Mass/Vol] 13.5 g/dL 12.0-15.0 [facility] Immature granulocytes/100 WB C Auto (Bld)Ordered By: Jase Stephenson on 12-23-2024 Immature granulocytes/100 WBC (Bld) 0.600 % 0.0-0.9 [facility] Comment on above: IG% - Immature Granu locytes (promyelocytes, myelocytes and metamyelocytes) > 1% indicates that a LEFT SHIFT is Present. Ketones Test strip Ql (U)Ord ered By: Jase Stephenson on 12-23-2024 Ketones Ql (U) 15 mg/dl High Negative [facility] - Chemistry and C hemistry - challengeOrdered By: Jase Stephenson on 12-23-2024 AST [Catalytic activity/Vol] 24 U/L <32 [facility] Lipaseon 12-23-2024 Lipase [Catalytic activity/Vol] 53 U/L Normal 13-75 [facility] Comment on above: Result Comment: Rosa appiah note: LIPASE revised reference range effective 22. New Lipase methodology. Expected to produce lower values than the previous assay method. NEW Reference Range: 13 - 75 U/L Performed By: #### M 8200.2203, M8200.3000 #### [facility] [address] [place], [address] Lipase measurementOrdered By : Jase Stephenson on 12-23-2024 Lipase [Catalytic activity/Vol] 53 U/L 13-75 [facility] Comment on above: Please note:LIPASE r evised reference range effective 22. New Lipase methodology. Expected to produce lower values than the previous assay method. NEW Reference Range: 13 - 75 U/L Liver Profileon 12-23-2024 Albumin [Mass/Vol] 4.2 g/dL Normal 3.5-5.0 [facility] Comment on above: Performed By: #### L 500.3400, L500.2500, L300.8000, L501.2450 #### [facility] [address] [place], [address] ALK PHOS 81 U/L Normal 35-104 [facility] Comment on above: Performed By: #### L 500.3400, L500.2500, L300.8000, L501.2450 #### [facility] [address] [place], [address] ALT [Catalytic activity/Vol] 20 U/L Normal <=34 [facility] Comment on above: Performed By: #### L 500.3400, L500.2500, L300.8000, L501.2450 #### [facility] [address] [place], [address] AST [Catalytic activity/Vol] 24 U/L Normal <=31 [facility] Comment on above: Performed By: #### L 500.3400, L500.2500, L300.8000, L501.2450 #### [facility] [address] [place], [address] Bilirubin [Mass/Vol] 0.45 mg/dL Normal 0.00-1.30 [facility] Comment on above: Performed By: #### L 500.3400, L500.2500, L300.8000, L501.2450 #### [facility] [address] [place], [address] Bilirubin.direct [Mass/Vol] 0.23 mg/dL Normal 0.00-0.30 [facility] Comment on above: Performed By: #### L 500.3400, L500.2500, L300.8000, L501.2450 #### [facility] [address] [place], [address] Globulin (S) [Mass/Vol] 2.2 g/dL Normal 2.2-4.2 [facility] Comment on above: Performed By: #### L 500.3400, L500.2500, L300.8000, L501.2450 #### [facility] [address] [place], [address] T PROT 6.4 g/dL Normal 5.9-8.4 [facility] Comment on above: Performed By: #### L 500.3400, L500.2500, L300.8000, L501.2450 #### [facility] [address] [place], [address] M8200.2203on 12-23-2024 M8200.2203 Pending Chlamydia Trachomatis PCR NEGATIVE for Chlamydia trachomatis N. gonorrhoeae PCR Negative for N. gonorrhoeae Normal [facility] Comment on above: Performed By: #### M 8200.2203, M8200.3000 #### [facility] [address] [place], [address] M8200.3000on 12-23-2024 M8200.3000 Pending Trichomonas Vag DNA PCR Negative for Trichomonas vaginalis Normal [facility] Comment on above: Performed By: #### M 8200.2203, M8200.3000 #### [facility] [address] [place], [address] MCV (mean corpuscular volume ) determinationOrdered By: Jase Stephenson on 12-23-2024 MCV (RBC) [Entitic vol] 86.7 fL 81-99 [facility] Mean corpuscular hemoglobin (MCH) determinationOrdered By: Jase Stephenson on 12-23-2024 MCH (RBC) [Entitic mass] 29.4 pg 27.0-32.0 [facility] Mean corpuscular hemoglobin concentration (MCHC) determinationOrdered By: Jase Stephenson on 12-23-2024 MCHC (RBC) [Mass/Vol] 33.9 g/dL 32-36 [facility] Mean platelet volume determi nationOrdered By: Jase Stephenson on 12-23-2024 Platelet mean volume (Bld) [Entitic vol] 8.6 fL 6.2-12.0 [facility] Microscopic analysis of urin e for red blood cells (RBC)Ordered By: Jase Stephenson on 12-23-2024 Microscopic analysis of urine for red blood cells (RBC) 0 SEEN /hpf 0-5 [facility] Monocyte percentageOrdered B y: Jase Stephenson on 12-23-2024 Monocytes/100 WBC (Bld) 10.0 % 0-10 [facility] Mucus LM Ql (Urine sed)Order ed By: Jase Stephenson on 12-23-2024 Mucus Ql (Urine sed) 0 SEEN /hpf [facility] Neutrophil percentageOrdered By: Jase Stephenson on 12-23-2024 Neutrophils/100 WBC (Bld) 69.4 % 47-70 [facility] Nitrite Test strip Ql (U)Ord ered By: Jase Stephenson on 12-23-2024 Nitrite Ql (U) Negative Negative [facility] Nucleated red blood cell per centageOrdered By: Jase Stephenson on 12-23-2024 Nucleated RBC/100 WBC (Bld) [Ratio] 0 % 0-5 [facility] Platelet countOrdered By: Maribell Stephenson on 12-23-2024 Platelets (Bld) [#/Vol] 304 10*3/uL 150-450 [facility] Potassium measurement (mass/ volume)Ordered By: Jase Stephenson on 12-23-2024 Potassium (Unsp spec) [Mass/Vol] 3.9 mmol/L 3.3-5.1 [facility] ,Urineon 12-23-2024 Beta HCG ( test) Ql (U) Negative Normal [facility] Comment on above: Result Comment: Very dilute urine specimens, as indicated by a low specific gravity, may not contain labor relations representative levels of hCG. If is still suspected, a first morning urine specimen should be collected 48 hours later and tested. Performed By: #### M 8200.2203, M8200.3000 #### [facility] [address] [place], [address] Protein Test strip Ql (U)Ord ered By: Jase Stephenson on 12-23-2024 Protein Ql (U) 15 mg/dl High Negative [facility] RBC Auto (Bld) [#/Vol]Ordere d By: Jase Stephenson on 12-23-2024 RBC (Bld) [#/Vol] 4.59 10*6/uL 4.2-5.4 [facility] Serum creatinine measurement (mass/volume)Ordered By: Jase Stephenson on 12-23-2024 Creatinine [Mass/Vol] 0.79 mg/dL 0.70-1.20 [facility] Serum globulin measurementOr dered By: Jase Stephenson on 12-23-2024 Globulin (S) [Mass/Vol] 2.2 g/dL 2.2-4.2 [facility] Serum glucose measurement (m ass/volume)Ordered By: Jase Stephenson on 12-23-2024 Glucose [Mass/Vol] 88 mg/dL 70-99 [facility] Serum or plasma alanine whiting otransferase (ALT) measurementOrdered By: Jase Stephenson on 12-23-2024 ALT [Catalytic activity/Vol] 20 U/L <35 [facility] Serum or plasma albumin fabian urement (mass/volume)Ordered By: Jase Stephenson on 12-23-2024 Albumin [Mass/Vol] 4.2 g/dL 3.5-5.0 [facility] Serum or plasma alkaline nova sphatase measurementOrdered By: Jase Stephenson on 12-23-2024 ALP [Catalytic activity/Vol] 81 U/L 35-104 [facility] Serum or plasma calcium fabian urement (mass/volume)Ordered By: Jase Stephenson on 12-23-2024 Calcium [Mass/Vol] 9.0 mg/dL 7.6-11.0 [facility] Serum or plasma urea nitroge n measurement (mass/volume)Ordered By: Jase Stephenson on 12-23-2024 Urea nitrogen [Mass/Vol] 9 mg/dL 4-19 [facility] Sodium levelOrdered By: Mitch Stephenson on 12-23-2024 Sodium [Moles/Vol] 140 mmol/L 133-145 [facility] Squamous epithelial cells de tection in urine sediment by light microscopyOrdered By: Jase Stephenson on 12-23-2024 Epithelial cells.squamous LM Ql (Urine sed) 0-5 SEEN /hpf 5-10 [facility] Total proteinOrdered By: Hardeep Stephenson on 12-23-2024 Protein [Mass/Vol] 6.4 g/dL 5.9-8.4 [facility] Transvaginal Non-on 12-23-2024 Transvaginal Non- [facility] [address] [place] [address] Transvaginal Non- MR#: [id number] Acct: [id number] Name: KIERRA BLANCA Rep #: [id number] : 2000 F 24 From: Alfredo ramsey MD PCP: BERENICE Ruiz Status: REG ER Study: Transvaginal Non- Date of Exam: Exam# [id number] Ordering Dr: Verena Izquierdo DO PROCEDURE: TRANSVAGINAL NON- 12/23/2024 REASON FOR EXAM: PELVIC PAIN TECHNIQUE: Procedure Code: USTVAG Modality: US Procedure: TRANSVAGINAL NON- COMPARISON: Prior CT scan of the abdomen and pelvis done earlier in the day. FINDINGS: LMP: November 09, 2024. Measurements: Uterus: 8.4 cm x 5.1 cm x 3.3 cm with a volume of 73.4 mL Endometrial Thickness: 6 mm. It is trilaminar. Right Ovary: 3.1 cm x 1.8 cm x 1.4 cm with a volume of 4.2 mL. Left Ovary: 3.5 cm x 3.2 cm x 2.2 cm with a volume of 12.8 mL. Uterus: Normal size, myometrial echotexture, and contour. Nabothian cyst. Endometrium: Unremarkable. Right ovary: Normal size and echotexture. Left ovary: Dominant cyst in the left ovary measuring 2.5 cm x 2.0 cm by 1.8 cm Other: Minimal free fluid is seen in the pelvis. US/Transvaginal Non- IMPRESSION: 2.5 cm 2 cm 1.8 cm left ovarian cyst. Minimal amount of free fluid is seen in the cul-de-sac. Reading Location: [place] [address] CC: BERENICE Strange; Dr. Verena Izquierdo, Emergency Department Director: Signed Normal [facility] Urinalysis, Completeon 12-23 CA OX CRYSTAL 3+ /hpf Normal [facility] Comment on above: Order Comment: MAYUR CTOR TO SPECIFY Performed By: #### M 8200.2203, M8200.3000 #### [facility] [address] [place], [address] EPI,SQUAMOUS 0-5 SEEN Normal 5-10 [facility] Comment on above: Order Comment: MAYUR CTOR TO SPECIFY Performed By: #### M 8200.2203, M8200.3000 #### [facility] [address] [place], [address] WBC 0-5 SEEN Normal 0-5 [facility] Comment on above: Order Comment: MAYUR CTOR TO SPECIFY Performed By: #### M 8200.2203, M8200.3000 #### [facility] [address] [place], [address] BACTERIA 0 SEEN Normal None Seen [facility] Comment on above: Order Comment: MAYUR CTOR TO SPECIFY Performed By: #### M 8200.2203, M8200.3000 #### [facility] [address] [place], [address] Mucus Ql (Urine sed) 0 SEEN Normal [facility] Comment on above: Order Comment: MAYUR CTOR TO SPECIFY Performed By: #### M 8200.2203, M8200.3000 #### [facility] [address] [place], [address] RBC 0 SEEN Normal 0-5 [facility] Comment on above: Order Comment: MAYUR CTOR TO SPECIFY Performed By: #### M 8200.2203, M8200.3000 #### [facility] [address] [place], [address] Urine clarityOrdered By: Hardeep Stephenson on 12-23-2024 Clarity (U) Sl. Cloudy Clear [facility] Urine color determinationOrd ered By: Jase Stephenson on 12-23-2024 Color (U) Yellow Yellow [facility] Urine glucose detectionOrder ed By: Jase Stephenson on 12-23-2024 Glucose Ql (U) Normal mg/dl Normal [facility] Urine leukocyte esterase det ection by dipstickOrdered By: Jase Stephenson on 12-23-2024 Leukocyte esterase Test strip Ql (U) 25 /ul High Negative [facility] Urine pHOrdered By: Jase parks on 12-23-2024 pH (U) 6.0 [pH] 5.0 - 8.0 [facility] Urine testOrdered By: Jase Stephenson on 12-23-2024 HCG ( test) Ql (U) Negative [facility] Comment on above: Very dilute urine sp ecimens, as indicated by a low specificgravity, may not contain labor relations representative levels of hCG. If is still suspected, a first morning urinespecimen should be collected 48 hours later and tested. Urine sediment bacteria coun t by microscopy (number/high power field)Ordered By: Jase Stephenson on 12-23-2024 Bacteria LM.HPF (Urine sed) [#/Area] 0 /[HPF] None Seen [facility] Urine specific gravity measu rementOrdered By: Jase Stephenson on 12-23-2024 Specific gravity (U) [Rel density] 1.025 1.002-1.03 0 [facility] Urine urobilinogen measureme ntOrdered By: Jase Stephenson on 12-23-2024 Urobilinogen Ql (U) Normal mg/dl Normal [facility] White blood cell (WBC) count Ordered By: Jase Stephenson on 12-23-2024 WBC (Bld) [#/Vol] 16.0 10*3/uL High 4.4-11.0 [facility] White blood cell countOrdere d By: Jase Stephenson on 12-23-2024 White blood cell count 0-5 SEEN /hpf 0-5 [facility] Chlamydia/GC PACO aptimaon CHLAMY,NUC ACID Normal [facility] Comment on above: Result Comment: TALK ED TO ANNE URINE IS TO BE RAN INHOUSE Performed By: #### M 8200.2203, M8200.3000 #### [facility] [address] [place], [address] GC BY NUC ACID Normal [facility] Comment on above: Result Comment: TALK ED TO ANNE URINE IS TO BE RAN INHOUSE Performed By: #### M 8200.2203, M8200.3000 #### [facility] [address] [place], [address] Laboratory - Chemistry and C hemistry - challengeOrdered By: Sherri Mccollum on 09-01-2024 HCG ( test) Ql (U) Negative [facility] M8200.2203on 09-01-2024 M8200.2203 Pending Chlamydia Trachomatis PCR NEGATIVE for Chlamydia trachomatis N. gonorrhoeae PCR Negative for N. gonorrhoeae Normal [facility] Comment on above: Performed By: #### M 8200.2203, M8200.3000 #### [facility] [address] [place], [address] Child And Family Counselor Office Visit Reporton 09-01-2024 Child And Family Counselor Office Visit Report [facility] [address], [address] [place] [address] OFFICE VISIT Date of Service: 09/01/24 MR#: [id number] Acct: [id number] Name: KIERRA BLANCA Rep #: [id number] : 2000 Provider: BERENICE sy Age/Sex: 24/F [place] [facility] [place] Status: Signed Intake Vital Signs 07/12/24 08:55 09/01/24 11:26 09/01/24 11:31 Height 5 ft 2 in 5 ft 2 in 5 ft 2 in Weight: 105 lb 2 oz BMI 19.2 BP 104/62 Intake Visit Reasons: 5 week progesterone F/U *$20 copay Chief Complaint: 5 Week Progesterone f/u [employer] Lieutenant Required: No Is patient in pain?: No [...] 09/01/24 Rx estradiol 0.035 mg tablet (Sprintec ()) Is last menstrual period known: Yes Last [...] History current occupational status: employed current occupation: [employer] C[employer] Use: with nicotine alcohol [...] Office , Urine Negative Last Edit by Anne James on 09/01/24 11:50 Coding Level of [...] Date __ (more content not included)... Normal [facility] 17-Hydroxyprogesteroneon 17ALPHA OH-PROG 83 ng/dL Normal . [facility] Comment on above: Order Comment: Test( s) 133539-50-CH Progesterone LCMSwas developed and its performance characteristicsdetermined by [employer]. It has not been cleared or approvedby the Food and Drug Administration.N Result Comment: Adul t Female Follicular 15 - 70 Luteal 35 - 290 Performed at: [address] [id number] Rn Shift Mgr: Rivera Barney MD, Phone: [phone] Performed By: #### M 8200.2203, M8200.3000 #### [facility] [address] [place], [place], [address] DHEA Sulfateon 07-15-2024 DHEA SULFATE 220.0 ug/dL Normal 110.0-431. 7 [facility] Comment on above: Order Comment: N Performed By: #### M 8200.2203, M8200.3000 #### [facility] [address] [place], [place], [address] PROLACTIN 4465on 07-15-2024 PROLACTIN 16.4 ng/mL Normal 4.8-33.4 [facility] Comment on above: Performed By: #### M 8200.2203, M8200.3000 #### [facility] [address] [place], [place], [address] Testosterone Freeon 07-16-19 25 TESTOSTER FREE 1.6 pg/mL Normal 0.0-4.2 [facility] Comment on above: Result Comment: Perf ormed at: - [facility] [address] [id number] Rn Shift Mgr: Bryson Galloway PhD, Phone: [phone] Performed at: - [facility] [address] [id number] Rn Shift Mgr: Rivera Barney MD, Phone: [phone] Performed By: #### M 8200.2203, M8200.3000 #### [facility] [address] [place], [place], [address] Absolute lymphocyte countOrd ered By: Sherri Mccollum on 07-12-2024 Lymphocytes Auto (Unsp spec) [#/Vol] 3.18 10*3/uL 0.83-4.51 [facility] Absolute neutrophil countOrd ered By: Sherri Mccollum on 07-12-2024 Neutrophils (Bld) [#/Vol] 5.4 10*3/uL 2.0-7.7 [facility] Automated lymphocyte count a s percentage of total leukocytesOrdered By: Sherri Mccollum on 07-12-2024 Lymphocytes/100 WBC Auto (Unsp spec) 31.9 % 19-41 [facility] Basophil percentageOrdered B y: Sherri Mccollum on 07-12-2024 Basophils/100 WBC (Bld) 1.3 % High 0-1 [facility] CBC W/Diff, Automatedon Absolute Lymph 3.18 X10 3/uL Normal 0.83-4.51 [facility] Comment on above: Performed By: #### M 8200.2203, M8200.3000 #### [facility] [address] [place], [address] Absolute Neut 5.4 X10 3/uL Normal 2.0-7.7 [facility] Comment on above: Performed By: #### M 8200.2203, M8200.3000 #### [facility] [address] [place], [address] Basophils/100 WBC (Bld) 1.3 % High 0-1 [facility] Comment on above: Performed By: #### M 8200.2203, M8200.3000 #### [facility] [address] [place], [address] Eosinophils/100 WBC (Bld) 4.0 % Normal 0-5 [facility] Comment on above: Performed By: #### 8200.2203, M8200.3000 #### [facility] [address] [place], [address] Erythrocyte distribution width (RBC) [Ratio] 11.9 % Normal 11.6-14.6 [facility] Comment on above: Performed By: #### 8200.2203, M8200.3000 #### [facility] [address] [place], [address] Hematocrit (Bld) [Volume fraction] 41.1 % Normal 37-47 [facility] Comment on above: Performed By: #### 8200.2203, M8200.3000 #### [facility] [address] [place], [address] Hemoglobin (Bld) [Mass/Vol] 13.8 g/dL Normal 12.0-15.0 [facility] Comment on above: Performed By: #### M 8200.2203, M8200.3000 #### [facility] [address] [place], [address] IG% 0.200 Normal 0.0-0.9 [facility] Comment on above: Result Comment: IG% - Immature Granulocytes (promyelocytes, myelocytes and metamyelocytes) > 1% indicates that a LEFT SHIFT is Present. Performed By: #### M 8200.2203, M8200.3000 #### [facility] [address] [place], [address] Lymphocytes/100 WBC (Bld) 31.9 % Normal 19-41 [facility] Comment on above: Performed By: #### M 8200.2203, M8200.3000 #### [facility] [address] [place], [address] MCH (RBC) [Entitic mass] 28.9 pg Normal 27.0-32.0 [facility] Comment on above: Performed By: #### M 8200.2203, M8200.3000 #### [facility] [address] [place], [address] MCHC (RBC) [Mass/Vol] 33.6 g/dL Normal 32-36 [facility] Comment on above: Performed By: #### M 8200.2203, M8200.3000 #### [facility] [address] [place], [address] MCV (RBC) [Entitic vol] 86.0 fL Normal 81-99 [facility] Comment on above: Performed By: #### M 8200.2203, M8200.3000 #### [facility] [address] [place], [address] Monocytes/100 WBC (Bld) 8.2 % Normal 0-10 [facility] Comment on above: Performed By: #### M 8200.2203, M8200.3000 #### [facility] [address] [place], [address] Neutrophils/100 WBC (Bld) 54.4 % Normal 47-70 [facility] Comment on above: Performed By: #### M 8200.2203, M8200.3000 #### [facility] [address] [place], [address] Nucleated RBC (Bld) [#/Vol] 0 10*3/uL Normal 0-5 [facility] Comment on above: Performed By: #### M 8200.2203, M8200.3000 #### [facility] [address] [place], [address] Platelet mean volume (Bld) [Entitic vol] 9.0 fL Normal 6.2-12.0 [facility] Comment on above: Performed By: #### M 8200.2203, M8200.3000 #### [facility] [address] [place], [address] Platelets (Bld) [#/Vol] 355 10*3/uL Normal 150-450 [facility] Comment on above: Performed By: #### 8200.2203, M8200.3000 #### [facility] [address] [place], [address] RBC (Bld) [#/Vol] 4.78 10*6/uL Normal 4.2-5.4 [facility] Comment on above: Performed By: #### M 8200.2203, M8200.3000 #### [facility] [address] [place], [address] RDW SD 37.4 fl Normal 35.1-43.9 [facility] Comment on above: Performed By: #### M 8200.2203, M8200.3000 #### [facility] [address] [place], [address] WBC (Bld) [#/Vol] 10.0 10*3/uL Normal 4.4-11.0 [facility] Comment on above: Performed By: #### M 8200.2203, M8200.3000 #### [facility] [address] [place], [address] E2 post dose follitropin [Ma ss/Vol]Ordered By: Sherri Mccollum on 07-12-2024 Estradiol (E2) Level 60.8 pg/mL [facility] Comment on above: FEMALES ADULT FEMALE [...] 07-12-2024 Eosinophils/100 WBC (Bld) 4.0 % 0-5 [facility] Erythrocyte distribution wid th (RBC) [Ratio]Ordered By: Sherri Mccollum on 07-12-2024 Erythrocyte distribution width (RBC) [Entitic vol] 37.4 fL 35.1-43.9 [facility] Erythrocyte distribution wid th ratioOrdered By: Sherri Mccollum on 07-12-2024 Erythrocyte distribution width (RBC) [Ratio] 11.9 % 11.6-14.6 [facility] Erythrocyte distribution wid th standard deviationOrdered By: Sherri Mccollum on 07-12-2024 Erythrocyte distribution width (RBC) [Ratio] 37.4 fl 35.1-43.9 [facility] Estradiolon 07-12-2024 ESTRADIOL 60.8 pg/mL Normal [facility] Comment on above: Result Comment: FEMA LES [...] reached by age 19. Performed By: #### M 8200.2203, M8200.3000 #### [facility] [address] [place], [address] Follicle Stimulating Hormone on 07-12-2024 FSH 5.6 mIU/mL Normal [facility] Comment on above: Result Comment: FEMA LE: [...] 0.7 - 10.8 mIU/mL Performed By: #### M 8200.2203, M8200.3000 #### [facility] [address] [place], [place], [address] Follicle stimulating hormone (FSH) levelOrdered By: Sherri Mccollum on 07-12-2024 Follicle Stimulating Hormone 5.6 mIU/mL [facility] Comment on above: FEMALE:Follicular: 1 .4 - [...] Hematocrit (Bld) [Volume fraction] 41.1 % 37-47 [facility] Hemoglobin measurementOrdere d By: Sherri Mccollum on 07-12-2024 Hemoglobin (Bld) [Mass/Vol] 13.8 g/dL 12.0-15.0 [facility] Immature granulocytes/100 WB C Auto (Bld)Ordered By: Sherri Mccollum on 07-12-2024 Immature granulocytes/100 WBC (Bld) 0.200 % 0.0-0.9 [facility] Comment on above: IG% - Immature Granu locytes (promyelocytes, myelocytes and metamyelocytes) > 1% indicates that a LEFT SHIFT is Present. LH ser/plasOrdered By: Sherri Mccollum on 07-12-2024 Luteinizing Hormone 9.8 mIU/mL [facility] Comment on above: FEMALE:Follicular: 1 .9-12.5 mIU/mLMidcycle: 8.7-76.3 mIU/mLLuteal: 0.5-16.9 mIU/mLPost Menopause: 15.9-54.0 mIU/mLMALE:20-70 Years: 1.5-9.3 mIU/mL>70 Years: 3.1-34.6 mIU/mL Luteinizing Hormoneon 2024 LH 9.8 mIU/mL Normal [facility] Comment on above: Result Comment: FEMA LE: Follicular: 1.9-12.5 mIU/mL Midcycle: 8.7-76.3 mIU/mL Luteal: 0.5-16.9 mIU/mL Post Menopause: 15.9-54.0 mIU/mL MALE: 20-70 Years: 1.5-9.3 mIU/mL >70 Years: 3.1-34.6 mIU/mL Performed By: #### M 8200.2203, M8200.3000 #### [facility] [address] [place], [address] Lymphocytes Auto (Unsp spec) [#/Vol]Ordered By: Sherri Mccollum on 07-12-2024 Lymphocytes (Bld) [#/Vol] 3.18 10*3/uL 0.83-4.51 [facility] Lymphocytes/100 WBC Auto (Un sp spec)Ordered By: Sherri Mccollum on 07-12-2024 Lymphocytes/100 WBC (Bld) 31.9 % 19-41 [facility] MCV (mean corpuscular volume ) determinationOrdered By: Sherri Mccollum on 07-12-2024 MCV (RBC) [Entitic vol] 86.0 fL 81-99 [facility] Mean corpuscular hemoglobin (MCH) determinationOrdered By: Sherriodell Mccollum on 07-12-2024 MCH (RBC) [Entitic mass] 28.9 pg 27.0-32.0 [facility] Mean corpuscular hemoglobin concentration (MCHC) determinationOrdered By: Sherri Mccollum on 07-12-2024 MCHC (RBC) [Mass/Vol] 33.6 g/dL 32-36 [facility] Mean platelet volume determi nationOrdered By: Sherri Mccollum on 07-12-2024 Platelet mean volume (Bld) [Entitic vol] 9.0 fL 6.2-12.0 [facility] Monocyte percentageOrdered B y: Sherri Mccollum on 07-12-2024 Monocytes/100 WBC (Bld) 8.2 % 0-10 [facility] Neutrophil percentageOrdered By: Sherri Mccollum on 07-12-2024 Neutrophils/100 WBC (Bld) 54.4 % 47-70 [facility] Nucleated red blood cell per centageOrdered By: Sherri Mccollum on 07-12-2024 Nucleated RBC/100 WBC (Bld) [Ratio] 0 % 0-5 [facility] Child And Family Counselor Office Visit Reporton 07-12-2024 Child And Family Counselor Office Visit Report [facility] [address], [address] [place] [address] OFFICE VISIT Date of Service: 07/12/24 MR#: [id number] Acct: [id number] Name: KIERRA BLANCA Rep #: [id number] : 2000 Provider: BERENICE sy Age/Sex: 23/F [place] [facility] [place] Status: Signed Intake Vital Signs 09/22/23 11:48 [...] AUB Chief Complaint: ABN. 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 [employer] Lieutenant Required: No Is patient in pain?: No [...] (Updated 07/12/24 @ 09:40 by Sherri Mccollum NP, BERENICE) Depression MVP (mitral valve prolapse) Surgical History (Updated 09/22/23 @ 11:53 by Briana Hilton) No significant past surgical history Family History (Updated 07/12/24 @ 08:53 by Anne James) Mother Breast cancer, Onset Age: 53 BRCA Negative Aunt Breast cancer Maternal Grandmother Breast cancer Maternal Other Diabetes Heart disease Kidney disease Social History (Updated 07/12/24 @ 08:54 by Anne James) current occupational status: employed current occupation: [employer] Cigarette Use: with nicotine alcohol [...] in March per PCP Sergio Strange at [facility] and her estrogen and testosterone were significantly [...] vaginal bleed (more content not included)... Normal [facility] Platelet countOrdered By: Jaden Mccollum on 07-12-2024 Platelets (Bld) [#/Vol] 355 10*3/uL 150-450 [facility] RBC Auto (Bld) [#/Vol]Ordere d By: Sherri Mccollum on 07-12-2024 RBC (Bld) [#/Vol] 4.78 10*6/uL 4.2-5.4 [facility] Serum or plasma 17-hydroxypr ogesterone measurement (mass/volume)Ordered By: Sherri Mccollum on 07-12-2024 17-Hydroxyprogesterone [Mass/Vol] 83 ng/dL . [facility] Comment on above: Adult Female Follicu lar 15 - 70 Luteal 35 - 290Performed at: - [facility] [address] [id number] Director: Rivera Barney MD, Phone: [phone] Serum or plasma estradiol me asurement after follitropin dose (mass/volume)Ordered By: Sherri Mccollum on 07-12-2024 E2 post dose follitropin [Mass/Vol] 60.8 pg/mL [facility] Comment on above: FEMALES ADULT FEMALE [...] 07-12-2024 Testosterone Free [Mass/Vol] 1.6 pg/mL 0.0-4.2 [facility] Comment on above: Performed at: [address] [id number] Director: Bryson Galloway PhD, Phone: [phone] at: [facility] [id number] Director: Rivera Barney MD, Phone: [phone] Serum or plasma prolactin me asurement (mass/volume)Ordered By: Sherri Mccollum on 07-12-2024 Prolactin [Mass/Vol] 16.4 ng/mL 4.8-33.4 [facility] White blood cell (WBC) count Ordered By: Sherri Mccollum on 07-12-2024 WBC (Bld) [#/Vol] 10.0 10*3/uL 4.4-11.0 [facility] HPVon 04-09-2024 HPV Interp Normal See Interp HPVN [facility] Comment on above: Order Comment: Order placed by AP_HPV_REFLEX_7LB rule from [id number] Result Comment: High Risk HPV Typing: NEGATIVE HPV types 16, 18, 31, 33, 35, 39, 45, 51, 52, 56, 58, 59, 66 and 68 DNA were undetectable or below the pre-set threshold. The nilay High-Risk HPV DNA Test is not intended for use as a screening device for Pap normal women under age 30 and is not intended to substitute for regular Pap screening. The nilay High-Risk HPV DNA Test is designed to [...] HPVN Performed By: #### H PV #### [place] [address] HPV Source Cervix Normal [facility] Comment on above: Order Comment: Order placed by AP_HPV_REFLEX_7LB rule from [id number] Performed By: #### H PV #### [place] [address] Leadership Development Manager Cytology Reporton 2023 Leadership Development Manager Cytology Report . Pathology Reports Accession: Collected Date/Time: Received Date/Time: Pathologist: [id number] 03/30/2024 09:44 EST 03/30/2024 18:00 PHILL RANGEL MD Leadership Development Manager Cytology Report SPECIMEN: Specimen Description: Liquid Prep [...] and evaluated with the assistance of the [employer] ThinPrep Test Imaging System. Electronically Signed by Pathology report verified by [facility] Screened by: DESIREE BOLANOS Electronically signed by PHILL FUENTES Sign-Out Date: 04/06/2024 10:13 Performing Lab: [address] Pathology Dept Disclaimer The Pap test is a screening test for cervical cancer. As evidenced by published data, it is subject to both inherent false negative and false positive results. Your patient's results should be interpreted in context with pertinent clinical history including gynecological examination. Normal [facility] Hepatitis Panel Acuteon 03-09 COMMENT Comment Normal . [facility] Comment on above: Result Comment: Not infected with HCV unless early or acute infection is suspected (which may be delayed in an immunocompromised individual), or other evidence exists to indicate HCV infection. Performed By: #### M 8200.2203, M8200.3000 #### [facility] [address] [place], [address] HEP B CORE,IgM Negative Normal Negative [facility] Comment on above: Performed By: #### M 8200.2203, M8200.3000 #### [facility] [address] [place], [address] HEP B SURF AG Negative Normal Negative [facility] Comment on above: Performed By: #### M 8200.2203, M8200.3000 #### [facility] [address] [place], [address] HEP C VIRUS AB Non-Reactive Normal Non Reactive [facility] Comment on above: Performed By: #### M 8200.2203, M8200.3000 #### [facility] [address] [place], [address] HEPATITIS A-IgM Negative Normal Negative [facility] Comment on above: Result Comment: A ne gative anti-HAV IgM result suggests no recent or current HAV infection. Performed By: #### M 8200.2203, M8200.3000 #### [facility] [address] [place], [address] Nicotine Screen Bloodon 12-3 0 COTININE BLOOD 181.2 ng/mL Normal . [facility] Comment on above: Result Comment: This test was developed and its performance characteristics determined by [employer]. It has not been cleared or approved by the Food and Drug Administration. Cotinine levels greater than 20.0 are consistent with the use of tobacco or tobacco cessation products. Performed at: [address] [id number] Rn Shift Mgr: Bryson Galloway PhD, Phone: [phone] Performed at: [address] [id number] Rn Shift Mgr: Rivera Barney MD, Phone: [phone] Performed By: #### M 8200.2203, M8200.3000 #### [facility] [address] [place], [address] NICOTINE BLOOD 14.8 ng/mL Normal . [facility] Comment on above: Result Comment: This test was developed and its performance characteristics determined by [employer]. It has not been cleared or approved by the Food and Drug Administration. Nicotine levels greater than 2.0 are consistent with the use of tobacco or tobacco cessation products. Performed By: #### M 8200.2203, M8200.3000 #### [facility] [address] [place], [place], [address] PROGESTERONE 4317on 04-02-20 PROGESTERONE 0.2 ng/mL Normal . [facility] Comment on above: Order Comment: [id number] Result Comment: Foll icular phase 0.1 - 0.9 Luteal phase 1.8 - 23.9 Ovulation phase 0.1 - 12.0 First trimester 11.0 - 44.3 Second trimester 25.4 - 83.3 Third trimester 58.7 - 214.0 Postmenopausal 0.0 - 0.1 Performed By: #### M 8200.2203, M8200.3000 #### [facility] [address] [place], [place], [address] CTPCRon 04-01-2024 C. trachomatis Interp Normal See CT Interp N [facility] Comment on above: Result Comment: C. t rachomatis DNA not detected. Specimen is presumptive negative for C. trachomatis. A negative result does not preclude C. trachomatis infection because results depend on adequate specimen collection, absence of inhibitors, and sufficient DNA to be detected. See CT Interp N Performed By: #### C TPCR, NGPCR1 #### [facility] [address] [place] [address] C.trachomatis PCR Negative Normal Negative [facility] Comment on above: Result Comment: Mole cular (PCR) assay performed on the Theodore Nilay 4800 system. Performed By: #### C TPCR, NGPCR1 #### [facility] [address] [place] [address] Chlam Source Cervix Normal [facility] Comment on above: Performed By: #### C TPCR, NGPCR1 #### [address] [address] [id number] 04-01-2024 GC PCR Source Cervix Normal [facility] Comment on above: Performed By: #### C TPCR, NGPCR1 #### [address] [address] N. gonorrhoeae (PCR) Negative Normal Negative [facility] Comment on above: Result Comment: Mole cular (PCR) assay performed on the [employer] Nilay 4800 System. Performed By: #### C TPCR, NGPCR1 #### [address] [address] N. gonorrhoeae Interp Normal See NG Interp N [facility] Comment on above: Result Comment: N. g onorrhoeae DNA not detected. Specimen is presumptive negative for N. gonorrhoeae. A negative result does not preclude Neisseria gonorrhoeae infection because results depend on adequate specimen collection, absence of inhibitors, and sufficient DNA to be detected. See NG Interp N Performed By: #### C TPCR, NGPCR1 #### [address] [address] Basic Metabolic Profile (BMP )on 03-30-2024 BUN/CRE 16.8 RATIO Normal 10-20 [facility] Comment on above: Performed By: #### M 8200.2203, M8200.3000 #### [facility] [address] [facility] [place], [address] CA,Total 9.5 mg/dL Normal 8.5-10.1 [facility] Comment on above: Performed By: #### M 8200.2203, M8200.3000 #### [facility] [address] [place], [address] Chloride [Moles/Vol] 106 mmol/L Normal 98-107 [facility] Comment on above: Performed By: #### M 8200.2203, M8200.3000 #### [facility] [address] [place], [address] CO2 [Moles/Vol] 29.0 mmol/L Normal 21.0-32.0 [facility] Comment on above: Performed By: #### M 8200.2203, M8200.3000 #### [facility] [address] [place], [address] Creatinine [Mass/Vol] 0.83 mg/dL Normal 0.55-1.02 [facility] Comment on above: Result Comment: The validity of the calculated GFR GFRAA in patients over 70 years has not been determined. Clinical correlation is essential. Performed By: #### M 8200.2203, M8200.3000 #### [facility] [address] [place], [address] EST GFR - AA 110 mL/min Normal >60 [facility] Comment on above: Result Comment: Afri can Gambian GFR Calc Performed By: #### M 8200.2203, M8200.3000 #### [facility] [address] [place], [address] GAP 4 Low 5-15 [facility] Comment on above: Performed By: #### M 8200.2203, M8200.3000 #### [facility] [address] [place], [address] GFR/1.73 sq M.predicted among non-blacks MDRD (S/P/Bld) [Vol rate/Area] 91 mL/min/{1.73_m2} Normal >60 [facility] Comment on above: Result Comment: Non- GFR Calc Performed By: #### M 8200.2203, M8200.3000 #### [facility] [address] [place], [address] Glucose [Mass/Vol] 89 mg/dL Normal 74-106 [facility] Comment on above: Performed By: #### M 8200.2203, [id number] #### [facility] [address] [place], [address] Potassium [Moles/Vol] 3.7 mmol/L Normal 3.5-5.1 [facility] Comment on above: Performed By: #### M 8200.2203, [id number] #### [facility] [address] [place], [address] Sodium [Moles/Vol] 140 mmol/L Normal 136-145 [facility] Comment on above: Performed By: #### M 8200.2203, [id number] #### [facility] [address] [place], [address] Urea nitrogen [Mass/Vol] 14 mg/dL Normal 7-18 [facility] Comment on above: Performed By: #### M 8200.2203, [id number] #### [facility] [address] [place], [address] Blood cotinine screen by enz Stadionaute immunoassayOrdered By: Mónica Strange on 03-30-2024 Nicotine & Cotinine 181.2 ug/mL . [facility] Comment on above: This test was develo ped and its performance characteristicsdetermined by [employer]. It has not been cleared orapproved by the Food and Drug Administration.Cotinine levels greater than 20.0 are consistent with theuse of tobacco or tobacco cessation products.Performed at: [facility] [id number] Director: Bryson Galloway PhD, Phone: [phone] at: [facility] [id number] Director: Rivera Barney MD, Phone: [phone] Blood urea nitrogen (BUN)/cr eatinine ratioOrdered By: Mónica Strange on 03-30-2024 Urea nitrogen/Creatinine [Mass ratio] 16.8 mg/mg 10-20 [facility] Carbon dioxide measurementOr dered By: Mónica Strange on 03-30-2024 CO2 [Moles/Vol] 29.0 mmol/L 21.0-32.0 [facility] Chloride measurementOrdered By: Mónica Strange on 03-30-2024 Chloride [Moles/Vol] 106 mmol/L 98-107 [facility] Estimated glomerular filtrat ion rate (GFR) AmericanOrdered By: Mónica Strange on 03-30-2024 Estimated GFR (MDRD) Amer 110 mL/min >60 [facility] Comment on above: GFR Calc Estradiolon 03-30-2024 ESTRADIOL 757.2 pg/mL Normal [facility] Comment on above: Result Comment: NORM AL REFERENCE RANGES FEMALE FOLLICULAR 21.4 - 164.8 pg/mL MID-CYCLE PEAK 49.9 - 367.2 pg/mL LUTEAL 40.2 - 259.0 pg/mL POST-MENOPAUSAL ON MHT <11.0 - 462.1 pg/mL NOT ON MHT <11.0 - 58.3 pg/mL MALE <11.0 - 52.5 pg/mL NOTE: [employer] HAS CONFIRMED THE DRUG FULVETRANT (FASLODEX) MAY CAUSE FALSELY ELEVATED ESTRADIOL RESULTS WHEN USING THIS TEST METHOD. IF PATIENT IS TAKING FULVESTRANT AN ALTERNATIVE METHOD SHOULD BE USED TO DETERMINE ESTRADIOL CONCENTRATION. Performed By: #### M 8200.2203, M8200.3000 #### [facility] [place], [address] Estradiol measurementOrdered By: Mónica Strange on 03-30-2024 Estradiol (E2) Level 757.2 pg/mL [facility] Comment on above: NORMAL REFERENCE RAN GES FEMALE FOLLICULAR 21.4 - 164.8 pg/mL MID-CYCLE PEAK 49.9 - 367.2 pg/mL LUTEAL 40.2 - 259.0 pg/mL POST-MENOPAUSAL ON MHT <11.0 - 462.1 pg/mL NOT ON MHT <11.0 - 58.3 pg/mL MALE <11.0 - 52.5 pg/mL NOTE:[employer] HAS CONFIRMED THE DRUG FULVETRANT (FASLODEX) MAY CAUSE FALSELY ELEVATED ESTRADIOL RESULTS WHEN USING THIS TEST METHOD. IF PATIENT IS TAKING FULVESTRANT AN ALTERNATIVE METHOD SHOULD BE USED TO DETERMINE ESTRADIOL CONCENTRATION. Glomerular filtration rate ( GFR) estimationOrdered By: Mónica Strange on 03-30-2024 Estimated GFR (MDRD) Non-Af Amer 91 mL/min >60 [facility] Comment on above: Non- GFR Calc Glucose measurementOrdered B y: Mónica Strange on 03-30-2024 Glucose [Mass/Vol] 89 mg/dL 74-106 [facility] HBV surface Ag IA QlOrdered By: Mónica Strange on 03-30-2024 Hepatitis B Surface Antigen Negative Negative [facility] Hepatitis A virus IgM antibo dy assayOrdered By: Mónica Strange on 03-30-2024 Hepatitis A IgM Antibody Negative Negative [facility] Comment on above: A negative anti-HAV IgM result suggests no recent orcurrent HAV infection. Hepatitis B virus core IgM a ntibody assayOrdered By: Mónica Strange on 03-30-2024 Hepatitis B Core IgM Antibody Negative Negative [facility] Hepatitis C virus antibody a ssayOrdered By: Mónica Strange on 03-30-2024 Hepatitis C Antibody (EIA) Non-Reactive Non Reactive [facility] [id number] 03-30-2024 Syphilis Abs Non-Reactive Normal [facility] Comment on above: Performed By: #### M 8200.2203, M8200.3000 #### [facility] [address] [place], [address] LABORATORYOrdered By: Trevon Cardoza on 03-30-2024 C. trachomatis DNA PACO+probe Ql (Unsp spec) Negative 2 (03/30/24 9:44 AM) Normal Negative [facility] Comment on above: Interpretive Data: Enma velazquez (PCR) assay performed on the Theodore Nilay 4800 system. C. trachomatis DNA PACO+probe Ql [...] Negative 1 (03/30/24 9:44 AM) Normal Negative [facility] Comment on above: Interpretive Data: Enma velazquez (PCR) assay performed on the [employer] Nilay 4800 System. N. gonorrhoeae DNA PACO+probe Ql [...] on 03-30-2024 Nicotine Level 14.8 ug/mL . [facility] Comment on above: This test was develo ped and its performance characteristicsdetermined by [employer]. It has not been cleared orapproved by the Food and Drug Administration.Nicotine levels greater than 2.0 are consistent with theuse of tobacco or tobacco cessation products. No Panel InformationOrdered By: Mónica Strange on 03-30-2024 Hepatitis C Antibody Comment Comment . [facility] Comment on above: Not infected with HC V unless early or acute infection issuspected (which may be delayed in an immunocompromisedindividual), or other evidence exists to indicate HCVinfection. Potassium measurementOrdered By: Mónica Strange on 03-30-2024 Potassium [Moles/Vol] 3.7 mmol/L 3.5-5.1 [facility] Quantitative serum progester one measurement by electrochemiluminescence immunoassay (Ordered By: Mónica Strange on 03-30-2024 Progesterone Level 0.2 ng/mL . [facility] Comment on above: Follicular phase 0.1 - 0.9 Luteal phase 1.8 - 23.9 Ovulation phase 0.1 - 12.0 First trimester 11.0 - 44.3 Second trimester 25.4 - 83.3 Third trimester 58.7 - 214.0 Postmenopausal 0.0 - 0.1 Serum anion gap measurementO rdered By: Mónica Strange on 03-30-2024 Anion gap [Moles/Vol] 4 mmol/L Low 5-15 [facility] Serum or plasma calcium fabian urement (mass/volume)Ordered By: Mónica Strange on 03-30-2024 Calcium [Mass/Vol] 9.5 mg/dL 8.5-10.1 [facility] Serum or plasma creatinine m easurement (mass/volume)Ordered By: Mónica Strange on 03-30-2024 Creatinine [Mass/Vol] 0.83 mg/dL 0.55-1.02 [facility] Comment on above: The validity of the calculated GFR & GFRAA in patients over 70 years has not been determined. Clinical correlation is essential. Serum or plasma urea nitroge n measurement (mass/volume)Ordered By: Mónica Strange on 03-30-2024 Urea nitrogen [Mass/Vol] 14 mg/dL - [facility] Sodium levelOrdered By: Thiago Strange on 03-30-2024 Sodium [Moles/Vol] 140 mmol/L 136-145 [facility] Testosterone, Serum Totalon 03-30-2024 Testosterone [Mass/Vol] 68.58 ng/dL Normal [facility] Comment on above: Result Comment: CENT RAL 90% REFERENCE RANGES MALE AGE <50 197.44 - 669.58 ng/dL MALE AGE > or = 50 187.72 - 684.19 ng/dL FEMALE AGE <50 8.38 - 35.01 ng/dL FEMALE AGE > or = 50 <7.00 - 35.92 ng/dL Effective as of 10/31/20 Performed By: #### M 8200.2203, M8200.3000 #### [facility] [address] [place], [address] Testosterone, totalOrdered B y: Mónica Strange on 03-30-2024 Testosterone [Mass/Vol] 68.58 ng/dL [facility] Comment on above: CENTRAL 90% REFERENC E RANGES MALE AGE <50 197.44 - 669.58 ng/dL MALE AGE > or = 50 187.72 - 684.19 ng/dL FEMALE AGE <50 8.38 - 35.01 ng/dL FEMALE AGE > or = 50 <7.00 - 35.92 ng/dL Effective as of 10/31/20 Treponema sp Ab Ql (S)Ordere d By: Mónica Strange on 03-30-2024 Syphilis Total Antibody Non-Reactive [facility] LABORATORYOrdered By: Landy Bazan on 10-22-2023 Appearance [...] HCG ( test) Ql (U) Negative Normal [facility] ([place]) Comment on above: Performed By: #### P REGU, UA #### [address] [place] [id number] [place], [place] [address] test (u) int Not detected Invalid Interpretation Code [facility] ([place] Comment on above: Performed By: #### P REGU, UA #### [place] [id number] UAon 10-22-2023 Color (U) Yellow Normal [facility] ([place] Comment on above: Performed By: #### P REGU, UA #### [place] [id number] Glucose (U) [Mass/Vol] Negative Normal Negative [facility] ([place]) Comment on above: Performed By: #### P REGU, UA #### [address] [place] [address] Ketones Ql (U) Negative Normal Negative [facility] ([place] Comment on above: Performed By: #### P REGU, UA #### [place] [address] UA Appear Clear Normal Clear [facility] ([place] Comment on above: Performed By: #### P REGU, UA #### [place] [address] UA Blood Negative Normal Negative [facility] ([place] Comment on above: Performed By: #### P REGU, UA #### [place] [address] UA Leuk Est Negative Normal Negative [facility] ([place] Comment on above: Performed By: #### P REGU, UA #### [place] [address] UA Nitrite Negative Normal Negative [facility] ([place] Comment on above: Performed By: #### P REGU, UA #### [place] [address] UA pH 7.0 Normal 5.0 - 8.0 [facility] ([place] Comment on above: Performed By: #### P REGU, UA #### [place] [address] UA Protein Negative Normal Negative [facility] ([place] Comment on above: Performed By: #### P REGU, UA #### [place] [address] UA Spec Grav 1.020 Normal 1.015-1.02 5 [facility] ([place] Comment on above: Performed By: #### P REGU, UA #### [address] [address] UA Specimen Type Clean Catch Normal [facility] ([place] Comment on above: Performed By: #### P REGU, UA #### [address] [address] UA Urobilinogen 0.2 E.U./dL Normal 0.2-1.0 [facility] ([place] Comment on above: Performed By: #### P REGU, UA #### [address] [address] Urobilinogen (U) [Mass/Vol] Negative Normal Negative [facility] ([place] Comment on above: Performed By: #### P REGU, UA #### [address] [address] .Auto Diffon 08-18-2023 Basophil, Absolute 0.1 10 3/mcL Normal 0.0-0.2 [facility] ([place]) Comment on above: Performed By: #### A PETRA IZAGUIRRE ADIFF, CBC #### [address] [address] Basophils/100 WBC (Bld) 1.0 % Normal 0.0-2.5 [facility] ([place]) Comment on above: Performed By: #### A PETRA IZAGUIRRE ADIFF, CBC #### [address] [address] Eosinophil, Absolute 0.2 10 3/mcL Normal 0.0-0.4 [facility] ([place]) Comment on above: Performed By: #### A PETRA IZAGUIRRE ADIFF, CBC #### [address] [address] Eosinophils/100 WBC (Bld) 1.8 % Normal 0.0-7.0 [facility] ([place] Comment on above: Performed By: #### A PETRA IZAGUIRRE ADIFF, CBC #### [address] [address] Lymphocyte, Absolute 2.7 10 3/mcL Normal 0.8-3.9 [facility] ([place]) Comment on above: Performed By: #### A ZINA, FE, ADIFF, CBC #### [address] [address] Lymphocytes/100 WBC (Bld) 32.2 % Normal 10.0-50.0 [facility] ([place] Comment on above: Performed By: #### A ZINA, FE, ADIFF, CBC #### [address] [address] Monocyte, Absolute 0.6 10 3/mcL Normal 0.2-1.0 [facility] ([place] Comment on above: Performed By: #### A ZINA, FE, ADIFF, CBC #### [address] [address] Monocytes/100 WBC (Bld) 6.7 % Normal 1.7-13.0 [facility] ([place]) Comment on above: Performed By: #### A ZINA, FE, ADIFF, CBC #### [address] [address] Neutrophils/100 WBC (Bld) 58.3 % Normal 37.0-80.0 [facility] ([place] Comment on above: Performed By: #### A ZINA, FE, ADIFF, CBC #### [address] [address] .NEUABSon 08-18-2023 Neutrophil, Absolute 5.0 10 3/mcL Normal 2.9-6.2 [facility] ([place] Comment on above: Performed By: #### A ZINA, FE, ADIFF, CBC #### [address] [address] CBCon 08-18-2023 Erythrocyte distribution width (RBC) [Ratio] 12.7 % Normal 11.5-14.5 [facility] ([place]) Comment on above: Performed By: #### A ZINA, FE, ADIFF, CBC #### [address] [address] Hematocrit (Bld) [Volume fraction] 38.9 % Normal 37.0-47.0 [facility] ([place] Comment on above: Performed By: #### A PETRA IZAGUIRRE ADIFF, CBC #### [address] [address] Hgb 13.5 G/dL Normal 12.0-16.0 [facility] ([place] Comment on above: Performed By: #### A PETRA IZAGUIRRE ADIFF, CBC #### [address] [address] MCH (RBC) [Entitic mass] 29.0 pg Normal 27.0-31.2 [facility] ([place] Comment on above: Performed By: #### A PETRA IZAGUIRRE ADYOLANDA, CBC #### [place] [address] MCHC 34.6 G/dL Normal 33.0-37.0 [facility] ([place] Comment on above: Performed By: #### A PETRA IZAGUIRRE ADIFF, CBC #### [address] [address] MCV (RBC) [Entitic vol] 83.7 fL Normal 80.0-94.0 A [facility] ([place]) Comment on above: Performed By: #### A PETRA IZAGUIRRE ADIFF, CBC #### [address] [address] Platelet 371 10 3/mcL Normal 130-400 [facility] ([place]) Comment on above: Performed By: #### A PETRA IZAGUIRRE, ADIFF, CBC #### [address] [address] Platelet mean volume (Bld) [Entitic vol] 7.1 fL Low 7.4-10.4 [facility] ([place]) Comment on above: Performed By: #### A PETRA IZAGUIRRE, ADIFF, CBC #### [address] [address] RBC 4.65 10 6/mcL Normal 4.20-5.40 [facility] ([place] Comment on above: Performed By: #### A PETRA IZAGUIRRE ADYOLANDA, CBC #### [address] [place], [place] [address] WBC 8.5 10 3/mcL Normal 4.6-10.8 [facility] ([place] Comment on above: Performed By: #### A PETRA IZAGUIRRE ADIFF, CBC #### [address] [place], [place] [address] FEon 08-18-2023 Iron [Mass/Vol] 115 ug/dL Normal 50-170 [facility] ([place] Comment on above: Performed By: #### A PETRA IZAGUIRRE ADIFF, CBC ####[address] [place], [place] [address] CTPCRon 08-06-2023 C. trachomatis Interp Normal See CT Interp N [facility] ([place]) Comment on above: Result Comment: C. t rachomatis DNA not detected. Specimen is presumptive negative for C. trachomatis. A negative result does not preclude C. trachomatis infection because results depend on adequate specimen collection, absence of inhibitors, and sufficient DNA to be detected. See CT Interp N Performed By: #### N GPCR1, CTPCR #### [address] [address] C.trachomatis PCR Negative Normal Negative [facility] ([place] Comment on above: Result Comment: Mole jasminar (PCR) assay performed on the Theodore Nilay 4800 system. Performed By: #### N GPCR1, CTPCR #### [address] [address] Chlam Source Urine Normal [facility] ([place]) Comment on above: Performed By: #### N GPCR1, CTPCR #### [address] [address] [id number] 08-06-2023 GC PCR Source Urine Normal [facility] ([place] Comment on above: Performed By: #### N GPCR1, CTPCR #### [address] [address] N. gonorrhoeae (PCR) Negative Normal Negative [facility] ([place]) Comment on above: Result Comment: Mole cular (PCR) assay performed on the Theodore Nilay 4800 System. Performed By: #### N GPCR1, CTPCR #### [place] [id number] N. gonorrhoeae Interp Normal See NG Interp N [facility] ([place]) Comment on above: Result Comment: N. g onorrhoeae DNA not detected. Specimen is presumptive negative for N. gonorrhoeae. A negative result does not preclude Neisseria gonorrhoeae infection because results depend on adequate specimen collection, absence of inhibitors, and sufficient DNA to be detected. See NG Interp N Performed By: #### N GPCR1, CTPCR #### [place] [id number] LABORATORYOrdered By: Alexandra Shaw on 08-04-2023 C. trachomatis DNA PACO+probe Ql (Unsp spec) Negative 2 (08/04/23 5:55 PM) Normal Negative [facility] Comment on above: Interpretive Data: M olecular (PCR) assay performed on the Theodore Nilay 4800 system. C. trachomatis DNA PACO+probe Ql [...] olecular (PCR) assay performed on the [employer] Nilay 4800 System. N. gonorrhoeae DNA PACO+probe Ql (Unsp spec) N. gonorrhoeae DNA not detected. Specimen is presumptive negative forN. gonorrhoeae. A negative result does not preclude Neisseria gonorrhoeaeinfection because results depend on adequate specimen collection, absenceof inhibitors, and sufficient DNA to be detected. Normal See NG Interp N AH [facility] Laboratory - Specimen inform ationOrdered By: Alexandra Shaw on 08-04-2023 Specimen source Nom (Unsp spec) Urine (08/04/23 5:55 PM) Normal AH [facility]/Sero SS Final Surgical Pathology Rep tylor 06-30-2023 Final Surgical Pathology Report . Pathology Reports Accession: Collected Date/Time: Received Date/Time: Pathologist: [id number] 06/25/2023 10:43 EDT 06/27/2023 07:32 EDT PHILL FUENTES MD Final Surgical Pathology Report DIAGNOSIS: SKIN, RIGHT LOWER ABDOMEN: - JUNCTIONAL NEVUS CLINICAL INFORMATION: PROCEDURE: PUNCH EXCISION PREOPERATIVE DIAGNOSIS: ATYPICAL MOLE POSTOPERATIVE DIAGNOSIS: SAME SPECIMEN: A RIGHT LOWER ABDOMEN GROSS DESCRIPTION: All parts labelled with patient name and [id number] Received in formalin labelled undesignated on the container is a skin punch biopsy measuring 0.3 cm in diameter and 0.3 cm in thickness. Skin surface grossly unremarkable. Cut surface inked black. TS -1 Milton Danielson, Pathologists' Collection Manager (ASCP) Dictated by MILTON DANIELSON Electronically Signed by Pathology Report verified by [facility] PHILL FUENTES Sign out Date: 06/30/2023 15:07 Performing Lab: [facility], [address] [place] [address] Pathology Dept Disclaimer If ancillary studies were utilized, the following Laboratory Developed Test (LDT) disclaimer will apply: Under CLIA requirements, [facility] is qualified to perform high complexity testing. For all ancillary stains, positive and negative controls stain appropriately. Performance characteristics of immunohistochemical and chromogenic in-situ hybridization tests have been determined by [facility]. These tests are used for clinical purposes, They should not be regarded as investigational or for research. Normal [facility] ([place]) Basophil percentageOrdered B y: Mónica Strange on 06-02-2023 Bilirubin [Mass/Vol] 0.50 mg/dL 0.20-1.00 [facility] Comment on above: For patients on eltr ombopag therapy, use of Dimension [place] TBIL is not recommended. Chloride [Moles/Vol] 109 mmol/L 98-107 [facility] Glucose [Mass/Vol] 85 mg/dL 74-106 [facility] Potassium [Moles/Vol] 3.9 mmol/L 3.5-5.1 [facility] Protein [Mass/Vol] 7.2 g/dL 6.4-8.2 [facility] Sodium [Moles/Vol] 140 mmol/L 136-145 [facility] Laboratory - Chemistry and C hemistry - challengeOrdered By: Mónica Strange on 06-02-2023 Albumin/Globulin [Mass ratio] 1.2 {ratio} 0.9-2.4 [facility] ALP [Catalytic activity/Vol] 59 U/L 45-117 [facility] ALT [Catalytic activity/Vol] 19 U/L 13-56 [facility] CO2 [Moles/Vol] 26.0 mmol/L 21.0-32.0 [facility] Globulin (S) [Mass/Vol] 3.3 g/dL 2.2-4.2 [facility] Urea nitrogen/Creatinine [Mass ratio] 11.5 mg/mg 10-20 [facility] No Panel InformationOrdered By: Mónica Strange on 06-02-2023 Estimated GFR (MDRD) Amer 119 mL/min >60 [facility] Comment on above: GFR Calc Estimated GFR (MDRD) Non-Af Amer 98 mL/min >60 [facility] Comment on above: Non- GFR Calc Serum or plasma calcium fabian urement (mass/volume)Ordered By: Mónica Strange on 06-02-2023 Calcium [Mass/Vol] 9.1 mg/dL 8.5-10.1 [facility] Serum or plasma creatinine m easurement (mass/volume)Ordered By: Mónica Strange on 06-02-2023 Creatinine [Mass/Vol] 0.78 mg/dL 0.55-1.02 [facility] Comment on above: The validity of the calculated GFR & GFRAA in patients over 70 years has not been determined. Clinical correlation is essential. Serum or plasma thyroid stim ulating hormone (TSH) measurement (units/volume)Ordered By: Mónica Strange on 06-02-2023 TSH Qn 1.03 uIU/mL 0.358-3.74 [facility] Serum or plasma urea nitroge n measurement (mass/volume)Ordered By: Mónica Strange on 06-02-2023 Urea nitrogen [Mass/Vol] 9 mg/dL 7-18 [facility] Thin prep Papanicolaou smear with manual screeningOrdered By: Mónica Strange on 06-02-2023 Thin prep Papanicolaou smear with manual screening 3.9 g/dL 3.2-5.0 [facility] Thin prep Papanicolaou smear with manual screening 10 U/L 15-37 [facility] Thin prep Papanicolaou smear with manual screening 5 5-15 [facility] Thin prep Papanicolaou smear with manual screening 1.01 ng/dL 0.76-1.46 [facility] HBSABon 01-16-2023 Hep B Surf Ab 423.9 mIU/mL Normal >=10.0 [facility] ([place]) Comment on above: Result Comment: 0 to [...] International Reference Preparation. Performed By: #### H [facility] #### [place] [address] US SOFT TISSUE MASS OF RT AR M OR LEGon 01-15-2023 US SOFT TISSUE MASS OF RT ARM OR LEG ORIGINAL EXAMINATION: SOFT TISSUE ULTRASOUND OF THE RIGHT [id number]/11/2023 1:26 pm TECHNIQUE: Duplex ultrasound using B-mode/connelly [...] 01/15/2023 2:50:31 PM Ordering Provider: MÓNICA Floyd [facility] ([place]) No Panel Informationon 06-26 Culture Throat Normal throat justino present Sensitivity Testing: Not Indicated [facility] Work Phone: LABORATORYOrdered By: Lora hernandez on [...] Urine (01/08/22 4:29 PM) Invalid Interpretation Code AH [facility]/Sero SS LABORATORYOrdered By: Mandy Carlson [...] specimens, or inadequate numbers of organisms for amplification.ANEL SARS-CoV-2 Assay is a Real-Time reverse-transcriptase polymerase [...] AO Auto Urine SS Progress Noteon 10-06-2019 Surveillance Analyst Authentication Interface Message Text Patient ID: Kierra [...] caregiver and patient is being seen by piano and organ refinisher or moth exterminator. Primary Care Review of Systems Objective Vital [...] Minimal Electronically signed by: Jacqueline Abarca MD [facility] [place] Progress Noteon 05-04-2019 Surveillance Analyst Authentication Interface Message Text Patient ID: Kierra [...] new detergents. No other new exposures that stephanie and Kierra can think of. No other [...] is no pallor. Skin is warm. Normal [facility] Vital Signs Date Time Vital Sign Value Performing Clinician Facility 12-27-2024 10: Body height 157.48 cm Mónica NG Work Phone: [facility] 12-27-2024 10: Body mass index (BMI) [Ratio] 18.8 kg/m2 Mónica Strange MEDICAL INSTRUCTOR-C Work Phone: [facility] 12-27-2024 10:09-0400 Body weight 46.77 kg Mónica Strange MEDICAL INSTRUCTOR-C Work Phone: [facility] 12-27-2024 10:09-0400 Diastolic blood pressure 82 mm[Hg] Mónica Strange MEDICAL INSTRUCTOR-C Work Phone: [facility] 12-27-2024 10:09-0400 Systolic blood pressure 120 mm[Hg] Mónica Strange MEDICAL INSTRUCTOR-C Work Phone: [facility] 12-23-2024 14:06-0400 Body temperature 97.6 [degF] Mónica Strange MEDICAL INSTRUCTOR-C Work Phone: [facility] 12-23-2024 14:06-0400 Diastolic blood pressure 69 mm[Hg] Mónica Strange MEDICAL INSTRUCTOR-C Work Phone: [facility] 12-23-2024 14:06-0400 Heart rate 59 /min Mónica Strange MEDICAL INSTRUCTOR-C Work Phone: [facility] 12-23-2024 14:06-0400 Respiratory rate 16 /min Mónica Strange MEDICAL INSTRUCTOR-C Work Phone: [facility] 12-23-2024 14:06-0400 SaO2% (BldA) [Mass fraction] 100 % Mónica Strange MEDICAL INSTRUCTOR-C Work Phone: [facility] 12-23-2024 14:06-0400 Systolic blood pressure 105 mm[Hg] Mónica Strange MEDICAL INSTRUCTOR-C Work Phone: [facility] [facility] 12-23-2024 06:14-0400 Body height 157.48 cm Mónica Strange MEDICAL INSTRUCTOR-C Work Phone: [facility] 12-23-2024 06:14-0400 Body mass index (BMI) [Ratio] 19.1 kg/m2 Mónica Strange MEDICAL INSTRUCTOR-C Work Phone: [facility] 12-23-2024 06:14-0400 Body weight 47.6 kg Mónica Strange MEDICAL INSTRUCTOR-C Work Phone: [facility] 09-01-2024 11:31-0400 Body height 157.48 cm Mónica Strange MEDICAL INSTRUCTOR-C Work Phone: [facility] 09-01-2024 11:26-0400 Body mass index (BMI) [Ratio] 19.2 kg/m2 Mónicacoleman Strange MEDICAL INSTRUCTOR-C Work Phone: [facility] 09-01-2024 11:26-0400 Body weight 47.68 kg Mónicacoleman Strange MEDICAL INSTRUCTOR-C Work Phone: [facility] 09-01-2024 11:26-0400 Diastolic blood pressure 62 mm[Hg] Mónica Strange MEDICAL INSTRUCTOR-C Work Phone: [facility] 09-01-2024 11:26-0400 Systolic blood pressure 104 mm[Hg] Mónica Strange MEDICAL INSTRUCTOR-C Work Phone: [facility] 07-12-2024 08:55-0400 Body height 157.48 cm Mónica Strange MEDICAL INSTRUCTOR-C Work Phone: [facility] 07-12-2024 08:45-0400 Body mass index (BMI) [Ratio] 19 kg/m2 Mónica Strange MEDICAL INSTRUCTOR-C Work Phone: [facility] 07-12-2024 08:45-0400 Body weight 47.17 kg Mónica Strange MEDICAL INSTRUCTOR-C Work Phone: [facility] 07-12-2024 08:45-0400 Diastolic blood pressure 80 mm[Hg] Mónica Whiteson MEDICAL INSTRUCTOR-C Work Phone: [facility] 07-12-2024 08:45-0400 Systolic blood pressure 114 mm[Hg] Mónica Whiteson MEDICAL INSTRUCTOR-C Work Phone: [facility] 10-22-2023 02:43-0400 Diastolic Blood Pressure Non-Invasive 96 mm[Hg] NIEVES VORA DO [facility] 10-22-2023 02:43-0400 Heart rate 76 /min NIEVES HILL DO [facility] 10-22-2023 02:43-0400 Mean blood pressure 109 mm[Hg] NIEVES HILL DO [facility] 10-22-2023 02:43-0400 Respiratory rate 16 /min NIEVES HILL DO [facility] 10-22-2023 02:43-0400 Systolic Blood Pressure Non-Invasive 138 mm[Hg] NIEVES HILL DO [facility] 10-22-2023 02:02-0400 Heart rate 95 /min NIEVES HILL DO [facility] 10-22-2023 01:49-0400 Body height 157.5 cm NIEVES HILL DO [facility] 10-22-2023 01:49-0400 Body temperature 96.98 [degF] NIEVES HILL DO [facility] 10-22-2023 01:49-0400 Body weight 50 kg NIEVES VORA DO [facility] 10-22-2023 01:49-0400 Diastolic Blood Pressure Non-Invasive 95 mm[Hg] NIEVES HILL DO [facility] 10-22-2023 01:49-0400 Heart rate 113 /min NIEVES HILL DO [facility] 10-22-2023 01:49-0400 Respiratory rate 18 /min NIEVES HILL DO [facility] 10-22-2023 01:49-0400 Systolic Blood Pressure Non-Invasive 151 mm[Hg] NIEVES HILL DO [address] [place] [address] Encounters Encounter Date Encounter Type Care Provider Facility Start: 12-27-2024 End: 12-27-2024 Patient encounter procedure Sherri Srivastavatings MEDICAL INSTRUCTOR-C -[facility] Work Phone: Start: 12-27-2024 End: 12-27-2024 ambulatory Mónica Strange MEDICAL INSTRUCTOR Facility:[facility] Start: 12-23-2024 End: 12-23-2024 Emergency department patient visit Mónica Strange MEDICAL INSTRUCTOR-C Work Phone: -Emergency Department Work Phone: Start: 11-17-2024 ambulatory [place]ri [place] MEDICAL INSTRUCTOR Facil ity:[facility] Start: 09-01-2024 End: 09-01-2024 Patient encounter procedure Sherri Srivastavatings MEDICAL INSTRUCTOR-C -[facility] Work Phone: Start: 09-01-2024 End: 09-01-2024 ambulatory Mónica Strange MEDICAL INSTRUCTOR-C Work Phone: [facility] Work Phone: Start: 07-12-2024 End: 07-12-2024 Patient encounter procedure Sherri Jessicas MEDICAL INSTRUCTOR-C -[facility] Work Phone: Start: 07-12-2024 End: 07-12-2024 ambulatory Mónica Strange MEDICAL INSTRUCTOR-C Work Phone: [facility] Work Phone: Start: 07-12-2024 End: 07-12-2024 ambulatory Mónica Strange MEDICAL INSTRUCTOR Facility:[facility] Start: 04-22-2024 Encounter for gynecological examination (general) (routine) without abnormal findings Mónica Strange NP [facility] Start: 03-30-2024 End: 04-03-2024 ambulatory MÓNICA STRANGE PLANT 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 Facility:[facility] Start: 03-30-2024 End: 04-03-2024 Encounter for gynecological examination (general) (routine) without abnormal findings MÓNICA STRANGE APRN-MILLING OPERATOR Facility:[facility] Start: 03-30-2024 End: 04-03-2024 Outreach Lab MÓNICA LORSON PLANT 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 [facility] Start: 03-30-2024 End: 03-30-2024 Patient encounter procedure Mónica Strange MEDICAL INSTRUCTOR-C -Laboratory Work Phone: Start: 03-30-2024 End: 03-30-2024 ambulatory Mónica Strange MEDICAL INSTRUCTOR Facility:[facility] Start: 10-22-2023 End: 10-22-2023 Emergency department patient visit NIEVES VORA DO [facility] Start: 08-18-2023 End: 08-18-2023 ambulatory MÓNICA LAUREL Facility:[facility] Start: 08-04-2023 End: 08-08-2023 ambulatory MÓNICA STRANGE Facility:[facility] Start: 08-04-2023 End: 08-08-2023 Outreach Lab MÓNICA STRANGE PLANT 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 [facility] Start: 07-21-2023 End: 07-21-2023 ambulatory MÓNICA LAUREL Facility:[facility] Start: 07-21-2023 End: 07-21-2023 Patient encounter procedure MÓNICA STRANGE PLANT 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 [facility] Start: 06-25-2023 End: 06-29-2023 ambulatory MÓNICA STRANGE Facility:[facility] Start: 06-25-2023 End: 06-29-[address] CLAUDIA PAIZ DO [facility] Start: 06-20-2023 End: 06-20-2023 ambulatory MÓNICA STRANGE Facility:[facility] Start: 06-20-2023 End: 06-20-2023 Patient encounter procedure MÓNICA STRANGE PLANT 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 [facility] Start: 06-02-2023 End: 06-02-2023 ambulatory [facility] Work Phone: Start: 06-02-2023 End: 06-02-2023 Patient encounter procedure [facility]-Laboratory Work Phone: Start: 06-02-2023 End: 06-02-2023 ambulatory MÓNICA STRANGE Facility:[facility] Start: 01-15-2023 End: 01-15-2023 ambulatory MÓNICA STRANGE Facility:[facility] Start: 01-15-2023 End: 01-15-2023 Patient encounter procedure MÓNICA STRANGE PLANT 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 [facility] Start: 06-26-2022 End: 06-30-2022 Outreach Lab BEAR IZQUIERDO PLANT 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 [facility] Start: 01-08-2022 End: 01-12-2022 Outreach Lab MÓNICA STRANGE PLANT 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 [facility] Start: 04-12-2021 End: 04-12-2021 Patient encounter procedure [facility] PLANT 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 [facility] Procedures Date Procedure Procedure Detail Performing Clinician Start: 12-23-2024 End: 12-23-2024 Polymerase chain reaction analysis Mónica Strange MEDICAL INSTRUCTOR-C Work Phone: Start: 12-23-2024 End: 12-23-2024 Trichomonas vaginalis detection Mónica Strange MEDICAL INSTRUCTOR-C Work Phone: Start: 12-23-2024 Transvaginal echography Mónica Strange MEDICAL INSTRUCTOR-C Work Phone: Start: 12-23-2024 Urnls dip stick/tabl et reagent auto microscopy Mónica Strange MEDICAL INSTRUCTOR-C Work Phone: Start: 12-23-2024 Ct abdomen & pelvis w/contrast material Mónica Strange MEDICAL INSTRUCTOR-C Work Phone: Start: 12-23-2024 D-dimer assay, quantitative Mónica Strange MEDICAL INSTRUCTOR-C Work Phone: Comment on above: NORMAL D-Dimer level (<0.50) indicates no DVT or PE. Start: 12-23-2024 Estimated creatinine clearance Mónica Strange MEDICAL INSTRUCTOR-C Work Phone: Start: 09-01-2024 End: 09-01-2024 Polymerase chain reaction analysis Mónica Strange MEDICAL INSTRUCTOR-C Work Phone: Start: 07-12-2024 Dehydroepiandrostero ne sulfate level Mónica Strange MEDICAL INSTRUCTOR-C Work Phone: Start: 07-12-2024 Follicle stimulating hormone measurement Mónica Strange MEDICAL INSTRUCTOR-C Work Phone: Comment on above: FEMALE:Follicular: 1 [...] mIU/mL Start: 07-12-2024 Luteinizing hormone measurement Mónica Strange MEDICAL INSTRUCTOR-C Work Phone: Comment on above: FEMALE:Follicular: 1 .9-12.5 mIU/mLMidcycle: 8.7-76.3 mIU/mLLuteal: 0.5-16.9 mIU/mLPost Menopause: 15.9-54.0 mIU/mLMALE:20-70 Years: 1.5-9.3 mIU/mL>70 Years: 3.1-34.6 mIU/mL None (qualifier value) [facility] [employer] 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 Plan of Treatment Date Care Activity Detail Author Start: 12-23-2024 [facility] Start: 07-12-2024 17-Hydroxyprogesterone [Mass/volume] in Serum or Plasma [facility] Start: 07-12-2024 Dehydroepiandrosterone sulfate (DHEA-S) [Mass/volume] in Serum or Plasma [facility] Start: 07-12-2024 Prolactin measurement [facility] Start: 07-12-2024 Testosterone Free [Mass/volume] in Serum or Plasma [facility] Chlamydia deoxyribon ucleic acid detection [facility] Patient Education ED Flank Pain with Uncertain Cause [facility] Work Phone: [facility] Immunizations Immunization Date Immunization Notes Care Provider Nishant salguero 12-06-2020 COVID-19, mRNA, LNP- S, PF, 100 mcg/ 0.5 mL dose; Translations: [Moderna COVID-19 Vaccine] [facility] 11-08-2020 COVID-19, mRNA, LNP- S, PF, 100 mcg/ 0.5 mL dose; Translations: [Moderna COVID-19 Vaccine] [facility] 10-11-2019 meningococcal B vacc ine, recombinant, OMV, adjuvanted [facility] 05-19-2018 hepatitis A vaccine, pediatric dosage, unspecified formulation [facility] 05-19-2018 Human Papillomavirus Quadval [facility] 05-19-2018 meningococcal polysaccharide (groups A, C, Y and W-135) diphtheria toxoid conjugate vaccine (MCV4P) [facility] [employer] PHYSIOLOGY TEACHER-[facility] 09-05-2017 Human Papillomavirus Quadval [facility] [employer] PHYSIOLOGY TEACHER[facility] 05-13-2017 hepatitis A vaccine, pediatric dosage, unspecified formulation [facility] [employer] PHYSIOLOGY TEACHER[facility] 05-13-2017 Human Papillomavirus Quadval [facility] [employer] PHYSIOLOGY TEACHER[facility] 09-08-2006 measles/mumps/rubell a virus vaccine [facility] [employer] PHYSIOLOGY TE[employer]ER[facility] 09-08-2006 poliovirus vaccine, inactivated [facility] [employer] PHYSIOLOGY TE[employer]ER[facility] 09-08-2006 varicella virus vaccine [facility] [employer] PHYSIOLOGY TEACHER[facility] 12-30-2003 poliovirus vaccine, inactivated [facility] [employer] PHYSIOLOGY TEACHER[facility] 05-19-2003 haemophilus influenz ae type b conjugate and Hepatitis B vaccine [facility] PL[employer] 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 [facility] 05-19-2003 poliovirus vaccine, inactivated [facility] [employer] 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 [facility] 05-19-2003 varicella virus vaccine [facility] [employer] PHYSIOLOGY TE[employer]ER[facility] 08-31-2002 measles/mumps/rubell a virus vaccine [facility] [employer] PHYSIOLOGY TE[employer]ER[facility] 03-02-2002 haemophilus influenz ae type b vaccine, PRP-T conjugate [facility] [employer] PHYSIOLOG[employer] TE[employer] 2001 haemophilus influenz ae type b vaccine, PRP-T conjugate [facility] [employer] PHYSIOLOGY TE[employer]ER[facility] 2001 pneumococcal polysaccharide vaccine, 23 valent [facility] [employer] PHYSIOLOGY TEACHER[facility] 2001 haemophilus influenz ae type b vaccine, HbOC conjugate [facility] [employer] PHYSIOLOGY TE[employer]ER[facility] 2001 hepatitis B pediatri c vaccine [facility] [employer] PHYSIOLOGY TEACHER[facility] 2001 poliovirus vaccine, inactivated [facility] [facility] PHYSIOLOGY TEACHER[facility] 2001 hepatitis B pediatri c vaccine [facility] [employer] [employer] PHYSIOLOGY TEACHER[facility] Payers Date Payer Category Payer Self-pay [id number] 2023 Private Health Insurance [id number] Private Health Insurance [id number] [id number] Private Health Insurance [id number] 2023 Private Health Insurance [id number] 2001 Unknown [id number] 2.16.8 [id number] 2001 Unknown [id number] 2.16.8 [id number] 2001 Unknown [id number] 2.16.8 [id number] 2001 Unknown [id number] 2.16.8 [id number] 2001 Unknown [id number] 2.16.8 [id number] 2001 Unknown [id number] 2.16.8 [id number] 2001 Unknown [id number] 2.16.8 [id number] 2001 Unknown [id number] 2.16.8 [id number] 2001 Unknown [id number] 2.16.8 [id number] Unknown [id number] Unknown [id number] 2.16.8 [id number] Unknown [id number] 2.16.8 [id number] Unknown [id number] 2.16.8 [id number] Unknown [id number] 2.16.8 [id number] Unknown [id number] 2.16.8 [id number] Unknown [id number] 2.16.8 [id number] Unknown [id number] 2.16.8 [id number] Unknown [id number] 2.16.8 [id number] Social History Date Type Detail Facility Start: 04-18-2020 Never smoked t obacco (finding) [facility] Sex Assigned At [facility] Start: 05-23-2019 End: 07-12-2024 Tobacco smoking status NHIS Unknown if ever smoked [facility] Start: 2000 Sex Assigned At Female [facility] Tobacco Nicotine Use: Va ping Product in Last 90 Days. Exposure to Tobacco Smoke Lives in non-smoking home. [facility] Comment on above: at least a couple of times a week Start: 07-15-2024 Sex Female (finding) [facility] Start: 12-23-2024 Tobacco smoking stat us NHIS Smokes tobacco daily (finding) [facility] Sex Female [facility] Functional Status Date Assessment Result Facility 10-22-2023 Functional Status Independent [facility] Mental Status Date Assessment Result Facility 10-22-2023 Mental Status Oriented x 4 [facility] Clinical Notes 01-15-2023 to 12-27-2024 Note Date & Type Note Facility 12-27-2024 Progress note [facility] 12-23-2024 Discharge summary [facility] 12-23-2024 Discharge summary Note Date/Time December 23, 2024 2:13pm [facility] Medical Records Department [address] [place] [address] Emergency Department Summary 12/23/24 MR#: [id number] Acct: [id number] Name: KIERRA BLANCA Rep #:[id number] : 2000 24 From: Jase Stephenson DO PCP: BERENICE Ruiz Status:REG E R Location: ED ADDENDUM by Dr. Verena Izquierdo DO on 12/23/24 at 1413 Patient is a 24-year-old female presenting with bilateral mid back pain wrapping around towards her abdomen. Does have a history of kidney stones and dysfunctional uterine bleeding. Follows with [facility]. Initially received IV fluids and Toradol. Repeat evaluation she is feeling muchimproved. She was signed out to me pending CT results and final disposition. CT of the abdomen and pelvis does show abnormality of the uterus and prominent bilateral adnexa. This could be associate with infectious or inflammatory process such as PID. Patient reevaluated. She denies any abnormal vaginal discharge or concern for STIs but notes she does have a new sexual partner. Pelvic exam is performed with hydrometer calibrator. She has normal external genitalia. No abnormal vaginal discharge. Mild discomfort on bimanual exam but no chandelier sign. Cervix mildly friable. Pelvic ultrasound added on which shows a prominent left ovarian cyst and minimalamount of free fluid in the cul-de-sac. On repeat evaluation continues to feel improved. Case is discussed with COPY SUPERVISOR,Dr. Augustin. She reviews the films. She discussed that we could try empirictreatment for PID but lower suspicion based on the imaging. She is comfortable following up with the patient in the office. Is unclear the exact cause of her pain. I discussed empiric treatment with doxycycline however patient declined stating that she has had issues with vomiting and intolerance to doxycycline in the pastwhen she was on it for her acne. At this time she would like to watch her symptoms and hold off on empiric antibiotic treatment. Given that her physical exam is not consistent with PID nor is her ultrasound I think this is reasonable. She actually has a follow-up appointment with her COPY SUPERVISOR at [facility] next week. Patient is given strict return precautions including developing fever, worsening pain or urinary symptoms. Patient's urinalysis is not consistent with UTI even though CT read out as possible cystitis. Suspect it is more from underdistention. Will send urine culture and urine GC/chlamydia and trichomonas are currently pending. Patient be contacted if she does require treatment. Patient and mother agreeable plan of care. Patient discharged home in stable condition. Diagnosis?flank pain, uncertain etiology ? Leukocytosis Disposition?discharge home Diagnostic Data Abdomen/Pelvis CT 12/23/24 07:31 IMPRESSION: Prominent bulky uterus with uterine cavity distended with fluid. There are bilateral prominent adnexa. Findings could be related to underlying infectious/inflammatory process such as underlying pelvic inflammatory disease. Further correlation with ultrasound pelvis is recommended. Bladder is distended with urine with mildly thick wall. Findings could be related to early cystitis. Multiple dilated loops of bowel distended with fluid. These findings could be related to underlying early ileus. Moderate stool burden. Reading Location: [id number] Transvaginal US 12/23/24 11:17 IMPRESSION: 2.5 cm 2 cm 1.8 cm left ovarian cyst. Minimal amount of free fluid is seen in the cul-de-sac. Reading Location: [facility] 12/23/24 1413<Electronically signed by Verena Izquierdo DO> Cosigner Signature (if applicable): cc: BERENICE Strange ~* Signed HPI History of Present Illness Chief Complaint: Abd Pain Informant: patient Narrative Narrative: Patient is a 24-year-old female who reports a remote history of kidney stone anddysfunctional uterine bleeding. She states that she went to bed normally and then awoke this morning with pain in the bilateral mid back region that she feels wraps around towards the abdomen. She states there is been no recent trauma or excessive activity. She does state it was more painful with motion. She denies any fevers or chills cough or congestion. She denies any concern forpregnancy. She states there is no vaginal discharge or concern for STD. She states she does have remote history of kidney stone and this feels somewhat similar in nature. Therefore with the sudden onset of pain and concern this could be potential kidney stone she presents for evaluation. [facility] Medical History Depression MVP (mitral valve prolapse) Home Medications ?Medication ?Instructions ?Recorded ?Last Taken ?Type NK 12/23/24 Unknown History Allergy/AdvReac Type Severity Reaction Status Date / Time No Known Allergies Allergy Verified 12/23/24 06:14 Family History Mother Breast cancer, Onset Age: 53 BRCA Negative Aunt Breast cancer Maternal Grandmother Breast cancer Maternal Brother History of pineal cyst Glioma Other Diabetes Heart disease Kidney disease Surgical History No significant past surgical history Social History current occupational status: employed current occupation: [employer] Smoking Status: Current every day smoker tobacco type: e-cigarettes Electronic Cigarette Use: with nicotine alcohol intake: never substance use type: marijuana seatbelt use: always do you feel safe at home: Yes ROS ROS ED Constitutional Constitutional ED: Denies chills or fever(s) ENT ENT ED: Denies sore throat Cardiovascular Cardiovascular: Denies chest pain Respiratory/Chest Respiratory/Chest: Denies cough or dyspnea Gastrointestinal Gastrointestinal: Reports abdominal pain; Denies diarrhea, nausea or vomiting Genitourinary Genitourinary ED: Denies dysuria or hematuria Musculoskeletal Musculoskeletal: Reports back pain Integumentary Denies Abrasions or rash Neurologic Neurologic: Denies headache(s) Hematologic/Lymphatic Hematologic/Lymphatic: Denies easy bleeding or easy bruising EXAM Physical Exam Const Vital Signs: 12/23/24 06:14 12/23/24 06:17 Temperature 97.5 F L 97.5 F L Temperature Source Oral Oral Pulse Rate 77 83 Respiratory Rate 16 16 Blood Pressure 125/83 H 125/83 H Blood Pressure Mean 97 97 Pulse Ox 100 100 Oxygen Delivery Method Room Air Room Air Positive well nourished and well developed General Appearance ED: well developed; Negative for pallor HEENT Reports moist mucous membranes HEENT Narrative: Normocephalic atraumatic No tongue or lip swelling no oral lesions no airway edema or compromise No secondary findings in the posterior pharynx to suggest infection Eyes PERRL and EOMs intact bilaterally General Eye ED: Negative for scleral icterus Neck supple Resp normal respiratory effort and clear to auscultation bilaterally Resp Narrative: No nasal flaring retractions tachypnea or accessory muscle use Cardio regular rate and regular rhythm Rate: other Other Details: Heart is regular rate and rhythm without murmurs rubsor gallops Radial and carotid pulses are equal and symmetric GI non-distended and no masses GI Narrative: Abdomen is soft nondistended with normal active bowel sounds. There is faint pain on palpation in the midepigastric region without voluntary guarding or rigidity or pulsatile mass Auscultation: normoactive bowel sounds Palpation: soft Back/Spine Back/Spine Narrative: No bony deformity or step-off of the thoracic or lumbar spine; no midline tenderness to palpation There is bilateral CVA tenderness noted. No overlying soft tissue changes to suggest trauma or infection Extremity normal to inspection Extremity Narrative: No asymmetric edema no pitting edema negative Homans' sign bilaterally Neuro oriented x3, CN's II-XII intact bilaterally and no sensory deficits noted Sensorium / Orientation: alert Psych mental status grossly normal Skin no rashes or lesions noted and no wounds General Skin Exam: Negative for jaundice or pallor MDM MDM MDM Narrative Medical decision making narrative: Patient arrived to ER with stable vitals. She reported bilateral back/CVA pain without trauma or excessive activity. She has been on intermittent estrogen andshe does vape throughout the summer but has not been on any type of medication for approximately 6 weeks. In order to ensure that this was not related to a atypical presentation for a PE a D-dimer was obtained which was normal which would go against a PE or dissection. There is concern she could have pyelonephritis or kidney stone. Therefore I elected to perform a CT scan with IV contrast of the abdomen and pelvis. Patient's white count is elevated but this is nonspecific in nature and could be related to stress response. At this time the patient's urine sample as well as CT scan is still pending and therefore should be signed out to Dr. Izquierdo. The patient was given Toradol andIV fluids on reevaluation reports feeling much better and vitals remained stable. History & Record Review Discussion w/independent historian: Patient Lab Data Attestation: I reviewed the patient's lab results. Labs: Laboratory Results - last 24 hr 12/23/24 06:43 WBC 16.0 H RBC 4.59 Hgb 13.5 Hct 39.8 MCV 86.7 MCH 29.4 MCHC 33.9 RDW Std Deviation 37.4 RDW Coeff of Abimael 11.9 Plt Count 304 MPV 8.6 Immature Gran % (Auto) 0.600 Neut % (Auto) 69.4 Lymph % (Auto) 17.7 L [place] % (Auto) 10.0 Eos % (Auto) 1.6 Baso % (Auto) 0.7 Absolute Neuts (auto) 11.1 H Absolute Lymphs (auto) 2.84 Nucleated RBC % 0 D-Dimer Quant (PE/DVT) < 0.27 L Sodium 140 Potassium 3.9 Chloride 108 Carbon Dioxide 22.2 Anion Gap 10 BUN 9 Creatinine 0.79 Estim Creat Clear Calc 83.22 Est GFR (MDRD) Non-Af 108 BUN/Creatinine Ratio 11.8 Glucose 88 Calcium 9.0 Total Bilirubin 0.45 Direct Bilirubin 0.23 AST 24 ALT 20 Alkaline Phosphatase 81 Total Protein 6.4 Albumin 4.2 Globulin 2.2 Lipase 53 Discharge Plan Triage Chief Complaint: Abd Pain ED Provider: Jase Stephenson Dx/Rx/DC Orders Prescriptions: No Action NK Primary Care Provider: Mónica Strange NP Referrals: Mónica Strange MEDICAL INSTRUCTOR, MEDICAL INSTRUCTOR-C [Primary Care Provider, Family Practice] Print Language: Tajik What to do if you have Problems For any increased pain, shortness of breath, bleeding, nausea or vomiting, chestpain, or any unexpected problems, contact your Primary Care Provider. Call [facility] ([phone]) or report to the closest Emergency Room. Call 911 if necessary. 12/23/24 0848 <Electronically signed by Jase Stephenson DO> Cosigner Signature (if applicable): CC: BERENICE Strange ~ Signed [facility] Work Phone: 1(720) 300-378109-18-2025 Radiology Diagnostic study note [facility] Imaging Services [address] [place], [place] [address] Transvaginal Non- MR#: [id number] Acct: [id number] Name: KIERRA BLANCA Rep #: [id number] : 2000 F 24 From: Jeremías Camp MD PCP: BERENICE Ruiz Status: REG E R Study:Transvaginal Non- Date of Exam: 12/23/24 Exam# [id number] Ordering Dr: Ann-Marie Izquierdo DO PROCEDURE: TRANSVAGINAL NON- 12/23/2024 REASON FOR EXAM: PELVIC PAIN TECHNIQUE: Procedure Code: USTVAG Modality: US Procedure: TRANSVAGINAL NON- COMPARISON: Prior CT scan of the abdomen and pelvis done earlier in the day. FINDINGS: LMP: November 09, 2024. Measurements: Uterus: 8.4 cm x 5.1 cm x 3.3 cm with a volume of 73.4 mL Endometrial Thickness: 6 mm. It is trilaminar. Right Ovary: 3.1 cm x 1.8 cm x 1.4 cm with a volume of 4.2 mL. Left Ovary: 3.5 cm x 3.2 cm x 2.2 cm with a volume of 12.8 mL. Uterus: Normal size, myometrial echotexture, and contour. Nabothian cyst. Endometrium: Unremarkable. Right ovary: Normal size and echotexture. Left ovary: Dominant cyst in the left ovary measuring 2.5 cm x 2.0 cm by 1.8 cm Other: Minimal free fluid is seen in the pelvis. US/Transvaginal Non- IMPRESSION: 2.5 cm 2 cm 1.8 cm left ovarian cyst. Minimal amount of free fluid is seen in the cul-de-sac. Reading Location: [place] [address] CC: BERENICE Strange; Dr. Verena Izquierdo, ~ Emergency Department Director: Signed [facility]09-18-2025 Radiology Diagnostic study note [facility] Imaging Services [address] [place] [address] Abdomen/Pelvis W IV Cont ONLY MR#: [id number] Acct: [id number] Name: KIERRA BLANCA Rep #: [id number] : 2000 F 24 From: Analia Samano MD PCP: BERENICE Ruiz Status: REG E R Study:Abdomen/Pelvis W IV Cont ONLY Date of E xam: 12/23/24 Exam# [id number] Ordering Dr: Maribell Stephenson DO PROCEDURE: ABDOMEN/PELVIS W IV CONT ONLY 12/23/2024 REASON FOR EXAM: ABD PAIN / ? PYELONEPHRITIS TECHNIQUE: Procedure Code: CTABDPELIV Modality: CT Procedure: ABDOMEN/PELVIS W IV CONT ONLY Coronal and Sagittal reconstruction series were provided. CONTRAST: Isovue 300 VOLUME: 97 mL One or more dose reduction techniques were used (e.g., Automated exposure control, adjustment of the mA and/or kV according to patient size, use of iterative reconstruction technique. RADIATION DOSE SUMMARY: CTDlvol: 5.4 mGy DLP: 253 mGycm COMPARISON: None FINDINGS: Lung bases: Bibasilar atelectasis. Liver: Hepatomegaly measuring 19 cm in craniocaudal dimension. Gallbladder: Gallbladder is contracted. Spleen: Normal size. Pancreas: Normal size without evidence of mass surrounding inflammation or ductal dilation. Adrenals: Unremarkable Kidneys: Normal renal sizes. No hydronephrosis. No abnormal striations are visualized within bilateral kidney. Bladder: Mildly thick walled bladder. Reproductive Organs: Prominent uterine cavity distended with fluid with prominent bilateral adnexa. Bowel: Limited evaluation of bowel due to lack of oral contrast in paucity of abdominal fat. Pdcolosm-hd-jsjak stool burden. Multiple loops distended small bowel loops distended with fluid. Appendix: The appendix is not identified. There is no inflammatory process identified in the right lower quadrant to suggest appendicitis. Lymph nodes: Prominent bilateral inguinal lymph nodes.. Vasculature: Unremarkable Peritoneum / Retroperitoneum: Unremarkable Bones: Age-appropriate CT/Abdomen/Pelvis W IV Cont ONLY IMPRESSION: Prominent bulky uterus with uterine cavity distended with fluid. There are bilateral prominent adnexa. Findings could be related to underlying infectious/inflammatory process such as underlying pelvic inflammatory disease. Further correlation with ultrasound pelvis is recommended. Bladder is distended with urine with mildly thick wall. Findings could be related to early cystitis. Multiple dilated loops of bowel distended with fluid. These findings could be related to underlyingearly ileus. Moderate stool burden. Reading Location: [id number] CC: BERENICE Strange; Jase Stephenson DO ~ Emergency Department Director: Signed [facility]05-28-2025 Evaluation note* Diagnosis Onset Date Resolution Status Admit Date Acne acute September 01, 2024 11:25am Hirsutism acute September 01, 2024 11:25am Secondary oligomenorrhea acute September 01, 2024 11:25am [facility] Work Phone: 1(523) 823-219004-07-2025 Evaluation note* Diagnosis Onset Date Resolution Status Admit Date Abnormal uterine bleeding (AUB) acut e July 12, 2024 8:39am Acne acute July 12 8:39am Elevated testosterone level in female acute July 12, 2024 8:39am Estrogen excess acute July 8:39am Hirsutism acute July 12 8:39am [facility] Work Phone: 1([phone]) 889-520204-07-2025 Evaluation note* Diagnosis Onset Date Resolution Status Admit Date Acne acute July 12 8:39am Elevated testosterone level in female acute July 12, 2024 8:39am Estrogen excess acute July 8:39am Hirsutism acute July 12 8:39am Abnormal uterine bleeding (AUB) anali staci July 12, 2024 8:39am Acne acute September 01, 2024 11:25am Hirsutism acute September 01, 2024 11:25am Secondary oligomenorrhea acute September 01, 2024 11:25am [facility] Work Phone: 1(412) 789-120012-24-2024 Evaluation + Plan note Future Scheduled Tests Laboratory* Rapid HIV (AO) 03/30/24 * Basic Metabolic Panel 03/30/24 * Estradiol Level 03/15/24 * Progesterone Level 03/15/24 * Rapid Plasma Reagin Test 03/30/24 * Testosterone Level Total 03/15/24 * Thyroid Stimulating Hormone 06/02/23 * Free T4 06/02/23 * Acute Hepatitis Panel 03/30/24 * Complete Metabolic Panel 06/02/23 Radiology* US Pelvis Non-OB Limited 08/04/23 [facility] 07-17-2024 Hospital Discharge instructions Patient Education 10/22/2023 [...] Rectal bleeding can also happen without pain. 2376-1991 [employer]. [address] [place] [address]. All rights reserved. This information is not intended as a substitute for professional medical care. Always follow yourhealthcare professional's instructions. Follow Up Care 10/22/2023 01:43:15 With:BRYSON ESPINOZA MD Address: [address] [place] [address] [phone] When:1-2 days [facility] 07-17-2024 Note Discharge Instructions Thank you for allowing [facility] to assist you with your healthcare needs. [...] ESPINOZA MD When:Within 1-2 days Where:[address] [place] [address]- [phone] Allergies NKA Medications Please ask your primary [...] for pain or fever Unchanged ethinyl estradiol-norethindrone ( oral tablet) 1 tab(s) by mouth Once [...] Rectal bleeding can also happen without pain. 6183-2151 [employer]. [address] [place] [address]. All rights reserved. This information is not intended as a substitute for professional medical care. Always follow yourhealthcare professional's instructions. Additional Information VACCINATE! IT SAVES LIVES! Members of the community who have not yet received the COVID-19 vaccine and would like to receive it can visit one of [facility] vaccine clinics. There are many vaccine clinic locations within the [facility]. For locations and available times, please visit [email or web address].[place].gov/. It is important to note that some COVID mobile vaccine clinics are held outdoors and may be canceled in rainy or stormy conditions. To learn more about pediatric vaccinations (ages 5-11), we invite you to visit the [facility] webpage. https://www.[email or web address]/pages/[email or web address]-Hgaqr-Lbdvgnjfxid-Bvyhsmfuox-Hnkfi-Lsr stions.htmlTo learn more about the COVID-19 vaccine, we invite you to visit the CDC website for a list of frequently asked questions. https://www.cdc.gov/coronavirus/2019-ncov/vaccines/faq.html [facility] Patient Portal Access Instructions: Stay connected with your healthcare team and access your personal medical information anytime with the [facility] Patient Portal. If you would like a full copy of your medical records please contact the [facility] Medical Records Department Friday through Friday between 8a.m. and 4:30p.m. Please follow the directions below to access the portal: 1.Access the email account you provided upon registration to the [facility].2.Look for an invitation email from [facility].3.Open the email and access the invitation link: Accept Invitation to [facility]4.Fill in the required vogel to create your account. Sign into [email or web address] with your username and password that you [...] you will allow to register on the [facility] Patient Portal for access to your information. You can also access the [facility] Patient Portal on the [employer] amy. Simply click on Health Records under [email or web address] and then click on the [employer] logo. [...] Call your local pharmacy or go to [email or web address] to find one close to you.3.Make use of household items: Use cat litter or old coffee grounds to dispose medications if other options arenot available. Mix your drugs with these household products, seal them in an airtight container andthrow it into the garbage. Call [facility]: [phone] to be sure your drugs can be [...] aware that I should contact my doctor. Patient/Edge Runner Signature: Date/Time: Relationship to Patient: Witness Name/Signature: Date/Time: [facility]04-15-2024 Note* Exam Date Time Procedure Performing Provider Status 07/21/23 1:23 PM Echocardiogram, Adul t with Bubble Study- Auth (Verified) [facility] 02-26-2024 Evaluation + Plan note Future Scheduled Tests Laboratory* Thyroid Stimulating Hormone 06/02/23 * Free T4 06/02/23 * Complete Metabolic Panel 06/02/23 [facility] 10-11-2023 Note ORIGINAL EXAMINATION: SOFT TISSUE ULTRASOUND OF THE RIGHT WDBLHEZUE00/11/2023 1:26 pm TECHNIQUE: Duplex ultrasound using B-mode/connelly [...] Sign Date: 01/15/2023 2:50:31 PM Ordering Provider[facility] Plan note No data available for this section [facility] Evaluation + Plan note Future Appointments Appointment Date:02/17/2023 02:00:00 PM Scheduled Provider:IRINA MONTANO Location:[facility] Appointment Type:PC OV Follow Up [facility] Evaluation + Plan note Future Appointments Appointment Date:06/25/2023 10:00:00 AM Scheduled Provider:CLAUDIA PAIZ DO Location:[facility] Appointment Type:PC Office Procedure Lesion Removal Future Scheduled Tests Laboratory* Thyroid Stimulating Hormone 06/02/23 * Free T4 06/02/23 * Complete Metabolic Panel 06/02/23 [facility] Evaluation + Plan note Future Appointments Appointment Date:07/21/2023 01:00:00 PM Scheduled Provider: Location:[facility] Appointment Type:Echo - Echocardiogram Adult w/Bubble Khang Future Scheduled Tests Laboratory* Thyroid Stimulating Hormone 06/02/23 * Free T4 06/02/23 * Complete Metabolic Panel 06/02/23 [facility] Evaluation + Plan note Future Appointments Appointment Date:08/18/2023 11:15:00 AM Scheduled Provider:CHINA MARSHALL Location:[facility] Appointment Type:CV MEDICAL INSTRUCTOR Future Scheduled Tests Laboratory* Thyroid Stimulating Hormone 06/02/23 * Free T4 06/02/23 * Complete Metabolic Panel 06/02/23 Radiology* US Pelvis Non-OB Limited 08/04/23 [facility] Evaluation + Plan note Future Appointments Appointment Date:11/05/2023 03:00:00 PM Scheduled Provider:CHINA MARSHALL Location:[facility] Appointment Type:CV OV Future Scheduled Tests Laboratory* Thyroid Stimulating Hormone 06/02/23 * Free T4 06/02/23 * Complete Metabolic Panel 06/02/23 Radiology* US Pelvis Non-OB Limited 08/04/23 [facility] Evaluation noteNo assessment information available [facility] Work Phone: Evaluation note* Diagnosis Onset Date Resolution Status Admit Date Contraception management acute December 27, 2024 10:06am PCOS (polycystic ovarian syndrome) acute December 27, 2024 10:06am Secondary oligomenorrhea acute December 27, 2024 10:06am [facility] Work Phone: Hospital Discharge instructions No data available for this section [facility] Hospital Discharge instructionsAdditional Instructions Please follow-up with your COPY SUPERVISOR as scheduled next week. Your workup today did show some mild enlargement of the uterus however your ultrasound was more reassuring and normal. He did have an elevation of your white blood cell count which is of uncertain clinical significance/we do not know why it is elevated. You do have further test for gonorrhea, chlamydia and trichomonas pending. Will contact you if these are positive and you require further treatment. If you have worsening symptoms, severe pain not relieved with ibuprofen or Tylenol or develop fever please return to the emergency room.[facility] Work Phone: Progress note No data available for this section [facility] Proxoess note Author Sherri Mccollum [facility] Note Date/Time December 27, 2024 10:23am [facility] [address] [place] [address], [address] [place] [address] OFFICE VISIT Date of Service: 12/27/24 MR#: [id number] Acct: [id number] Name: KIERRA BLANCA Rep #: [id number] : 2000 Provider: BERENICE Mccollum Age/Sex: 24/F Location: [facility] Status: Signed Intake Vital Signs 09/01/24 11:31 12/23/24 06:14 12/27/24 10:09 Height 5 ft 2 in 5 ft 2 in 5 ft 2 in Weight: 103 lb 2 oz BMI 18.8 BP 120/82 H Intake Visit Reasons: BC Consult *copay $20 [employer] Police Lieutenant Required: No Is patient in pain?: No Allergies No Known Allergies Allergy (Verified 12/27/24 10:11) Medications ?Medication ?Instructions ?Recorded ?Confirmed ?Type cholecalciferol (vitamin D3) 10 10 mcg PO QDAY 5 12/27/24 History mcg (400 unit) capsule medroxyprogesterone 10 mg tablet 10 mg PO QDAY 10 days #10 tabs 12/27/24 12/27/24 Rx Is last menstrual period known: Yes Last Menstrual Period: 12/05/24 Post menopausal: No Patient : No : No Control Method: none PFSH Medical History Depression MVP (mitral valve prolapse) Surgical History No significant past surgical history Family History Mother Breast cancer, Onset Age: 53 BRCA Negative Aunt Breast cancer Maternal Grandmother Breast cancer Maternal Brother History of pineal cyst Glioma Other Diabetes Heart disease Kidney disease Social History current occupational status: employed current occupation: [employer] Smoking Status: Current every day smoker tobacco type: e-cigarettes Electronic Cigarette Use: with nicotine alcohol intake: never substance use type: marijuana seatbelt use: always do you feel safe at home: Yes HPI BC Consult *copay $20 Details: KIERRA BLANCA is a 24 year old who presents for contraceptive consult. She started sprintec in September and took it for 8 weeks and had spotting most of that time and was taking same time each day. She is sexually active, new partner, using condoms. Was is ED on 12/23 for back pain, probably passed kidney stone. Pain resolved. Had negative UPT and GCC at that time. She was previously on junaid and had BTB with that also. She is most interested in IUD. Menses are irregular. Did provera challenge in August. Then on OCP, then next menses was 12/05/24. She is not sure when next one will occur. Female Reproductive History Last Menstrual Period: 12/05/24 History 0 Elective abortions Hx Para Spontaneous [...] Neck Neck: normal visual inspection Resp Effort & Inspection: normal respiratory effort Neuro Cognition: normal cognition Speech: speech normal Psych Appearance: grossly normal Mood: congruent mood Affect: normal affect Speech and Movement: speech and movement normal Attitude: cooperative Judgment: judgment good Coding Level of Care Code Off vis,est,level 3 Diagnoses Secondary oligomenorrhea N91.4 PCOS (polycystic ovarian syndrome) E28.2 Encounter for other general counseling or advice on contraception Z. Contraceptive encounter type: other general counseling and advice Assessment and Plan Assessment and Plan (1) Secondary oligomenorrhea: Status: Acute (2) PCOS (polycystic ovarian syndrome): Status: Acute (3) Contraception management: Status: Acute Qualifiers: Contraceptive encounter type: other general counseling and advice Qualified Code(s): Z30. - Encounter for other general counseling and advice oncontraception Comment: plans parth IUD Medications: Refilled medroxyprogesterone 10 mg PO QDAY 10 tabs 0RF 10 days Plan Discussed use, benefits, risks and side effects of parth IUD Written informationgiven. She will call with onset of menses for insertion. 12/27/24 1028 <Electronically signed by Sherri grewal MEDICAL INSTRUCTOR MEDICAL INSTRUCTOR-C> Date _ Sherri Mccollum MEDICAL INSTRUCTOR MEDICAL INSTRUCTOR-C Cosigner Signature: Date (if applicable) CC: ~ [facility] Work Phone: Reason for referral (narrative)No reason for referral information availableWUniversity [facility]als [facility] Work Phone: Summary Purpose Family History Relationship Condition Age at Onset Recorded Date/T suki Not Specified Diabetes mellitus Unknown Cardiac disease Unknown Kidney disorder Unknown mother Malignant neoplasm of breast 53 aunt Malignant neoplasm of breast Unknown grandmother Malignant neoplasm of breast Unknown brother History of pineal cyst Unknown Glioma Unknown Advance Directives Advance Directive Response Recorded Date/ Time Do you have a Healthcare Power of Mechanic Welder? No December 23, 2024 6:14am Chief Complaint and Reason for Visit Chief Complaint Admit Date ABNORMAL ESTRADOIL, TESTERONE, AUB July 12, 2024 8:39am Reason for Visit Admit Date Abnormal uterine bleeding (AUB) July 8:39am Acne July 12, 2024 8:39 am Elevated testosterone level in female Ap 2024 8:39am Estrogen excess July 12, 2024 8:39 am Hirsutism July 12, 2024 8:39 am Chief Complaint Admit Date ABNORMAL ESTRADOIL, TESTERONE, AUB July 12, 2024 8:39am 5 week progesterone F/U *$20 copay August 062024 11:25am Reason for Visit Admit Date Acne July 12, 2024 8:39 am Elevated testosterone level in female Ap 2024 8:39am Estrogen excess July 12, 2024 8:39 am Hirsutism July 12, 2024 8:39 am Abnormal uterine bleeding (AUB) July 8:39am Acne September 01, 2024 11:25 am Hirsutism September 01, 2024 11:25 am Secondary oligomenorrhea September 01, 2024 11:25am Chief Complaint Admit Date 5 week progesterone F/U *$20 copay August 062024 11:25am ABD PAIN December 23, 2024 6:14am Reason for Visit Admit Date Acne September 01, 2024 11:25 am Hirsutism September 01, 2024 11:25 am Secondary oligomenorrhea September 01, 2024 11:25am Chief Complaint Admit Date ABD PAIN December 23, 2024 6:14am BC Consult *copay $20 December 27 10:06am Reason for Visit Admit Date Contraception management December 27, 2024 10:06am PCOS (polycystic ovarian syndrome) [facility] 2024 10:06am Secondary oligomenorrhea December 27, 2024 10:06am Additional Source Comments INFORMATION SOURCE (unrecogn ized section and content) DATE CREATED AUTHOR 10/28/2019 [facility] DATE CREATED AUTHOR AUTHOR'S ORGANIZ ATION 10/25/2023 [facility] ([place] DATE CREATED AUTHOR AUTHOR'S ORGANIZ ATION 04/17/2024 [facility] DATE CREATED AUTHOR AUTHOR'S ORGANIZ ATION 12/27/2024 [facility] Care Team (unrecognized sect ion and content) Care Team Personnel Name: MÓNICA STRANGE APRN-MILLING OPERATOR Position: P4 Advanced Practice Nurse Med Service: Active Provider Member Role: Primary Care Physician Address: Address: [address] [place] [address] [address] [facility] [place], [place] [address] Care Team Related Persons Name: NICOLE BLANCA Name: ARABELLA BLANCA Address: Home [address] [facility] [place] [id number] Address: Temporary [address] [place], [place] [id number] Patient Care team informatio n (unrecognized section and content) Team Status: Active Member Role Status Dates Dr. Jacqueline Bach MD Family Provider Active Mónica Strange MEDICAL INSTRUCTOR, MEDICAL INSTRUCTOR-C Primary Care Provider Active Team Status: Inactive Member Role Status Dates Mónica Strange MEDICAL INSTRUCTOR, MEDICAL INSTRUCTOR-C Primary Care Provider, Attendi ng Provider Active Team Status: Inactive Member Role Status Dates Mónica Strange MEDICAL INSTRUCTOR, MEDICAL INSTRUCTOR-C Primary Care Provider Active Start: March 30, 2024 End: March 30, 2024 Mónica Strange MEDICAL INSTRUCTOR, MEDICAL INSTRUCTOR-C Attending Provider Active Start: March 30, 2024 End: March 30, 2024 Mónica Strange MEDICAL INSTRUCTOR, MEDICAL INSTRUCTOR-C Referring Provider Active Start: March 30, 2024 End: March 30, 2024 Team Status: Inactive Member Role Status Dates Mónica Strange MEDICAL INSTRUCTOR, MEDICAL INSTRUCTOR-C Primary Care Provider Active Start: July 12, 2024 End: July 12, 2024 Mónica Strange MEDICAL INSTRUCTOR, MEDICAL INSTRUCTOR-C Referring Provider Active Start: July 12, 2024 End: July 12, 2024 Sherri Mccollum MEDICAL INSTRUCTOR, MEDICAL INSTRUCTOR-C Attending Provider Active Start: July 12, 2024 End: July 12, 2024 Team Status: Inactive Member Role Status Dates Mónica Strange MEDICAL INSTRUCTOR, MEDICAL INSTRUCTOR-C Primary Care Provider Active Start: July 12, 2024 End: July 12, 2024 Sherri Mccollum MEDICAL INSTRUCTOR, MEDICAL INSTRUCTOR-C Attending Provider Active Start: July 12, 2024 End: July 12, 2024 Team Status: Inactive Member Role Status Dates Mónica Strange NP, MEDICAL INSTRUCTOR-C Primary Care Provider Active Start: September 01, 2024 End: September 01, 2024 Mónica Strange MEDICAL INSTRUCTOR, MEDICAL INSTRUCTOR-C Referring Provider Active Start: September 01, 2024 End: September 01, 2024 Sherri Mccollum MEDICAL INSTRUCTOR, MEDICAL INSTRUCTOR-C Attending Provider Active Start: September 01, 2024 End: September 01, 2024 Team Status: Inactive Member Role Status Dates Mónica Strange MEDICAL INSTRUCTOR, MEDICAL INSTRUCTOR-C Primary Care Provider Active Start: September 01, 2024 End: September 01, 2024 Sherri Mccollum MEDICAL INSTRUCTOR, MEDICAL INSTRUCTOR-C Attending Provider Active Start: September 01, 2024 End: September 01, 2024 Sherri Mccollum MEDICAL INSTRUCTOR, MEDICAL INSTRUCTOR-C Referring Provider Active Start: September 01, 2024 End: September 01, 2024 Team Status: Active Member Role/Relationship Status Dates Mónica Strange NP, MEDICAL INSTRUCTOR-C Primary care physician Active Team Status: Inactive Member Role/Relationship Status Dates Mónica Strange NP, MEDICAL INSTRUCTOR-C Primary care physician Active Start: September 01, 2024 End: September 01, 2024 Mónica Strange NP, MEDICAL INSTRUCTOR-C Referring Provider Active Start: September 01, 2024 End: September 01, 2024 Sherri Mccollum NP, MEDICAL INSTRUCTOR-C Attending physician Active Start: September 01, 2024 End: September 01, 2024 Team Status: Inactive Member Role/Relationship Status Dates Mónica Strange NP, MEDICAL INSTRUCTOR-C Primary care physician Active Start: September 01, 2024 End: September 01, 2024 Sherri Mccollum NP, MEDICAL INSTRUCTOR-C Attending physician Active Start: September 01, 2024 End: September 01, 2024 Sherri Mccollum NP, MEDICAL INSTRUCTOR-C Referring Provider Active Start: September 01, 2024 End: September 01, 2024 Team Status: Inactive Member Role/Relationship Status Dates Mónica Strange NP, MEDICAL INSTRUCTOR-C Primary care physician Active Start: December 23, 2024 End: December 23, 2024 Dr. Jase Stephenson , Emergency Departme nt Physician Active Start: December 23, 2024 End: December 23, 2024 Team Status: Inactive Member Role/Relationship Status Dates Mónica Strange NP, MEDICAL INSTRUCTOR-C Primary care physician Active Start: December 23, 2024 End: December 23, 2024 Dr. Jase Stephenson , Attending physician Active Start: December 23, 2024 End: December 23, 2024 Dr. Jase Stephenson DO Emergency Departme nt Physician Active Start: December 23, 2024 End: December 23, 2024 Team Status: Inactive Member Role/Relationship Status Dates Mónica Strange NP, MEDICAL INSTRUCTOR-C Primary care physician Active Start: December 27, 2024 End: December 27, 2024 Mónica Strange NP, MEDICAL INSTRUCTOR-C Referring Provider Active Start: December 27, 2024 End: December 27, 2024 Sherri Mccollum NP, MEDICAL INSTRUCTOR-C Attending physician Active Start: December 27, 2024 End: December 27, 2024 Goals (unrecognized section and content) Goals [...] BE BASED ON THE PRIMARY CLINICAL RECORDS. [facility] [address] [employer] [facility]. provides no warranty or guarantee of the accuracy or completeness of information in this document.
== END | disposition home or self-care (01) ==
LOC: LABSPEC 12:09
PROVIDERS: PCP Nurse Practitioner Family; Visit Provider Nurse Practitioner Women's Health
DX: Z12.4 Encounter for screening for malignant neoplasm of cervix (principal)
CPT/HCPCS: 88175; G0145

== ENCOUNTER → 2025-01-25 | Outpatient (CLI) | payer OTHER, SELFPAY ==
--- OUTSIDE RECORDS SUMMARY | 2025-01-25 16:34 | XMS RPT_ITS | CCD ---
Author Organization [facility] Inform ion Partnership [facility] Care Team Providers Care Wildlife Biology Technician Name Role Phone MÓNICA CORTES Primary Care [...] MÓNICA CORTES Primary Care Unavail able Laurel MICA PLATE LAYER HAND-CMónica Primary Care Provider [phone] Laurel RAM-CMónica Attending Provider Laurel RAM-CMónica Referring Provider Sherri Dickson Attending Provider Laurel RAM-Mónica Jacobsen Primary Care Provider Laurel RAM-Mónica Jacobsen Referring Provider Chun MICA PLATE LAYER HAND-CSherri Referring Provider Laurel MICA PLATE LAYER HAND-CMónica Primary Care Physician [phone] Laurel RAM-CMónica Referring Provider [phone] Stuart MICA PLATE LAYER HAND-C, Sherri Attending Physician [phone] Jase Stephenson DO Emergency Department Physic jordy Lorson MICA PLATE LAYER HAND-C, Mónica Primary Care Physician [phone] Dr. Jase Stephenson DO Attending Physician Lorson MICA PLATE LAYER HAND-C, Mónica Referring Provider [phone] Chun MICA PLATE LAYER HAND-C, Sherri Attending Physician [phone] Lorson, Mónica Referring Unavailable Lorson, Mónica Primary Care Unavailable Chun MICA PLATE LAYER HAND, Sherri Attending Unavailable Chun MICA PLATE LAYER HAND, Sherri Attending Unavailable Lorson, Mónica Referring Unavailable Lorson, Mónica Primary Care Unavailable Lorson, Mónica Primary Care Unavailable Lorson, Mónica Referring Unavailable Stuart MICA PLATE LAYER HAND, Sherri Attending Unavailable Lorson, Mónica Referring Unavailable Lorson, Mónica Primary Care Unavailable Chun MICA PLATE LAYER HAND, Sherri Attending Unavailable Lorson, Mónica Primary Care Unavailable Lorson, Mónica Referring Unavailable Stuart MICA PLATE LAYER HAND, Sherri Attending Unavailable Stuart MICA PLATE LAYER HAND, Sherri Referring Unavailable Lorson, Mónica Primary Care Unavailable Stuart MICA PLATE LAYER HAND, Sherri Attending Unavailable Jase Stephenson Attending Unavailable Lorson, Mónica Primary Care Unavailable Stuart MICA PLATE LAYER HAND, Sherri Attending Unavailable Lorson, Mónica Primary Care Unavailable Lorson, Mónica Primary Care Unavailable Lorson, Mónica Attending Unavailable Lorson, Mónica Referring Unavailable Lorson, Mónica Primary Care Unavailable Chun MICA PLATE LAYER HAND, Sherri Attending Unavailable Medications Current Medications Medication [...] cap(s), 0 Refill(s), 07/06/22 8:53:00 EDT, Pharmacy: [facility]/pharmacy #[id number], Strep pharyngitis, 158.75, cm, 06/26/22 8:21:00 EDT, Height Start Date: 06/26/22 Stop Date: 07/06/22 Status: Ordered cholecalciferol 0.01 mg oral capsule (8 sources) Vitamin D Start: 12-27-2024 take 1 capsule by mouth once daily Start: 07-12-2024 End: 12-23-2024 take 1 capsule [...] qDay, # 84 tab(s), 0 Refill(s), Pharmacy: [facility]/pharmacy #[id number], Metrorrhagia Breakthrough bleeding on OCPs, 157.5, cm, 09/19/23 10:28:00 EDT, Height, kg, 09/19/23 10:28:00 EDT, Dosing Weight Start Date: 09/19/23 Status: Ordered 24 hr metoprolol succinate 25 mg extended release oral tablet (1 source) beta-Adrenergic Isra Start: 10-01-2023 metoprolol succinate 25 mg oral TABLET extended release Dose : 25 mg = 1 tab(s), Oral, qDay, Do not crush or chew (controlled release), # 30 tab(s), 1 Refill(s), Pharmacy: [facility]/pharmacy #[id number], 157.5, cm, 10/01/23 14:51:00 EDT, Height, kg, 10/01/23 14:51:00 EDT, Dosing Weight Start Date: 10/01/23 Status: Ordered [place] (Nk) (1 source) Start: 12-23-2024 [place] (Nk) Active December 23, 2024 12:00am predniSONE 20 mg oral tablet (1 source) Start: 06-26-2022 End: 07-02-2022 take 1 tablet by mouth once daily prednisone 20mg tab (TAPER) Taper 60-40-20 mg x 2 days each dose, Oral, Daily, X 6 day(s), # 12 tab(s), 0 Refill(s), 07/02/22 16:43:00 EDT, Pharmacy: [facility]/pharmacy #[id number], Strep pharyngitis, 158.75, cm, 06/26/22 [...] / HYDROcodone bitartrate 5 mg oral tablet (7 sources) Opioid Agonist Start: 05-23-2019 End: 05-26-2019 [...] MG Oral Tablet) } Pack [Gianvi 28-Day] (9 sources) Progestin, Estrogen Start: 06-25-2022 End: 08-19-2023 take 1 tablet by mouth once daily Gianvi 3 mg-0.02 mg oral tablet Dose = 1 tab(s), Oral, qDay, # 84 tab(s), 4 Refill(s), Pharmacy: [facility], 157.5, cm, 01/08/22 13:48:00 EDT, Height, kg, 01/08/22 13:48:00 EDT, Dosing Weight Start Date: 06/25/22 Stop Date: 08/19/23 Status: Ordered Start: 01-08-2022 End: 03-04-2023 take 1 tablet by mouth once daily Gianvi 3 mg-0.02 mg oral tablet Dose = 1 tab(s), Oral, qDay, # 84 tab(s), 4 Refill(s), Pharmacy: [facility], 157.5, cm, 01/08/22 13:48:00 EDT, Height, [...] DAILY May 23, 2019 12:00am Norgestimate-Ethinyl Estradiol (13 sources) Progestin, Estrogen Start: 10-13-2024 End: 12-23-2024 [...] Daily, # 90 tab(s), 3 Refill(s), [id number] 158, cm, 06/25/23 10:03:00 EDT, Height, kg, 06/25/23 10:03:00 EDT, Dosing Weight Start Date: 07/29/23 Status: Ordered Start: 04-18-2023 take 1 tablet by [facility] once daily Tri-Sprintec oral tablet Dose = 1 tab(s), Oral, Daily, # 90 tab(s), 0 Refill(s), [id number], 157.5, cm, 02/17/23 14:05:00 EST, Height, kg, 02/17/23 14:01:00 EST, Dosing Weight Start Date: 04/18/23 Status: Ordered Start: 12-30-2022 take 1 tablet by [facility] once daily Tri-Sprintec oral tablet Dose = 1 tab(s), Oral, Daily, # 28 tab(s), 3 Refill(s), [id number], 157.5, cm, 12/30/22 13:55:00 EDT, Height, kg, 12/30/22 13:55:00 EDT, Dosing Weight Start Date: 12/30/22 Status: Ordered Gianvi 3 mg-0.02 mg oral tablet (1 source) Start: 12-26-2020 take 1 tablet by mouth once daily Gianvi 3 mg-0.02 mg oral tablet Dose = 1 tab(s), Oral, qDay, # 90 tab(s), 3 Refill(s), Pharmacy: [facility], 160.6, cm, 06/28/20 15:21:00 EDT, Height, kg, 06/28/20 15:21:00 EDT, Dosing Weight Start Date: 12/26/20 Status: Ordered ketorolac tromethamine 10 mg oral tablet (7 sources) Nonsteroidal Anti-inflammatory Drug, Cyclooxygenase Inhibitor Start: 05-23-2019 End: 09-22-2023 take 1 tablet by mouth every six hours as needed for pain Ketorolac 10 MG tablet Discontinued 10 mg PO EVERY 6 HOURS as needed for Pain Score 4-10/10 10 0 May 23, 2019 11:20pm September 22, 2023 11:48am medroxyPROGESTERone acetate 10 mg oral tablet (12 sources) Progestin Start: 12-27-2024 End: 01-06-2025 take 1 tablet by mouth once daily Medroxyprogesterone 10 mg tablet Discontinued 10 mg PO daily 10 10 0 December 27, 2024 10:20am January 05, 2025 12:00am January 06, 2025 12:09am Start: 09-01-2024 End: 09-11-2024 take 1 tablet [...] 27, 2024 12:00am July 28, 2024 12:07am nitrofurantoin, macrocrystals 25 mg / nitrofurantoin, monohydrate 75 mg oral capsule (6 sources) Nitrofuran Antibacterial Start: 09-22-2023 End: 09-27-2023 take 1 capsule by mouth every twelve hours at mealtime Nitrofurantoin Monohyd/M-Cryst (Macrobid) 100 mg capsule Discontinued 100 mg PO Q12H 10 5 0 September 22, 2023 12:00am September 26, 2023 12:00am September 27, 2023 12:16am must administer with a meal/food ondansetron 4 mg disintegrating oral tablet (7 sources) Serotonin-3 Receptor Antagonist Start: 05-23-2019 End: 09-22-2023 take 1 tablet by mouth every eight hours as needed for nausea Ondansetron 4 MG tablet Discontinued 4 mg PO EVERY 8 HOURS NEEDED as needed for Nausea May 23, 2019 1:00am September 22, 2023 11:48am sertraline 50 mg oral tablet (12 sources) Serotonin Reuptake Inhibitor Start: 07-29-2023 End: 07-12-2024 take 1 tablet by mouth once daily Sertraline 50 mg tablet Discontinued 50 mg PO daily September 22, 2023 12:00am July 12, 2024 8:49am Start: 01-13-2023 End: 07-12-2023 sertraline 50 mg oral tablet Dose : 50 mg = 1 tab(s), Oral, qDay, # 90 tab(s), 0 Refill(s), Pharmacy: [facility]/pharmacy #[id number], 157.5, cm, 02/17/23 14:05:00 EST, Height, kg, 02/17/23 14:01:00 EST, Dosing Weight Start Date: 04/18/23 Status: Ordered Problems Active Problems Problem Classification Problem Date Documented Da te Episodic/Chronic Abdominal pain (9 sources) Pain in pelvis; Translations: [Pelvic and perineal pain] Onset: 4 08-04-2023 Episodic Allergic reactions (7 sources) Contact dermatitis 10-15-2022 Episodic Anxiety disorders (10 sources) Anxiety 04-10-2021 Chronic Calculus of urinary tract (7 sources) Kidney stone; Translations: [Calculus of kidney] 05-24-2019 Episodic Conduction disorders (4 sources) Bundle branch block 06-02-2023 Chronic Contraceptive and procreative management (15 sources) Oral contraception; Translations: [Patient encounter status] Onset: 5 01-08-2022 Episodic Comment on above: plans polly IUD Gastrointestinal hemorrhage (1 source) Gastrointestinal hemorrhage; Translations: [Gastrointestinal hemorrhage, unspecified] Onset: Episodic Heart valve disorders (6 sources) Mitral valve prolapse; Translations: [Nonrheumatic mitral (valve) prolapse] 09-22-2023 Chronic Heart valve disorders (6 sources) Irregular heart beat 06-02-2023 Episodic Immunizations and screening for infectious disease (3 sources) Encounter for screening for infections with a predominantly sexual mode of transmission; Translations: [Encounter for screening for infections with a predominantly sexual mode of transmission] Onset: 4 Episodic Menstrual disorders (18 sources) Break-through bleeding; Translations: [Irregular periods] Onset: 5 12-30-2022 Chronic Mood disorders (13 sources) Major depressive disorder; Translations: [Depressive disorder] 01-13-2023 Chronic Other and unspecified benign neoplasm (6 sources) Benign neoplasm of soft tissue 06-02-2023 Episodic Other bone disease and musculoskeletal deformities (9 sources) Somatic dysfunction of lower limb 05-15-2021 Episodic Other bone disease and musculoskeletal deformities (9 sources) Somatic dysfunction of pelvic region 05-15-2021 Episodic Other endocrine disorders (9 sources) Hyperestrogenism; 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] 07-12-2024 Chronic Other endocrine disorders (4 sources) Polycystic ovary syndrome; Translations: [Polycystic ovarian [...] conditions (not mental disorders or infectious disease) (16 sources) Electrocardiogram abnormal; Translations: [Increased testosterone level] Onset: 5 06-02-2023 Episodic Other skin disorders (20 sources) Acne; Translations: [Acne, unspecified] 04-18-2020 Episodic Other skin disorders (7 sources) Loss of hair 12-30-2022 Episodic Other skin disorders (7 sources) Mass of hand 12-30-2022 Episodic Other skin disorders (11 sources) Hirsutism; Translations: [Hirsutism] 07-12-2024 Episodic Residual codes; unclassified (1 source) Family history of breast cancer 03-30-2024 Episodic Unclassified (20 sources) Patient encounter status 04-18-2020 Past or Other Problems Problem Classification Problem Date Documented Da te Episodic/Chronic Other and unspecified benign neoplasm (2 sources) Melanocytic nevi, unspecified; Translations: [Melanocytic nevi, unspecified] Onset: 06-25-2023 Episodic Results Test Name Value Interpretation Reference Range Facility PAP I-G w/rfx hrHPV-Aptimaon 01-14-2025 ADEQ Comment Normal . [facility] Comment on above: Order Comment: Speci men Comment: [id number] Specimen Comment: No. of containers..01 ThinPrep Vial Result Comment: Sati sfactory for evaluation. Endocervical and/or squamous metaplastic cells (endocervical component) are present. Performed By: #### L 7400.0353 #### [facility] [address] [place], [address] COMM . Normal . [facility] Comment on above: Order Comment: Speci men Comment: [id number] Specimen Comment: No. of containers..01 ThinPrep Vial Performed By: #### L 7400.0353 #### [facility] [address] [place], [address] COMMENT Comment Normal . [facility] Comment on above: Order Comment: Speci men Comment: [id number] Specimen Comment: No. of containers..01 ThinPrep Vial Result Comment: This liquid based ThinPrep(R) pap test was screened with the use of an image guided system. Performed By: #### L 7400.0353 #### [facility] [address] [place], [address] DIAG Comment Normal . [facility] Comment on above: Order Comment: Speci men Comment: [id number] Specimen Comment: No. of containers..01 ThinPrep Vial Result Comment: NEGA TIVE FOR INTRAEPITHELIAL LESION OR MALIGNANCY. Performed By: #### L 7400.0353 #### [facility] [address] [place], [address] HPV RFLX Comment Normal . [facility] Comment on above: Order Comment: Speci men Comment: [id number] Specimen Comment: No. of containers..01 ThinPrep Vial Result Comment: The HPV DNA reflex criteria were not met with this specimen result therefore, no HPV testing was performed. Performed at: [address] [place] [id number] Rock Wool Applicator: Carmel Freeman MD, Phone: [phone] Performed By: #### L 7400.0353 #### [facility] [address] [place], [place], [address] PAPSMR Comment Normal . [facility] Comment on above: Order Comment: Speci men Comment: [id number] Specimen Comment: No. of containers..01 ThinPrep Vial Result Comment: The Pap smear is a screening test designed to aid in the detection of premalignant and malignant conditions of the uterine cervix. It is not a diagnostic procedure and should not be used as the sole means of detecting cervical cancer. Both false-positive and false-negative reports do occur. Performed By: #### L 7400.0353 #### [facility] [address] [place], [place], [address] PERFORM Comment Normal . [facility] Comment on above: Order Comment: Speci men Comment: [id number] Specimen Comment: No. of containers..01 ThinPrep Vial Result Comment: Leesa Saleh, Rock Wool Applicator (ASCP) Performed By: #### L 7400.0353 #### [facility] [address] [place], [place], [address] Optometrist Office Visit Reporton 01-10-2025 Optometrist Office Visit Report [facility] [address], [address] [place] [address] OFFICE VISIT Date of Service: 01/10/25 MR#: [id number] Acct: [id number] Name: KIERRA BLANCA Rep #: [id number] : 2000 Provider: BERENICE sy Age/Sex: 24/F Location: [facility] Status: Signed with Addenda ADDENDUM by Anne James on 01/10/25 at 1153 Office Procedure Documentation entered by Anne James 01/10/25 11:53: IUD Insertion IUD GC/Chlamydia:: done (12/23/24) Test: Yes Negative Consent Signed: Yes Time out checklist: patient, procedure, site marked/identified, positioning of patient, supplies available, allergies confirmed and team agrees on procedure IUD: Yes Polly IUD inserted Time out time: 11:45 Details: Sign in Communication: Completed Sign out documentation: Completed The uterus sounded to 6 cm. After prepping the cervix with betadine and using sterile technique, the cervix was grasped with a single tooth tenaculum and the IUD was inserted without difficulty and the string was cut to 3cm from the external os of the cervix. All instruments were removed from the vagina and excellent hemostasis was noted. Procedure Summary: patient tolerated the procedure well without complication. Office Meds levonorgestrel 14 mcg/24 hr (up to 3 yrs) 13.5 mg intrauterine device Performing Provider: BERENICE Rosales NP Performing Location: [facility] [place] Administered by: BERENICE Rosales NP on 01/10/25 11:42 Dose Route Admin Location Dispensed Lot Number Expiration Date Package NDC NDC [employer] 1 insert intrauterine [facility] 1 insert [id number] 07/05/26 55543-337-94 [id number] [employer] Total Dispensed Waste 1 insert 0 % Date cc: * Signed Intake Vital Signs 12/27/24 10:09 01/10/25 11:29 01/10/25 11:38 Height 5 ft 2 in 5 ft 2 in 5 ft 2 in Weight: 103 lb 2 oz 103 lb 2 oz BMI 18.8 18.8 BP 120/82 H 118/77 Intake Visit Reasons: POLLY INSERTION *BM Chopped Strand Operator Required: No Is patient in pain?: No Allergies No Known Allergies Allergy (Verified 01/10/25 11:28) Medications ???Medication ???Instructions ???Recorded ???Confirmed ???Type cholecalciferol (vitamin D3) 10 10 mcg PO QDAY 12/27/24 01/10/25 H istory mcg (400 unit) capsule Is last menstrual period known: Yes Last Menstrual Period: 01/06/25 Post menopausal: No Patient : No : No PFSH PFSH Medical History Depression MVP (mitral valve prolapse) Surgical History No significant past surgical history Family History Mother Breast cancer, Onset Age: 53 BRCA Negative Aunt Breast cancer Maternal Grandmother Breast cancer Maternal Brother History of pineal cyst Glioma Other Diabetes Heart disease Kidney disease Social History current occupational status: employed current occupation: [employer] Smoking Status: Current every day smoker tobacco type: e-cigarettes Electronic Cigarette Use: with nicotine alcohol intake: never substance use type: marijuana seatbelt use: always do you feel safe at home: Yes History 0 Elective abortions Hx Para Spontaneous abortions Hx # Term Pregnancies Ectopic pregnancies Hx # Pregnancies Multiple births # of living children HPI POLLY INSERTION *BM Details: KIERRA BLANCA is a 24 year old who presents for insertion paragard IUD Female Reproductive History Last Menstrual Period: 01/06/25 ROS Const Constitutional: Reports system reviewed and no additional complaints, except as documented Eyes Eyes: Reports system reviewed and no additional complaints, except as documented GI GI: Denies abdominal pain or change in bowel habits : Reports as per HPI Exam Const General: cooperative and no acute distress Orientation: oriented x3 General: bladder normal to palpation External Female Exam: normal external appearance and normal appearance of the urethra Urethra: normal appearance of the urethra Speculum Exam - Vagina: normal appearance of the vagina, normal vaginal discharge, no lesions and nontender Speculum Exam - Cervix: normal appearance of the cervix Bimanual Exam- Vagina Uterus: normal bimanual exam, uterine size normal, bladder normal to palpation, uterine shape normal, uterine mobility normal and non-tender Bimanual Exam- Adnexa, other: normal adnexae, no masses and non-tender Office Procedures IUD Insertion IUD GC/Chlamydia:: done (more content not included)... Normal [facility] Optometrist Office Visit Reporton 12-27-2024 Optometrist Office Visit Report [facility] [address], [address] [place] [address] OFFICE VISIT Date of Service: 12/27/24 MR#: [id number] Acct: [id number] Name: KIERRA BLANCA Rep #: [id number] : 2000 Provider: BERENICE sy Age/Sex: 24/F Location: [facility] Status: Signed Intake Vital Signs 09/01/24 11:31 12/23/24 06:14 12/27/24 10:09 Height 5 ft 2 in 5 ft 2 in 5 ft 2 in Weight: 103 lb 2 oz BMI 18.8 BP 120/82 H Intake Visit Reasons: BC Consult *copay $20 Chopped Strand Operator Required: No Is patient in pain?: No [...] History current occupational status: employed current occupation: [employer] Smoking Status: Current every day smoker tobacco [...] other general counseling or advice on contraception Z30. Contraceptive encounter type: other general counseling and advice Assessment and Plan Assessment and Plan (1) Secondary oligomenorrhea: Status: Acute (2) PCOS (polycystic ovarian syndrome): Status: Acute (3) Contraception management: Status: Acute Qualifiers: Contraceptive encounter type: other general counseling and advice Qualified Code(s): Z30. - Encounter for other general counseling and advice on contraception Comment: plans polly IUD Medications: Refilled medroxyprogesterone 10 mg PO QDAY 10 tabs 0RF 10 days Plan Discussed use, benefits, risks and side effects of polly IUD Written information given. She will call with onset of menses for insertion. 12/27/24 1028 Date Sherri Stuart MICA PLATE LAYER HAND MICA PLATE LAYER HAND-C Cosigner Signature: Date (if applicable) CC: Normal [facility] Abdomen/Pelvis W IV Cont ONL Yon 12-23-2024 Abdomen/Pelvis W IV Cont ONLY [facility] [address] [place] [id number] Abdomen/Pelvis W IV Cont ONLY MR#: [id number] Acct: [id number] Name: KIERRA BLANCA Rep #: [id number] : 2000 F 24 From: Will Samano MD PCP: BERENICE Ruiz Status: REG ER Study: Abdomen/Pelvis W IV Cont ONLY Date of Exam: Exam# [id number] Ordering Dr: Jase Stephenson DO PROCEDURE: ABDOMEN/PELVIS [...] oral contrast in paucity of abdominal fat. Rcsvyagz-ot-pmseo stool burden. Multiple loops distended small bowel [...] early ileus. Moderate stool burden. Reading Location: [id number] CC: BERENICE Strange; Jase Stephenson DO Linen Aide: Signed Normal [facility] Absolute lymphocyte countOrd ered By: Jase Stephenson on 12-23-2024 Lymphocytes Auto (Unsp spec) [#/Vol] 2.84 10*3/uL 0.83-4.51 [facility] Absolute neutrophil countOrd ered By: Jase Stephenson on 12-23-2024 Neutrophils (Bld) [#/Vol] 11.1 10*3/uL High 2.0-7.7 [facility] Anion gap in Serum or Plasma Ordered By: Jase Stephenson on 12-23-2024 Anion gap [Moles/Vol] 10 mmol/L 5-15 [facility] Automated lymphocyte count a s percentage of total leukocytesOrdered By: Jase Stephenson on 12-23-2024 Lymphocytes/100 WBC Auto (Unsp spec) 17.7 % Low 19-41 [facility] BUN/creatinine ratioOrdered By: Jase Stephenson on 12-23-2024 Urea nitrogen/Creatinine [Mass ratio] 11.8 mg/mg 10- [facility] Basic Metabolic Profile (BMP )on 12-23-2024 BUN/CRE 11.8 RATIO Normal - [facility] Comment on above: Performed By: #### L 7400.0353 #### [facility] [address] [place], [address] Calcium [Mass/Vol] 9.0 mg/dL Normal 7.6-11.0 [facility] Comment on above: Performed By: #### L 7400.0353 #### [facility] [address] [place], [address] Chloride [Moles/Vol] 108 mmol/L Normal 98-108 [facility] Comment on above: Performed By: #### L 7400.0353 #### [facility] [address] [place], [address] CO2 [Moles/Vol] 22.2 mmol/L Normal 21.0-32.0 [facility] Comment on above: Performed By: #### L 7400.0353 #### [facility] [address] [place], [address] Creatinine [Mass/Vol] 0.79 mg/dL Normal 0.70-1.20 [facility] Comment on above: Performed By: #### L 7400.0353 #### [facility] [address] [place], [address] ECRCL 83.22 ml/min Normal 50-250 [facility] Comment on above: Performed By: #### L 7400.0353 #### [facility] [address] [place], [address] GAP 10 Normal 5-15 [facility] Comment on above: Performed By: #### L 7400.0353 #### [facility] [address] [place], [address] GFR/1.73 sq M.predicted among non-blacks MDRD (S/P/Bld) [Vol rate/Area] 108 mL/min/{1.73_m2} Normal >60 [facility] Comment on above: Result Comment: mL/m in/1.73m2 CKD-EPI Creatinine Equation (2020) Performed By: #### L 7400.0353 #### [facility] [address] [place], [address] Glucose [Mass/Vol] 88 mg/dL Normal 70-99 [facility] Comment on above: Performed By: #### L 7400.0353 #### [facility] [address] [place], [address] Potassium [Moles/Vol] 3.9 mmol/L Normal 3.3-5.1 [facility] Comment on above: Performed By: #### L 7400.0353 #### [facility] [address] [place], [address] Sodium [Moles/Vol] 140 mmol/L Normal 133-145 [facility] Comment on above: Performed By: #### L 7400.0353 #### [facility] [address] [place], [address] Urea nitrogen [Mass/Vol] 9 mg/dL Normal 4-19 [facility] Comment on above: Performed By: #### L 7400.0353 #### [facility] [address] [place], [address] Basophil percentageOrdered B y: Jase Stephesnon on 12-23-2024 Basophils/100 WBC (Bld) 0.7 % 0-1 [facility] Bilirubin Test strip Ql (U)O rdered By: Jase Stephenson on 12-23-2024 Bilirubin Ql (U) Negative Negative [facility] Bilirubin directOrdered By: Jase Stephenson on 12-23-2024 Bilirubin.direct [Mass/Vol] 0.23 mg/dL 0.00-0.30 [facility] Bilirubin, totalOrdered By: Jase Stephenson on 12-23-2024 Bilirubin [Mass/Vol] 0.45 mg/dL 0.00-1.30 [facility] CBC W/Diff, Automatedon 12-06 Absolute Lymph 2.84 X10 3/uL Normal 0.83-4.51 [facility] Comment on above: Performed By: #### L 100.0100 #### [facility] [address] [place], [address] Absolute Neut 11.1 X10 3/uL High 2.0-7.7 [facility] Comment on above: Performed By: #### L 100.0100 #### [facility] [address] [place], [address] Basophils/100 WBC (Bld) 0.7 % Normal 0-1 [facility] Comment on above: Performed By: #### L 100.0100 #### [facility] [address] [place], [address] Eosinophils/100 WBC (Bld) 1.6 % Normal 0-5 [facility] Comment on above: Performed By: #### L 100.0100 #### [facility] [address] [place], [address] Erythrocyte distribution width (RBC) [Ratio] 11.9 % Normal 11.6-14.6 [facility] Comment on above: Performed By: #### L 100.0100 #### [facility] [address] [place], [address] Hematocrit (Bld) [Volume fraction] 39.8 % Normal 37-47 [facility] Comment on above: Performed By: #### L 100.0100 #### [facility] [address] [place], [address] Hemoglobin (Bld) [Mass/Vol] 13.5 g/dL Normal 12.0-15.0 [facility] Comment on above: Performed By: #### L 100.0100 #### [facility] [address] [place], [address] IG% 0.600 Normal 0.0-0.9 [facility] Comment on above: Result Comment: IG% - Immature Granulocytes (promyelocytes, myelocytes and metamyelocytes) > 1% indicates that a LEFT SHIFT is Present. Performed By: #### L 100.0100 #### [facility] [address] [place], [address] Lymphocytes/100 WBC (Bld) 17.7 % Low 19-41 [facility] Comment on above: Performed By: #### L 100.0100 #### [facility] [address] [place], [address] MCH (RBC) [Entitic mass] 29.4 pg Normal 27.0-32.0 [facility] Comment on above: Performed By: #### L 100.0100 #### [facility] [address] [place], [address] MCHC (RBC) [Mass/Vol] 33.9 g/dL Normal 32-36 [facility] Comment on above: Performed By: #### L 100.0100 #### [facility] [address] [place], [address] MCV (RBC) [Entitic vol] 86.7 fL Normal 81-99 [facility] Comment on above: Performed By: #### L 100.0100 #### [facility] [address] [place], [address] Monocytes/100 WBC (Bld) 10.0 % Normal 0-10 [facility] Comment on above: Performed By: #### L 100.0100 #### [facility] [address] [place], [address] Neutrophils/100 WBC (Bld) 69.4 % Normal 47-70 [facility] Comment on above: Performed By: #### L 100.0100 #### [facility] [address] [place], [address] Nucleated RBC (Bld) [#/Vol] 0 10*3/uL Normal 0-5 [facility] Comment on above: Performed By: #### L 100.0100 #### [facility] [address] [place], [address] Platelet mean volume (Bld) [Entitic vol] 8.6 fL Normal 6.2-12.0 [facility] Comment on above: Performed By: #### L 100.0100 #### [facility] [address] [place], [address] Platelets (Bld) [#/Vol] 304 10*3/uL Normal 150-450 [facility] Comment on above: Performed By: #### L 100.0100 #### [facility] [address] [place], [address] RBC (Bld) [#/Vol] 4.59 10*6/uL Normal 4.2-5.4 [facility] Comment on above: Performed By: #### L 100.0100 #### [facility] [address] [place], [address] RDW SD 37.4 fl Normal 35.1-43.9 [facility] Comment on above: Performed By: #### L 100.0100 #### [facility] [address] [place], [address] WBC (Bld) [#/Vol] 16.0 10*3/uL High 4.4-11.0 [facility] Comment on above: Performed By: #### L 100.0100 #### [facility] [address] [place], [place], [address] Calcium oxalate crystals det ection in urine sediment by light microscopyOrdered By: Jase Stephenson on 12-23-2024 Calcium oxalate crystals LM Ql (Urine sed) 3+ /hpf [facility] Carbon dioxide, total [Moles /volume] in Central venous bloodOrdered By: Jase Stephenson on 12-23-2024 CO2 [Moles/Vol] 22.2 mmol/L 21.0-32.0 [facility] Chloride assayOrdered By: Maribell Stephenson on 12-23-2024 Chloride [Moles/Vol] 108 mmol/L 98-108 [facility] D-Dimer Quantitative (DVT/PE )on 12-23-2024 D-DIMER QUANT < 0.27 Low 0.27-0.49 [facility] Comment on above: Result Comment: NORM AL D-Dimer level (<0.50) indicates no DVT or PE. Performed By: #### L 7400.0353 #### [facility] [address] [place], [address] Emergency Department Summary on 12-23-2024 Emergency Department Summary [facility] Medical Records Department [address] [place] [address] Emergency Department Summary 12/23/24 MR#: [id number] Acct: [id number] Name: KIERRA BLANCA Rep #: [id number] : 2000 24 From: Jase Stephenson DO PCP: BERENICE Ruiz Status:REG ER Location: ED ADDENDUM by Dr. Verena Izquierdo DO on 12/23/24 at 1413 Patient is a 24-year-old female presenting with bilateral mid back pain wrapping around towards her abdomen. Does have a history of kidney stones and dysfunctional uterine bleeding. Follows with [place] DIRECTOR OF STRATEGIC SOURCING. Initially received IV fluids and Toradol. Repeat [...] sexual partner. Pelvic exam is performed with rhinologist. She has normal external genitalia. No abnormal vaginal discharge. Mild discomfort on bimanual exam but no chandelier sign. Cervix mildly friable. Pelvic ultrasound added on which shows a prominent left ovarian cyst and minimal amount of free fluid in the cul-de-sac. On repeat evaluation continues to feel improved. Case is discussed with DIRECTOR OF STRATEGIC SOURCING, Dr. Augustin. She reviews the films. She [...] actually has a follow-up appointment with her DIRECTOR OF STRATEGIC SOURCING at [place] next week. Patient is given strict return [...] early ileus. Moderate stool burden. Reading Location: [id number] Transvaginal US 12/23/24 11:17 IMPRESSION: 2.5 cm 2 cm 1.8 cm left ovarian cyst. Minimal amount of free fluid is seen in the cul-de-sac. Reading Location: [place] [address] 12/23/24 [facility] Cosigner Signature (if applicable): cc: BERENICE Strange * Signed HPI History of Present [...] potential kidney stone she presents for evaluation. [facility] Medical History Depression MVP (mitral valve prolapse) Home Medications ???Medication ???Instructions ???Recorde (more content not included)... Normal [facility] Eosinophil percentageOrdered By: Jase Stephenson on 12-23-2024 Eosinophils/100 WBC (Bld) 1.6 % 0-5 [facility] Erythrocyte distribution wid th ratioOrdered By: Jase Stephenson on 12-23-2024 Erythrocyte distribution width (RBC) [Ratio] 11.9 % 11.6-14.6 [facility] Erythrocyte distribution wid th standard deviationOrdered By: Jase Stephenson on 12-23-2024 Erythrocyte distribution width (RBC) [Ratio] 37.4 fl 35.1-43.9 [facility] Glomerular filtration rate ( GFR) estimation/1.73 sq m using serum, plasma, or whole bOrdered By: Jase Stephenson on 12-23-2024 GFR/1.73 sq M.predicted among non-blacks MDRD (S/P/Bld) [Vol rate/Area] 108 mL/min/{1.73_m2} >60 [facility] Comment on above: mL/min/1.73m2 CKD-EP I Creatinine Equation (2020) Hematocrit Auto (Bld) [Volum e fraction]Ordered By: Jase Stephenson on 12-23-2024 Hematocrit (Bld) [Volume fraction] 39.8 % 37-47 [facility] Hemoglobin measurementOrdere d By: Jase Stephenson on 12-23-2024 Hemoglobin (Bld) [Mass/Vol] 13.5 g/dL 12.0-15.0 [facility] Immature granulocytes/100 WB C Auto (Bld)Ordered By: Jase Stephenson on 12-23-2024 Immature granulocytes/100 WBC (Bld) 0.600 % 0.0-0.9 [facility] Comment on above: IG% - Immature Granu locytes (promyelocytes, myelocytes and metamyelocytes) > 1% indicates that a LEFT SHIFT is Present. Ketones Test strip Ql (U)Ord ered By: Jase Stephenson on 12-23-2024 Ketones Ql (U) 15 mg/dl High Negative [facility] - Chemistry and C hemistry - challengeOrdered By: Jase Stephenson on 12-23-2024 AST [Catalytic activity/Vol] 24 U/L <32 [facility] Lipaseon 12-23-2024 Lipase [Catalytic activity/Vol] 53 U/L Normal 13-75 [facility] Comment on above: Result Comment: Rosa appiah note: LIPASE revised reference range effective 22. New Lipase methodology. Expected to produce lower values than the previous assay method. NEW Reference Range: 13 - 75 U/L Performed By: #### L 7400.0353 #### [facility] [address] [place], [place], [address] Lipase measurementOrdered By : Jase Stephenson on 12-23-2024 Lipase [Catalytic activity/Vol] 53 U/L 13-75 [facility] Comment on above: Please note:LIPASE r evised reference range effective 22. New Lipase methodology. Expected to produce lower values than the previous assay method. NEW Reference Range: 13 - 75 U/L Liver Profileon 12-23-2024 Albumin [Mass/Vol] 4.2 g/dL Normal 3.5-5.0 [facility] Comment on above: Performed By: #### L 7400.0353 #### [facility] [address] [place], [address] ALK PHOS 81 U/L Normal 35-104 [facility] Comment on above: Performed By: #### L 7400.0353 #### [facility] [address] [place], [address] ALT [Catalytic activity/Vol] 20 U/L Normal <=34 [facility] Comment on above: Performed By: #### L 7400.0353 #### [facility] [address] [place], [address] AST [Catalytic activity/Vol] 24 U/L Normal <=31 [facility] Comment on above: Performed By: #### L 7400.0353 #### [facility] [address] [place], [address] Bilirubin [Mass/Vol] 0.45 mg/dL Normal 0.00-1.30 [facility] Comment on above: Performed By: #### L 7400.0353 #### [facility] [address] [place], [address] Bilirubin.direct [Mass/Vol] 0.23 mg/dL Normal 0.00-0.30 [facility] Comment on above: Performed By: #### L 7400.0353 #### [facility] [address] [place], [address] Globulin (S) [Mass/Vol] 2.2 g/dL Normal 2.2-4.2 [facility] Comment on above: Performed By: #### L 7400.0353 #### [facility] [address] [place], [address] T PROT 6.4 g/dL Normal 5.9-8.4 [facility] Comment on above: Performed By: #### L 7400.0353 #### [facility] [address] [place] [place], [address] M8200.2203on 12-23-2024 M8200.2203 Pending Chlamydia Trachomatis PCR NEGATIVE for Chlamydia trachomatis N. gonorrhoeae PCR Negative for N. gonorrhoeae Normal [facility] Comment on above: Performed By: #### L 100.0100 #### [facility] [address] [place], [address] M8200.3000on 12-23-2024 M8200.3000 Pending Trichomonas Vag DNA PCR Negative for Trichomonas vaginalis Normal [facility] Comment on above: Performed By: #### L 100.0100 #### [facility] [address] [place], [place], [address] MCV (mean corpuscular volume ) determinationOrdered By: Jase Stephenson on 12-23-2024 MCV (RBC) [Entitic vol] 86.7 fL 81-99 [facility] Mean corpuscular hemoglobin (MCH) determinationOrdered By: Jase Stephenson on 12-23-2024 MCH (RBC) [Entitic mass] 29.4 pg 27.0-32.0 [facility] Mean corpuscular hemoglobin concentration (MCHC) determinationOrdered By: Jase Stephenson on 12-23-2024 MCHC (RBC) [Mass/Vol] 33.9 g/dL 32-36 [facility] Mean platelet volume determi nationOrdered By: Jase Stephenson on 12-23-2024 Platelet mean volume (Bld) [Entitic vol] 8.6 fL 6.2-12.0 [facility] Microscopic analysis of urin e for red blood cells (RBC)Ordered By: Jase Stephenson on 12-23-2024 Microscopic analysis of urine for red blood cells (RBC) 0 SEEN /hpf 0-5 [facility] Monocyte percentageOrdered B y: Jase Stephenson on 12-23-2024 Monocytes/100 WBC (Bld) 10.0 % 0-10 [facility] Mucus LM Ql (Urine sed)Order ed By: Jase Stephenson on 12-23-2024 Mucus Ql (Urine sed) 0 SEEN /hpf [facility] Neutrophil percentageOrdered By: Jase Stephenson on 12-23-2024 Neutrophils/100 WBC (Bld) 69.4 % 47-70 [facility] Nitrite Test strip Ql (U)Ord ered By: Jase Stephenson on 12-23-2024 Nitrite Ql (U) Negative Negative [facility] Nucleated red blood cell per centageOrdered By: Jase Stephenson on 12-23-2024 Nucleated RBC/100 WBC (Bld) [Ratio] 0 % 0-5 [facility] Platelet countOrdered By: Maribell Stephenson on 12-23-2024 Platelets (Bld) [#/Vol] 304 10*3/uL 150-450 [facility] Potassium measurement (mass/ volume)Ordered By: Jase Stephenson on 12-23-2024 Potassium (Unsp spec) [Mass/Vol] 3.9 mmol/L 3.3-5.1 [facility] ,Urineon 12-23-2024 Beta HCG ( test) Ql (U) Negative Normal [facility] Comment on above: Result Comment: Very dilute urine specimens, as indicated by a low specific gravity, may not contain advertising account representative levels of hCG. If is still suspected, a first morning urine specimen should be collected 48 hours later and tested. Performed By: #### L 7400.0353 #### [facility] [address] [place] [address]. [place], [place], [address] Protein Test strip Ql (U)Ord ered By: Jase Stephenson on 12-23-2024 Protein Ql (U) 15 mg/dl High Negative [facility] RBC Auto (Bld) [#/Vol]Ordere d By: Jase Stephenson on 12-23-2024 RBC (Bld) [#/Vol] 4.59 10*6/uL 4.2-5.4 [facility] Serum creatinine measurement (mass/volume)Ordered By: Jase Stephenson on 12-23-2024 Creatinine [Mass/Vol] 0.79 mg/dL 0.70-1.20 [facility] Serum globulin measurementOr dered By: Jase Stephenson on 12-23-2024 Globulin (S) [Mass/Vol] 2.2 g/dL 2.2-4.2 [facility] Serum glucose measurement (m ass/volume)Ordered By: Jase Stephenson on 12-23-2024 Glucose [Mass/Vol] 88 mg/dL 70-99 [facility] Serum or plasma alanine whiting otransferase (ALT) measurementOrdered By: Jase Stephenson on 12-23-2024 ALT [Catalytic activity/Vol] 20 U/L <35 [facility] Serum or plasma albumin fabian urement (mass/volume)Ordered By: Jase Stephenson on 12-23-2024 Albumin [Mass/Vol] 4.2 g/dL 3.5-5.0 [facility] Serum or plasma alkaline nova sphatase measurementOrdered By: Jase Stephenson on 12-23-2024 ALP [Catalytic activity/Vol] 81 U/L 35-104 [facility] Serum or plasma calcium fabian urement (mass/volume)Ordered By: Jase Stephenson on 12-23-2024 Calcium [Mass/Vol] 9.0 mg/dL 7.6-11.0 [facility] Serum or plasma urea nitroge n measurement (mass/volume)Ordered By: Jase Stephenson on 12-23-2024 Urea nitrogen [Mass/Vol] 9 mg/dL 4-19 [facility] Sodium levelOrdered By: Mitch Stephenson on 12-23-2024 Sodium [Moles/Vol] 140 mmol/L 133-145 [facility] Squamous epithelial cells de tection in urine sediment by light microscopyOrdered By: Jase Stephenson on 12-23-2024 Epithelial cells.squamous LM Ql (Urine sed) 0-5 SEEN /hpf 5-10 [facility] Total proteinOrdered By: Hardeep Stephenson on 12-23-2024 Protein [Mass/Vol] 6.4 g/dL 5.9-8.4 [facility] Transvaginal Non-on 12-23-2024 Transvaginal Non- [facility] Services [address] [place] [address] Transvaginal Non- MR#: [id number] Acct: [id number] Name: KIERRA BLANCA Rep #: [id number] : 2000 F 24 From: Alfredo ramsey MD PCP: BERENICE Ruiz Status: REG ER Study: Transvaginal Non- Date of Exam: Exam# [id number] Ordering Dr: Verena Izquierdo DO PROCEDURE: TRANSVAGINAL [...] is seen in the cul-de-sac. Reading Location: [facility] CC: BERENICE Strange; Dr. Verena Izquierdo DO Linen Aide: Signed Normal [facility] Urinalysis, Completeon 12-23 CA OX CRYSTAL 3+ /hpf Normal [facility] Comment on above: Order Comment: Speci men Comment: [id number] Specimen Comment: No. of containers..01 ThinPrep Vial Performed By: #### L 7400.0353 #### [facility] [address] [place], [address] EPI,SQUAMOUS 0-5 SEEN Normal 5-10 [facility] Comment on above: Order Comment: Speci men Comment: [id number] Specimen Comment: No. of containers..01 ThinPrep Vial Performed By: #### L 7400.0353 #### [facility] [address] [place], [address] WBC 0-5 SEEN Normal 0-5 [facility] Comment on above: Order Comment: Speci men Comment: [id number] Specimen Comment: No. of containers..01 ThinPrep Vial Performed By: #### L 7400.0353 #### [facility] [address] [place], [address] BACTERIA 0 SEEN Normal None Seen [facility] Comment on above: Order Comment: Speci men Comment: [id number] Specimen Comment: No. of containers..01 ThinPrep Vial Performed By: #### L 7400.0353 #### [facility] [address] [place], [address] Mucus Ql (Urine sed) 0 SEEN Normal [facility] Comment on above: Order Comment: Speci men Comment: [id number] Specimen Comment: No. of containers..01 ThinPrep Vial Performed By: #### L 7400.0353 #### [facility] [address] [place], [address] RBC 0 SEEN Normal 0-5 [facility] Comment on above: Order Comment: Speci men Comment: [id number] Specimen Comment: No. of containers..01 ThinPrep Vial Performed By: #### L 7400.0353 #### [facility] [place] [address], [address] Urine clarityOrdered By: Hardeep Stephenson on 12-23-2024 Clarity (U) Sl. Cloudy Clear [facility] Urine color determinationOrd ered By: Jase Stephenson on 12-23-2024 Color (U) Yellow Yellow [facility] Urine glucose detectionOrder ed By: Jase Stephenson on 12-23-2024 Glucose Ql (U) Normal mg/dl Normal [facility] Urine leukocyte esterase det ection by dipstickOrdered By: Jase Stephenson on 12-23-2024 Leukocyte esterase Test strip Ql (U) 25 /ul High Negative [facility] Urine pHOrdered By: Jase parsk on 12-23-2024 pH (U) 6.0 [pH] 5.0 - 8.0 [facility] Urine testOrdered By: Jase Stephenson on 12-23-2024 HCG ( test) Ql (U) Negative [facility] Comment on above: Very dilute urine sp ecimens, as indicated by a low specificgravity, may not contain advertising account representative levels of hCG. If is still suspected, a first morning urinespecimen should be collected 48 hours later and tested. Urine sediment bacteria coun t by microscopy (number/high power field)Ordered By: Jase Stephenson on 12-23-2024 Bacteria LM.HPF (Urine sed) [#/Area] 0 /[HPF] None Seen [facility] Urine specific gravity measu rementOrdered By: Jase Stephenson on 12-23-2024 Specific gravity (U) [Rel density] 1.025 1.002-1.03 0 [facility] Urine urobilinogen measureme ntOrdered By: Jase Stephenson on 12-23-2024 Urobilinogen Ql (U) Normal mg/dl Normal [facility] White blood cell (WBC) count Ordered By: Jase Stephenson on 12-23-2024 WBC (Bld) [#/Vol] 16.0 10*3/uL High 4.4-11.0 [facility] White blood cell countOrdere d By: Jase Stephenson on 09-18-2025 White blood cell count 0-5 SEEN /hpf 0-5 [facility] Chlamydia/GC PACO aptimaon CHLAMY,NUC ACID Normal [facility] Comment on above: Result Comment: TALK ED TO [facility] URINE IS TO BE RAN INHOUSE Performed By: #### L 7000.1800, M8200.2203 ####[facility] [address] [place], [address] GC BY NUC ACID Normal [facility] Comment on above: Result Comment: TALK ED TO [facility] URINE IS TO BE RAN INHOUSE Performed By: #### L 7000.1800, M8200.2203 ####[facility] [id number] [place], [address] Laboratory - Chemistry and C hemistry - challengeOrdered By: Sherri Mccollum on 09-01-2024 HCG ( test) Ql (U) Negative [facility] M8200.2203on 09-01-2024 M8200.2203 Pending Chlamydia Trachomatis PCR NEGATIVE for Chlamydia trachomatis N. gonorrhoeae PCR Negative for N. gonorrhoeae Normal [facility] Comment on above: Performed By: #### L 7400.0353 #### [facility] [address] [place], [address] Optometrist Office Visit Reporton 09-01-2024 Optometrist Office Visit Report [facility] [address], [address] [place] [address] OFFICE VISIT Date of Service: 09/01/24 MR#: [id number] Acct: [id number] Name: KIERRA BLANCA Rep #: [id number] : 2000 Provider: BERENICE sy Age/Sex: 24/F Location: [facility] Status: Signed Intake Vital Signs 07/12/24 08:55 09/01/24 11:26 09/01/24 11:31 Height 5 ft 2 in 5 ft 2 in 5 ft 2 in Weight: 105 lb 2 oz BMI 19.2 BP 104/62 Intake Visit Reasons: 5 week progesterone F/U *$20 copay Chief Complaint: 5 Week Progesterone f/u Chopped Strand Operator Required: No Is patient in pain?: No [...] History current occupational status: employed current occupation: [employer] Cigarette Use: with nicotine alcohol [...] Date __ (more content not included)... Normal [facility] 17-Hydroxyprogesteroneon 17ALPHA [place]-PROG 83 ng/dL Normal . [place] [facility] Comment on above: Order Comment: Test( s) 955685-04-DG Progesterone LCMSwas developed and its performance characteristicsdetermined by [employer]. It has not been cleared or approvedby the Food and Drug Administration.N Result Comment: Adul t Female Follicular 15 - 70 Luteal 35 - 290 Performed at: [address] [id number] [employer]: Rivera Barney MD, Phone: [phone] Performed By: #### L 100.0100, L3100.5400, L3300.1500, L3100.5125, L3100.9000, L3100.5170, L3300.1750, L3400.4800 ####[facility] [address] [place], [place], [id number] DHEA Sulfateon 07-15-2024 DHEA SULFATE 220.0 ug/dL Normal 110.0-431. 7 [facility] Comment on above: Order Comment: N Performed By: #### L 100.0100, L3100.5400, L3300.1500, L3100.5125, L3100.9000, L3100.5170, L3300.1750, L3400.4800 ####[facility] [address] [place], [place], [id number] PROLACTIN 4465on 07-15-2024 PROLACTIN 16.4 ng/mL Normal 4.8-33.4 [facility] Comment on above: Performed By: #### L 100.0100, L3100.5400, L3300.1500, L3100.5125, L3100.9000, L3100.5170, L3300.1750, L3400.4800 ####[facility] [address] [place], [place], [address] Testosterone Freeon 07-16-19 25 TESTOSTER FREE 1.6 pg/mL Normal 0.0-4.2 [facility] Comment on above: Result Comment: Perf ormed at: [address] [id number] [employer]ator: Bryson Galloway PhD, Phone: [phone] Performed at: [address] [id number] [employer]: Rivera Barney MD, Phone: [phone] Performed By: #### L 100.0100, L3100.5400, L3300.1500, L3100.5125, L3100.9000, L3100.5170, L3300.1750, L3400.4800 ####[facility] [address] [place], [address] Absolute lymphocyte countOrd ered By: Sherri Mccollum on 07-12-2024 Lymphocytes Auto (Unsp spec) [#/Vol] 3.18 10*3/uL 0.83-4.51 [facility] Absolute neutrophil countOrd ered By: Shreriodell Mccollum on 07-12-2024 Neutrophils (Bld) [#/Vol] 5.4 10*3/uL 2.0-7.7 [facility] Automated lymphocyte count a s percentage of total leukocytesOrdered By: Sherri Mccollum on 07-12-2024 Lymphocytes/100 WBC Auto (Unsp spec) 31.9 % 19-41 [facility] Basophil percentageOrdered B y: Sherri Mccollum on 07-12-2024 Basophils/100 WBC (Bld) 1.3 % High 0-1 [facility] CBC W/Diff, Automatedon Absolute Lymph 3.18 X10 3/uL Normal 0.83-4.51 [facility] Comment on above: Performed By: #### L 100.0100, L3100.5400, L3300.1500, L3100.5125, L3100.9000, L3100.5170, L3300.1750, L3400.4800 ####[facility] [address] [place], [address] Absolute Neut 5.4 X10 3/uL Normal 2.0-7.7 [facility] Comment on above: Performed By: #### L 100.0100, L3100.5400, L3300.1500, L3100.5125, L3100.9000, L3100.5170, L3300.1750, L3400.4800 ####[facility] [address] [place], [address] Basophils/100 WBC (Bld) 1.3 % High 0-1 [facility] Comment on above: Performed By: #### L 100.0100, L3100.5400, L3300.1500, L3100.5125, L3100.9000, L3100.5170, L3300.1750, L3400.4800 ####[facility] [address] [place], [address] Eosinophils/100 WBC (Bld) 4.0 % Normal 0-5 [facility] Comment on above: Performed By: #### L 100.0100, L3100.5400, L3300.1500, L3100.5125, L3100.9000, L3100.5170, L3300.1750, L3400.4800 ####[facility] [address] [place], [address] Erythrocyte distribution width (RBC) [Ratio] 11.9 % Normal 11.6-14.6 [facility] Comment on above: Performed By: #### L 100.0100, L3100.5400, L3300.1500, L3100.5125, L3100.9000, L3100.5170, L3300.1750, L3400.4800 ####[facility] [address] [place], [address] Hematocrit (Bld) [Volume fraction] 41.1 % Normal 37-47 [facility] Comment on above: Performed By: #### L 100.0100, L3100.5400, L3300.1500, L3100.5125, L3100.9000, L3100.5170, L3300.1750, L3400.4800 ####[facility] [address] [place], [address] Hemoglobin (Bld) [Mass/Vol] 13.8 g/dL Normal 12.0-15.0 [facility] Comment on above: Performed By: #### L 100.0100, L3100.5400, L3300.1500, L3100.5125, L3100.9000, L3100.5170, L3300.1750, L3400.4800 ####[facility] [address] [place], [address] IG% 0.200 Normal 0.0-0.9 [facility] Comment on above: Result Comment: IG% - Immature Granulocytes (promyelocytes, myelocytes and metamyelocytes) > 1% indicates that a LEFT SHIFT is Present. Performed By: #### L 100.0100, L3100.5400, L3300.1500, L3100.5125, L3100.9000, L3100.5170, L3300.1750, L3400.4800 ####[facility] [address] [place], [address] Lymphocytes/100 WBC (Bld) 31.9 % Normal 19-41 [facility] Comment on above: Performed By: #### L 100.0100, L3100.5400, L3300.1500, L3100.5125, L3100.9000, L3100.5170, L3300.1750, L3400.4800 ####[facility] [address] [place], [address] MCH (RBC) [Entitic mass] 28.9 pg Normal 27.0-32.0 [facility] Comment on above: Performed By: #### L 100.0100, L3100.5400, L3300.1500, L3100.5125, L3100.9000, L3100.5170, L3300.1750, L3400.4800 ####[facility] [address] [place], [address] MCHC (RBC) [Mass/Vol] 33.6 g/dL Normal 32-36 [facility] Comment on above: Performed By: #### L 100.0100, L3100.5400, L3300.1500, L3100.5125, L3100.9000, L3100.5170, L3300.1750, L3400.4800 ####[facility] [address] [place], [address] MCV (RBC) [Entitic vol] 86.0 fL Normal 81-99 [facility] Comment on above: Performed By: #### L 100.0100, L3100.5400, L3300.1500, L3100.5125, L3100.9000, L3100.5170, L3300.1750, L3400.4800 ####[facility] [address] [place], [address] Monocytes/100 WBC (Bld) 8.2 % Normal 0-10 [facility] Comment on above: Performed By: #### L 100.0100, L3100.5400, L3300.1500, L3100.5125, L3100.9000, L3100.5170, L3300.1750, L3400.4800 ####[facility] [address] [place], [address] Neutrophils/100 WBC (Bld) 54.4 % Normal 47-70 [facility] Comment on above: Performed By: #### L 100.0100, L3100.5400, L3300.1500, L3100.5125, L3100.9000, L3100.5170, L3300.1750, L3400.4800 ####[facility] [address] [place], [address] Nucleated RBC (Bld) [#/Vol] 0 10*3/uL Normal 0-5 [facility] Comment on above: Performed By: #### L 100.0100, L3100.5400, L3300.1500, L3100.5125, L3100.9000, L3100.5170, L3300.1750, L3400.4800 ####[facility] [address] [place], [address] Platelet mean volume (Bld) [Entitic vol] 9.0 fL Normal 6.2-12.0 [facility] Comment on above: Performed By: #### L 100.0100, L3100.5400, L3300.1500, L3100.5125, L3100.9000, L3100.5170, L3300.1750, L3400.4800 ####[facility] [address] [place], [address] Platelets (Bld) [#/Vol] 355 10*3/uL Normal 150-450 [facility] Comment on above: Performed By: #### L 100.0100, L3100.5400, L3300.1500, L3100.5125, L3100.9000, L3100.5170, L3300.1750, L3400.4800 ####[facility] [address] [place], [address] RBC (Bld) [#/Vol] 4.78 10*6/uL Normal 4.2-5.4 [facility] Comment on above: Performed By: #### L 100.0100, L3100.5400, L3300.1500, L3100.5125, L3100.9000, L3100.5170, L3300.1750, L3400.4800 ####[facility] [address] [place], [address] RDW SD 37.4 fl Normal 35.1-43.9 [facility] Comment on above: Performed By: #### L 100.0100, L3100.5400, L3300.1500, L3100.5125, L3100.9000, L3100.5170, L3300.1750, L3400.4800 ####[facility] [address] [place], [address] WBC (Bld) [#/Vol] 10.0 10*3/uL Normal 4.4-11.0 [facility] Comment on above: Performed By: #### L 100.0100, L3100.5400, L3300.1500, L3100.5125, L3100.9000, L3100.5170, L3300.1750, L3400.4800 ####[facility] [address] [place], [address] E2 post dose follitropin [Ma ss/Vol]Ordered By: Sherri Mccollum on 07-12-2024 Estradiol (E2) Level 60.8 pg/mL [facility] Comment on above: FEMALES ADULT FEMALE [...] 07-12-2024 Eosinophils/100 WBC (Bld) 4.0 % 0-5 [facility] Erythrocyte distribution wid th (RBC) [Ratio]Ordered By: Sherri Mccollum on 07-12-2024 Erythrocyte distribution width (RBC) [Entitic vol] 37.4 fL 35.1-43.9 [facility] Erythrocyte distribution wid th ratioOrdered By: Sherri Mccollum on 07-12-2024 Erythrocyte distribution width (RBC) [Ratio] 11.9 % 11.6-14.6 [facility] Erythrocyte distribution wid th standard deviationOrdered By: Sherri Mccollum on 07-12-2024 Erythrocyte distribution width (RBC) [Ratio] 37.4 fl 35.1-43.9 [facility] Estradiolon 07-12-2024 ESTRADIOL 60.8 pg/mL Normal [facility] Comment on above: Result Comment: FEMA LES [...] by age 19. Performed By: #### L 100.0100, L3100.5400, L3300.1500, L3100.5125, L3100.9000, L3100.5170, L3300.1750, L3400.4800 ####[facility] [address] [place], [place], [address] Follicle Stimulating Hormone on 07-12-2024 FSH 5.6 mIU/mL Normal [facility] Comment on above: Result Comment: FEMA LE: [...] - 10.8 mIU/mL Performed By: #### L 100.0100, L3100.5400, L3300.1500, L3100.5125, L3100.9000, L3100.5170, L3300.1750, L3400.4800 ####[facility] [address] [place], [address] Follicle stimulating hormone (FSH) levelOrdered By: Sherri Mccollum on 07-12-2024 Follicle Stimulating Hormone 5.6 mIU/mL [facility] Comment on above: FEMALE:Follicular: 1 .4 - [...] Hematocrit (Bld) [Volume fraction] 41.1 % 37-47 [facility] Hemoglobin measurementOrdere d By: Sherri Mccollum on 07-12-2024 Hemoglobin (Bld) [Mass/Vol] 13.8 g/dL 12.0-15.0 [facility] Immature granulocytes/100 WB C Auto (Bld)Ordered By: Sherri Mccollum on 07-12-2024 Immature granulocytes/100 WBC (Bld) 0.200 % 0.0-0.9 [facility] Comment on above: IG% - Immature Granu locytes (promyelocytes, myelocytes and metamyelocytes) > 1% indicates that a LEFT SHIFT is Present. LH ser/plasOrdered By: Sherri Mccollum on 07-12-2024 Luteinizing Hormone 9.8 mIU/mL [facility] Comment on above: FEMALE:Follicular: 1 .9-12.5 mIU/mLMidcycle: 8.7-76.3 mIU/mLLuteal: 0.5-16.9 mIU/mLPost Menopause: 15.9-54.0 mIU/mLMALE:20-70 Years: 1.5-9.3 mIU/mL>70 Years: 3.1-34.6 mIU/mL Luteinizing Hormoneon 2024 LH 9.8 mIU/mL Normal [facility] Comment on above: Result Comment: FEMA LE: Follicular: 1.9-12.5 mIU/mL Midcycle: 8.7-76.3 mIU/mL Luteal: 0.5-16.9 mIU/mL Post Menopause: 15.9-54.0 mIU/mL MALE: 20-70 Years: 1.5-9.3 mIU/mL >70 Years: 3.1-34.6 mIU/mL Performed By: #### L 100.0100, L3100.5400, L3300.1500, L3100.5125, L3100.9000, L3100.5170, L3300.1750, L3400.4800 ####[facility] [address] [place], [place], [id number] Lymphocytes Auto (Unsp spec) [#/Vol]Ordered By: Sherri Mccollum on 07-12-2024 Lymphocytes (Bld) [#/Vol] 3.18 10*3/uL 0.83-4.51 [facility] Lymphocytes/100 WBC Auto (Un sp spec)Ordered By: Sherri Mccollum on 07-12-2024 Lymphocytes/100 WBC (Bld) 31.9 % 19-41 [facility] MCV (mean corpuscular volume ) determinationOrdered By: Sherri Mccollum on 07-12-2024 MCV (RBC) [Entitic vol] 86.0 fL 81-99 [facility] Mean corpuscular hemoglobin (MCH) determinationOrdered By: Sherri Mccollum on 07-12-2024 MCH (RBC) [Entitic mass] 28.9 pg 27.0-32.0 [facility] Mean corpuscular hemoglobin concentration (MCHC) determinationOrdered By: Sherri Mccollum on 07-12-2024 MCHC (RBC) [Mass/Vol] 33.6 g/dL 32-36 [facility] Mean platelet volume determi nationOrdered By: Sherri Mccollum on 07-12-2024 Platelet mean volume (Bld) [Entitic vol] 9.0 fL 6.2-12.0 [facility] Monocyte percentageOrdered B y: Sherri Mccollum on 07-12-2024 Monocytes/100 WBC (Bld) 8.2 % 0-10 [facility] Neutrophil percentageOrdered By: Sherri Mccollum on 07-12-2024 Neutrophils/100 WBC (Bld) 54.4 % 47-70 [facility] Nucleated red blood cell per centageOrdered By: Sherri Mccollum on 07-12-2024 Nucleated RBC/100 WBC (Bld) [Ratio] 0 % 0-5 [facility] Optometrist Office Visit Reporton 07-12-2024 Optometrist Office Visit Report [facility] [address], [address] [place] [address] OFFICE VISIT Date of Service: 07/12/24 MR#: [id number] Acct: [id number] Name: KIERRA BLANCA Rep #: [id number] : 2000 Provider: BERENICE sy Age/Sex: 23/F Location: [facility] Status: Signed Intake Vital Signs 09/22/23 11:48 [...] AUB Chief Complaint: ABN. 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 Normal [facility] Platelet countOrdered By: Jaden Mccollum on 07-12-2024 Platelets (Bld) [#/Vol] 355 10*3/uL 150-450 [facility] RBC Auto (Bld) [#/Vol]Ordere d By: Sherri Mccollum on 07-12-2024 RBC (Bld) [#/Vol] 4.78 10*6/uL 4.2-5.4 [facility] Serum or plasma 17-hydroxypr ogesterone measurement (mass/volume)Ordered By: Sherri Mccollum on 07-12-2024 17-Hydroxyprogesterone [Mass/Vol] 83 ng/dL . [facility] Comment on above: Adult Female Follicu lar 15 - 70 Luteal 35 - 290Performed at: - [facility] [address] [id number] Director: Rivera Barney MD, Phone: [phone] Serum or plasma estradiol me asurement after follitropin dose (mass/volume)Ordered By: Sherri Mccollum on 07-12-2024 E2 post dose follitropin [Mass/Vol] 60.8 pg/mL [facility] Comment on above: FEMALES ADULT FEMALE : [...] 07-12-2024 Testosterone Free [Mass/Vol] 1.6 pg/mL 0.0-4.2 [facility] Comment on above: Performed at: [address] [id number] Director: Bryson Galloway PhD, Phone: [phone] at: - [facility] [address] [id number] Director: Rivera Barney MD, Phone: [phone] Serum or plasma prolactin me asurement (mass/volume)Ordered By: Sherri Mccollum on 07-12-2024 Prolactin [Mass/Vol] 16.4 ng/mL 4.8-33.4 [facility] White blood cell (WBC) count Ordered By: Sherri Mccollum on 07-12-2024 WBC (Bld) [#/Vol] 10.0 10*3/uL 4.4-11.0 [facility] HPVon 04-09-2024 HPV Interp Normal See Interp HPVN [facility] Comment on above: Order Comment: Order placed by AP_HPV_REFLEX_7LB rule from [id number] Result Comment: High Risk HPV Typing: NEGATIVE [...] and sufficient DNA to be detected. See Inter HPVN Performed By: #### H PV #### [address] [address] HPV Source Cervix Normal [facility] Comment on above: Order Comment: Order placed by AP_HPV_REFLEX_7LB rule from [id number] Performed By: #### H PV #### [address] [address] [employer] Cytology Reporton 2023 [employer] [facility] Report . Pathology Reports Accession: Collected Date/Time: Received Date/Time: Pathologist: [id number] 03/30/2024 09:44 EST 03/30/2024 18:00 EST PHILL FUENTES MD [employer] [facility] Report SPECIMEN: Specimen Description: Liquid Prep [...] and evaluated with the assistance of the Pencil You In ThinPrep Test Imaging System. Electronically Signed by Pathology report verified by [facility] Screened by: DESIREE BOLANOS Electronically signed by PHILL FUENTES Sign-Out Date: 04/06/2024 10:13 Performing Lab: [facility], [address] [place], [place] [id number] [facility] Pathology Dept Disclaimer The Pap test is a screening test for cervical cancer. As evidenced by published data, it is subject to both inherent false negative and false positive results. Your patient's results should be interpreted in context with pertinent clinical history including gynecological examination. Normal [facility] Hepatitis Panel Acuteon 12-3 COMMENT Comment Normal . [facility] Comment on above: Result Comment: Not infected with HCV unless early or acute infection is suspected (which may be delayed in an immunocompromised individual), or other evidence exists to indicate HCV infection. Performed By: #### L 801.2600, L509.3000, L3000.0375, L3600.3400, L509.8000, L500.2500, L3300.1750 #### [facility] [address] [place], [address] HEP B CORE,IgM Negative Normal Negative [facility] Comment on above: Performed By: #### L 801.2600, L509.3000, L3000.0375, L3600.3400, L509.8000, L500.2500, L3300.1750 #### [facility] [address] [place], [address] HEP B SURF AG Negative Normal Negative [facility] Comment on above: Performed By: #### L 801.2600, L509.3000, L3000.0375, L3600.3400, L509.8000, L500.2500, L3300.1750 #### [facility] [address] [place], [address] HEP C VIRUS AB Non-Reactive Normal Non Reactive [facility] Comment on above: Performed By: #### L 801.2600, L509.3000, L3000.0375, L3600.3400, L509.8000, L500.2500, L3300.1750 #### [facility] [address] [place], [place], [address] HEPATITIS A-IgM Negative Normal Negative [facility] Comment on above: Result Comment: A ne gative anti-HAV IgM result suggests no recent or current HAV infection. Performed By: #### L 801.2600, L509.3000, L3000.0375, L3600.3400, L509.8000, L500.2500, L3300.1750 #### [facility] [address] [place], [place], [address] Nicotine Screen Bloodon 03-09 COTININE BLOOD 181.2 ng/mL Normal . [facility] Comment on above: Result Comment: This test was developed and its performance characteristics determined by [employer]. It has not been cleared or approved by the Food and Drug Administration. Cotinine levels greater than 20.0 are consistent with the use of tobacco or tobacco cessation products. Performed at: [address] [id number] [employer] Applicator: Bryson Galloway PhD, Phone: [phone] Performed at: [address] [id number] [employer]ator: Rivera Barney MD, Phone: [phone] Performed By: #### L 801.2600, L509.3000, L3000.0375, L3600.3400, L509.8000, L500.2500, L3300.1750 ####[facility] [address] [place], [place], [address] NICOTINE BLOOD 14.8 ng/mL Normal . [facility] Comment on above: Result Comment: This test was developed and its performance characteristics determined by [employer]. It has not been cleared or approved by the Food and Drug Administration. Nicotine levels greater than 2.0 are consistent with the use of tobacco or tobacco cessation products. Performed By: #### L 801.2600, L509.3000, L3000.0375, L3600.3400, L509.8000, L500.2500, L3300.1750 ####[facility] [address] [place], [address] PROGESTERONE 4317on 04-02-20 24 PROGESTERONE 0.2 ng/mL Normal . [facility] Comment on above: Order Comment: N [id number] Result Comment: Foll icular phase 0.1 - 0.9 Luteal phase 1.8 - 23.9 Ovulation phase 0.1 - 12.0 First trimester 11.0 - 44.3 Second trimester 25.4 - 83.3 Third trimester 58.7 - 214.0 Postmenopausal 0.0 - 0.1 Performed By: #### L 801.2600, L509.3000, L3000.0375, L3600.3400, L509.8000, L500.2500, L3300.1750 #### [facility] [address] [place], [place], [address] CTPCRon 04-01-2024 C. trachomatis Interp Normal See CT Interp N [facility] Comment on above: Result Comment: C. t rachomatis DNA not detected. Specimen is presumptive negative for C. trachomatis. A negative result does not preclude C. trachomatis infection because results depend on adequate specimen collection, absence of inhibitors, and sufficient DNA to be detected. See CT Interp N Performed By: #### C TPCR, NGPCR1 #### [address] [address] C.trachomatis PCR Negative Normal Negative [facility] Comment on above: Result Comment: Mole cular (PCR) assay performed on the [employer] 4800 system. Performed By: #### C TPCR, NGPCR1 #### [facility] [address] [place] [address] Chlam Source Cervix Normal [facility] Comment on above: Performed By: #### C TPCR, NGPCR1 #### [facility] [address] [place] [address] QHMCU5rz 04-01-2024 GC PCR Source Cervix Normal [facility] Comment on above: Performed By: #### C TPCR, NGPCR1 #### [place] [address] [place] [address] N. gonorrhoeae (PCR) Negative Normal Negative [facility] Comment on above: Result Comment: Mole cular (PCR) assay performed on the [employer] 4800 System. Performed By: #### C TPCR, NGPCR1 #### [facility] [address] [place] [address] N. gonorrhoeae Interp Normal See NG Interp N [facility] Comment on above: Result Comment: N. g onorrhoeae DNA not detected. Specimen is presumptive negative for N. gonorrhoeae. A negative result does not preclude Neisseria gonorrhoeae infection because results depend on adequate specimen collection, absence of inhibitors, and sufficient DNA to be detected. See NG Interp N Performed By: #### C TPCR, NGPCR1 #### [facility] [address] [place] [address] Basic Metabolic Profile (BMP )on 03-30-2024 BUN/CRE 16.8 RATIO Normal 10-20 [facility] Comment on above: Performed By: #### L 801.2600, L509.3000, L3000.0375, L3600.3400, L509.8000, L500.2500, L3300.1750 #### [facility] [address] [place], [address] CA,Total 9.5 mg/dL Normal 8.5-10.1 [facility] Comment on above: Performed By: #### L 801.2600, L509.3000, L3000.0375, L3600.3400, L509.8000, L500.2500, L3300.1750 #### [facility] [address] [place], [address] Chloride [Moles/Vol] 106 mmol/L Normal 98-107 [facility] Comment on above: Performed By: #### L 801.2600, L509.3000, L3000.0375, L3600.3400, L509.8000, L500.2500, L3300.1750 #### [facility] [address] [place], [address] CO2 [Moles/Vol] 29.0 mmol/L Normal 21.0-32.0 [facility] Comment on above: Performed By: #### L 801.2600, L509.3000, L3000.0375, L3600.3400, L509.8000, L500.2500, L3300.1750 #### [facility] [address] [place], [place], [id number] (456) Creatinine [Mass/Vol] 0.83 mg/dL Normal 0.55-1.02 [facility] Comment on above: Result Comment: The validity of the calculated GFR GFRAA in patients over 70 years has not been determined. Clinical correlation is essential. Performed By: #### L 801.2600, L509.3000, L3000.0375, L3600.3400, L509.8000, L500.2500, L3300.1750 #### [facility] [address] [place], [place], [id number] (907 EST GFR - AA 110 mL/min Normal >60 [facility] Comment on above: Result Comment: Afri can [place] African GFR Calc Performed By: #### L 801.2600, L509.3000, L3000.0375, L3600.3400, L509.8000, L500.2500, L3300.1750 #### [facility] [address] [place], [place], [id number] ([address]) GAP 4 Low 5-15 [facility] Comment on above: Performed By: #### L 801.2600, L509.3000, L3000.0375, L3600.3400, L509.8000, L500.2500, L3300.1750 #### [facility] [address] [place], [place], [phone] ([address] GFR/1.73 sq M.predicted among non-blacks MDRD (S/P/Bld) [Vol rate/Area] 91 mL/min/{1.73_m2} Normal >60 [facility] Comment on above: Result Comment: Non- GFR Calc Performed By: #### L 801.2600, L509.3000, L3000.0375, L3600.3400, L509.8000, L500.2500, L3300.1750 #### [facility] [address] [place], [address] Glucose [Mass/Vol] 89 mg/dL Normal 74-106 [facility] Comment on above: Performed By: #### L 801.2600, L509.3000, L3000.0375, L3600.3400, L509.8000, L500.2500, L3300.1750 #### [facility] [address] [place], [address] Potassium [Moles/Vol] 3.7 mmol/L Normal 3.5-5.1 [facility] Comment on above: Performed By: #### L 801.2600, L509.3000, L3000.0375, L3600.3400, L509.8000, L500.2500, L3300.1750 #### [facility] [address] [place], [address] Sodium [Moles/Vol] 140 mmol/L Normal 136-145 [facility] Comment on above: Performed By: #### L 801.2600, L509.3000, L3000.0375, L3600.3400, L509.8000, L500.2500, L3300.1750 #### [facility] [address] [place], [address] Urea nitrogen [Mass/Vol] 14 mg/dL Normal 7-18 [facility] Comment on above: Performed By: #### L 801.2600, L509.3000, L3000.0375, L3600.3400, L509.8000, L500.2500, L3300.1750 #### [facility] [address] [place], [address] Blood cotinine screen by [employer] immunoassayOrdered By: Mónica Strange on 03-30-2024 Nicotine & Cotinine 181.2 ug/mL . [facility] Comment on above: This test was develo ped and its performance characteristicsdetermined by [employer]. It has not been cleared orapproved by the Food and Drug Administration.Cotinine levels greater than 20.0 are consistent with theuse of tobacco or tobacco cessation products.Performed at: [facility] [address] [id number] Director: Bryson Galloway PhD, Phone: [phone] at: [address] [id number] Director: Rivera Barney MD, Phone: [phone] Blood urea nitrogen (BUN)/cr eatinine ratioOrdered By: Mónica Strange on 03-30-2024 Urea nitrogen/Creatinine [Mass ratio] 16.8 mg/mg 10-20 [facility] Carbon dioxide measurementOr dered By: Mónica Strange on 03-30-2024 CO2 [Moles/Vol] 29.0 mmol/L 21.0-32.0 [facility] Chloride measurementOrdered By: Mónica Strange on 03-30-2024 Chloride [Moles/Vol] 106 mmol/L 98-107 [facility] Estimated glomerular filtrat ion rate (GFR) AmericanOrdered By: Mónica Strange on 03-30-2024 Estimated GFR (MDRD) Amer 110 mL/min >60 [facility] Comment on above: GFR Calc Estradiolon 03-30-2024 ESTRADIOL 757.2 pg/mL Normal [facility] Comment on above: Result Comment: NORM AL [...] DETERMINE ESTRADIOL CONCENTRATION. Performed By: #### L 801.2600, L509.3000, L3000.0375, L3600.3400, L509.8000, L500.2500, L3300.1750 #### [facility] [address] [place], [address] Estradiol measurementOrdered By: Mónica Strange on 03-30-2024 Estradiol (E2) Level 757.2 pg/mL [facility] Comment on above: NORMAL REFERENCE RAN [...] GFR (MDRD) Non-Af Amer 91 mL/min >60 [facility] Comment on above: Non- GFR Calc Glucose measurementOrdered B y: Mónica Strange on 03-30-2024 Glucose [Mass/Vol] 89 mg/dL 74-106 [facility] HBV surface Ag IA QlOrdered By: Mónica Strange on 03-30-2024 Hepatitis B Surface Antigen Negative Negative [facility] Hepatitis A virus IgM antibo dy assayOrdered By: Mónica Strange on 03-30-2024 Hepatitis A IgM Antibody Negative Negative [facility] Comment on above: A negative anti-HAV IgM result suggests no recent orcurrent HAV infection. Hepatitis B virus core IgM a ntibody assayOrdered By: Mónica Strange on 03-30-2024 Hepatitis B Core IgM Antibody Negative Negative [facility] Hepatitis C virus antibody a ssayOrdered By: Mónica Strange on 03-30-2024 Hepatitis C Antibody (EIA) Non-Reactive Non Reactive [facility] L509.8000on 03-30-2024 Syphilis Abs Non-Reactive Normal [facility] Comment on above: Performed By: #### L 801.2600, L509.3000, L3000.0375, L3600.3400, L509.8000, L500.2500, L3300.1750 #### [facility] [address] [place], [address] LABORATORYOrdered By: Trevon Cardoza on 03-30-2024 C. [...] on 03-30-2024 Nicotine Level 14.8 ug/mL . [facility] Comment on above: This test was develo ped and its performance characteristicsdetermined by [employer]. It has not been cleared orapproved by the Food and Drug Administration.Nicotine levels greater than 2.0 are consistent with theuse of tobacco or tobacco cessation products. No Panel InformationOrdered By: Mónica Strange on 03-30-2024 Hepatitis C Antibody Comment Comment . [facility] Comment on above: Not infected with HC V unless early or acute infection issuspected (which may be delayed in an immunocompromisedindividual), or other evidence exists to indicate HCVinfection. Potassium measurementOrdered By: Mónica Strange on 03-30-2024 Potassium [Moles/Vol] 3.7 mmol/L 3.5-5.1 [facility] Quantitative serum progester one measurement by electrochemiluminescence immunoassay (Ordered By: Mónica Strange on 03-30-2024 Progesterone Level 0.2 ng/mL . [facility] Comment on above: Follicular phase 0.1 - 0.9 Luteal phase 1.8 - 23.9 Ovulation phase 0.1 - 12.0 First trimester 11.0 - 44.3 Second trimester 25.4 - 83.3 Third trimester 58.7 - 214.0 Postmenopausal 0.0 - 0.1 Serum anion gap measurementO rdered By: Mónica Strange on 03-30-2024 Anion gap [Moles/Vol] 4 mmol/L Low 5-15 [facility] Serum or plasma calcium fabian urement (mass/volume)Ordered By: Mónica Strange on 03-30-2024 Calcium [Mass/Vol] 9.5 mg/dL 8.5-10.1 [facility] Serum or plasma creatinine m easurement (mass/volume)Ordered By: Mónica Strange on 03-30-2024 Creatinine [Mass/Vol] 0.83 mg/dL 0.55-1.02 [facility] Comment on above: The validity of the calculated GFR & GFRAA in patients over 70 years has not been determined. Clinical correlation is essential. Serum or plasma urea nitroge n measurement (mass/volume)Ordered By: Mónica Strange on 03-30-2024 Urea nitrogen [Mass/Vol] 14 mg/dL 7-18 [facility] Sodium levelOrdered By: Thiago Strange on 03-30-2024 Sodium [Moles/Vol] 140 mmol/L 136-145 [facility] Testosterone, Serum Totalon 12-24-2024 Testosterone [Mass/Vol] 68.58 ng/dL Normal [facility] Comment on above: Result Comment: CENT RAL 90% REFERENCE RANGES MALE AGE <50 197.44 - 669.58 ng/dL MALE AGE > or = 50 187.72 - 684.19 ng/dL FEMALE AGE <50 8.38 - 35.01 ng/dL FEMALE AGE > or = 50 <7.00 - 35.92 ng/dL Effective as of 10/31/20 Performed By: #### L 801.2600, L509.3000, L3000.0375, L3600.3400, L509.8000, L500.2500, L3300.1750 #### [facility] [address] [place], [address] Testosterone, totalOrdered B y: Mónica Strange on 03-30-2024 Testosterone [Mass/Vol] 68.58 ng/dL [facility] Comment on above: CENTRAL 90% REFERENC E RANGES MALE AGE <50 197.44 - 669.58 ng/dL MALE AGE > or = 50 187.72 - 684.19 ng/dL FEMALE AGE <50 8.38 - 35.01 ng/dL FEMALE AGE > or = 50 <7.00 - 35.92 ng/dL Effective as of 10/31/20 Treponema sp Ab Ql (S)Ordere d By: Mónica Strange on 03-30-2024 Syphilis Total Antibody Non-Reactive [facility] LABORATORYOrdered By: Landy Bazan on 10-22-2023 Appearance [...] HCG ( test) Ql (U) Negative Normal [facility] ([place]) Comment on above: Performed By: #### P REGU, UA #### [address] [address] test (u) int Not detected Invalid Interpretation Code [facility] ([place] Comment on above: Performed By: #### P REGU, UA #### [address] [address] UAon 10-22-2023 Color (U) Yellow Normal [facility] ([place] Comment on above: Performed By: #### P REGU, UA #### [address] [address] Glucose (U) [Mass/Vol] Negative Normal Negative [facility] ([place] Comment on above: Performed By: #### P REGU, UA #### [address] [address] Ketones Ql (U) Negative Normal Negative [facility] [place] Comment on above: Performed By: #### P REGU, UA #### [address] [address] UA Appear Clear Normal Clear [facility] ([place] Comment on above: Performed By: #### P REGU, UA #### [address] [address] UA Blood Negative Normal Negative [facility] ([place] Comment on above: Performed By: #### P REGU, UA #### [place] [address] UA Leuk Est Negative Normal Negative [facility] ([place] Comment on above: Performed By: #### P REGU, UA #### [place] [address] UA Nitrite Negative Normal Negative [facility] ([place] Comment on above: Performed By: #### P REGU, UA #### [place] [address] UA pH 7.0 Normal 5.0 - 8.0 [facility] ([place] Comment on above: Performed By: #### P REGU, UA #### [place] [address] UA Protein Negative Normal Negative [facility] ([place] Comment on above: Performed By: #### P REGU, UA #### [place] [address] UA Spec Grav 1.020 Normal 1.015-1.02 5 [facility] ([place] Comment on above: Performed By: #### P REGU, UA #### [address] [address] UA Specimen Type Clean Catch Normal [facility] ([place] Comment on above: Performed By: #### P REGU, UA #### [address] [address] UA Urobilinogen 0.2 E.U./dL Normal 0.2-1.0 [facility] ([place] Comment on above: Performed By: #### P REGU, UA #### [place] [address] Urobilinogen (U) [Mass/Vol] Negative Normal Negative [facility] [place] Comment on above: Performed By: #### P REGU, UA #### [address] [address] .Auto Diffon 08-18-2023 Basophil, Absolute 0.1 10 3/mcL Normal 0.0-0.2 [facility] ([place]) Comment on above: Performed By: #### A ZINA, FE, ADIFF, CBC #### [address] [address] Basophils/100 WBC (Bld) 1.0 % Normal 0.0-2.5 [facility] ([place]) Comment on above: Performed By: #### A ZINA, FE, ADIFF, CBC #### [address] [address] Eosinophil, Absolute 0.2 10 3/mcL Normal 0.0-0.4 [facility] ([place]) Comment on above: Performed By: #### A ZINA, FE, ADIFF, CBC #### [address] [address] Eosinophils/100 WBC (Bld) 1.8 % Normal 0.0-7.0 [facility] ([place]) Comment on above: Performed By: #### A ZINA, FE, ADIFF, CBC #### [address] [address] Lymphocyte, Absolute 2.7 10 3/mcL Normal 0.8-3.9 [facility] ([place] Comment on above: Performed By: #### A ZINA, FE, ADIFF, CBC #### [address] [address] Lymphocytes/100 WBC (Bld) 32.2 % Normal 10.0-50.0 [facility] ([place] Comment on above: Performed By: #### A ZINA, FE, ADIFF, CBC #### [address] [address] Monocyte, Absolute 0.6 10 3/mcL Normal 0.2-1.0 [facility] ([place] Comment on above: Performed By: #### A ZINA, FE, ADIFF, CBC #### [address] [address] Monocytes/100 WBC (Bld) 6.7 % Normal 1.7-13.0 [facility] ([place] Comment on above: Performed By: #### A PETRA IZAGUIRRE ADIFF, CBC #### [place] [address] Neutrophils/100 WBC (Bld) 58.3 % Normal 37.0-80.0 [facility] ([place]) Comment on above: Performed By: #### A ZINA FE ADIFF, CBC #### [place] [address] .NEUABSon 08-18-2023 Neutrophil, Absolute 5.0 10 3/mcL Normal 2.9-6.2 [facility] ([place] Comment on above: Performed By: #### A ZINA FE ADIFF, CBC #### [place] [address] CBCon 08-18-2023 Erythrocyte distribution width (RBC) [Ratio] 12.7 % Normal 11.5-14.5 [facility] ([place] Comment on above: Performed By: #### A PETRA IZAGUIRRE ADIFF, CBC #### [place] [address] Hematocrit (Bld) [Volume fraction] 38.9 % Normal 37.0-47.0 [facility] ([place] Comment on above: Performed By: #### A ZINA FE ADIFF, CBC #### [place] [address] Hgb 13.5 G/dL Normal 12.0-16.0 [facility] ([place] Comment on above: Performed By: #### A PETRA IZAGUIRRE ADIFF, CBC #### [place] [address] MCH (RBC) [Entitic mass] 29.0 pg Normal 27.0-31.2 [facility] ([place] Comment on above: Performed By: #### A ZINA FE ADIFF, CBC #### [place] [id number] MCHC 34.6 G/dL Normal 33.0-37.0 [facility] ([place] Comment on above: Performed By: #### A PETRA IZAGUIRRE ADIFF, CBC #### [address] [address] MCV (RBC) [Entitic vol] 83.7 fL Normal 80.0-94.0 A [facility] ([place] Comment on above: Performed By: #### A PETRA IZAGUIRRE ADIFF, CBC #### [address] [address] Platelet 371 10 3/mcL Normal 130-400 [facility] ([place] Comment on above: Performed By: #### A PETRA IZAGUIRRE ADIFF, CBC #### [address] [address] Platelet mean volume (Bld) [Entitic vol] 7.1 fL Low 7.4-10.4 [facility] ([place] Comment on above: Performed By: #### A ZINA FE, ADIFF, CBC #### [address] [address] RBC 4.65 10 6/mcL Normal 4.20-5.40 [facility] ([place] Comment on above: Performed By: #### A ZINA FE, ADIFF, CBC #### [address] [address] WBC 8.5 10 3/mcL Normal 4.6-10.8 [facility] ([place] Comment on above: Performed By: #### A ZINA FE, ADIFF, CBC #### [address] [address] FEon 08-18-2023 Iron [Mass/Vol] 115 ug/dL Normal 50-170 [facility] ([place] Comment on above: Performed By: #### A ZINA FE, ADIFF, CBC ####[address] [address] CTPCRon 08-06-2023 C. trachomatis Interp Normal See CT Interp N [facility] ([place] Comment on above: Result Comment: C. t rachomatis DNA not detected. Specimen is presumptive negative for C. trachomatis. A negative result does not preclude C. trachomatis infection because results depend on adequate specimen collection, absence of inhibitors, and sufficient DNA to be detected. See CT Interp N Performed By: #### N GPCR1, CTPCR #### [place] [address] C.trachomatis PCR Negative Normal Negative [facility] ([place] Comment on above: Result Comment: Mole cular (PCR) assay performed on the [employer] 4800 system. Performed By: #### N GPCR1, CTPCR #### [address] [address] Chlam Source Urine Normal [facility] ([place] Comment on above: Performed By: #### N GPCR1, CTPCR #### [place] [address] [id number] 08-06-2023 GC PCR Source Urine Normal [facility] ([place] Comment on above: Performed By: #### N GPCR1, CTPCR #### [place] [address] N. gonorrhoeae (PCR) Negative Normal Negative [facility] ([place]) Comment on above: Result Comment: Mole cular (PCR) assay performed on the [employer] 4800 System. Performed By: #### N GPCR1, CTPCR #### [place] [address] N. gonorrhoeae Interp Normal See NG Interp N [facility] ([place] Comment on above: Result Comment: N. g onorrhoeae DNA not detected. Specimen is presumptive negative for N. gonorrhoeae. A negative result does not preclude Neisseria gonorrhoeae infection because results depend on adequate specimen collection, absence of inhibitors, and sufficient DNA to be detected. See NG Interp N Performed By: #### N GPCR1, CTPCR #### [place] [address] LABORATORYOrdered By: Alexandra Shaw on 08-04-2023 C. [...] Negative 1 (08/04/23 5:55 PM) Normal Negative AH Auto [...] Reports Accession: Collected Date/Time: Received Date/Time: Pathologist: [id number] 06/25/2023 10:43 EDT 06/27/2023 07:32 EDT PHILL FUENTES MD Final Surgical Pathology Report DIAGNOSIS: SKIN, RIGHT LOWER ABDOMEN: - JUNCTIONAL NEVUS CLINICAL INFORMATION: PROCEDURE: PUNCH EXCISION PREOPERATIVE DIAGNOSIS: ATYPICAL MOLE POSTOPERATIVE DIAGNOSIS: SAME SPECIMEN: A RIGHT LOWER ABDOMEN GROSS DESCRIPTION: All parts labelled with patient name and [id number] Received in formalin labelled "undesignated on the container" is a skin punch biopsy measuring 0.3 cm in diameter and 0.3 cm in thickness. Skin surface grossly unremarkable. Cut surface inked black. TS -1 Milton Danielson, Pathologists' Ela Teacher (ASCP) Dictated by MILTON DANIELSON Electronically Signed by Pathology Report verified by [facility] PHILL FUENTES Sign out Date: 06/30/2023 15:07 Performing Lab: [facility], [facility] [place] [facility] [place] [address] [place] [address] Pathology Dept Disclaimer If ancillary studies were utilized, the following Laboratory Developed Test (LDT) disclaimer will apply: Under CLIA requirements, [facility] is qualified to perform high complexity testing. For all ancillary stains, positive and negative controls stain appropriately. Performance characteristics of immunohistochemical and chromogenic in-situ hybridization tests have been determined by [facility]. These tests are used for clinical purposes, They should not be regarded as investigational or for research. Normal [facility] ([place]) Basophil percentageOrdered B y: Mónica Strange on 06-02-2023 Bilirubin [Mass/Vol] 0.50 mg/dL 0.20-1.00 [facility] Comment on above: For patients on eltr ombopag therapy, use of Dimension [place] TBIL is not recommended. Chloride [Moles/Vol] 109 mmol/L 98-107 [facility] Glucose [Mass/Vol] 85 mg/dL 74-106 [facility] Potassium [Moles/Vol] 3.9 mmol/L 3.5-5.1 [facility] Protein [Mass/Vol] 7.2 g/dL 6.4-8.2 [facility] Sodium [Moles/Vol] 140 mmol/L 136-145 [facility] Laboratory - Chemistry and C hemistry - challengeOrdered By: Mónica Strange on 06-02-2023 Albumin/Globulin [Mass ratio] 1.2 {ratio} 0.9-2.4 [facility] ALP [Catalytic activity/Vol] 59 U/L 45-117 [facility] ALT [Catalytic activity/Vol] 19 U/L 13-56 [facility] CO2 [Moles/Vol] 26.0 mmol/L 21.0-32.0 [facility] Globulin (S) [Mass/Vol] 3.3 g/dL 2.2-4.2 [facility] Urea nitrogen/Creatinine [Mass ratio] 11.5 mg/mg 10-20 [facility] No Panel InformationOrdered By: Mónica Strange on 06-02-2023 Estimated GFR (MDRD) Amer 119 mL/min >60 [facility] Comment on above: GFR Calc Estimated GFR (MDRD) Non-Af Amer 98 mL/min >60 [facility] Comment on above: Non- GFR Calc Serum or plasma calcium fabian urement (mass/volume)Ordered By: Mónica Strange on 06-02-2023 Calcium [Mass/Vol] 9.1 mg/dL 8.5-10.1 [facility] Serum or plasma creatinine m easurement (mass/volume)Ordered By: Mónica Strange on 06-02-2023 Creatinine [Mass/Vol] 0.78 mg/dL 0.55-1.02 [facility] Comment on above: The validity of the calculated GFR & GFRAA in patients over 70 years has not been determined. Clinical correlation is essential. Serum or plasma thyroid stim ulating hormone (TSH) measurement (units/volume)Ordered By: Mónica Strange on 06-02-2023 TSH Qn 1.03 uIU/mL 0.358-3.74 [facility] Serum or plasma urea nitroge n measurement (mass/volume)Ordered By: Mónica Strange on 06-02-2023 Urea nitrogen [Mass/Vol] 9 mg/dL 7-18 [facility] Thin prep Papanicolaou smear with manual screeningOrdered By: Mónica Strange on 06-02-2023 Thin prep Papanicolaou smear with manual screening 3.9 g/dL 3.2-5.0 [facility] Thin prep Papanicolaou smear with manual screening 10 U/L 15-37 [facility] Thin prep Papanicolaou smear with manual screening 5 5-15 [facility] Thin prep Papanicolaou smear with manual screening 1.01 ng/dL 0.76-1.46 [facility] HBSABon 01-16-2023 Hep B Surf Ab 423.9 mIU/mL Normal >=10.0 [facility] ([place] Comment on above: Result Comment: 0 [...] Preparation. Performed By: #### H BSAB #### [place] [address] US SOFT TISSUE MASS OF RT AR M OR LEGon 01-15-2023 US SOFT TISSUE MASS OF RT ARM OR LEG ORIGINAL EXAMINATION: SOFT TISSUE ULTRASOUND OF THE RIGHT SLPVBVYSX93/11/2023 1:26 pm TECHNIQUE: Duplex ultrasound using B-mode/connelly [...] 01/15/2023 2:50:31 PM Ordering Provider: MÓNICA Floyd [facility] ([place] No Panel Informationon 06-26 Culture Throat Normal throat justino present Sensitivity Testing: Not Indicated [facility] Work Phone: LABORATORYOrdered By: Lora hernandez on [...] Invalid Interpretation Code See NG Interp N Auto Viro/Sero SS [...] AO Auto Urine SS Progress Noteon 10-06-2019 [employer] Authentication Interface Message Text Patient ID: Kierra [...] caregiver and patient is being seen by fire investigation manager or machine steak tenderizer. Primary Care Review of Systems Objective Vital [...] Minimal Electronically signed by: Jacqueline Abarca MD [facility] Progress Noteon 05-04-2019 [employer] Authentication Interface Message Text Patient ID: Kierra [...] is no pallor. Skin is warm. Normal [facility] Vital Signs Date Time Vital Sign Value Performing Clinician Facility 01-10-2025 11:38-0400 Body height 157.48 cm Mónica Strange [facility] Work Phone: [facility] 01-10-2025 11:29-0400 Body mass index (BMI) [Ratio] 18.8 kg/m2 Mónica Strange [facility] Work Phone: [facility] 01-10-2025 11:29-0400 Body weight 46.77 kg Mónica Strange [facility] Work Phone: [facility] 01-10-2025 11:29-0400 Diastolic blood pressure 77 mm[Hg] Mónica Strange [facility] Work Phone: [facility] 01-10-2025 11:29-0400 Systolic blood pressure 118 mm[Hg] Mónica Strange [facility] Work Phone: [facility] 12-27-2024 10:09-0400 Body height 157.48 cm Mónica Strange [facility] Work Phone: [facility] 12-27-2024 10:09-0400 Body mass index (BMI) [Ratio] 18.8 kg/m2 Mónica Strange [facility] Work Phone: [facility] 12-27-2024 10:09-0400 Body weight 46.77 kg Mónica Strange [facility] Work Phone: [facility] 12-27-2024 10:09-0400 Diastolic blood pressure 82 mm[Hg] Mónica Strange [facility] Work Phone: [facility] 12-27-2024 10:09-0400 Systolic blood pressure 120 mm[Hg] Mónica Strange [facility] Work Phone: [facility] 12-23-2024 14:06-0400 Body temperature 97.6 [degF] Mónica Strange [facility] Work Phone: [facility] 12-23-2024 14:06-0400 Diastolic blood pressure 69 mm[Hg] Mónica Strange [facility] Work Phone: [facility] 12-23-2024 14:06-0400 Heart rate 59 /min Mónica Strange [facility] Work Phone: [facility] 12-23-2024 14:06-0400 Respiratory rate 16 /min Mónica Strange [facility] Work Phone: [facility] 12-23-2024 14:06-0400 SaO2% (BldA) [Mass fraction] 100 % Mónica Strange [facility] Work Phone: [facility] 12-23-2024 14:06-0400 Systolic blood pressure 105 mm[Hg] Mónica Strange [facility] Work Phone: [facility] 12-23-2024 06:14-0400 Body height 157.48 cm Mónica Strange [facility] Work Phone: [facility] 12-23-2024 06:14-0400 Body mass index (BMI) [Ratio] 19.1 kg/m2 Mónica Strange [facility] Work Phone: [facility] 12-23-2024 06:14-0400 Body weight 47.6 kg Mónica Strange [facility] Work Phone: [facility] 09-01-2024 11:31-0400 Body height 157.48 cm Mónica Strange [facility] Work Phone: [facility] 09-01-2024 11:26-0400 Body mass index (BMI) [Ratio] 19.2 kg/m2 Mónica Strange [facility] Work Phone: [facility] 09-01-2024 11:26-0400 Body weight 47.68 kg Mónica Strange [facility] Work Phone: [facility] 09-01-2024 11:26-0400 Diastolic blood pressure 62 mm[Hg] Mónica Strange [facility] Work Phone: [facility] 09-01-2024 11:26-0400 Systolic blood pressure 104 mm[Hg] Mónica Strange [facility] Work Phone: [facility] 07-12-2024 08:55-0400 Body height 157.48 cm Mónica Strange [facility] Work Phone: [facility] 07-12-2024 08:45-0400 Body mass index (BMI) [Ratio] 19 kg/m2 Mónica Strange [facility] Work Phone: [facility] 07-12-2024 08:45-0400 Body weight 47.17 kg Mónica Strange [facility] Work Phone: [facility] 07-12-2024 08:45-0400 Diastolic blood pressure 80 mm[Hg] Mónica Strange [facility] Work Phone: [facility] 07-12-2024 08:45-0400 Systolic blood pressure 114 mm[Hg] Mónica Strange [facility] Work Phone: [facility] 10-22-2023 02:43-0400 Diastolic Blood Pressure Non-Invasive 96 mm[Hg] NIEVES VORA DO [facility] 10-22-2023 02:43-0400 Heart rate 76 /min NIEVES HILL DO [facility] 10-22-2023 02:43-0400 Mean blood pressure 109 mm[Hg] NIEVES HILL DO [facility] 10-22-2023 02:43-0400 Respiratory rate 16 /min NIEVES HILL DO [facility] 10-22-2023 02:43-0400 Systolic Blood Pressure Non-Invasive 138 mm[Hg] NIEVES HILL DO [facility] 10-22-2023 02:02-0400 Heart rate 95 /min NIEVES HILL DO [facility] 10-22-2023 01:49-0400 Body height 157.5 cm NIEVES HILL DO [facility] 10-22-2023 01:49-0400 Body temperature 96.98 [degF] NIEVES HILL DO [facility] 10-22-2023 01:49-0400 Body weight 50 kg NIEVES HILL DO [facility] 10-22-2023 01:49-0400 Diastolic Blood Pressure Non-Invasive 95 mm[Hg] NIEVES HILL DO [facility] 10-22-2023 01:49-0400 Heart rate 113 /min NIEVES HILL DO [facility] 10-22-2023 01:49-0400 Respiratory rate 18 /min NIEVES HILL DO [facility] 10-22-2023 01:49-0400 Systolic Blood Pressure Non-Invasive 151 mm[Hg] NIEVES HILL DO [facility] Encounters Encounter Date Encounter Type Care Provider Facility Start: 01-10-2025 End: 01-10-2025 Patient encounter procedure Sherri Mccollum [facility] -Laboratory Specimen Work Phone: Start: 01-10-2025 End: 01-10-2025 ambulatory Mónica Lormc [facility] Work Phone: -[facility] [place] Start: 01-10-2025 End: 01-10-2025 ambulatory Sherriodell Mccollum [facility] Facility:[facility] Start: 12-27-2024 End: 12-27-2024 Patient encounter procedure Sherri Mccollum [facility] -[facility] Work Phone: Start: 12-27-2024 End: 12-27-2024 ambulatory Mónica Laurel [facility] Work Phone: -[facility] Start: 12-23-2024 End: 12-23-2024 Emergency department patient visit Mónica Strange [facility] Work Phone: -Emergency Department Work Phone: Start: 11-17-2024 ambulatory Mónica Strange Facility :[facility] Start: 09-01-2024 End: 09-01-2024 Patient encounter procedure Sherri Mccollum MICA PLATE [facility]AYER HAND-C -[facility] Work Phone: Start: 09-01-2024 End: 09-01-2024 ambulatory Mónica Strange [employer] HAND-C Work Phone: [facility] Work Phone: Start: 07-12-2024 End: 07-12-2024 Patient encounter procedure Sherri Mccollum M[employer]ATE LAY[employer] HAND-C -[facility] [place] Work Phone: Start: 07-12-2024 End: 07-12-2024 ambulatory Mónicacoleman Strange [employer] HAND-C Work Phone: [facility] Work Phone: Start: 07-12-2024 End: 07-12-2024 ambulatory Mónica Strange Facility:[facility] Start: 04-22-2024 Encounter for gynecological examination (general) (routine) without abnormal findings Mónica Cindymc [facility] Start: 03-30-2024 End: 04-03-2024 ambulatory MÓNICA STRANGE HOME SUPPORT WORKER-MAINTENANCE SERVICES DISPATCHER Facility:[facility] Start: 03-30-2024 End: 04-03-2024 Encounter for gynecological examination (general) (routine) without abnormal findings MÓNICA BARRONMC HOME SUPPORT WORKER-MAINTENANCE SERVICES DISPATCHER Facility:[facility] Start: 03-30-2024 End: 04-03-2024 Outreach Lab MÓNICA STRANGE HOME SUPPORT WORKER-MAINTENANCE SERVICES DISPATCHER [facility] Start: 03-30-2024 End: 03-30-2024 Patient encounter procedure Mónica Strange [employer] HAND-C -Laboratory Work Phone: Start: 03-30-2024 End: 03-30-2024 ambulatory Mónica Laurel Facility:[facility] Start: 10-22-2023 End: 10-22-2023 Emergency department patient visit NIEVES VORA DO [facility] Start: 08-18-2023 End: 08-18-2023 ambulatory MÓNICA LAUREL Facility:B Start: 08-04-2023 End: 08-08-2023 ambulatory MÓNICA STRANGE Facility:B Start: 08-04-2023 End: 08-08-2023 Outreach Lab MÓNICA STRANGE HOME SUPPORT WORKER-MAINTENANCE SERVICES DISPATCHER [facility] Start: 07-21-2023 End: 07-21-2023 ambulatory MÓNICA BARRONMC Facility:B Start: 07-21-2023 End: 07-21-2023 Patient encounter procedure MÓNICA BARRONMC HOME SUPPORT WORKER-MAINTENANCE SERVICES DISPATCHER [facility] Start: 06-25-2023 End: 06-29-2023 ambulatory MÓNICA STRANGE Facility:B Start: 06-25-2023 End: 06-29-[address] CLAUDIA PAIZ DO [facility] Start: 06-20-2023 End: 06-20-2023 ambulatory MÓNICA STRANGE Facility:B Start: 06-20-2023 End: 06-20-2023 Patient encounter procedure MÓNICA LAUREL HOME SUPPORT WORKER-MAINTENANCE SERVICES DISPATCHER [facility] Start: 06-02-2023 End: 06-02-2023 ambulatory [facility] Work Phone: Start: 06-02-2023 End: 06-02-2023 Patient encounter procedure [facility] Work Phone: Start: 06-02-2023 End: 06-02-2023 ambulatory MÓNICA STRANGE Facility:B Start: 01-15-2023 End: 01-15-2023 ambulatory MÓNICA STRANGE Facility:B Start: 01-15-2023 End: 01-15-2023 Patient encounter procedure MÓNICA STRANGE HOME SUPPORT WORKER-MAINTENANCE SERVICES DISPATCHER [facility] Start: 06-26-2022 End: 06-30-2022 Outreach Lab BEAR IZQUIERDO HOME SUPPORT WORKER-MAINTENANCE SERVICES DISPATCHER [facility] Start: 01-08-2022 End: 01-12-2022 Outreach Lab MÓNICA STRANGE HOME SUPPORT WORKER-MAINTENANCE SERVICES DISPATCHER [facility] Start: 04-12-2021 End: 04-12-2021 Patient encounter procedure [facility] HOME SUPPORT WORKER-MAINTENANCE SERVICES DISPATCHER [facility] Procedures Date Procedure Procedure Detail Performing Clinician Start: 12-23-2024 End: 12-23-2024 Polymerase chain reaction analysis Mónica NG Work Phone: Start: 12-23-2024 End: 12-23-2024 Trichomonas vaginalis detection Mónica Lorson [employer]-C Work Phone: Start: 12-23-2024 Transvaginal echography Mónica Strange [employer]-C Work Phone: Start: 12-23-2024 Urnls dip stick/tabl et reagent auto microscopy Mónica Strange [employer]-C Work Phone: Start: 12-23-2024 Ct abdomen & pelvis w/contrast material Mónica Strange [employer] HAND-C Work Phone: Start: 12-23-2024 D-dimer assay, quantitative Mónica Strange [employer]-C Work Phone: Comment on above: NORMAL D-Dimer level (<0.50) indicates no DVT or PE. Start: 12-23-2024 Estimated creatinine clearance Mónica Strange [employer] HAND-C Work Phone: Start: 09-01-2024 End: 09-01-2024 Polymerase chain reaction analysis Mónica Strange [employer]-C Work Phone: Start: 07-12-2024 Dehydroepiandrostero ne sulfate level Mónica tSrange [employer] HAND-C Work Phone: Start: 07-12-2024 Follicle stimulating hormone measurement Mónica Strange [employer]-C Work Phone: Comment on above: FEMALE:Follicular: 1 [...] Start: 07-12-2024 Luteinizing hormone measurement Mónica Strange [employer]-C Work Phone: Comment on above: FEMALE:Follicular: 1 .9-12.5 mIU/mLMidcycle: 8.7-76.3 mIU/mLLuteal: 0.5-16.9 mIU/mLPost Menopause: 15.9-54.0 mIU/mLMALE:20-70 Years: 1.5-9.3 mIU/mL>70 Years: 3.1-34.6 mIU/mL None (qualifier value) [facility] HOME SUPPORT WORKERPolicyStat Plan of Treatment Date Care Activity Detail Author Start: 01-10-2025 Liquid based cervical cytology screening [facility] Start: 12-23-2024 [facility] Start: 07-12-2024 17-Hydroxyprogesterone [Mass/volume] in Serum or Plasma [facility] Start: 07-12-2024 Dehydroepiandrosterone sulfate (DHEA-S) [Mass/volume] in Serum or Plasma [facility] Start: 07-12-2024 Prolactin measurement [facility] Start: 07-12-2024 Testosterone Free [Mass/volume] in Serum or Plasma [facility] Chlamydia deoxyribon ucleic acid detection [facility] Path report.final Dx Spec [facility] Patient Education ED Flank Pain with Uncertain Cause [facility] Work Phone: [facility] Immunizations Immunization Date Immunization Notes Care Provider Fa jose m 12-06-2020 COVID-19, mRNA, LNP- S, PF, 100 mcg/ 0.5 mL dose; Translations: [Moderna COVID-19 Vaccine] [facility] HOME SUPPORT WORK[employer]MAINTENANCE SERVICES DISPATCHER [facility] 11-08-2020 COVID-19, mRNA, LNP- S, PF, 100 mcg/ 0.5 mL dose; Translations: [Moderna COVID-19 Vaccine] [facility]PPORT WORK[employer]MAINTENANCE SERVICES DISPATCHER [facility] 10-11-2019 meningococcal B vacc ine, recombinant, OMV, adjuvanted [facility] HOME SUPPORT WORKER-[facility] 05-19-2018 hepatitis A vaccine, pediatric dosage, unspecified formulation [facility] HOME SUPPORT WORKER-[facility] 05-19-2018 Human Papillomavirus Quadval [facility]PPORT [employer] 05-19-2018 meningococcal polysaccharide (groups A, C, Y and W-135) diphtheria toxoid conjugate vaccine (MCV4P) [facility] SUPPORT WORK[employer] 09-05-2017 Human Papillomavirus Quadval [employer] [employer]PPORT [employer] 05-13-2017 hepatitis A vaccine, pediatric dosage, unspecified formulation [facility] HOME SUPPORT WORKER-[facility] 05-13-2017 Human Papillomavirus Quadval [employer] [employer] 09-08-2006 measles/mumps/rubell a virus vaccine [facility] HOME SUPPORT WORKER-[facility] 09-08-2006 poliovirus vaccine, inactivated [employer] HOME SUPPORT WORKER-[facility] 09-08-2006 varicella virus vaccine [employer]PPORT [employer] 12-30-2003 poliovirus vaccine, inactivated [employer] [facility] HOME SUPPORT WORKER-[facility] 05-19-2003 haemophilus influenz ae type b conjugate and Hepatitis B vaccine [employer] [facility] HOME SUPPORT WORKER-[facility] 05-19-2003 poliovirus vaccine, inactivated [employer] HOME SUPPORT WORKER-[facility] 05-19-2003 varicella virus vaccine [employer] HOME SUPPORT WORKER-[facility] 08-31-2002 measles/mumps/rubell a virus vaccine [employer] HOME SUPPORT WORKER-[facility] 03-02-2002 haemophilus influenz ae type b vaccine, PRP-T conjugate [facility] HOME SUPPORT WORKER-[facility] 2001 haemophilus influenz ae type b vaccine, PRP-T conjugate [employer] HOME SUPPORT WORKER-[facility] 2001 pneumococcal polysaccharide vaccine, 23 valent [employer] HOME SUPPORT WORKER-[facility] 2001 haemophilus influenz ae type b vaccine, HbOC conjugate [employer] HOME SUPPORT WORKER-[facility] 2001 hepatitis B pediatri c vaccine [facility] HOME SUPPORT WORKER-[facility] 2001 poliovirus vaccine, inactivated [facility] HOME SUPPORT WORKER-MAINTENANCE SERVICES DISPATCHER [facility] 2001 hepatitis B pediatri c vaccine [facility] HOME SUPPORT WORKER-MAINTENANCE SERVICES DISPATCHER [facility] Payers Date Payer Category Payer Self-pay [id number] 2023 Private Health Insurance [id number] 2023 Private Health Insurance [id number] 2023 Private Health Insurance [id number] 2023 Private Health Insurance [id number] 2001 Unknown [id number] 2.16.8 40.1.716552.3.579.2 2001 Unknown [id number] 2.16.8 40.1.739604.3.579.2 2001 Unknown [id number] 2.16.8 40.1.737357.3.579.2. 2001 Unknown [id number] 2.16.8 40.1.114108.3.579.2 2001 Unknown [id number] 2.16.8 40.1.579108.3.579.2 2001 Unknown [id number] 2.16.8 40.1.330119.3.579.2 2001 Unknown [id number] 2.16.8 40.1.043080.3.579.2 2001 Unknown [id number] 2.16.8 40.1.820531.3.579.2627 2001 Unknown [id number] 2.16.8 40.1.355333.3.579.2.627 Unknown [id number] Unknown [id number] 2.16.8 40.1.243623.3.579.2.462 Unknown [id number] 2.16.8 40.1.218112.3.579.2.462 Unknown [id number] 2.16.8 40.1.355961.3.579.2.462 Unknown [id number] 2.16.8 40.1.864111.3.579.2.462 Unknown [id number] 2.16.8 40.1.810600.3.579.2.462 Unknown [id number] 2.16.8 40.1.017946.3.579.2.462 Unknown [id number] 2.16.8 40.1.112432.3.579.2.462 Unknown [id number] 2.16.8 40.1.381783.3.579.2.462 Unknown [id number] 2.16.8 40.1.396144.3.579.2.462 Unknown [id number] 2.16.8 40.1.284535.3.579.2.462 Social History Date Type Detail Facility Start: 04-18-2020 Never smoked t obacco (finding) [facility] Sex Assigned At [facility] Start: 05-23-2019 End: 07-12-2024 Tobacco smoking status NHIS Unknown if ever smoked [facility] Start: 2000 Sex Assigned At Female W [facility] Tobacco Nicotine Use: Va ping Product in Last 90 Days. Exposure to Tobacco Smoke Lives in non-smoking home. [facility] Comment on above: at least a couple of times a week Start: 07-15-2024 Sex Female (finding) [facility] Start: 12-23-2024 Tobacco smoking stat us DEIS Smokes tobacco daily (finding) [facility] Sex Female [facility] Functional Status Date Assessment Result Facility 10-22-2023 Functional Status Independent [facility] [place] Mental Status Date Assessment Result Facility 10-22-2023 Mental Status Oriented x 4 [facility] Clinical Notes 01-15-2023 to 01-10-2025 Note Date & Type Note Facility 01-10-2025 Progress note [facility] 12-27-2024 Evaluation note Diagnosis Onset Date Resolution Contraception management acute December 27, 2024 10:06am PCOS (polycystic ovarian syndrome) acute December 27, 2024 10:06am Secondary oligomenorrhea acute December 27, 2024 10:06am Encounter for insertion of Polly IUD noneactive January 10 11:27am [facility] Work Phone: 1(617) 292-787509-22-2025 Progress [facility] [address] [place] [address], [address] [place] [address] OFFICE VISIT Date of Service: 12/27/24 MR#: [id number] Acct: [id number] Name: KIERRA BLANCA Rep #: [id number] : 2000 Provider: BERENICE Mccollum Age/Sex: 24/F Location: [facility] Status: Signed Intake Vital Signs 09/01/24 11:31 12/23/24 06:14 12/27/24 10:09 Height 5 ft 2 in 5 ft 2 in 5 ft 2 in Weight: 103 lb 2 oz BMI 18.8 BP 120/82 H Intake Visit Reasons: BC Consult *copay $20 Chopped Strand Operator Required: No Is patient in pain?: No [...] History current occupational status: employed current occupation: [employer] Smoking Status: Current every day smoker tobacco [...] general counseling and advice oncontraception Comment: plans polly IUD Medications: Refilled medroxyprogesterone 10 mg PO QDAY 10 tabs 0RF 10 days Plan Discussed use, benefits, risks and side effects of polly IUD Written informationgiven. She will call with onset of menses for insertion. 12/27/24 1028 s MICA PLATE LAYER HAND M[employer] HAND-C> Date _ Sherri Mccollum NP [employer] HAND-C Cosigner Signature: Date (if applicable) CC: ~ [facility]09-18-2025 Discharge summary [facility] Medical Records Department [address] [place] [address] Emergency Department Summary 12/23/24 MR#: [id number] Acct: [id number] Name: KIERRA BLANCA Rep #:[id number] : 2000 24 From: Jase Stephenson DO PCP: BERENICE Ruiz Status:REG E R Location: ED ADDENDUM by Dr. Verena Izquierdo DO on 12/23/24 at 1413 Patient is a 24-year-old female presenting with bilateral mid back pain wrapping around towards herabdomen. Does have a history of kidney stones and dysfunctional uterine bleeding. Follows with [facility] DIRECTOR OF STRATEGIC SOURCING. Initially received IV fluids and Toradol. Repeat [...] sexual partner. Pelvic exam is performed with rhinologist. She has normal external genitalia. No abnormal vaginal discharge. Mild discomfort on bimanual exam but no chandelier sign. Cervixmildly friable. Pelvic ultrasound added on which shows a prominent left ovarian cyst and minimalamount of free fluid in the cul-de-sac. On repeat evaluation continues to feel improved. Case is discussed with DIRECTOR OF STRATEGIC SOURCING,Dr. Augustin. She reviews the films. She discussed [...] hold off on empiric antibiotic treatment. Given thather physical exam is not consistent with PID nor is her ultrasound I think this is reasonable. She actually has a follow-up appointment with her DIRECTOR OF STRATEGIC SOURCING at [facility] next week. Patient is given strict return [...] underlyingearly ileus. Moderate stool burden. Reading Location: [id number] Transvaginal US 12/23/24 11:17 IMPRESSION: 2.5 cm 2 cm 1.8 cm left ovarian cyst. Minimal amount of free fluid is seen in the cul-de-sac. Reading Location: [facility] 12/23/24 1413 Cosigner Signature (if applicable): cc: BERENICE Strange [...] potential kidney stone she presents for evaluation. [facility] Medical History Depression MVP (mitral valve [...] History current occupational status: employed current occupation: [employer] Smoking Status: Current every day smoker tobacco [...] was obtained which was normal which would goagainst a PE or dissection. There is concern she could have pyelonephritis or kidney stone. Therefore I elected to perform a CT scan with IV contrast of the abdomen and pelvis. Patient's white count is elevated but this is nonspecific in nature and could be related to stress response. At this time t he patient's urine sample as well as CT scan is still pending and therefore should be signed out toDr. Izquierdo. The patient was given Toradol andIV [...] (Auto) 69.4 Lymph % (Auto) 17.7 L [place] % (Auto) 10.0 Eos % (Auto) 1.6 [...] Provider: Mónica Strange NP Referrals: Mónica Strange NP, [facility]-C [Primary Care Provider, Family Practice] Print Language: Palestinian What to do if you have Problems For any increased pain, shortness of breath, bleeding, nausea or vomiting, chestpain, or any unexpected problems, contact your Primary Care Provider. Call [facility] ([phone]) or report tothe closest Emergency Room. Call 911 if necessary. 12/23/24 0848 Cosigner Signature (if applicable): CC: [employer] HAND-C Mónica Strange ~ Signed [facility]09-18-2025 Discharge summary Author Jase Stephenson [facility] Note Date/Time December 23, 2024 2:13pm [facility] Medical Records Department [address] [place] [address] Emergency Department Summary 12/23/24 MR#: [id number] Acct: [id number] Name: KIERRA BLANCA Rep #:[id number] : 2000 24 From: Jase Stephenson DO PCP: BERENICE Ruiz Status:REG E R Location: ED ADDENDUM by Dr. Verena Izquierdo DO on 12/23/24 at 1413 Patient is a 24-year-old female presenting with bilateral mid back pain wrapping around towards her abdomen. Does have a history of kidney stones and dysfunctional uterine bleeding. Follows with [facility] DIRECTOR OF STRATEGIC SOURCING. Initially received IV fluids and Toradol. Repeat [...] sexual partner. Pelvic exam is performed with rhinologist. She has normal external genitalia. No abnormal vaginal discharge. Mild discomfort on bimanual exam but no chandelier sign. Cervix mildly friable. Pelvic ultrasound added on which shows a prominent left ovarian cyst and minimalamount of free fluid in the cul-de-sac. On repeat evaluation continues to feel improved. Case is discussed with DIRECTOR OF STRATEGIC SOURCING,Dr. Augustin. She reviews the films. She discussed [...] actually has a follow-up appointment with her DIRECTOR OF STRATEGIC SOURCING at [facility] next week. Patient is given strict return [...] early ileus. Moderate stool burden. Reading Location: [id number] Transvaginal US 12/23/24 11:17 IMPRESSION: 2.5 cm 2 cm 1.8 cm left ovarian cyst. Minimal amount of free fluid is seen in the cul-de-sac. Reading Location: [facility] 12/23/24 1413<Electronically signed by Verena Izquierdo [...] potential kidney stone she presents for evaluation. [facility] Medical History Depression MVP (mitral valve [...] History current occupational status: employed current occupation: [employer] Smoking Status: Current every day smoker tobacco [...] (Auto) 69.4 Lymph % (Auto) 17.7 L [place] % (Auto) 10.0 Eos % (Auto) 1.6 [...] Provider: Mónica Strange NP Referrals: Mónica Strange NP, [employer] HAND-C [Primary Care Provider, Family Practice] Print Language: Palestinian What to do if you have Problems For any increased pain, shortness of breath, bleeding, nausea or vomiting, chestpain, or any unexpected problems, contact your Primary Care Provider. Call [facility] ([phone]) or report to the closest Emergency Room. Call 911 if necessary. 12/23/24 0848 <Electronically signed by Jase Stephenson DO> Cosigner Signature (if applicable): CC: BERENICE Strange ~ Signed [facility] Work Phone: 1(214) 430-836609-18-2025 Radiology Diagnostic study note [facility] Imaging Services [address] [place] [address] Transvaginal Non- MR#: [id number] Acct: [id number] Name: KIERRA BLANCA Rep #: [id number] : 2000 24 From: Jeremías Camp MD PCP: BERENICE Ruiz Status: REG E R Study:Transvaginal Non- Date of Exam: 12/23/24 Exam# [id number] Ordering Dr: Ann-Marie Izquierdo DO PROCEDURE: TRANSVAGINAL [...] is seen in the cul-de-sac. Reading Location: [place] [address] CC: BERENICE Strange; Dr. Verena Izquierdo DO ~ Linen Aide: Signed [facility]09-18-2025 Radiology Diagnostic study note [facility] Imaging Services [address] [place] [address] Abdomen/Pelvis W IV Cont ONLY MR#: [id number] Acct: [id number] Name: KIERRA BLANCA Rep #: [id number] : 2000 F 24 From: Analia Samano MD PCP: BERENICE Ruiz Status: REG E R Study:Abdomen/Pelvis W IV Cont ONLY Date of E xam: 12/23/24 Exam# [id number] Ordering Dr: Maribell Stephenson DO PROCEDURE: ABDOMEN/PELVIS [...] oral contrast in paucity of abdominal fat. Nocegtmt-ac-dzzpz stool burden. Multiple loops distended small bowel [...] underlyingearly ileus. Moderate stool burden. Reading Location: [id number] CC: BERENICE Strange; Jase Stephenson DO ~ Linen Aide: Signed [facility]05-28-2025 Evaluation note* Diagnosis Onset Date Resolution Status Admit Date Acne acute September 01, 2024 11:25am Hirsutism acute September 01, 2024 11:25am Secondary oligomenorrhea acute September 01, 2024 11:25am [facility] Work Phone: 1(106) 437-637104-07-2025 Evaluation note* Diagnosis Onset Date Resolution Status Admit Date Abnormal uterine bleeding (AUB) acut e July 12, 2024 8:39am Acne acute July 12 8:39am Elevated testosterone level in female acute July 12, 2024 8:39am Estrogen excess acute July 8:39am Hirsutism acute July 12 8:39am [facility] Work Phone: 1(942) 975-353604-07-2025 Evaluation note* Diagnosis Onset Date Resolution Status Admit Date Acne acute July 12 8:39am Elevated testosterone level in female acute July 12, 2024 8:39am Estrogen excess acute July 8:39am Hirsutism acute July 12 8:39am Abnormal uterine bleeding (AUB) anali staci July 12, 2024 8:39am Acne acute September 01, 2024 11:25am Hirsutism acute September 01, 2024 11:25am Secondary oligomenorrhea acute September 01, 2024 11:25am [facility] Work Phone: 1(909) 661-633012-24-2024 Evaluation + Plan note Future Scheduled Tests Laboratory* Rapid HIV (AO) 03/30/24 * Basic Metabolic Panel 03/30/24 * Estradiol Level 03/15/24 * Progesterone Level 03/15/24 * Rapid Plasma Reagin Test 03/30/24 * Testosterone Level Total 03/15/24 * Thyroid Stimulating Hormone 06/02/23 * Free T4 06/02/23 * Acute Hepatitis Panel 03/30/24 * Complete Metabolic Panel 06/02/23 Radiology* US Pelvis Non-OB Limited 08/04/23 [facility] 07-17-2024 Hospital Discharge instructions Patient Education 10/22/2023 [...] Rectal bleeding can also happen without pain. [phone] [employer]. [address] [place] [address]. All rights reserved. This information is not intended as a substitute for professional medical care. Always follow yourhealthcare professional's instructions. Follow Up Care 10/22/2023 01:43:15 With:BRYSON ESPINOZA MD Address: [address] [facility] [address] [place] [address]- [phone] When:1-2 days [facility] 07-17-2024 Note Discharge Instructions Thank you for allowing [facility] to assist you with your healthcare needs. [...] BRYSON ESPINOZA MD When:Within 1-2 days Where:[address] [address]- [phone] Allergies NKA Medications Please ask your primary [...] Rectal bleeding can also happen without pain. [phone] [employer]. [address] [place] [address], [place] [address]. All rights reserved. This information is not intended as a substitute for professional medical care. Always follow yourhealthcare professional's instructions. Additional Information VACCINATE! IT SAVES LIVES! Members of the community who have not yet received the COVID-19 vaccine and would like to receive it can visit one of [facility] vaccine clinics. There are many vaccine clinic locations within the [facility]. For locations and available times, please visit [email or web address] It is important to note that some COVID mobile vaccine clinics are held outdoors and may be canceled in rainy or stormy conditions. To learn more about pediatric vaccinations (ages 5-11), we invite you to visit the [facility] webpage. [email or web address]/[email or web address] [email or web address].htmlTo learn more about the COVID-19 vaccine, we invite you to visit the CDC website for a list of frequently asked questions. https://www.cdc.gov/coronavirus/2019-ncov/vaccines/faq.html [place] Patient Portal Access Instructions: Stay connected with your healthcare team and access your personal medical information anytime with the [facility] Patient Portal. If you would like a full copy of your medical records please contact the [facility] Medical Records Department Friday through Friday between 8a.m. and 4:30p.m. Please follow the directions below to access the portal: 1.Access the email account you provided upon registration to the hospital.2.Look for an invitation email from [facility].3.Open the email and access the invitation link: Accept Invitation to [facility]4.Fill in the required vogel to create your account. Sign into [email or web address] with your username and password that you [...] you will allow to register on the [facility] Patient Portal for access to your information. You can also access the [facility] Patient Portal on the [employer]. Simply click on "Health Records" under "HealthData" and then click on the [facility] logo. HOW TO SAFELY DISPOSE OF PRESCRIPTION [...] Call your local pharmacy or go to [email or web address] to find one close to you.3.Make use of household items: Use cat litter or old coffee grounds to dispose medications if other options arenot available. Mix your drugs with these household products, seal them in an airtight container andthrow it into the garbage. Call [facility]: [phone] to be sure your drugs can be [...] been reviewed and explained to me and IEVANGELIST SYDNEY understand my current condition and have read and understand these discharge instructions. I have received a written copy of the plan/instructions. If I have questions, I am aware that I should contact my doctor. Patient/Environmental Department Manager Signature: Date/Time: Relationship to Patient: Witness Name/Signature: Date/Time: [facility]04-15-2024 Note* Exam Date Time Procedure Performing Provider Status 07/21/23 1:23 PM Echocardiogram, Adul t with Bubble Study- Auth (Verified) [facility] 02-26-2024 Evaluation + Plan note Future Scheduled Tests Laboratory* Thyroid Stimulating Hormone 06/02/23 * Free T4 06/02/23 * Complete Metabolic Panel 06/02/23 [facility] 10-11-2023 Note ORIGINAL EXAMINATION: SOFT TISSUE ULTRASOUND OF THE RIGHT JINFPZFCA36/11/2023 1:26 pm TECHNIQUE: Duplex ultrasound using B-mode/connelly [...] Date: 01/15/2023 2:50:31 PM Ordering Provider[facility] No data available for this section [facility] Evaluation + Plan note Future Appointments Appointment Date:02/17/2023 02:00:00 PM Scheduled Provider:IRINA MONTANO Location:[facility] Appointment Type:PC OV Follow Up [facility] Evaluation + Plan note Future Appointments Appointment Date:06/25/2023 10:00:00 AM Scheduled Provider:CLAUDIA PAIZ DO Location:[facility] Appointment Type:PC Office Procedure Lesion Removal Future Scheduled Tests Laboratory* Thyroid Stimulating Hormone 06/02/23 * Free T4 06/02/23 * Complete Metabolic Panel 06/02/23 [facility] Evaluation + Plan note Future Appointments Appointment Date:07/21/2023 01:00:00 PM Scheduled Provider: Location:[facility] Appointment Type:Echo - Echocardiogram Adult w/Bubble Khang Future Scheduled Tests Laboratory* Thyroid Stimulating Hormone 06/02/23 * Free T4 06/02/23 * Complete Metabolic Panel 06/02/23 [facility] Evaluation + Plan note Future Appointments Appointment Date:08/18/2023 11:15:00 AM Scheduled Provider:CHINA MARSHALL Location:[facility] Appointment Type:CV [employer]ATE [employer]ER [employer] Future Scheduled Tests Laboratory* Thyroid Stimulating Hormone 06/02/23 * Free T4 06/02/23 * Complete Metabolic Panel 06/02/23 Radiology* US Pelvis Non-OB Limited 08/04/23 [facility] Evaluation + Plan note Future Appointments Appointment Date:11/05/2023 03:00:00 PM Scheduled Provider:CHINA MARSHALL Location:[facility] Appointment Type:CV OV Future Scheduled Tests Laboratory* Thyroid Stimulating Hormone 06/02/23 * Free T4 06/02/23 * Complete Metabolic Panel 06/02/23 Radiology* US Pelvis Non-OB Limited 08/04/23 [facility] Evaluation noteNo assessment information available [facility] Work Phone: Evaluation note* Diagnosis Onset Date Resolution Status Admit Date Contraception management acute December 27, 2024 10:06am PCOS (polycystic ovarian syndrome) acute December 27, 2024 10:06am Secondary oligomenorrhea acute December 27, 2024 10:06am [facility] Work Phone: Hospital Discharge instructions No data available for this section [facility] Hospital Discharge instructionsAdditional Instructions Please follow-up with your DIRECTOR OF STRATEGIC SOURCING as scheduled next week. Your workup today [...] develop fever please return to the emergency room.[facility] Work Phone: Progress note No data available for this section [facility] Progress note Author Sherri Mccollum [facility] Note Date/Time December 27, 2024 10:23am [facility] [address] [place] [address], [address] [place] [address] OFFICE VISIT Date of Service: 12/27/24 MR#: [id number] Acct: [id number] Name: KIERRA BLANCA Rep #: [id number] : 2000 Provider: BERENICE Mccollum Age/Sex: 24/F Location: [facility] Status: Signed Intake Vital Signs 09/01/24 11:31 12/23/24 06:14 12/27/24 10:09 Height 5 ft 2 in 5 ft 2 in 5 ft 2 in Weight: 103 lb 2 oz BMI 18.8 BP 120/82 H Intake Visit Reasons: BC Consult *copay $20 Chopped Strand Operator Required: No Is patient in pain?: No [...] History current occupational status: employed current occupation: [employer] Smoking Status: Current every day smoker tobacco [...] general counseling and advice oncontraception Comment: plans polly IUD Medications: Refilled medroxyprogesterone 10 mg PO QDAY 10 tabs 0RF 10 days Plan Discussed use, benefits, risks and side effects of polly IUD Written informationgiven. She will call with onset of menses for insertion. 12/27/24 1028 <Electronically signed by Sherri grewal MICA [employer]ATE LAYER HAND MICA PLATE LAYER HAND-C> Date _ Sherri Mccollum NP [employer]ATE [employer]-C Cosigner Signature: Date (if applicable) CC: ~ [facility] Work Phone: Progress note Author Sherri Mccollum [facility] Note Date/Time January 10, 2025 11 :52am [facility] [address], [address] [place] [address] OFFICE VISIT Date of Service: 01/10/25 MR#: [id number] Acct: [id number] Name: KIERRA BLANCA Rep #: [id number] : 2000 Provider: BERENICE Mccollum Age/Sex: 24/F Location: [facility] Status: Signed with Addenda ADDENDUM by Anne James on 01/10/25 at 1153 Office Procedure Documentation entered by Anne James 01/10/25 11:53: IUD Insertion IUD GC/Chlamydia:: done (12/23/24) Test: Yes Negative Consent Signed: Yes Time out checklist: patient, procedure, site marked/identified, positioning of patient, supplies available, allergies confirmed and team agrees on procedure IUD: Yes Polly IUD inserted Time out time: 11:45 Details: Sign in Communication: Completed Sign out documentation: Completed The uterus sounded to 6 cm. After prepping the cervix with betadine and using sterile technique, the cervix was grasped with a single tooth tenaculum and the IUD was inserted without difficulty and the string was cut to 3cm from the external os of the cervix. All instruments were removed from the vagina and excellent hemostasis was noted. Procedure Summary: patient tolerated the procedure well without complication. Office Meds levonorgestrel 14 mcg/24 hr (up to 3 yrs) 13.5 mg intrauterine device Performing Provider: BERENICE Rosales NP Performing Location: [facility] [place] Administered by: BERENICE Rosales NP on 01/10/25 11:42 Dose Route Admin Location Dispensed Lot Number Expiration Date Pack age NDC NDC [employer]ai [employer]urist 1 insert intrauterine [facility] 1 insert [id number] ELLIOTT,PHARM DIV Total Dispensed Waste 1 insert 0 % Date _ cc: ~* Signed Intake Vital Signs 12/27/24 10:09 01/10/25 11:29 01/10/25 11:38 Height 5 ft 2 in 5 ft 2 in 5 ft 2 in Weight: 103 lb 2 oz 103 lb 2 oz BMI 18.8 18.8 BP 120/82 H 118/77 Intake Visit Reasons: POLLY INSERTION *BM Chopped Strand Operator Required: No Is patient in pain?: No Allergies No Known Allergies Allergy (Verified 01/10/25 11:28) Medications ?Medication ?Instructions ?Recorded ?Confirmed ?Type cholecalciferol (vitamin D3) 10 10 mcg PO QDAY 5 01/10/25 History mcg (400 unit) capsule Is last menstrual period known: Yes Last Menstrual Period: 01/06/25 Post menopausal: No Patient : No : No PFSH PFSH Medical History Depression MVP (mitral valve prolapse) Surgical History No significant past surgical history Family History Mother Breast cancer, Onset Age: 53 BRCA Negative Aunt Breast cancer Maternal Grandmother Breast cancer Maternal Brother History of pineal cyst Glioma Other Diabetes Heart disease Kidney disease Social History current occupational status: employed current occupation: [employer] Smoking Status: Current every day smoker tobacco type: e-cigarettes Electronic Cigarette Use: with nicotine alcohol intake: never substance use type: marijuana seatbelt use: always do you feel safe at home: Yes History 0 Elective abortions Hx Para Spontaneous abortions Hx # Term Pregnancies Ectopic pregnancies Hx # Pregnancies Multiple births # of living children HPI POLLY INSERTION *BM Details: KIERRA BLANCA is a 24 year old who presents for insertion paragard IUD Female Reproductive History Last Menstrual Period: 01/06/25 ROS Const Constitutional: Reports system reviewed and no additional complaints, except as documented Eyes Eyes: Reports system reviewed and no additional complaints, except as documented GI GI: Denies abdominal pain or change in bowel habits : Reports as per HPI Exam Const General: cooperative and no acute distress Orientation: oriented x3 General: bladder normal to palpation External Female Exam: normal external appearance and normal appearance of the urethra Urethra: normal appearance of the urethra Speculum Exam - Vagina: normal appearance of the vagina, normal vaginal discharge, no lesions and nontender Speculum Exam - Cervix: normal appearance of the cervix Bimanual Exam- Vagina & Uterus: normal bimanual exam, uterine size normal, bladder normal to palpation, uterine shape normal, uterine mobility normal and non- tender Bimanual Exam- Adnexa, other: normal adnexae, no masses and non-tender Office Procedures IUD Insertion IUD GC/Chlamydia:: done (12/23/24) Test: Yes Negative Consent Signed: Yes Time out checklist: patient, procedure, site marked/identified, positioning of patient, supplies available, allergies confirmed and team agrees on procedure IUD: Yes Polly IUD inserted Time out time: 11:45 Details: Sign in Communication: Completed Sign out documentation: Completed The uterus sounded to 6 cm. After prepping the cervix with betadine and using sterile technique, the cervix was grasped with a single tooth tenaculum and the IUD was inserted without difficulty and the string was cut to 3cm from the external os of the cervix. All instruments were removed from the vagina and excellent hemostasis was noted. Procedure Summary: patient tolerated the procedure well without complication. Office Meds levonorgestrel 14 mcg/24 hr (up to 3 yrs) 13.5 mg intrauterine device Performing Provider: BERENICE Rosales NP Performing Location: [facility] Documented (not given) by: Sherri Mccollum NP, MICA PLATE LAYER HAND-C on 01/10/25 11:42 Dose Route Admin Location Dispensed Lot Number Expiration Date Pack age NDC NDC Bonsai Culturist 1 insert intrauterine ea Total Dispensed Waste n/a n/a Results POC Urine Office , Urine Negative Last Edit by Anne James on 01/10/25 11:42 Coding Level of Care Code Attention Box Annealer Diagnoses Encounter for insertion of Polly IUD Z30.430 Assessment and Plan Assessment and Plan (1) Encounter for insertion of Polly IUD: Orders: Orders Polly IUD Today Z30.430 - Encounter for insertion of intrauterine contraceptivedevice POC Urine Today N91.2 - Amenorrhea, unspecified PAP I-G w/rfx hrHPV-Aptima Today Z12.4 - Encounter for screening for malignant neoplasm of cervix Medications: New levonorgestrel 1 insert intrauterine ONCE 1 ea 0RF Z30.430 - Encounter for insertion of intrauterine contraceptive device Plan Reviewed S&S infection and condom use. Written information given RTO 6 weeks 01/10/25 1152 <Electronically signed by Sherri grewal NP MICA PLATE LAYER HAND-C> Date _ Sherri Mccollum MICA PLATE LAYER HAND MICA PLATE LAYER HAND-C Cosigner Signature: Date (if applicable) CC: ~ [facility] Work Phone: Reason for referral (narrative)No reason for referral information availableWThe [facility] Work Phone: Summary Purpose Family History No Family History Records Found Relationship Condition Age at Onset Recorded Date/T suki Not Specified Diabetes mellitus Unknown Cardiac disease Unknown Kidney disorder Unknown mother Malignant neoplasm of breast 53 aunt Malignant neoplasm of breast Unknown grandmother Malignant neoplasm of breast Unknown brother History of pineal cyst Unknown Glioma Unknown Advance Directives No Advanced Directives Records Found Advance Directive Response Recorded Date/ Time Do you have a Healthcare Power of Visual Merchandise Manager? No December 23, 2024 6:14am Chief Complaint [...] December 23, 2024 6:14am BC Consult *copay $December 27 10:06am Reason for Visit Admit Date Contraception management December 27, 2024 10:06am PCOS (polycystic ovarian syndrome) [facility] 2024 10:06am Secondary oligomenorrhea December 27, 2024 10:06am Chief Complaint Admit Date ABD PAIN December 23, 2024 6:14am BC Consult *copay $December 27 10:06am POLLY INSERTION *BM January 10, 2025 11 :27am Reason for Visit Admit Date Contraception management December 27, 2024 10:06am PCOS (polycystic ovarian syndrome) [facility] 2024 10:06am Secondary oligomenorrhea December 27, 2024 10:06am Encounter for insertion of Polly IUD Oct elinor2024 11:27am Additional Source Comments INFORMATION SOURCE (unrecogn ized section and content) DATE CREATED AUTHOR 10/28/2019 [facility] DATE CREATED AUTHOR AUTHOR'S ORGANIZ ATION 10/25/2023 [facility] ([place]) DATE CREATED AUTHOR AUTHOR'S ORGANIZ ATION 04/17/[address] [facility] DATE CREATED AUTHOR AUTHOR'S ORGANIZ ATION 01/16/2025 [facility] Care Team (unrecognized sect ion and content) Care Team Personnel Name: MÓNICA STRANGE APRN-ASUNCION Position: P4 Advanced Practice Nurse Med Service: Active Provider Member Role: Primary Care Physician Address: Address: [address] [place] [address] [address] [facility] [place], [place] [address] Care Team Related Persons Name: FRANK BLANCALL Name: ARABELLA BLANCA Address: Home [address], [place] [id number] [place] Address: Temporary [address], [place] [id number] Patient Care team informatio n (unrecognized section and content) Team Status: Active Member Role Status Dates Dr. Jacqueline Bach MD Family Provider Active Mónica Strange MICA PLATE LAYER HAND, MICA PLATE LAYER HAND-C Primary Care Provider Active Team Status: Inactive Member Role Status Dates Mónica Strange MICA PLATE LAYER HAND, MICA PLATE LAYER HAND-C Primary Care Provider, Attendi ng Provider Active Team Status: Inactive Member Role Status Dates Mónica Strange NP, MICA [employer]ATE LAYER HAND-C Primary Care Provider Active Start: March 30, 2024 End: March 30, 2024 Mónica Strange NP, MICA PLATE LAYER HAND-C Attending Provider Active Start: March 30, 2024 End: March 30, 2024 Mónica Strange MICA PLATE LAYER HAND, MICA PLATE LAYER HAND-C Referring Provider Active Start: March 30, 2024 End: March 30, 2024 Team Status: Inactive Member Role Status Dates Mónica Strange NP, MICA PLATE LAYER HAND-C Primary Care Provider Active Start: July 12, 2024 End: July 12, 2024 Mónica Strange NP, MICA PLATE LAYER HAND-C Referring Provider Active Start: July 12, 2024 End: July 12, 2024 Sherri Mccollum MICA [employer]ATE LAYER HAND, MICA PLATE LAYER HAND-C Attending Provider Active Start: July 12, 2024 End: July 12, 2024 Team Status: Inactive Member Role Status Dates Mónica Strange NP, MICA PLATE LAYER HAND-C Primary Care Provider Active Start: July 12, 2024 End: July 12, 2024 Sherri Mccollum MICA PLATE LAYER HAND, MICA PLATE LAYER HAND-C Attending Provider Active Start: July 12, 2024 End: July 12, 2024 Team Status: Inactive Member Role Status Dates Mónica Strange NP, MICA PLATE LAYER HAND-C Primary Care Provider Active Start: September 01, 2024 End: September 01, 2024 Mónica Strange MICA PLATE LAYER HAND, MICA PLATE LAYER HAND-C Referring Provider Active Start: September 01, 2024 End: September 01, 2024 Sherri Mccollum MICA PLATE LAYER HAND, MICA PLATE LAYER HAND-C Attending Provider Active Start: September 01, 2024 End: September 01, 2024 Team Status: Inactive Member Role Status Dates Mónica Strange MICA PLATE LAYER HAND, MICA PLATE LAYER HAND-C Primary Care Provider Active Start: September 01, 2024 End: September 01, 2024 Sherri Mccollum MICA PLATE LAYER HAND, MICA PLATE LAYER HAND-C Attending Provider Active Start: September 01, 2024 End: September 01, 2024 Sherri Mccollum MICA PLATE LAYER HAND, MICA PLATE LAYER HAND-C Referring Provider Active Start: September 01, 2024 End: September 01, 2024 Team Status: Active Member Role/Relationship Status Dates Mónica Strange MICA PLATE LAYER HAND, MICA PLATE LAYER HAND-C Primary care physician Active Team Status: Inactive Member Role/Relationship Status Dates Mónica Strange MICA PLATE LAYER HAND, MICA PLATE LAYER HAND-C Primary care physician Active Start: September 01, 2024 End: September 01, 2024 Mónica Strange NP, MICA PLATE LAYER HAND-C Referring Provider Active Start: September 01, 2024 End: September 01, 2024 Sherri Mccollum MICA PLATE LAYER HAND, MICA PLATE LAYER HAND-C Attending physician Active Start: September 01, 2024 End: September 01, 2024 Team Status: Inactive Member Role/Relationship Status Dates Mónica Strange NP, MICA PLATE LAYER HAND-C Primary care physician Active Start: September 01, 2024 End: September 01, 2024 Sherri Mccollum M[employer]ATE LAYER HAND, MICA PLATE LAYER HAND-C Attending physician Active Start: September 01, 2024 End: September 01, 2024 Sherri Mccollum MICA [employer]ATE LAYER HAND, MICA PLATE LAYER HAND-C Referring Provider Active Start: September 01, 2024 End: September 01, 2024 Team Status: Inactive Member Role/Relationship Status Dates Mónica Strange NP, MICA PLATE LAYER HAND-C Primary care physician Active Start: December 23, 2024 End: December 23, 2024 Dr. Jase Stephenson DO Emergency Departme nt Physician Active Start: December 23, 2024 End: December 23, 2024 Team Status: Inactive Member Role/Relationship Status Dates Mónica Strange NP, MICA PLATE LAYER HAND-C Primary care physician Active Start: December 23, 2024 End: December 23, 2024 Dr. Jase Andes , DO Attending physician Active Start: December 23, 2024 End: December 23, 2024 Dr. Jase Stephenson , DO Emergency Departme nt Physician Active Start: December 23, 2024 End: December 23, 2024 Team Status: Inactive Member Role/Relationship Status Dates Mónica Strange NP, MICA PLATE LAYER HAND-C Primary care physician Active Start: December 27, 2024 End: December 27, 2024 Mónica Strange NP, MICA PLATE LAYER HAND-C Referring Provider Active Start: December 27, 2024 End: December 27, 2024 Sherri Mccollum NP, MICA PLATE LAYER HAND-C Attending physician Active Start: December 27, 2024 End: December 27, 2024 Team Status: Inactive Member Role/Relationship Status Dates Mónica Strange NP, MICA PLATE LAYER HAND-C Primary care physician Active Start: January 10, 2025 End: January 10, 2025 Mónica Strange NP, MICA PLATE LAYER HAND-C Referring Provider Active Start: January 10, 2025 End: January 10, 2025 Sherri Mccollum NP, MICA PLATE LAYER HAND-C Attending physician Active Start: January 10, 2025 End: January 10, 2025 Team Status: Active Member Role/Relationship Status Dates Mónica Strange NP, MICA PLATE LAYER HAND-C Primary care physician Active Start: January 10, 2025 Sherri Mccollum NP, MICA PLATE LAYER HAND-C Attending physician Active Start: January 10, 2025 Goals (unrecognized section and content) Goals may [...] BE BASED ON THE PRIMARY CLINICAL RECORDS. [employer] provides no warranty or guarantee of the accuracy or completeness of information in this document.
== END | disposition home or self-care (01) ==
LOC: LABSPEC 16:13
PROVIDERS: PCP Nurse Practitioner Family; Referring Provider Nurse Practitioner Women's Health; Visit Provider Nurse Practitioner Women's Health
DX: N89.8 Other specified noninflammatory disorders of vagina (principal)
CPT/HCPCS: 87070; 87205

== ENCOUNTER → 2025-02-16 | Outpatient (CLI) | payer OTHER, SELFPAY | END | disposition home or self-care (01) | LOC: LABSPEC 12:31 | PROVIDERS: PCP Nurse Practitioner Family; Visit Provider Physician Assistant | DX: R82.90 Unspecified abnormal findings in urine (principal) | CPT/HCPCS: 87086; 87088 ==